=== PATIENT | male | born 1980 | race Caucasian/White ===

== ENCOUNTER → 2016-10-05 | Outpatient (CLI) | payer OTHER ==
[~2016-10-05] MED LIST: /AUGM875TA OR; /ESOM40CA OR; /OXAZ10CA OR; /PANT40TA OR; /THIA10TA OR; ACET65TA OR; AMOX500C PO; AUGM875T27 PO; CIPR500T89 PO; CLIN150C OR; FLOVENT INH INH; FOLI1TAB OR; FOLI1TAB2 PO; KEPP1000 PO; KEPP500T4 PO; KEPP500T6 PO; KEPPRA PO; LISI20TA PO; MAGN500T2 OR; MULTCAP PO; MULTIVIT PO; NICO21DI4 TD; NYSTATIN ORAL SSP; No Historical Meds; OXAZ10CA PO; OXAZ15CA PO; OXAZ15CA2 OR; OXAZ30CA OR; THIA100T OR; TYLE325T5 PO; UNABLE TO VERIFY; VENTAER IN; VENTOLIN ROTAHALER INH; VIBR100C PO; VITA10002 PO; VITA100T OR; VITA100T2 PO; VITA100T60 PO; VITMTA PO; Vit B12 PO; XANA0.5T OR; [UNRECOGNIZED DRUG - CODE] PO; [UNRECOGNIZED DRUG - CODE] PO
== END ==
LOC: M LAB 09:49
PROVIDERS: ATTEND Nurse Practitioner Family
DX: E53.8 Deficiency of other specified B group vitamins (principal)

== ENCOUNTER 2016-10-08 17:31 | Emergency (ER) | payer OTHER ==
[2016-10-08] MEDS ORDERED: levETIRAcetam 500 MG/5 ML VIAL (KEPPRA IV)(J1953) As Ordered ONE (18:35)
--- NOTE | 2016-10-08 18:56 | REP ---
AP PORTABLE CHEST: 10/08/2016. Clinical history: Altered level of consciousness. Comparison: 05/14/2016, 12/06/2014. Findings: Two views to encompass the entirety of the chest and AP portable technique show the lung robles well inflated. The CP angles are sharply defined without pleural effusions. There is no lateral pleural thickening, apical pneumothorax or dense consolidation. No gross cardiomegaly or cindi edema. I see no venous hypertension. Some minor basilar subsegmental atelectatic change suggested on the right. No air bronchograms. The aorta is normal for age. Airway intact. Bony thorax unremarkable. Impression: 1. Minor right base subsegmental atelectatic change without dense consolidation, pleural effusion, cardiomegaly, edema, or other acute finding. Signed by Jacky Balderas MD 10/08/2016 07:42 P
[2016-10-08 18:57] LABS: BASO # 0.1 K/mm3 (0.0-0.2); BASO % 0.9 % (0.0-1.0); EOS # 0.2 K/mm3 (0.0-0.50); EOS % 2.2 % (0.0-3.0); LARGE UNSTAINED CELL # 0.2 K/mm3 (0.0-0.4); LARGE UNSTAINED CELL % 2.5 % (0.0-4.0); LYMPH # 0.5 K/mm3 (1.5-4.5); LYMPH % 6.7 % (24.0-44.0); MEAN CORPUSCULAR HEMOGLOBIN 32.8 pg (27.0-33.0); MEAN CORPUSCULAR HGB CONC 32.9 g/dl (32.0-36.5); MEAN CORPUSCULAR VOLUME 99.5 fl (80.0-96.0); MONO # 0.5 K/mm3 (0.0-0.8); MONO % 6.8 % (0.0-5.0); NEUTROPHILS # 5.7 K/mm3 (1.8-7.7); NEUTROPHILS % 80.9 % (36.0-66.0); PLATELET COUNT, AUTOMATED 280 k/mm3 (150-450); WHITE BLOOD COUNT 7.1 K/mm3 (4.0-10.0)
[2016-10-08 19:15] LABS: ALBUMIN 4.1 GM/DL (3.2-5.2); ALBUMIN/GLOBULIN RATIO 1.32 (1.00-1.93); ALKALINE PHOSPHATASE 74 U/L (45-117); ALT/SGPT 30 U/L (12-78); ANION GAP 10 MEQ/L (8-16); AST/SGOT 25 U/L (15-37); BILIRUBIN,DIRECT 0.2 MG/DL (0.0-0.2); BILIRUBIN,TOTAL 0.7 MG/DL (0.2-1.0); BLOOD UREA NITROGEN 12 MG/DL (7-18); CALCIUM LEVEL 8.8 MG/DL (8.5-10.1); CARBON DIOXIDE LEVEL 25 MEQ/L (21-32); CHLORIDE LEVEL 103 MEQ/L (98-107); CREATININE FOR GFR 0.96 MG/DL (0.70-1.30); GLOMERULAR FILTRATION RATE > 60.0 (>60); GLUCOSE, FASTING 124 MG/DL (70-105); SODIUM LEVEL 138 MEQ/L (136-145); TOTAL PROTEIN 7.2 GM/DL (6.4-8.2)
--- NOTE | 2016-10-08 20:25 | EDDOCDS ---
Physician Documentation [facility] Name: Robinson Bhatti Age: 36 yrs Sex: Male : 1980 Arrival Date: 10/08/2016 Time: 17:31 Bed 11 Private MD: Disposition: 10/08/16 20:10 Discharged to Home/Self Care. Impression: Epilepsy and recurrent seizures. - Condition is Stable. - Discharge Instructions: Seizure, Adult. - Prescriptions for Keppra 500 mg Oral Tablet - take 2 tablet by ORAL route every 12 hours; 40 tablet. - Medication Reconciliation, Local Pharmacy Hours form. - Follow up: Mague Villalobos MD; When: Call to arrange an appointment; Reason: Recheck today's complaints, Continuance of care. - Problem is an acute exacerbation. - Symptoms have improved. Historical: - Allergies: no known allergies; - Home Meds: 1. levetiracetam 1,000 mg oral tab 1 tab every 12 hours (Last dose: 10/08/2016 08:00) 2. Vitamin B-12 Oral daily 3. lisinopril-hydrochlorothiazide 20-12.5 mg oral tab 2 tab once daily 4. folic acid 1 mg Oral tab 1 tab once daily - PMHx: ETOH abuse; Seizure Disorder; - PSHx: none; - Social history: Smoking status: Patient uses tobacco products, current every day smoker. No barriers to communication noted, The patient speaks fluent Montenegrin. - Family history: Not pertinent. - : The pt / caregiver states he / she is not on anticoagulants. Home medication list is obtained from the patient. - Exposure Risk Screening:: None identified. Vital Signs: 10/08 17:40 BP 130 / 85; Pulse 104; Resp 18; Temp 99.7(TE); Pulse Ox 97% on R/A; mdr 17:45 BP 119 / 80 (auto/); js13 17:45 Pulse 96 MON; js13 18:00 BP 120 / 81 (auto/); js13 18:00 Pulse 96 MON; Pulse Ox 89% ; js13 18:30 BP 120 / 80 (auto/); js13 18:30 Pulse 102 MON; Pulse Ox 94% ; js13 18:45 BP 120 / 81 (auto/); js13 18:45 Pulse 90 MON; Pulse Ox 96% ; js13 19:00 BP 116 / 78 (auto/); js13 19:00 Pulse 94 MON; Pulse Ox 96% ; js13 19:05 Pulse 90 MON; Pulse Ox 98% ; mlc 19:11 Pulse 78 MON; mlc 20:13 BP 122 / 80; Pulse 88; Resp 18; Temp 98.4(O); Pulse Ox 97% on R/A; Pain 0/10; hiram MDM: 18:09 Surveyor Helper/Pulse Ox/q 15 min VS ordered. ke 18:09 IV Saline Lock ordered. ke 18:09 Oxygen at 4L/Min NC or Home dosage ordered. ke 18:09 Rhythm Strip to chart ordered. ke 18:09 NS 0.9% 1000 ml IV at 250 mL/hr continuous ordered. ke 18:10 Acetaminophen Level Ordered. EDMS 18:10 CBC with Diff Ordered. EDMS 18:10 Cardiac Injury Profile Ordered. EDMS 18:10 Drug Eval Toxicology ED Only Ordered. EDMS 18:10 Liver Profile Ordered. EDMS 18:10 MED Profile Ordered. EDMS 18:10 Salicylate Level Ordered. EDMS 18:10 Thyroid Stimulating Hormone Ordered. EDMS 18:10 Troponin Ordered. EDMS 18:10 Keppra (short red top tube) Ordered. EDMS 18:10 ETOH Ordered. EDMS 18:11 ECG WITH READING ER PHYS+CARDIAG ordered. EDMS 18:12 Chest, 1 View Ordered. EDMS 18:20 levETIRAcetam (20mg/kg) 1000 mg IVPB at 400 mL/hr once over 15 mins; dilute in 100mL NS ke or D5W ordered. 18:28 Financial registration complete. page hospital 18:50 [facility] Payment Agreement was scanned into [employer] and attached to record. gjb 19:31 Acetaminophen Level Reviewed. ke 19:31 CBC with Diff Reviewed. ke 19:31 MED Profile Reviewed. ke 19:31 Cardiac Injury Profile Reviewed. ke 19:31 Liver Profile Reviewed. ke 19:31 Salicylate Level Reviewed. ke 19:31 Thyroid Stimulating Hormone Reviewed. ke 19:31 Troponin Reviewed. ke 19:31 ETOH Reviewed. ke 19:31 Chest, 1 View Reviewed. ke Administered Medications: 18:20 CANCELLED (Other Intervention Used): levETIRAcetam (20mg/kg) 500 mg IVPB at 400 mL/hr ke once over 15 mins; dilute in 100mL NS or D5W 18:32 Drug: levETIRAcetam (20mg/kg) 1000 mg [levetiracetam 500 mg/5 mL intravenous solution] js13 Route: IVPB; Rate: 400 mL/hr; Infused Over: 15 mins; Site: left forearm; 18:59 Follow up: IV Status: Completed infusion; IV Intake: 100ml js13 18:45 Drug: NS 0.9% 1000 ml [sodium chloride 0.9 % intravenous solution] Route: IV; Rate: 250 js13 mL/hr; Site: left forearm; Signatures: Dispatcher [employer] EDMS Ty Brandt, HUMAN RESOURCES OFFICER HUMAN RESOURCES OFFICER Sayda Fontana RN RN js13 Caron Lemus RN RN mlc Beck, Gabriela gjb The chart was reviewed and I authenticate all verbal orders and agree with the evaluation and treatment provided.Corrections: (The following items were deleted from the chart) 18:20 18:18 levETIRAcetam (20mg/kg) 500 mg IVPB at 400 mL/hr once over 15 mins; dilute in ke 100mL NS or D5W ordered. saumya 18:21 18:09 Accucheck ordered. ke js13 Attachments: 18:50 [facility] Payment Agreement meet MTDD
--- NOTE | 2016-10-08 20:25 | EDDOCDS ---
Nurse's Notes [facility] Name: Robinson Bhatti Age: 36 yrs Sex: Male : 1980 Arrival Date: 10/08/2016 Time: 17:31 Bed 11 Private MD: Diagnosis: Epilepsy and recurrent seizures Presentation: 10/08 17:34 Presenting complaint: EMS states: Patient has had 5 seizures today last one lasting 3.5 js13 minutes. EMS witnessed seizure. Suicide/Homicide risk assessment- the patient denies having any suicidal and/or homicidal ideations and does not present with any other emotional, behavioral or mental health complaints. 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 Transition of care: patient was not received from another setting of care. Care prior to arrival: See EMS report. Medications administered prior to arrival: VERSED 5 MG Saline lock initiated. Glucose check. 156. 17:34 Method Of Arrival: Ambulance js13 17:34 Acuity: JACK Level 3 js13 17:39 Adult Sepsis Screening: Patient has new or worsening altered mentation (1 point). js13 Patient's respiratory rate is less than 22. Systolic blood pressure is greater than 100. Patient has a qSOFA score of 1- Negative Sepsis Screen. Triage Assessment: 17:37 General: Appears in no apparent distress, Behavior is drowsy. Pain: Denies pain. Pt js13 Declines HIV testing. Neurological: Level of Consciousness is post ictal. Respiratory: Airway is patent Respiratory effort is even, unlabored, Respiratory pattern is regular, symmetrical, Breath sounds are clear. Derm: Skin is pink, warm & dry. Historical: - Allergies: no known allergies; - Home Meds: 1. levetiracetam 1,000 mg oral tab 1 tab every 12 hours (Last dose: 10/08/2016 08:00) 2. Vitamin B-12 Oral daily 3. lisinopril-hydrochlorothiazide 20-12.5 mg oral tab 2 tab once daily 4. folic acid 1 mg Oral tab 1 tab once daily - PMHx: ETOH abuse; Seizure Disorder; - PSHx: none; - Social history: Smoking status: Patient uses tobacco products, current every day smoker. No barriers to communication noted, The patient speaks fluent Sami. - Family history: Not pertinent. - : The pt / caregiver states he / she is not on anticoagulants. Home medication list is obtained from the patient. - Exposure Risk Screening:: None identified. Screenin:39 Screening information is obtained from the patient. Fall risk: At risk due to seizures. js13 Assistance ADL's: requires no assistance with activities of daily living. Abuse/DV Screen: The patient / caregiver reports he/she is: not in a situation that causes fear, pain or injury. Nutritional screening: No deficits noted. Advance Directives: There is no active DNR order. home support is adequate. Assessment: 17:40 General: Appears in no apparent distress, Behavior is drowsy. Pain: Denies pain. js13 Neurological: Level of Consciousness is post ictal. Cardiovascular: Rhythm is sinus tachycardia Chest pain is denied. Respiratory: Airway is patent Respiratory effort is even, unlabored, Respiratory pattern is regular, symmetrical, Breath sounds are clear. Derm: Skin is pink, warm & dry. 18:40 General: Appears in no apparent distress, Behavior is uncooperative. Pain: Denies pain. js13 Neurological: Level of Consciousness is awake, alert. Cardiovascular: Rhythm is sinus tachycardia Chest pain is denied. Respiratory: Airway is patent Respiratory effort is even, unlabored, Respiratory pattern is regular, symmetrical. Derm: Skin is pink, warm & dry. 19:11 General: Appears in no apparent distress, comfortable, Behavior is cooperative. mlc General: IV fluids infusing per order. Pain: Denies pain. Neurological: Level of Consciousness is awake, alert, obeys commands, Oriented to person, place, time. Cardiovascular: Rhythm is sinus rhythm. Respiratory: Airway is patent Respiratory effort is even, unlabored, Respiratory pattern is regular. Derm: Skin is pink, warm & dry. 20:18 Reassessment: Patient appears in no apparent distress at this time. General: Appears in mlc no apparent distress, Behavior is cooperative. Pain: Denies pain. Neurological: Level of Consciousness is awake, alert, Oriented to person, place, time. Respiratory: Airway is patent Respiratory effort is even, unlabored, Respiratory pattern is regular. Derm: Skin is pink, warm & dry. Vital Signs: 17:40 BP 130 / 85; Pulse 104; Resp 18; Temp 99.7(TE); Pulse Ox 97% on R/A; mdr 17:45 BP 119 / 80 (auto/); js13 17:45 Pulse 96 MON; js13 18:00 BP 120 / 81 (auto/); js13 18:00 Pulse 96 MON; Pulse Ox 89% ; js13 18:30 BP 120 / 80 (auto/); js13 18:30 Pulse 102 MON; Pulse Ox 94% ; js13 18:45 BP 120 / 81 (auto/); js13 18:45 Pulse 90 MON; Pulse Ox 96% ; js13 19:00 BP 116 / 78 (auto/); js13 19:00 Pulse 94 MON; Pulse Ox 96% ; js13 19:05 Pulse 90 MON; Pulse Ox 98% ; mlc 19:11 Pulse 78 MON; mlc 20:13 BP 122 / 80; Pulse 88; Resp 18; Temp 98.4(O); Pulse Ox 97% on R/A; Pain 0/10; hiram Vitals: 17:37 Log In Time N/A - ambulance arrival. 13 ED Course: 17:32 Patient visited by Justyn Birmingham PCA. [facility] 17:[address] [facility] 17:32 Patient moved to [facility] 17:36 Triage Initiated [facility] 17:39 The patient / caregiver is instructed regarding the plan of care and ED course. Side js13 rails up X2. Seizure precautions initiated. quality assurance monitor on. Pulse ox on. NIBP on. 17:39 Maintain field IV. Dressing intact. Good blood return noted. Site clean & dry. Gauge & 13 site: 18 gauge left forearm. No procedures done that require assistance. 17:40 Patient visited by Martin Rosario PCA. mdr 17:41 Patient visited by Sayda Gomez,DOROTHY. [facility] 17:43 Patient visited by Sayda Gomez,DOROTHY. 13 17:49 O2 via nasal cannula \T\ 2L/min. js13 18:03 Ty Brandt FNP is PHCP. ke 18:03 Patient visited by Ty Brandt FNP. ke 18:03 Patient visited by Ty Brandt FNP. ke 18:21 Patient visited by Yanelis Tellez. lr2 18:21 EKG done. (by ED staff). lr2 18:22 Pt greeted and oriented to ED. Patient advised of names of staff involved in care, lr2 location of call johnson, wait times and NPO status. Patient has correct armband on for positive identification. Placed in gown. Bed in low position. Side rails up X2. 18:23 Patient visited by Yanelis Tellez. lr2 18:50 [facility] Payment Agreement was scanned into [employer] and attached to record. gjb 18:54 Patient visited by Ty Brandt FNP. ke 19:02 Patient visited by Sayda Gomez,DOROTHY. js13 19:11 Caron Lemus,RN is Primary Nurse. mlc 19:13 Patient visited by Caron Lemus,DOROTHY. mlc 19:17 Chest, 1 View Returned. EDMS 19:52 Patient visited by Ty Brandt FNP. ke 20:04 Chest, 1 View Returned. EDMS 20:10 Mague Villalobos MD is Referral Physician. ke 20:14 Patient visited by Jeanne Armstrong PCA. hiram 20:18 Discontinued IV lock intact, bleeding controlled, pressure dressing applied, No mlc redness/swelling at site. Administered Medications: 18:20 CANCELLED (Other Intervention Used): levETIRAcetam (20mg/kg) 500 mg IVPB at 400 mL/hr ke once over 15 mins; dilute in 100mL NS or D5W 18:32 Drug: levETIRAcetam (20mg/kg) 1000 mg [levetiracetam 500 mg/5 mL intravenous solution] js13 Route: IVPB; Rate: 400 mL/hr; Infused Over: 15 mins; Site: left forearm; 18:59 Follow up: IV Status: Completed infusion; IV Intake: 100ml js13 18:45 Drug: NS 0.9% 1000 ml [sodium chloride 0.9 % intravenous solution] Route: IV; Rate: 250 js13 mL/hr; Site: left forearm; Intake: 18:59 IV: 100.00ml; Total: 100.00ml. js13 Order Results: Lab Order: Acetaminophen Level; SPEC'M 10/08/16 18:39 Test: ACETAMINOPHEN LEVEL; Value: < 2.0; Range: 10.0-30.0; Abnormal: Below low normal; Units: UG/ML; Status: F Lab Order: CBC with Diff; SPEC'M 10/08/16 18:39 Test: WHITE BLOOD COUNT; Value: 7.1; Range: 4.0-10.0; Units: K/mm3; Status: F Test: RED BLOOD COUNT; Value: 4.53; Range: 4.30-6.10; Units: M/mm3; Status: F Test: HEMOGLOBIN; Value: 14.8; Range: 14.0-18.0; Units: g/dl; Status: F Test: HEMATOCRIT; Value: 45.1; Range: 42.0-52.0; Units: %; Status: F Test: MEAN CORPUSCULAR VOLUME; Value: 99.5; Range: 80.0-96.0; Abnormal: Above high normal; Units: fl; Status: F Test: MEAN CORPUSCULAR HEMOGLOBIN; Value: 32.8; Range: 27.0-33.0; Units: pg; Status: F Test: MEAN CORPUSCULAR HGB CONC; Value: 32.9; Range: 32.0-36.5; Units: g/dl; Status: F Test: RED CELL DISTRIBUTION WIDTH; Value: 13.0; Range: 11.5-14.5; Units: %; Status: F Test: PLATELET COUNT, AUTOMATED; Value: 280; Range: 150-450; Units: k/mm3; Status: F Test: NEUTROPHILS %; Value: 80.9; Range: 36.0-66.0; Abnormal: Above high normal; Units: %; Status: F Test: LYMPH %; Value: 6.7; Range: 24.0-44.0; Abnormal: Below low normal; Units: %; Status: F Test: MONO %; Value: 6.8; Range: 0.0-5.0; Abnormal: Above high normal; Units: %; Status: F Test: EOS %; Value: 2.2; Range: 0.0-3.0; Units: %; Status: F Test: BASO %; Value: 0.9; Range: 0.0-1.0; Units: %; Status: F Test: LARGE UNSTAINED CELL %; Value: 2.5; Range: 0.0-4.0; Units: %; Status: F Test: NEUTROPHILS #; Value: 5.7; Range: 1.8-7.7; Units: K/mm3; Status: F Test: LYMPH #; Value: 0.5; Range: 1.5-4.5; Abnormal: Below low normal; Units: K/mm3; Status: F Test: MONO #; Value: 0.5; Range: 0.0-0.8; Units: K/mm3; Status: F Test: EOS #; Value: 0.2; Range: 0.0-0.50; Units: K/mm3; Status: F Test: BASO #; Value: 0.1; Range: 0.0-0.2; Units: K/mm3; Status: F Test: LARGE UNSTAINED CELL #; Value: 0.2; Range: 0.0-0.4; Units: K/mm3; Status: F Lab Order: Cardiac Injury Profile; SPEC'M 10/08/16 18:39 Test: CPK CREATINE PHOSPHOKINASE; Value: 106; Range: 39-308; Units: U/L; Status: F Test: CK-MB VALUE MASS; Value: 1.0; Range: 0.0-3.6; Units: NG/ML; Status: F Test: MB/CK RELATIVE INDEX; Value: 0.94; Range: < OR =4; Status: F Test Note: ; DIAGNOSIS CRITERIA MMB ng/ml Relative Index (RI) NON-AMI < or = 5 N/A MURRY ZONE > 5 < or = 4 AMI > 5 > 4 Lab Order: Liver Profile; SPEC'M 10/08/16 18:39 Test: AST/SGOT; Value: 25; Range: 15-37; Units: U/L; Status: F Test: ALT/SGPT; Value: 30; Range: 12-78; Units: U/L; Status: F Test: ALKALINE PHOSPHATASE; Value: 74; Range: 45-117; Units: U/L; Status: F Test: BILIRUBIN,TOTAL; Value: 0.7; Range: 0.2-1.0; Units: MG/DL; Status: F Test: BILIRUBIN,DIRECT; Value: 0.2; Range: 0.0-0.2; Units: MG/DL; Status: F Test: TOTAL PROTEIN; Value: 7.2; Range: 6.4-8.2; Units: GM/DL; Status: F Test: ALBUMIN; Value: 4.1; Range: 3.2-5.2; Units: GM/DL; Status: F Test: ALBUMIN/GLOBULIN RATIO; Value: 1.32; Range: 1.00-1.93; Status: F Lab Order: MED Profile; SPEC'10/08/16 18:39 Test: GLUCOSE, FASTING; Value: 124; Range: 70-105; Abnormal: Above high normal; Units: MG/DL; Status: F Test: BLOOD UREA NITROGEN; Value: 12; Range: 7-18; Units: MG/DL; Status: F Test: CREATININE FOR GFR; Value: 0.96; Range: 0.70-1.30; Units: MG/DL; Status: F Test: GLOMERULAR FILTRATION RATE; Value: > 60.0; Range: >60; Status: F Test: SODIUM LEVEL; Value: 138; Range: 136-145; Units: MEQ/L; Status: F Test: POTASSIUM SERUM; Value: 4.0; Range: 3.5-5.1; Units: MEQ/L; Status: F Test: CHLORIDE LEVEL; Value: 103; Range: 98-107; Units: MEQ/L; Status: F Test: CARBON DIOXIDE LEVEL; Value: 25; Range: 21-32; Units: MEQ/L; Status: F Test: ANION GAP; Value: 10; Range: 8-16; Units: MEQ/L; Status: F Test: CALCIUM LEVEL; Value: 8.8; Range: 8.5-10.1; Units: MG/DL; Status: F Test Note: ; Units are mL/min/1.73 m2 Chronic Kidney Disease Staging per NKF: Stage I & II GFR >=60 Normal to Mildly Decreased Stage III GFR 30-59 Moderately Decreased Stage IV GFR 15-29 Severely Decreased Stage V GFR <15 Very Little GFR Left ESRD GFR <15 on TRANSFORMATION CONSULTANT Lab Order: Salicylate Level; SPEC'10/08/16 18:39 Test: SALICYLATE LEVEL; Value: 5.0; Range: 5.0-30.0; Units: MG/DL; Status: F Lab Order: Thyroid Stimulating Hormone; SPEC'10/08/16 18:39 Test: THYROID STIMULATING HORMONE; Value: 0.787; Range: 0.358-3.740; Units: uIU/ML; Status: F Lab Order: Troponin; SPEC'10/08/16 18:39 Test: TROPONIN I; Value: < 0.02; Range: < 0.10; Units: NG/ML; Status: F Test Note: ; Troponin I Reference Interval for Siemens [place] LOCI: 99th Percentile= 0.00-0.045 ng/ml Risk Stratification: <= 0.10 ng/ml Decreased Risk for Adverse Clinical Events. 0.10-1.50 ng/ml Increased Risk for Adverse Clinical Events. Evaluation of additional criterion and/or repeat testing in 2-6 hours is suggested to rule out myocardial damage. >= 1.50 ng/ml Indicative of Myocardial Injury. Lab Order: ETOH; SPEC'M 10/08/16 18:39 Test: ETHYL ALCOHOL (ETHANOL); Value: < 0.003; Range: 0.000-0.010; Units: %; Status: F Radiology Order: Chest, 1 View Test: Chest, 1 View REASON FOR EXAMINATION: altered loc; AP PORTABLE CHEST: 10/08/2016.; ; Clinical history: Altered level of consciousness.; ; Comparison: 05/14/2016, 12/06/2014.; ; Findings: Two views to encompass the entirety of the chest and AP portable; technique show the lung robles well inflated. The CP angles are sharply defined; without pleural effusions. There is no lateral pleural thickening, apical; pneumothorax or dense consolidation. No gross cardiomegaly or cindi edema. I; see no venous hypertension. Some minor basilar subsegmental atelectatic change; suggested on the right. No air bronchograms. The aorta is normal for age.; Airway intact. Bony thorax unremarkable.; ; Impression:; ; 1. Minor right base subsegmental atelectatic change without dense consolidation,; pleural effusion, cardiomegaly, edema, or other acute finding.; ; ; Signed by; Jacky Balderas MD 10/08/2016 07:42 P; Outcome: 20:10 Discharge ordered by Provider. ke 20:18 Discharge Assessment: Patient awake, alert and oriented x 3. No cognitive and/or mlc functional deficits noted. Patient verbalized understanding of disposition instructions. patient administered narcotics - no. The following High Risk Discharge criteria are identified: None. Discharged to home ambulatory. Condition: good Condition: stable. Discharge instructions given to patient, Instructed on discharge instructions, follow up and referral plans. medication usage, Demonstrated understanding of instructions, medications, Pt was receptive of discharge instructions/ teaching. Prescriptions given X 1. No special radiology studies were completed. Property sent home with patient. 20:23 Patient left the ED. [facility] [place] Signatures: Dispatcher [employer] EDMS Ty Brandt, CONCRETE PLANT LABORER CONCRETE PLANT LABORER Jeanne Lyles, CAT DRIVER CAT DRIVER Sayda Nicholas,RN RN js13 Justyn Birmingham, CAT DRIVER CAT DRIVER Caron Reveles RN RN [place], CAT DRIVER CAT DRIVER Fatimah Wisdom Laura lr2 MTDD
--- NOTE | 2016-10-09 20:44 | ECGEPIP ---
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
--- NOTE | 2016-10-10 21:24 | EDDOCDS ---
Nurse's Notes [facility] Name: Robinson Carter Age: 36 yrs Sex: Male : 1980 Arrival Date: 10/08/2016 Time: 17:31 Bed 11 Private MD: Diagnosis: Epilepsy and recurrent seizures Presentation: 10/08 17:34 Presenting complaint: EMS states: Patient has had 5 seizures today last one lasting 3.5 js13 minutes. EMS witnessed seizure. Suicide/Homicide risk assessment- the patient denies having any suicidal and/or homicidal ideations and does not present with any other emotional, behavioral or mental health complaints. Status: Patient is not a sales service executive or dependent. Transition of care: patient was not received from another setting of care. Care prior to arrival: See EMS report. Medications administered prior to arrival: VERSED 5 MG Saline lock initiated. Glucose check. 156. 17:34 Method Of Arrival: Ambulance js13 17:34 Acuity: JACK Level 3 js13 17:39 Adult Sepsis Screening: Patient has new or worsening altered mentation (1 point). js13 Patient's respiratory rate is less than 22. Systolic blood pressure is greater than 100. Patient has a qSOFA score of 1- Negative Sepsis Screen. Triage Assessment: 17:37 General: Appears in no apparent distress, Behavior is drowsy. Pain: Denies pain. Pt js13 Declines HIV testing. Neurological: Level of Consciousness is post ictal. Respiratory: Airway is patent Respiratory effort is even, unlabored, Respiratory pattern is regular, symmetrical, Breath sounds are clear. Derm: Skin is pink, warm & dry. Historical: - Allergies: no known allergies; - Home Meds: 1. levetiracetam 1,000 mg oral tab 1 tab every 12 hours (Last dose: 10/08/2016 08:00) 2. Vitamin B-12 Oral daily 3. lisinopril-hydrochlorothiazide 20-12.5 mg oral tab 2 tab once daily 4. folic acid 1 mg Oral tab 1 tab once daily - PMHx: ETOH abuse; Seizure Disorder; - PSHx: none; - Social history: Smoking status: Patient uses tobacco products, current every day smoker. No barriers to communication noted, The patient speaks fluent Croatian. - Family history: Not pertinent. - : The pt / caregiver states he / she is not on anticoagulants. Home medication list is obtained from the patient. - Exposure Risk Screening:: None identified. Screenin:39 Screening information is obtained from the patient. Fall risk: At risk due to seizures. js13 Assistance ADL's: requires no assistance with activities of daily living. Abuse/DV Screen: The patient / caregiver reports he/she is: not in a situation that causes fear, pain or injury. Nutritional screening: No deficits noted. Advance Directives: There is no active DNR order. home support is adequate. Assessment: 17:40 General: Appears in no apparent distress, Behavior is drowsy. Pain: Denies pain. js13 Neurological: Level of Consciousness is post ictal. Cardiovascular: Rhythm is sinus tachycardia Chest pain is denied. Respiratory: Airway is patent Respiratory effort is even, unlabored, Respiratory pattern is regular, symmetrical, Breath sounds are clear. Derm: Skin is pink, warm & dry. 18:40 General: Appears in no apparent distress, Behavior is uncooperative. Pain: Denies pain. js13 Neurological: Level of Consciousness is awake, alert. Cardiovascular: Rhythm is sinus tachycardia Chest pain is denied. Respiratory: Airway is patent Respiratory effort is even, unlabored, Respiratory pattern is regular, symmetrical. Derm: Skin is pink, warm & dry. 19:11 General: Appears in no apparent distress, comfortable, Behavior is cooperative. mlc General: IV fluids infusing per order. Pain: Denies pain. Neurological: Level of Consciousness is awake, alert, obeys commands, Oriented to person, place, time. Cardiovascular: Rhythm is sinus rhythm. Respiratory: Airway is patent Respiratory effort is even, unlabored, Respiratory pattern is regular. Derm: Skin is pink, warm & dry. 20:18 Reassessment: Patient appears in no apparent distress at this time. General: Appears in mlc no apparent distress, Behavior is cooperative. Pain: Denies pain. Neurological: Level of Consciousness is awake, alert, Oriented to person, place, time. Respiratory: Airway is patent Respiratory effort is even, unlabored, Respiratory pattern is regular. Derm: Skin is pink, warm & dry. Vital Signs: 17:40 BP 130 / 85; Pulse 104; Resp 18; Temp 99.7(TE); Pulse Ox 97% on R/A; mdr 17:45 BP 119 / 80 (auto/); js13 17:45 Pulse 96 MON; js13 18:00 BP 120 / 81 (auto/); js13 18:00 Pulse 96 MON; Pulse Ox 89% ; js13 18:30 BP 120 / 80 (auto/); js13 18:30 Pulse 102 MON; Pulse Ox 94% ; js13 18:45 BP 120 / 81 (auto/); js13 18:45 Pulse 90 MON; Pulse Ox 96% ; js13 19:00 BP 116 / 78 (auto/); js13 19:00 Pulse 94 MON; Pulse Ox 96% ; js13 19:05 Pulse 90 MON; Pulse Ox 98% ; mlc 19:11 Pulse 78 MON; mlc 20:13 BP 122 / 80; Pulse 88; Resp 18; Temp 98.4(O); Pulse Ox 97% on R/A; Pain 0/10; hiram Vitals: 17:37 Log In Time N/A - ambulance arrival. 13 ED Course: 17:32 Patient visited by Justyn Birmingham PCA. [facility] 17:32 Patient moved to [facility] 17:32 Patient moved to [facility] 17:36 Triage Initiated [facility] 17:39 The patient / caregiver is instructed regarding the plan of care and ED course. Side js13 rails up X2. Seizure precautions initiated. secured entrance monitor on. Pulse ox on. NIBP on. 17:39 Maintain field IV. Dressing intact. Good blood return noted. Site clean & dry. Gauge & 13 site: 18 gauge left forearm. No procedures done that require assistance. 17:40 Patient visited by Martin Rosario PCA. mdr 17:41 Patient visited by Sayda Gomez,DOROTHY. [facility] 17:43 Patient visited by Sayda Gomez,DOROTHY. 13 17:49 O2 via nasal cannula \T\ 2L/min. js13 18:03 Ty Brandt FNP is PHCP. ke 18:03 Patient visited by Ty Brandt FNP. ke 18:03 Patient visited by Ty Brandt FNP. ke 18:21 Patient visited by Yanelis Tellez. lr2 18:21 EKG done. (by ED staff). lr2 18:22 Pt greeted and oriented to ED. Patient advised of names of staff involved in care, lr2 location of call johnson, wait times and NPO status. Patient has correct armband on for positive identification. Placed in gown. Bed in low position. Side rails up X2. 18:23 Patient visited by Yanelis Tellez. lr2 18:50 [facility] Payment Agreement was scanned into [email or web address] and attached to record. gjb 18:54 Patient visited by Ty Brandt FNP. ke 19:02 Patient visited by Sayda Gomez,DOROTHY. js13 19:11 Caron Lemus,RN is Primary Nurse. mlc 19:13 Patient visited by Caron Lemus,DOROTHY. mlc 19:17 Chest, 1 View Returned. EDMS 19:52 Patient visited by Ty Brandt FNP. ke 20:04 Chest, 1 View Returned. EDMS 20:10 Mague Villalobos MD is Referral Physician. ke 20:14 Patient visited by Jeanne Armstrong PCA. hiram 20:18 Discontinued IV lock intact, bleeding controlled, pressure dressing applied, No mlc redness/swelling at site. 10/09 10:45 T-Sheet-- Draft Copy was scanned into [email or web address] and attached to record. gb 10:45 ECG/EKG was scanned into [email or web address] and attached to record. gb 21:23 EKG-ADULT Returned. EDMS Administered Medications: 10/08 18:20 CANCELLED (Other Intervention Used): levETIRAcetam (20mg/kg) 500 mg IVPB at 400 mL/hr ke once over 15 mins; dilute in 100mL NS or D5W 18:32 Drug: levETIRAcetam (20mg/kg) 1000 mg [levetiracetam 500 mg/5 mL intravenous solution] js13 Route: IVPB; Rate: 400 mL/hr; Infused Over: 15 mins; Site: left forearm; 18:59 Follow up: IV Status: Completed infusion; IV Intake: 100ml js13 18:45 Drug: NS 0.9% 1000 ml [sodium chloride 0.9 % intravenous solution] Route: IV; Rate: 250 js13 mL/hr; Site: left forearm; Intake: 18:59 IV: 100.00ml; Total: 100.00ml. js13 Order Results: Lab Order: Acetaminophen Level; SPEC'M 10/08/16 18:39 Test: ACETAMINOPHEN LEVEL; Value: < 2.0; Range: 10.0-30.0; Abnormal: Below low normal; Units: UG/ML; Status: F Lab Order: CBC with Diff; SPEC'M 10/08/16 18:39 Test: WHITE BLOOD COUNT; Value: 7.1; Range: 4.0-10.0; Units: K/mm3; Status: F Test: RED BLOOD COUNT; Value: 4.53; Range: 4.30-6.10; Units: M/mm3; Status: F Test: HEMOGLOBIN; Value: 14.8; Range: 14.0-18.0; Units: g/dl; Status: F Test: HEMATOCRIT; Value: 45.1; Range: 42.0-52.0; Units: %; Status: F Test: MEAN CORPUSCULAR VOLUME; Value: 99.5; Range: 80.0-96.0; Abnormal: Above high normal; Units: fl; Status: F Test: MEAN CORPUSCULAR HEMOGLOBIN; Value: 32.8; Range: 27.0-33.0; Units: pg; Status: F Test: MEAN CORPUSCULAR HGB CONC; Value: 32.9; Range: 32.0-36.5; Units: g/dl; Status: F Test: RED CELL DISTRIBUTION WIDTH; Value: 13.0; Range: 11.5-14.5; Units: %; Status: F Test: PLATELET COUNT, AUTOMATED; Value: 280; Range: 150-450; Units: k/mm3; Status: F Test: NEUTROPHILS %; Value: 80.9; Range: 36.0-66.0; Abnormal: Above high normal; Units: %; Status: F Test: LYMPH %; Value: 6.7; Range: 24.0-44.0; Abnormal: Below low normal; Units: %; Status: F Test: MONO %; Value: 6.8; Range: 0.0-5.0; Abnormal: Above high normal; Units: %; Status: F Test: EOS %; Value: 2.2; Range: 0.0-3.0; Units: %; Status: F Test: BASO %; Value: 0.9; Range: 0.0-1.0; Units: %; Status: F Test: LARGE UNSTAINED CELL %; Value: 2.5; Range: 0.0-4.0; Units: %; Status: F Test: NEUTROPHILS #; Value: 5.7; Range: 1.8-7.7; Units: K/mm3; Status: F Test: LYMPH #; Value: 0.5; Range: 1.5-4.5; Abnormal: Below low normal; Units: K/mm3; Status: F Test: MONO #; Value: 0.5; Range: 0.0-0.8; Units: K/mm3; Status: F Test: EOS #; Value: 0.2; Range: 0.0-0.50; Units: K/mm3; Status: F Test: BASO #; Value: 0.1; Range: 0.0-0.2; Units: K/mm3; Status: F Test: LARGE UNSTAINED CELL #; Value: 0.2; Range: 0.0-0.4; Units: K/mm3; Status: F Lab Order: Cardiac Injury Profile; SPEC'M 10/08/16 18:39 Test: CPK CREATINE PHOSPHOKINASE; Value: 106; Range: 39-308; Units: U/L; Status: F Test: CK-MB VALUE MASS; Value: 1.0; Range: 0.0-3.6; Units: NG/ML; Status: F Test: MB/CK RELATIVE INDEX; Value: 0.94; Range: < OR =4; Status: F Test Note: ; DIAGNOSIS CRITERIA MMB ng/ml Relative Index (RI) NON-AMI < or = 5 N/A MURRY ZONE > 5 < or = 4 AMI > 5 > 4 Lab Order: Liver Profile; SPEC'M 10/08/16 18:39 Test: AST/SGOT; Value: 25; Range: 15-37; Units: U/L; Status: F Test: ALT/SGPT; Value: 30; Range: 12-78; Units: U/L; Status: F Test: ALKALINE PHOSPHATASE; Value: 74; Range: 45-117; Units: U/L; Status: F Test: BILIRUBIN,TOTAL; Value: 0.7; Range: 0.2-1.0; Units: MG/DL; Status: F Test: BILIRUBIN,DIRECT; Value: 0.2; Range: 0.0-0.2; Units: MG/DL; Status: F Test: TOTAL PROTEIN; Value: 7.2; Range: 6.4-8.2; Units: GM/DL; Status: F Test: ALBUMIN; Value: 4.1; Range: 3.2-5.2; Units: GM/DL; Status: F Test: ALBUMIN/GLOBULIN RATIO; Value: 1.32; Range: 1.00-1.93; Status: F Lab Order: MED Profile; SPEC'M 10/08/16 18:39 Test: GLUCOSE, FASTING; Value: 124; Range: 70-105; Abnormal: Above high normal; Units: MG/DL; Status: F Test: BLOOD UREA NITROGEN; Value: 12; Range: 7-18; Units: MG/DL; Status: F Test: CREATININE FOR GFR; Value: 0.96; Range: 0.70-1.30; Units: MG/DL; Status: F Test: GLOMERULAR FILTRATION RATE; Value: > 60.0; Range: >60; Status: F Test: SODIUM LEVEL; Value: 138; Range: 136-145; Units: MEQ/L; Status: F Test: POTASSIUM SERUM; Value: 4.0; Range: 3.5-5.1; Units: MEQ/L; Status: F Test: CHLORIDE LEVEL; Value: 103; Range: 98-107; Units: MEQ/L; Status: F Test: CARBON DIOXIDE LEVEL; Value: 25; Range: 21-32; Units: MEQ/L; Status: F Test: ANION GAP; Value: 10; Range: 8-16; Units: MEQ/L; Status: F Test: CALCIUM LEVEL; Value: 8.8; Range: 8.5-10.1; Units: MG/DL; Status: F Test Note: ; Units are mL/min/1.73 m2 Chronic Kidney Disease Staging per NKF: Stage I & II GFR >=60 Normal to Mildly Decreased Stage III GFR 30-59 Moderately Decreased Stage IV GFR 15-29 Severely Decreased Stage V GFR <15 Very Little GFR Left ESRD GFR <15 on PANEL ASSEMBLER Lab Order: Salicylate Level; SPEC'10/08/16 18:39 Test: SALICYLATE LEVEL; Value: 5.0; Range: 5.0-30.0; Units: MG/DL; Status: F Lab Order: Thyroid Stimulating Hormone; SPEC'10/08/16 18:39 Test: THYROID STIMULATING HORMONE; Value: 0.787; Range: 0.358-3.740; Units: uIU/ML; Status: F Lab Order: Troponin; SPEC'M 10/08/16 18:39 Test: TROPONIN I; Value: < 0.02; Range: < 0.10; Units: NG/ML; Status: F Test Note: ; Troponin I Reference Interval for Siemens [place] LOCI: 99th Percentile= 0.00-0.045 ng/ml Risk Stratification: <= 0.10 ng/ml Decreased Risk for Adverse Clinical Events. 0.10-1.50 ng/ml Increased Risk for Adverse Clinical Events. Evaluation of additional criterion and/or repeat testing in 2-6 hours is suggested to rule out myocardial damage. >= 1.50 ng/ml Indicative of Myocardial Injury. Lab Order: ETOH; SPEC'M 10/08/16 18:39 Test: ETHYL ALCOHOL (ETHANOL); Value: < 0.003; Range: 0.000-0.010; Units: %; Status: F Radiology Order: Chest, 1 View Test: Chest, 1 View REASON FOR EXAMINATION: altered loc; AP PORTABLE CHEST: 10/08/2016.; ; Clinical history: Altered level of consciousness.; ; Comparison: 05/14/2016, 12/06/2014.; ; Findings: Two views to encompass the entirety of the chest and AP portable; technique show the lung robles well inflated. The CP angles are sharply defined; without pleural effusions. There is no lateral pleural thickening, apical; pneumothorax or dense consolidation. No gross cardiomegaly or cindi edema. I; see no venous hypertension. Some minor basilar subsegmental atelectatic change; suggested on the right. No air bronchograms. The aorta is normal for age.; Airway intact. Bony thorax unremarkable.; ; Impression:; ; 1. Minor right base subsegmental atelectatic change without dense consolidation,; pleural effusion, cardiomegaly, edema, or other acute finding.; ; ; Signed by; Jacky Balderas MD 10/08/2016 07:42 P; Radiology Order: EKG-ADULT Test: EKG-ADULT REASON FOR EXAMINATION: sz; Stationary ECG Study; [facility] - ED; ; Test Date: 2016-10-08; Pat Name: ROBINSON CARTER Department:; Room: -; Gender: M Faculty Support Coordinator: elaine; : 1980 Requested By: TY FERRARI; Order Number: [id number] Reading MD: Lynne Patten; Measurements; Intervals [place]; Rate: 91 P: 58; OH: 151 QRS: 38; QRSD: 85 T: 64; QT: 340; QTc: 419; Interpretive Statements; SINUS RHYTHM; POSSIBLE LEFT ATRIAL ENLARGEMENT; LOW VOLTAGE LIMB; DECREASED RATE 01/03/15; Electronically Signed On 10-09-2016 20:43:50 EST by Lynne Patten; Outcome: 20:10 Discharge ordered by Provider. ke 20:18 Discharge Assessment: Patient awake, alert and oriented x 3. No cognitive and/or mlc functional deficits noted. Patient verbalized understanding of disposition instructions. patient administered narcotics - no. The following High Risk Discharge criteria are identified: None. Discharged to home ambulatory. Condition: good Condition: stable. Discharge instructions given to patient, Instructed on discharge instructions, follow up and referral plans. medication usage, Demonstrated understanding of instructions, medications, Pt was receptive of discharge instructions/ teaching. Prescriptions given X 1. No special radiology studies were completed. Property sent home with patient. 20:23 Patient left the ED. mlc Signatures: Dispatcher [employer] EDMS Daxa Nava, Ty Upton FNP FNP ke Ewald, Destiny, MEDICAL IMAGING TECHNOLOGIST MEDICAL IMAGING TECHNOLOGIST Sayda Nicholas,DOROTHY RN js13 Justyn Birmingham, MEDICAL IMAGING TECHNOLOGIST MEDICAL IMAGING TECHNOLOGIST Caron Reveles RN RN mlc Rick, Mitchell, MEDICAL IMAGING TECHNOLOGIST MEDICAL IMAGING TECHNOLOGIST Fatimah Wisdom Laura lr2 Chart Complete MTDD
--- NOTE | 2016-10-10 21:24 | EDDOCDS ---
Physician Documentation [facility] Name: Robinson Bhatti Age: 36 yrs Sex: Male : 1980 Arrival Date: 10/08/2016 Time: 17:31 Bed 11 Private MD: Disposition: 10/08/16 20:10 Discharged to Home/Self Care. Impression: Epilepsy and recurrent seizures. - Condition is Stable. - Discharge Instructions: Seizure, Adult. - Prescriptions for Keppra 500 mg Oral Tablet - take 2 tablet by ORAL route every 12 hours; 40 tablet. - Medication Reconciliation, Local Pharmacy Hours form. - Follow up: Mague Villalobos MD; When: Call to arrange an appointment; Reason: Recheck today's complaints, Continuance of care. - Problem is an acute exacerbation. - Symptoms have improved. Historical: - Allergies: no known allergies; - Home Meds: 1. levetiracetam 1,000 mg oral tab 1 tab every 12 hours (Last dose: 10/08/2016 08:00) 2. Vitamin B-12 Oral daily 3. lisinopril-hydrochlorothiazide 20-12.5 mg oral tab 2 tab once daily 4. folic acid 1 mg Oral tab 1 tab once daily - PMHx: ETOH abuse; Seizure Disorder; - PSHx: none; - Social history: Smoking status: Patient uses tobacco products, current every day smoker. No barriers to communication noted, The patient speaks fluent Bulgarian. - Family history: Not pertinent. - : The pt / caregiver states he / she is not on anticoagulants. Home medication list is obtained from the patient. - Exposure Risk Screening:: None identified. Vital Signs: 10/08 17:40 BP 130 / 85; Pulse 104; Resp 18; Temp 99.7(TE); Pulse Ox 97% on R/A; mdr 17:45 BP 119 / 80 (auto/); js13 17:45 Pulse 96 MON; js13 18:00 BP 120 / 81 (auto/); js13 18:00 Pulse 96 MON; Pulse Ox 89% ; js13 18:30 BP 120 / 80 (auto/); js13 18:30 Pulse 102 MON; Pulse Ox 94% ; js13 18:45 BP 120 / 81 (auto/); js13 18:45 Pulse 90 MON; Pulse Ox 96% ; js13 19:00 BP 116 / 78 (auto/); js13 19:00 Pulse 94 MON; Pulse Ox 96% ; js13 19:05 Pulse 90 MON; Pulse Ox 98% ; mlc 19:11 Pulse 78 MON; mlc 20:13 BP 122 / 80; Pulse 88; Resp 18; Temp 98.4(O); Pulse Ox 97% on R/A; Pain 0/10; hiram MDM: 18:09 Tour Operator/Pulse Ox/q 15 min VS ordered. ke 18:09 IV Saline Lock ordered. ke 18:09 Oxygen at 4L/Min NC or Home dosage ordered. ke 18:09 Rhythm Strip to chart ordered. ke 18:09 NS 0.9% 1000 ml IV at 250 mL/hr continuous ordered. ke 18:10 Acetaminophen Level Ordered. EDMS 18:10 CBC with Diff Ordered. EDMS 18:10 Cardiac Injury Profile Ordered. EDMS 18:10 Drug Eval Toxicology ED Only Ordered. EDMS 18:10 Liver Profile Ordered. EDMS 18:10 MED Profile Ordered. EDMS 18:10 Salicylate Level Ordered. EDMS 18:10 Thyroid Stimulating Hormone Ordered. EDMS 18:10 Troponin Ordered. EDMS 18:10 Keppra (short red top tube) Ordered. EDMS 18:10 ETOH Ordered. EDMS 18:11 ECG WITH READING ER PHYS+CARDIAG ordered. EDMS 18:12 Chest, 1 View Ordered. EDMS 18:20 levETIRAcetam (20mg/kg) 1000 mg IVPB at 400 mL/hr once over 15 mins; dilute in 100mL NS ke or D5W ordered. 18:28 Financial registration complete. gjb 18:50 [facility] Payment Agreement was scanned into [employer] and attached to record. gjb 19:31 Acetaminophen Level Reviewed. ke 19:31 CBC with Diff Reviewed. ke 19:31 MED Profile Reviewed. ke 19:31 Cardiac Injury Profile Reviewed. ke 19:31 Liver Profile Reviewed. ke 19:31 Salicylate Level Reviewed. ke 19:31 Thyroid Stimulating Hormone Reviewed. ke 19:31 Troponin Reviewed. ke 19:31 ETOH Reviewed. ke 19:31 Chest, 1 View Reviewed. ke 10/09 10:45 T-Sheet-- Draft Copy was scanned into [employer] and attached to record. gb 10:45 ECG/EKG was scanned into [employer] and attached to record. gb Administered Medications: 10/08 18:20 CANCELLED (Other Intervention Used): levETIRAcetam (20mg/kg) 500 mg IVPB at 400 mL/hr ke once over 15 mins; dilute in 100mL NS or D5W 18:32 Drug: levETIRAcetam (20mg/kg) 1000 mg [levetiracetam 500 mg/5 mL intravenous solution] js13 Route: IVPB; Rate: 400 mL/hr; Infused Over: 15 mins; Site: left forearm; 18:59 Follow up: IV Status: Completed infusion; IV Intake: 100ml js13 18:45 Drug: NS 0.9% 1000 ml [sodium chloride 0.9 % intravenous solution] Route: IV; Rate: 250 js13 mL/hr; Site: left forearm; Signatures: Dispatcher [employer] EDMS Daxa Nava, Reg Reg gb Ty Brandt, SEED POTATO ARRANGER Sayda Villatoro RN RN js13 Caron Lemus RN RN mlc Beck, Gabriela gjb The chart was reviewed and I authenticate all verbal orders and agree with the evaluation and treatment provided.Corrections: (The following items were deleted from the chart) 18:20 18:18 levETIRAcetam (20mg/kg) 500 mg IVPB at 400 mL/hr once over 15 mins; dilute in ke 100mL NS or D5W ordered. ke 18:21 18:09 Accucheck ordered. saumya js13 Attachments: 18:50 [facility] Payment Agreement [facility] 10/09 10:45 T-Sheet-- Draft Copy gb 10:45 ECG/EKG Chart Complete MTDD
--- NOTE | 2016-10-10 21:24 | EDDOCDS ---
Physician Documentation [facility] Name: Robinson Bhatti Age: 36 yrs Sex: Male : 1980 Arrival Date: 10/08/2016 Time: 17:31 Bed 11 Private MD: Disposition: 10/08/16 20:10 Discharged to Home/Self Care. Impression: Epilepsy and recurrent seizures. - Condition is Stable. - Discharge Instructions: Seizure, Adult. - Prescriptions for Keppra 500 mg Oral Tablet - take 2 tablet by ORAL route every 12 hours; 40 tablet. - Medication Reconciliation, Local Pharmacy Hours form. - Follow up: Mague Villalobos MD; When: Call to arrange an appointment; Reason: Recheck today's complaints, Continuance of care. - Problem is an acute exacerbation. - Symptoms have improved. Historical: - Allergies: no known allergies; - Home Meds: 1. levetiracetam 1,000 mg oral tab 1 tab every 12 hours (Last dose: 10/08/2016 08:00) 2. Vitamin B-12 Oral daily 3. lisinopril-hydrochlorothiazide 20-12.5 mg oral tab 2 tab once daily 4. folic acid 1 mg Oral tab 1 tab once daily - PMHx: ETOH abuse; Seizure Disorder; - PSHx: none; - Social history: Smoking status: Patient uses tobacco products, current every day smoker. No barriers to communication noted, The patient speaks fluent [place]agu[place]. - Family history: Not pertinent. - : The pt / caregiver states he / she is not on anticoagulants. Home medication list is obtained from the patient. - Exposure Risk Screening:: None identified. Vital Signs: 10/08 17:40 BP 130 / 85; Pulse 104; Resp 18; Temp 99.7(TE); Pulse Ox 97% on R/A; mdr 17:45 BP 119 / 80 (auto/); js13 17:45 Pulse 96 MON; js13 18:00 BP 120 / 81 (auto/); js13 18:00 Pulse 96 MON; Pulse Ox 89% ; js13 18:30 BP 120 / 80 (auto/); js13 18:30 Pulse 102 MON; Pulse Ox 94% ; js13 18:45 BP 120 / 81 (auto/); js13 18:45 Pulse 90 MON; Pulse Ox 96% ; js13 19:00 BP 116 / 78 (auto/); js13 19:00 Pulse 94 MON; Pulse Ox 96% ; js13 19:05 Pulse 90 MON; Pulse Ox 98% ; mlc 19:11 Pulse 78 MON; mlc 20:13 BP 122 / 80; Pulse 88; Resp 18; Temp 98.4(O); Pulse Ox 97% on R/A; Pain 0/10; hiram MDM: 18:09 Partnership Development Manager/Pulse Ox/q 15 min VS ordered. ke 18:09 IV Saline Lock ordered. ke 18:09 Oxygen at 4L/Min NC or Home dosage ordered. ke 18:09 Rhythm Strip to chart ordered. ke 18:09 NS 0.9% 1000 ml IV at 250 mL/hr continuous ordered. ke 18:10 Acetaminophen Level Ordered. EDMS 18:10 CBC with Diff Ordered. EDMS 18:10 Cardiac Injury Profile Ordered. EDMS 18:10 Drug Eval Toxicology ED Only Ordered. EDMS 18:10 Liver Profile Ordered. EDMS 18:10 MED Profile Ordered. EDMS 18:10 Salicylate Level Ordered. EDMS 18:10 Thyroid Stimulating Hormone Ordered. EDMS 18:10 Troponin Ordered. EDMS 18:10 Keppra (short red top tube) Ordered. EDMS 18:10 ETOH Ordered. EDMS 18:11 ECG WITH READING ER PHYS+CARDIAG ordered. EDMS 18:12 Chest, 1 View Ordered. EDMS 18:20 levETIRAcetam (20mg/kg) 1000 mg IVPB at 400 mL/hr once over 15 mins; dilute in 100mL NS ke or D5W ordered. 18:28 Financial registration complete. gjb 18:50 [facility] [place] Agreement was scanned into [employer] and attached to record. gjb 19:31 Acetaminophen Level Reviewed. ke 19:31 CBC with Diff Reviewed. ke 19:31 MED Profile Reviewed. ke 19:31 Cardiac Injury Profile Reviewed. ke 19:31 Liver Profile Reviewed. ke 19:31 Salicylate Level Reviewed. ke 19:31 Thyroid Stimulating Hormone Reviewed. ke 19:31 Troponin Reviewed. ke 19:31 ETOH Reviewed. ke 19:31 Chest, 1 View Reviewed. ke 10/09 10:45 T-Sheet-- Draft Copy was scanned into [employer] and attached to record. gb 10:45 ECG/EKG was scanned into [employer] and attached to record. gb Administered Medications: 10/08 18:20 CANCELLED (Other Intervention Used): levETIRAcetam (20mg/kg) 500 mg IVPB at 400 mL/hr ke once over 15 mins; dilute in 100mL NS or D5W 18:32 Drug: levETIRAcetam (20mg/kg) 1000 mg [levetiracetam 500 mg/5 mL intravenous solution] js13 Route: IVPB; Rate: 400 mL/hr; Infused Over: 15 mins; Site: left forearm; 18:59 Follow up: IV Status: Completed infusion; IV Intake: 100ml js13 18:45 Drug: NS 0.9% 1000 ml [sodium chloride 0.9 % intravenous solution] Route: IV; Rate: 250 js13 mL/hr; Site: left forearm; Signatures: Dispatcher [employer] EDMS Daxa Nava, Reg Reg gb Ty Brandt, MONITORING TECH Sayda Villatoro RN RN js13 Caron Lemus RN RN mlc Beck, Gabriela gjb The chart was reviewed and I authenticate all verbal orders and agree with the evaluation and treatment provided.Corrections: (The following items were deleted from the chart) 18:20 18:18 levETIRAcetam (20mg/kg) 500 mg IVPB at 400 mL/hr once over 15 mins; dilute in ke 100mL NS or D5W ordered. ke 18:21 18:09 Accucheck ordered. saumya js13 Attachments: 18:50 [facility] Payment Agreement [facility] 10/09 10:45 T-Sheet-- Draft Copy gb 10:45 ECG/EKG Chart Complete MTDD
== END 2016-10-08 20:23 | disposition home or self-care (01) ==
LOC: M ED 17:31
DX: G40.909 Epilepsy, unspecified, not intractable, without status epilepticus (principal); F10.10 Alcohol abuse, uncomplicated; F17.200 Nicotine dependence, unspecified, uncomplicated; Z79.899 Other long term (current) drug therapy
CPT/HCPCS: 71010; 80048; 80076; 80180; 82550; 82553; 84443; 85025; 93005; 93041; 96365; 99285; G0480; J1953

== ENCOUNTER 2016-11-04 05:40 | Emergency (ER) | payer OTHER ==
[~2016-11-04] VITALS: Ht 182.9 cm; Wt 75.5 kg
[2016-11-04] MEDS ORDERED: FOLIC ACID 1MG/0.2ML VIAL As Ordered ONE (06:11)
[2016-11-04] MEDS ORDERED: MVI -ADULT INJECTION 10 ML VIAL As Ordered ONE (06:11)
[2016-11-04] MEDS ORDERED: THIAMINE HCL 200 MG/2 ML VIAL (J3411) As Ordered ONE (06:11)
[2016-11-04 06:27] LABS: ANION GAP 12 MEQ/L (8-16); BLOOD UREA NITROGEN 6 MG/DL (7-18); CALCIUM LEVEL 8.1 MG/DL (8.5-10.1); CARBON DIOXIDE LEVEL 23 MEQ/L (21-32); CHLORIDE LEVEL 105 MEQ/L (98-107); CREATININE FOR GFR 1.09 MG/DL (0.70-1.30); GLOMERULAR FILTRATION RATE > 60.0 (>60); GLUCOSE, FASTING 127 MG/DL (70-105); POTASSIUM SERUM 4.2 MEQ/L (3.5-5.1); SODIUM LEVEL 140 MEQ/L (136-145)
[2016-11-04] MEDS ORDERED: MULTIVITAMIN -ADULT INJECTION 10 ML, FOLIC ACID 1 MG, THIAMINE INJection 100 MG in NS 1... IV SCH (06:30)
[2016-11-04] MEDS ORDERED: levETIRAcetam 500 MG/5 ML VIAL (KEPPRA IV)(J1953) As Ordered ONE (06:35)
--- NOTE | 2016-11-04 07:30 | REPUSA ---
CLINICAL HISTORY: Syncope. TECHNIQUE: Multiple axial brain CT scan sections were obtained from base to vertex without contrast a dministration. COMMENTS: The study shows normal configuration of sella turcica. There are no intra or extra-axial collections. There is no mass effect or midline shift. There is no evidence of hematoma formation. No hydrocephal us is present. No abnormal calcifications are noted. No significant abnormalities are seen either in the posterior fossa or supratentorial compartment. The sinuses and mastoid air cells are patent. IMPRESSION: No evidence of acute intracranial pathology. Thank you for your kind referral of this patient.
[2016-11-04 08:37] LABS: BASO # 0.1 K/mm3 (0.0-0.2); BASO % 0.8 % (0.0-1.0); EOS # 0.2 K/mm3 (0.0-0.50); LARGE UNSTAINED CELL # 0.1 K/mm3 (0.0-0.4); LARGE UNSTAINED CELL % 1.6 % (0.0-4.0); LYMPH # 0.9 K/mm3 (1.5-4.5); LYMPH % 8.4 % (24.0-44.0); MEAN CORPUSCULAR HEMOGLOBIN 33.7 pg (27.0-33.0); MEAN CORPUSCULAR HGB CONC 33.6 g/dl (32.0-36.5); MEAN CORPUSCULAR VOLUME 100.2 fl (80.0-96.0); MONO # 0.5 K/mm3 (0.0-0.8); MONO % 5.5 % (0.0-5.0); NEUTROPHILS # 7.2 K/mm3 (1.8-7.7); NEUTROPHILS % 81.8 % (36.0-66.0); PLATELET COUNT, AUTOMATED 292 k/mm3 (150-450); WHITE BLOOD COUNT 8.8 K/mm3 (4.0-10.0)
[2016-11-04 09:09] LABS: ANION GAP 9 MEQ/L (8-16); BLOOD UREA NITROGEN 6 MG/DL (7-18); CALCIUM LEVEL 7.8 MG/DL (8.5-10.1); CARBON DIOXIDE LEVEL 25 MEQ/L (21-32); CHLORIDE LEVEL 107 MEQ/L (98-107); CREATININE FOR GFR 0.75 MG/DL (0.70-1.30); GLOMERULAR FILTRATION RATE > 60.0 (>60); GLUCOSE, FASTING 91 MG/DL (70-105); POTASSIUM SERUM 4.1 MEQ/L (3.5-5.1); SODIUM LEVEL 141 MEQ/L (136-145)
--- NOTE | 2016-11-04 09:58 | EDDOCDS ---
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 af2 received 5 mg of versed. Suicide/Homicide risk assessment- Unable to assess, the patient has an altered level of consciousness. Status: Patient is not a answering service agent or dependent. Transition of care: patient was not received from another setting of care. 05:41 Acuity: JACK Level 3 af2 05:41 Method Of Arrival: Ambulance af2 Triage Assessment: 05:45 General: Appears in no apparent distress, Behavior is quiet. Pain: Denies pain. HIV af2 screening NA for this visit HIV (+). The patient is triaged at the bedside. See Assessment in Nurses Notes section of ED record. Neurological: Level of Consciousness is post ictal. Respiratory: Airway is patent Respiratory effort is unlabored. Derm: Skin is normal. Historical: - Allergies: No known drug Allergies; - Home Meds: 1. folic acid 1 mg oral tab 1 tab once daily 2. levetiracetam 1,000 mg oral tab 1 tab every 12 hours 3. lisinopril-hydrochlorothiazide 20-12.5 mg oral tab 2 tab once daily 4. Vitamin B-12 Oral daily - PMHx: ETOH abuse; Seizure Disorder; - PSHx: none; - Social history: Smoking status: unknown if patient ever smoked tobacco. No barriers to communication noted, Speaks appropriately for age. - Family history: Not pertinent. - : Unable to assess if pt is on anticoagulants. Unable to Verify Home Med List with the patient / caregiver. - Exposure Risk Screening:: Unable to Assess. Screenin:21 Screening information is obtained from the patient. Fall risk: No risks identified. af2 Assistance ADL's: requires no assistance with activities of daily living. Abuse/DV Screen: The patient / caregiver reports he/she is: not in a situation that causes fear, pain or injury. Nutritional screening: No deficits noted. Advance Directives: Currently, there is no health care proxy. home support is adequate. Assessment: 06:20 General: Appears in no apparent distress, comfortable, Behavior is appropriate for age, af2 cooperative. Neurological: Level of Consciousness is awake, alert, Oriented to person, place. Respiratory: Airway is patent Respiratory effort is even, unlabored. Derm: Skin is normal. 07:04 General: Appears in no apparent distress, comfortable, Behavior is appropriate for age, pml cooperative. Neurological: Level of Consciousness is awake, alert, Oriented to person, place, time. Cardiovascular: Capillary refill < 3 seconds Rhythm is sinus rhythm No ectopy. Respiratory: Airway is patent Respiratory effort is even, unlabored. GI: Abdomen is non- distended. Derm: Skin is normal. 07:55 General: resting on stretcher, voices no complaints. IVF infusing as ordered. sinus pml rhythm on monitor. skin p/w/d. 08:31 General: awake, alert, follows commands. requesting PO fluids, provided. resps pml unlabored, harsh intermittent cough - unchanged from arrival. sinus rhythm on monitor, skin p/w/d . 09:39 General: resting on stretcher, no apparent distress. sinus rhythm on monitor. skin pml p/w/d. 09:56 General: Appears in no apparent distress, comfortable, Behavior is appropriate for age, pml cooperative. Neurological: Level of Consciousness is awake, alert, Oriented to person, place, time. Cardiovascular: Capillary refill < 3 seconds Rhythm is sinus rhythm No ectopy. Respiratory: Airway is patent Respiratory effort is even, unlabored. Derm: Skin is pink, warm & dry. Vital Signs: 05:37 BP 112 / 80 (auto/); pml 05:40 Pulse Ox 91% ; pml 05:44 BP 122 / 80; Pulse 109; Resp 18 S; Temp 99.1; Pulse Ox 93% on R/A; Pain 0/10; af2 05:52 Pulse Ox 97% ; pml 06:31 Pulse 63 MON; Pulse Ox 97% ; pml 07:01 BP 113 / 87 (auto/); pml 07:15 BP 116 / 77 (auto/); pml 07:16 Pulse 84 MON; Pulse Ox 95% ; pml 07:30 BP 119 / 69 (auto/); pml 07:31 Pulse 90 MON; Pulse Ox 94% ; pml 07:45 BP 111 / 68 (auto/); pml 07:46 Pulse 93 MON; Pulse Ox 94% ; pml 08:00 BP 122 / 73 (auto/); pml 08:01 Pulse 99 MON; Pulse Ox 96% ; pml 08:15 BP 104 / 58 (auto/); pml 08:16 Pulse 91 MON; Pulse Ox 79% ; pml 08:30 BP 114 / 62 (auto/); pml 08:31 Pulse 92 MON; Pulse Ox 97% ; pml 08:45 BP 121 / 71 (auto/); pml 08:45 Pulse 80 MON; pml 09:00 BP 133 / 78 (auto/); pml 09:01 Pulse 82 MON; Pulse Ox 98% ; pml 09:15 BP 128 / 78 (auto/); pml 09:16 Pulse 90 MON; Pulse Ox 94% ; pml 09:30 BP 130 / 79 (auto/); pml 09:31 Pulse 93 MON; Pulse Ox 94% ; pml 09:51 BP 130 / 82; Pulse 95; Resp 16; Temp 99.7(O); Pulse Ox 96% on R/A; aa3 Vitals: 05:44 Log In Time N/A - ambulance arrival. af2 ED Course: 05:41 Patient visited by Emma Salazar, Legal Paraprofessional. [facility] 05:41 Patient moved to [facility] 05:43 Jeff Colin DO is Attending Physician. cs11 05:43 Patient visited by Jeff Colin DO. cs11 05:43 Triage Initiated af2 05:46 Patient visited by Priscilla Schuler RN. af2 05:55 Lactic Acid (Bates tube on ice) Sent. af2 05:55 MED Profile Sent. af2 05:55 Alcohol Sent. af2 06:18 Patient visited by Priscilla Schuler RN. af2 06:19 The patient / caregiver is instructed regarding the plan of care and ED course. Cardiac af2 monitor on. Pulse ox on. NIBP on. 06:19 Maintain field IV. Dressing intact. Good blood return noted. Site clean & dry. Gauge & af2 site: #18G to left forearm. No procedures done that require assistance. 06:21 Patient visited by Priscilla Schuler RN. af2 06:22 Patient visited by Priscilla Schuler RN. af2 06:26 Fingerstick Blood Sugar Sent. af2 06:34 Notified attending ED physician of Critical lab value. sls1 06:54 Patient visited by Priscilla Schuler RN. af2 06:58 Zahida Cordova,DOROTHY is Primary Nurse. pml 06:59 Attending Physician role handed off by Jeff Colin, br1 06:59 Julián Limon MD is Attending Physician. br1 07:05 Patient visited by Zahida Cordova RN. pml 07:30 CT Head Without Contrast Returned. EDMS 07:56 Patient visited by Zahida Cordova RN. pml 08:25 Patient visited by Julián Limon MD. br1 09:41 Patient visited by Zahida Cordova RN. pml 09:44 Solo Waldron MD is Referral Physician. br1 09:56 Discontinued lock intact, bleeding controlled, pressure dressing applied, No pml redness/swelling at site. Administered Medications: 06:19 Drug: Banana Bag - (NS 0.9% 1000 ml, folic acid 1 mg, Thiamine 100 mg, Infuvite Adult 1 af2 amp) Route: IV; Rate: 1000 mL/hr; Site: left forearm; 09:40 Follow up: IV Status: Completed infusion; IV Intake: 1000ml pml 06:49 Drug: levETIRAcetam (20mg/kg) 500 mg [levetiracetam 500 mg/5 mL intravenous solution] af2 Route: IVPB; Rate: 400 per protocol; Infused Over: 15 mins; Site: left forearm; 07:04 Follow up: IV Status: Completed infusion; IV Intake: 100ml pml 07:15 Follow up: IV Status: Completed infusion pml 07:04 Drug: NS 0.9% 1000 ml [sodium chloride 0.9 % injection solution] Route: IV; Rate: pml bolus; Site: left forearm; 09:40 Follow up: IV Status: Completed infusion; IV Intake: 1000ml pml 09:40 Drug: NS 0.9% 1000 ml [sodium chloride 0.9 % injection solution] Route: IV; Rate: 150 pml mL/hr; Site: right antecubital; Point of Care Testing: Blood Glucose: 06:21 Blood Glucose: 100 mg/dL; af2 Ranges: Intake: 07:04 IV: 100.00ml; Total: 100.00ml. pml 09:40 IV: 1000.00ml; Total: 1100.00ml. pml 09:40 IV: 1000.00ml; Total: 2100.00ml. pml Order Results: Lab Order: Alcohol; SPEC'M 11/04/16 05:51 Test: ETHYL ALCOHOL (ETHANOL); Value: < 0.003; Range: 0.000-0.010; Units: %; Status: F Lab Order: MED Profile; 11/04/16 05:51 Test: GLUCOSE, FASTING; Value: 127; Range: 70-105; Abnormal: Above high normal; Units: MG/DL; Status: F Test: BLOOD UREA NITROGEN; Value: 6; Range: 7-18; Abnormal: Below low normal; Units: MG/DL; Status: F Test: CREATININE FOR GFR; Value: 1.09; Range: 0.70-1.30; Units: MG/DL; Status: F Test: GLOMERULAR FILTRATION RATE; Value: > 60.0; Range: >60; Status: F Test: SODIUM LEVEL; Value: 140; Range: 136-145; Units: MEQ/L; Status: F Test: POTASSIUM SERUM; Value: 4.2; Range: 3.5-5.1; Units: MEQ/L; Status: F Test: CHLORIDE LEVEL; Value: 105; Range: 98-107; Units: MEQ/L; Status: F Test: CARBON DIOXIDE LEVEL; Value: 23; Range: 21-32; Units: MEQ/L; Status: F Test: ANION GAP; Value: 12; Range: 8-16; Units: MEQ/L; Status: F Test: CALCIUM LEVEL; Value: 8.1; Range: 8.5-10.1; Abnormal: Below low normal; Units: MG/DL; Status: F Test Note: ; Units are mL/min/1.73 m2 Chronic Kidney Disease Staging per NKF: Stage I & II GFR >=60 Normal to Mildly Decreased Stage III GFR 30-59 Moderately Decreased Stage IV GFR 15-29 Severely Decreased Stage V GFR <15 Very Little GFR Left ESRD GFR <15 on COOKING SHOW HOST Lab Order: Lactic Acid (Bates tube on ice); SPEC11/04/16 05:54 Test: LACTIC ACID SEPSIS PROTOCOL; Value: 3.8; Range: 0.4-2.0; Abnormal: Above upper panic limits; Units: MMOL/L; Status: F Lab Order: Fingerstick Blood Sugar; 11/04/16 06:17 Test: BEDSIDE GLUCOSE; Value: 100; Range: 70-105; Units: MG/DL; Status: F Lab Order: CBC with Diff; SPEC'M 11/04/16 08:29 Test: WHITE BLOOD COUNT; Value: 8.8; Range: 4.0-10.0; Units: K/mm3; Status: F Test: RED BLOOD COUNT; Value: 3.96; Range: 4.30-6.10; Abnormal: Below low normal; Units: M/mm3; Status: F Test: HEMOGLOBIN; Value: 13.3; Range: 14.0-18.0; Abnormal: Below low normal; Units: g/dl; Status: F Test: HEMATOCRIT; Value: 39.6; Range: 42.0-52.0; Abnormal: Below low normal; Units: %; Status: F Test: MEAN CORPUSCULAR VOLUME; Value: 100.2; Range: 80.0-96.0; Abnormal: Above high normal; Units: fl; Status: F Test: MEAN CORPUSCULAR HEMOGLOBIN; Value: 33.7; Range: 27.0-33.0; Abnormal: Above high normal; Units: pg; Status: F Test: MEAN CORPUSCULAR HGB CONC; Value: 33.6; Range: 32.0-36.5; Units: g/dl; Status: F Test: RED CELL DISTRIBUTION WIDTH; Value: 13.0; Range: 11.5-14.5; Units: %; Status: F Test: PLATELET COUNT, AUTOMATED; Value: 292; Range: 150-450; Units: k/mm3; Status: F Test: NEUTROPHILS %; Value: 81.8; Range: 36.0-66.0; Abnormal: Above high normal; Units: %; Status: F Test: LYMPH %; Value: 8.4; Range: 24.0-44.0; Abnormal: Below low normal; Units: %; Status: F Test: MONO %; Value: 5.5; Range: 0.0-5.0; Abnormal: Above high normal; Units: %; Status: F Test: EOS %; Value: 2.0; Range: 0.0-3.0; Units: %; Status: F Test: BASO %; Value: 0.8; Range: 0.0-1.0; Units: %; Status: F Test: LARGE UNSTAINED CELL %; Value: 1.6; Range: 0.0-4.0; Units: %; Status: F Test: NEUTROPHILS #; Value: 7.2; Range: 1.8-7.7; Units: K/mm3; Status: F Test: LYMPH #; Value: 0.9; Range: 1.5-4.5; Abnormal: Below low normal; Units: K/mm3; Status: F Test: MONO #; Value: 0.5; Range: 0.0-0.8; Units: K/mm3; Status: F Test: EOS #; Value: 0.2; Range: 0.0-0.50; Units: K/mm3; Status: F Test: BASO #; Value: 0.1; Range: 0.0-0.2; Units: K/mm3; Status: F Test: LARGE UNSTAINED CELL #; Value: 0.1; Range: 0.0-0.4; Units: K/mm3; Status: F Lab Order: [facility]; SPEC'M 11/04/16 08:29 Test: GLUCOSE, FASTING; Value: 91; Range: 70-105; Units: MG/DL; Status: F Test: BLOOD UREA NITROGEN; Value: 6; Range: 7-18; Abnormal: Below low normal; Units: MG/DL; Status: F Test: CREATININE FOR GFR; Value: 0.75; Range: 0.70-1.30; Units: MG/DL; Status: F Test: GLOMERULAR FILTRATION RATE; Value: > 60.0; Range: >60; Status: F Test: SODIUM LEVEL; Value: 141; Range: 136-145; Units: MEQ/L; Status: F Test: POTASSIUM SERUM; Value: 4.1; Range: 3.5-5.1; Units: MEQ/L; Status: F Test: CHLORIDE LEVEL; Value: 107; Range: 98-107; Units: MEQ/L; Status: F Test: CARBON DIOXIDE LEVEL; Value: 25; Range: 21-32; Units: MEQ/L; Status: F Test: ANION GAP; Value: 9; Range: 8-16; Units: MEQ/L; Status: F Test: CALCIUM LEVEL; Value: 7.8; Range: 8.5-10.1; Abnormal: Below low normal; Units: MG/DL; Status: F Test Note: ; Units are mL/min/1.73 m2 Chronic Kidney Disease Staging per NKF: Stage I & II GFR >=60 Normal to Mildly Decreased Stage III GFR 30-59 Moderately Decreased Stage IV GFR 15-29 Severely Decreased Stage V GFR <15 Very Little GFR Left ESRD GFR <15 on COOKING SHOW HOST Lab Order: Lactic Acid (Bates tube on ice); SPEC'M 11/04/16 08:29 Test: LACTIC ACID SEPSIS PROTOCOL; Value: 1.0; Range: 0.4-2.0; Units: MMOL/L; Status: F Radiology Order: CT Head Without Contrast Test: CT Head Without Contrast REASON FOR EXAMINATION: Syncope; ; CLINICAL HISTORY: Syncope.; TECHNIQUE: Multiple axial brain CT scan sections were obtained from base to vertex without contrast a; dministration.; COMMENTS:; The study shows normal configuration of sella turcica. There are no intra or extra-axial collections.; There is no mass effect or midline shift. There is no evidence of hematoma formation. No hydrocephal; us is present. No abnormal calcifications are noted.; No significant abnormalities are seen either in the posterior fossa or supratentorial compartment.; The sinuses and mastoid air cells are patent.; IMPRESSION:; No evidence of acute intracranial pathology.; Thank you for your kind referral of this patient.; ; Outcome: 09:44 Discharge ordered by Provider. br1 09:56 Discharge Assessment: Patient awake, alert and oriented x 3. No cognitive and/or pml functional deficits noted. Patient verbalized understanding of disposition instructions. patient administered narcotics - no. The following High Risk Discharge criteria are identified: None. Discharged to home ambulatory. Condition: good Condition: stable. 09:57 CT Study completed. Property sent home with patient. pml 09:58 Patient left the ED. pml Signatures: Dispatcher [employer] EDMS Julián Limon MD MD br1 Camila Springer, RN RN sls1 Zahida CordovaRN RN pml Jeff Colin DO DO cs11 Wendy McnultyRN RN aa3 Emma Salazar, Legal Paraprofessional Unit jlm Priscilla SchulerRN RN af2 Corrections: (The following items were deleted from the chart) 07:56 07:00 Pulse 167bpm; Monitor; Pulse Ox 95%; pml pml MTDD
--- NOTE | 2016-11-04 09:58 | EDDOCDS ---
Physician Documentation [facility] Name: Robinson Bhatti Age: 36 yrs Sex: Male : 1980 Arrival Date: 11/04/2016 Time: 05:40 Bed 3 Private MD: Disposition: 11/04/16 09:44 Discharged to Home/Self Care. Impression: Epilepsy and recurrent seizures. - Condition is Stable. - Discharge Instructions: Seizure, Adult. - Medication Reconciliation, Local Pharmacy Hours form. - Follow up: Solo Waldron MD; When: 2 - 3 days; Reason: Recheck today's complaints. - Problem is an acute exacerbation. - Symptoms are resolved. - Notes: You were seen in the ED for seizure. Bloodwork along with CT scan of the head showed no other acute findings. You were treated and improved with medications in the ED. Neurology was consulted as well, who recommended you may return home to continue your Keppra, and will need to be seen in their office for follow-up. Please call the number listed below to arrange to be seen this week for recheck. No driving or operating machinery until cleared to do so by Neurology. Return to the ED for any return of seizure, loss of consciousness, pain, fever, or any other concerns. Historical: - Allergies: No known drug Allergies; - Home Meds: 1. folic acid 1 mg oral tab 1 tab once daily 2. levetiracetam 1,000 mg oral tab 1 tab every 12 hours 3. lisinopril-hydrochlorothiazide 20-12.5 mg oral tab 2 tab once daily 4. Vitamin B-12 Oral daily - PMHx: ETOH abuse; Seizure Disorder; - PSHx: none; - Social history: Smoking status: unknown if patient ever smoked tobacco. No barriers to communication noted, Speaks appropriately for age. - Family history: Not pertinent. - : Unable to assess if pt is on anticoagulants. Unable to Verify Home Med List with the patient / caregiver. - Exposure Risk Screening:: Unable to Assess. Vital Signs: 11/04 05:37 BP 112 / 80 (auto/); pml 05:40 Pulse Ox 91% ; pml 05:44 BP 122 / 80; Pulse 109; Resp 18 S; Temp 99.1; Pulse Ox 93% on R/A; Pain 0/10; af2 05:52 Pulse Ox 97% ; pml 06:31 Pulse 63 MON; Pulse Ox 97% ; pml 07:01 BP 113 / 87 (auto/); pml 07:15 BP 116 / 77 (auto/); pml 07:16 Pulse 84 MON; Pulse Ox 95% ; pml 07:30 BP 119 / 69 (auto/); pml 07:31 Pulse 90 MON; Pulse Ox 94% ; pml 07:45 BP 111 / 68 (auto/); pml 07:46 Pulse 93 MON; Pulse Ox 94% ; pml 08:00 BP 122 / 73 (auto/); pml 08:01 Pulse 99 MON; Pulse Ox 96% ; pml 08:15 BP 104 / 58 (auto/); pml 08:16 Pulse 91 MON; Pulse Ox 79% ; pml 08:30 BP 114 / 62 (auto/); pml 08:31 Pulse 92 MON; Pulse Ox 97% ; pml 08:45 BP 121 / 71 (auto/); pml 08:45 Pulse 80 MON; pml 09:00 BP 133 / 78 (auto/); pml 09:01 Pulse 82 MON; Pulse Ox 98% ; pml 09:15 BP 128 / 78 (auto/); pml 09:16 Pulse 90 MON; Pulse Ox 94% ; pml 09:30 BP 130 / 79 (auto/); pml 09:31 Pulse 93 MON; Pulse Ox 94% ; pml 09:51 BP 130 / 82; Pulse 95; Resp 16; Temp 99.7(O); Pulse Ox 96% on R/A; aa3 MDM: 05:44 Banana Bag - (NS 0.9% 1000 ml, folic acid 1 mg, Thiamine 100 mg, Infuvite Adult 1 amp) cs11 IV at 1000 mL/hr bolus; *use both vials for Infuvite* ordered. 05:45 Alcohol Ordered. EDMS 05:45 MED Profile Ordered. EDMS 05:45 Lactic Acid (Bates tube on ice) Ordered. EDMS 06:15 Accucheck ordered. cs11 06:25 Fingerstick Blood Sugar Ordered. EDMS 06:30 MED Profile Reviewed. cs11 06:30 Alcohol Reviewed. cs11 06:30 Fingerstick Blood Sugar Reviewed. cs11 06:32 levETIRAcetam (20mg/kg) 500 mg IVPB at 400 per protocol once over 15 mins; dilute in cs11 100mL NS or D5W ordered. 06:33 CT Head Without Contrast Ordered. EDMS 06:34 NS 0.9% 1000 ml IV at bolus once ordered. cs11 06:54 Lactic Acid (Bates tube on ice) Reviewed. cs11 08:12 Financial registration complete. mm15 08:18 NS 0.9% 1000 ml IV at 150 mL/hr continuous ordered. br1 08:26 CBC with Diff Ordered. EDMS 08:26 BMP Ordered. EDMS 08:26 Lactic Acid (Bates tube on ice) Ordered. EDMS 08:43 CBC with Diff Reviewed. br1 08:43 CT Head Without Contrast Reviewed. br1 09:04 Lactic Acid (Bates tube on ice) Reviewed. br1 09:23 BMP Reviewed. br1 09:40 Keppra (short red top tube) Ordered. EDMS Point of Care Testing: Blood Glucose: 06:21 Blood Glucose: 100 mg/dL; af2 Ranges: Administered Medications: 06:19 Drug: Banana Bag - (NS 0.9% 1000 ml, folic acid 1 mg, Thiamine 100 mg, Infuvite Adult 1 af2 amp) Route: IV; Rate: 1000 mL/hr; Site: left forearm; 09:40 Follow up: IV Status: Completed infusion; IV Intake: 1000ml pml 06:49 Drug: levETIRAcetam (20mg/kg) 500 mg [levetiracetam 500 mg/5 mL intravenous solution] af2 Route: IVPB; Rate: 400 per protocol; Infused Over: 15 mins; Site: left forearm; 07:04 Follow up: IV Status: Completed infusion; IV Intake: 100ml pml 07:15 Follow up: IV Status: Completed infusion pml 07:04 Drug: NS 0.9% 1000 ml [sodium chloride 0.9 % injection solution] Route: IV; Rate: pml bolus; Site: left forearm; 09:40 Follow up: IV Status: Completed infusion; IV Intake: 1000ml pml 09:40 Drug: NS 0.9% 1000 ml [sodium chloride 0.9 % injection solution] Route: IV; Rate: 150 pml mL/hr; Site: right antecubital; Signatures: Dispatcher [employer] EDJulián Clark MD MD br1 Zahida Cordova RN RN pml Jeff Colin DO DO cs11 Keith Baxter mm15 Schuler,Priscilla,RN RN af2 MTDD
--- NOTE | 2016-11-06 10:59 | EDDOCDS ---
Physician Documentation [facility] Name: Robinson Bhatti Age: 36 yrs Sex: Male : 1980 Arrival Date: 11/04/2016 Time: 05:40 Bed 3 Private MD: Disposition: 11/04/16 09:44 Discharged to Home/Self Care. Impression: Epilepsy and recurrent seizures. - Condition is Stable. - Discharge Instructions: Seizure, Adult. - Medication Reconciliation, Local Pharmacy Hours form. - Follow up: Solo Waldron MD; When: 2 - 3 days; Reason: Recheck today's complaints. - Problem is an acute exacerbation. - Symptoms are resolved. - Notes: You were seen in the ED for seizure. Bloodwork along with CT scan of the head showed no other acute findings. You were treated and improved with medications in the ED. Neurology was consulted as well, who recommended you may return home to continue your Keppra, and will need to be seen in their office for follow-up. Please call the number listed below to arrange to be seen this week for recheck. No driving or operating machinery until cleared to do so by Neurology. Return to the ED for any return of seizure, loss of consciousness, pain, fever, or any other concerns. Historical: - Allergies: No known drug Allergies; - Home Meds: 1. folic acid 1 mg oral tab 1 tab once daily 2. levetiracetam 1,000 mg oral tab 1 tab every 12 hours 3. lisinopril-hydrochlorothiazide 20-12.5 mg oral tab 2 tab once daily 4. Vitamin B-12 Oral daily - PMHx: ETOH abuse; Seizure Disorder; - PSHx: none; - Social history: Smoking status: unknown if patient ever smoked tobacco. No barriers to communication noted, Speaks appropriately for age. - Family history: Not pertinent. - : Unable to assess if pt is on anticoagulants. Unable to Verify Home Med List with the patient / caregiver. - Exposure Risk Screening:: Unable to Assess. Vital Signs: 11/04 05:37 BP 112 / 80 (auto/); pml 05:40 Pulse Ox 91% ; pml 05:44 BP 122 / 80; Pulse 109; Resp 18 S; Temp 99.1; Pulse Ox 93% on R/A; Pain 0/10; af2 05:52 Pulse Ox 97% ; pml 06:31 Pulse 63 MON; Pulse Ox 97% ; pml 07:01 BP 113 / 87 (auto/); pml 07:15 BP 116 / 77 (auto/); pml 07:16 Pulse 84 MON; Pulse Ox 95% ; pml 07:30 BP 119 / 69 (auto/); pml 07:31 Pulse 90 MON; Pulse Ox 94% ; pml 07:45 BP 111 / 68 (auto/); pml 07:46 Pulse 93 MON; Pulse Ox 94% ; pml 08:00 BP 122 / 73 (auto/); pml 08:01 Pulse 99 MON; Pulse Ox 96% ; pml 08:15 BP 104 / 58 (auto/); pml 08:16 Pulse 91 MON; Pulse Ox 79% ; pml 08:30 BP 114 / 62 (auto/); pml 08:31 Pulse 92 MON; Pulse Ox 97% ; pml 08:45 BP 121 / 71 (auto/); pml 08:45 Pulse 80 MON; pml 09:00 BP 133 / 78 (auto/); pml 09:01 Pulse 82 MON; Pulse Ox 98% ; pml 09:15 BP 128 / 78 (auto/); pml 09:16 Pulse 90 MON; Pulse Ox 94% ; pml 09:30 BP 130 / 79 (auto/); pml 09:31 Pulse 93 MON; Pulse Ox 94% ; pml 09:51 BP 130 / 82; Pulse 95; Resp 16; Temp 99.7(O); Pulse Ox 96% on R/A; aa3 MDM: 05:44 Banana Bag - (NS 0.9% 1000 ml, folic acid 1 mg, Thiamine 100 mg, Infuvite Adult 1 amp) cs11 IV at 1000 mL/hr bolus; *use both vials for Infuvite* ordered. 05:45 Alcohol Ordered. EDMS 05:45 MED Profile Ordered. EDMS 05:45 Lactic Acid (Bates tube on ice) Ordered. EDMS 06:15 Accucheck ordered. cs11 06:25 Fingerstick Blood Sugar Ordered. EDMS 06:30 MED Profile Reviewed. cs11 06:30 Alcohol Reviewed. cs11 06:30 Fingerstick Blood Sugar Reviewed. cs11 06:32 levETIRAcetam (20mg/kg) 500 mg IVPB at 400 per protocol once over 15 mins; dilute in cs11 100mL NS or D5W ordered. 06:33 CT Head Without Contrast Ordered. EDMS 06:34 NS 0.9% 1000 ml IV at bolus once ordered. cs11 06:54 Lactic Acid (Bates tube on ice) Reviewed. cs11 08:12 Financial registration complete. mm15 08:18 NS 0.9% 1000 ml IV at 150 mL/hr continuous ordered. br1 08:26 CBC with Diff Ordered. EDMS 08:26 BMP Ordered. EDMS 08:26 Lactic Acid (Bates tube on ice) Ordered. EDMS 08:43 CBC with Diff Reviewed. br1 08:43 CT Head Without Contrast Reviewed. br1 09:04 Lactic Acid (Bates tube on ice) Reviewed. br1 09:23 BMP Reviewed. br1 09:40 Keppra (short red top tube) Ordered. EDMS 10:00 [facility] Payment Agreement was scanned into [employer] and attached to record. mm15 13:39 T-Sheet-- Draft Copy was scanned into [employer] and attached to record. [facility] 11/05 15:09 Radiology Report was scanned into [employer] and attached to record. Point of Care Testing: Blood Glucose: 11/04 06:21 Blood Glucose: 100 mg/dL; af2 Ranges: Administered Medications: 06:19 Drug: Banana Bag - (NS 0.9% 1000 ml, folic acid 1 mg, Thiamine 100 mg, Infuvite Adult 1 af2 amp) Route: IV; Rate: 1000 mL/hr; Site: left forearm; 09:40 Follow up: IV Status: Completed infusion; IV Intake: 1000ml pml 06:49 Drug: levETIRAcetam (20mg/kg) 500 mg [levetiracetam 500 mg/5 mL intravenous solution] af2 Route: IVPB; Rate: 400 per protocol; Infused Over: 15 mins; Site: left forearm; 07:04 Follow up: IV Status: Completed infusion; IV Intake: 100ml pml 07:15 Follow up: IV Status: Completed infusion pml 07:04 Drug: NS 0.9% 1000 ml [sodium chloride 0.9 % injection solution] Route: IV; Rate: pml bolus; Site: left forearm; 09:40 Follow up: IV Status: Completed infusion; IV Intake: 1000ml pml 09:40 Drug: NS 0.9% 1000 ml [sodium chloride 0.9 % injection solution] Route: IV; Rate: 150 pml mL/hr; Site: right antecubital; Signatures: Dispatcher [employer] EDDaxa Youngblood, Reg Reg gb Julián Limon MD MD br1 Zahida Cordova RN RN Jeff Donahue DO DO cs11 Keith Baxter mm15 Priscilla Schuler RN RN 2 [facility] The chart was reviewed and I authenticate all verbal orders and agree with the evaluation and treatment provided.Attachments: 10:00 [facility] Payment Agreement mm15 13:39 T-Sheet-- Draft Copy [facility] Chart Complete MTDD
--- NOTE | 2016-11-06 10:59 | EDDOCDS ---
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 af2 received 5 mg of versed. Suicide/Homicide risk assessment- Unable to assess, the patient has an altered level of consciousness. Status: Patient is not a computer service technician or dependent. Transition of care: patient was not received from another setting of care. 05:41 Acuity: JACK Level 3 af2 05:41 Method Of Arrival: Ambulance af2 Triage Assessment: 05:45 General: Appears in no apparent distress, Behavior is quiet. Pain: Denies pain. HIV af2 screening NA for this visit HIV (+). The patient is triaged at the bedside. See Assessment in Nurses Notes section of ED record. Neurological: Level of Consciousness is post ictal. Respiratory: Airway is patent Respiratory effort is unlabored. Derm: Skin is normal. Historical: - Allergies: No known drug Allergies; - Home Meds: 1. folic acid 1 mg oral tab 1 tab once daily 2. levetiracetam 1,000 mg oral tab 1 tab every 12 hours 3. lisinopril-hydrochlorothiazide 20-12.5 mg oral tab 2 tab once daily 4. Vitamin B-12 Oral daily - PMHx: ETOH abuse; Seizure Disorder; - PSHx: none; - Social history: Smoking status: unknown if patient ever smoked tobacco. No barriers to communication noted, Speaks appropriately for age. - Family history: Not pertinent. - : Unable to assess if pt is on anticoagulants. Unable to Verify Home Med List with the patient / caregiver. - Exposure Risk Screening:: Unable to Assess. Screenin:21 Screening information is obtained from the patient. Fall risk: No risks identified. af2 Assistance ADL's: requires no assistance with activities of daily living. Abuse/DV Screen: The patient / caregiver reports he/she is: not in a situation that causes fear, pain or injury. Nutritional screening: No deficits noted. Advance Directives: Currently, there is no health care proxy. home support is adequate. Assessment: 06:20 General: Appears in no apparent distress, comfortable, Behavior is appropriate for age, af2 cooperative. Neurological: Level of Consciousness is awake, alert, Oriented to person, place. Respiratory: Airway is patent Respiratory effort is even, unlabored. Derm: Skin is normal. 07:04 General: Appears in no apparent distress, comfortable, Behavior is appropriate for age, pml cooperative. Neurological: Level of Consciousness is awake, alert, Oriented to person, place, time. Cardiovascular: Capillary refill < 3 seconds Rhythm is sinus rhythm No ectopy. Respiratory: Airway is patent Respiratory effort is even, unlabored. GI: Abdomen is non- distended. Derm: Skin is normal. 07:55 General: resting on stretcher, voices no complaints. IVF infusing as ordered. sinus pml rhythm on monitor. skin p/w/d. 08:31 General: awake, alert, follows commands. requesting PO fluids, provided. resps pml unlabored, harsh intermittent cough - unchanged from arrival. sinus rhythm on monitor, skin p/w/d . 09:39 General: resting on stretcher, no apparent distress. sinus rhythm on monitor. skin pml p/w/d. 09:56 General: Appears in no apparent distress, comfortable, Behavior is appropriate for age, pml cooperative. Neurological: Level of Consciousness is awake, alert, Oriented to person, place, time. Cardiovascular: Capillary refill < 3 seconds Rhythm is sinus rhythm No ectopy. Respiratory: Airway is patent Respiratory effort is even, unlabored. Derm: Skin is pink, warm & dry. Vital Signs: 05:37 BP 112 / 80 (auto/); pml 05:40 Pulse Ox 91% ; pml 05:44 BP 122 / 80; Pulse 109; Resp 18 S; Temp 99.1; Pulse Ox 93% on R/A; Pain 0/10; af2 05:52 Pulse Ox 97% ; pml 06:31 Pulse 63 MON; Pulse Ox 97% ; pml 07:01 BP 113 / 87 (auto/); pml 07:15 BP 116 / 77 (auto/); pml 07:16 Pulse 84 MON; Pulse Ox 95% ; pml 07:30 BP 119 / 69 (auto/); pml 07:31 Pulse 90 MON; Pulse Ox 94% ; pml 07:45 BP 111 / 68 (auto/); pml 07:46 Pulse 93 MON; Pulse Ox 94% ; pml 08:00 BP 122 / 73 (auto/); pml 08:01 Pulse 99 MON; Pulse Ox 96% ; pml 08:15 BP 104 / 58 (auto/); pml 08:16 Pulse 91 MON; Pulse Ox 79% ; pml 08:30 BP 114 / 62 (auto/); pml 08:31 Pulse 92 MON; Pulse Ox 97% ; pml 08:45 BP 121 / 71 (auto/); pml 08:45 Pulse 80 MON; pml 09:00 BP 133 / 78 (auto/); pml 09:01 Pulse 82 MON; Pulse Ox 98% ; pml 09:15 BP 128 / 78 (auto/); pml 09:16 Pulse 90 MON; Pulse Ox 94% ; pml 09:30 BP 130 / 79 (auto/); pml 09:31 Pulse 93 MON; Pulse Ox 94% ; pml 09:51 BP 130 / 82; Pulse 95; Resp 16; Temp 99.7(O); Pulse Ox 96% on R/A; aa3 Vitals: 05:44 Log In Time N/A - ambulance arrival. af2 ED Course: 05:41 Patient visited by Emma Salazar, Passenger Car Upholsterer Apprentice. [facility] 05:41 Patient moved to [facility] 05:43 Jeff Colin DO is Attending Physician. cs11 05:43 Patient visited by Jeff Colin DO. cs11 05:43 Triage Initiated af2 05:46 Patient visited by Priscilla Schuler RN. af2 05:55 Lactic Acid (Bates tube on ice) Sent. af2 05:55 MED Profile Sent. af2 05:55 Alcohol Sent. af2 06:18 Patient visited by Priscilla Schuler RN. af2 06:19 The patient / caregiver is instructed regarding the plan of care and ED course. Cardiac af2 monitor on. Pulse ox on. NIBP on. 06:19 Maintain field IV. Dressing intact. Good blood return noted. Site clean & dry. Gauge & af2 site: #18G to left forearm. No procedures done that require assistance. 06:21 Patient visited by Priscilla Schuler RN. af2 06:22 Patient visited by Priscilla Schuler RN. af2 06:26 Fingerstick Blood Sugar Sent. af2 06:34 Notified attending ED physician of Critical lab value. sls1 06:54 Patient visited by Priscilla Schuler RN. af2 06:58 Zahida Cordova,DOROTHY is Primary Nurse. pml 06:59 Attending Physician role handed off by Jeff Colin, br1 06:59 Julián Limon MD is Attending Physician. br1 07:05 Patient visited by Zahida Cordova RN. pml 07:30 CT Head Without Contrast Returned. EDMS 07:56 Patient visited by Zahida Cordova RN. pml 08:25 Patient visited by Julián Limon MD. br1 09:41 Patient visited by Zahida Cordova RN. pml 09:44 Solo Waldron MD is Referral Physician. br1 09:56 Discontinued lock intact, bleeding controlled, pressure dressing applied, No pml redness/swelling at site. 10:00 [facility] Payment Agreement was scanned into [employer] and attached to record. mm15 13:39 T-Sheet-- Draft Copy was scanned into [employer] and attached to record. [facility] 11/05 15:09 Radiology Report was scanned into [employer] and attached to record. gb Administered Medications: 11/04 06:19 Drug: Banana Bag - (NS 0.9% 1000 ml, folic acid 1 mg, Thiamine 100 mg, Infuvite Adult 1 af2 amp) Route: IV; Rate: 1000 mL/hr; Site: left forearm; 09:40 Follow up: IV Status: Completed infusion; IV Intake: 1000ml pml 06:49 Drug: levETIRAcetam (20mg/kg) 500 mg [levetiracetam 500 mg/5 mL intravenous solution] af2 Route: IVPB; Rate: 400 per protocol; Infused Over: 15 mins; Site: left forearm; 07:04 Follow up: IV Status: Completed infusion; IV Intake: 100ml pml 07:15 Follow up: IV Status: Completed infusion pml 07:04 Drug: NS 0.9% 1000 ml [sodium chloride 0.9 % injection solution] Route: IV; Rate: pml bolus; Site: left forearm; 09:40 Follow up: IV Status: Completed infusion; IV Intake: 1000ml pml 09:40 Drug: NS 0.9% 1000 ml [sodium chloride 0.9 % injection solution] Route: IV; Rate: 150 pml mL/hr; Site: right antecubital; Point of Care Testing: Blood Glucose: 06:21 Blood Glucose: 100 mg/dL; af2 Ranges: Intake: 07:04 IV: 100.00ml; Total: 100.00ml. pml 09:40 IV: 1000.00ml; Total: 1100.00ml. pml 09:40 IV: 1000.00ml; Total: 2100.00ml. pml Order Results: Lab Order: Alcohol; [facility] 11/04/16 05:51 Test: ETHYL ALCOHOL (ETHANOL); Value: < 0.003; Range: 0.000-0.010; Units: %; Status: F Lab Order: MED Profile; [facility] 11/04/16 05:51 Test: GLUCOSE, FASTING; Value: 127; Range: 70-105; Abnormal: Above high normal; Units: MG/DL; Status: F Test: BLOOD UREA NITROGEN; Value: 6; Range: 7-18; Abnormal: Below low normal; Units: MG/DL; Status: F Test: CREATININE FOR GFR; Value: 1.09; Range: 0.70-1.30; Units: MG/DL; Status: F Test: GLOMERULAR FILTRATION RATE; Value: > 60.0; Range: >60; Status: F Test: SODIUM LEVEL; Value: 140; Range: 136-145; Units: MEQ/L; Status: F Test: POTASSIUM SERUM; Value: 4.2; Range: 3.5-5.1; Units: MEQ/L; Status: F Test: CHLORIDE LEVEL; Value: 105; Range: 98-107; Units: MEQ/L; Status: F Test: CARBON DIOXIDE LEVEL; Value: 23; Range: 21-32; Units: MEQ/L; Status: F Test: ANION GAP; Value: 12; Range: 8-16; Units: MEQ/L; Status: F Test: CALCIUM LEVEL; Value: 8.1; Range: 8.5-10.1; Abnormal: Below low normal; Units: MG/DL; Status: F Test Note: ; Units are mL/min/1.73 m2 Chronic Kidney Disease Staging per NKF: Stage I & II GFR >=60 Normal to Mildly Decreased Stage III GFR 30-59 Moderately Decreased Stage IV GFR 15-29 Severely Decreased Stage V GFR <15 Very Little GFR Left ESRD GFR <15 on INVENTORY SPECIALIST Lab Order: Lactic Acid (Bates tube on ice); SPEC'11/04/16 05:54 Test: LACTIC ACID SEPSIS PROTOCOL; Value: 3.8; Range: 0.4-2.0; Abnormal: Above upper panic limits; Units: MMOL/L; Status: F Lab Order: Fingerstick Blood Sugar; SPEC11/04/16 06:17 Test: BEDSIDE GLUCOSE; Value: 100; Range: 70-105; Units: MG/DL; Status: F Lab Order: CBC with Diff; SPEC'11/04/16 08:29 Test: WHITE BLOOD COUNT; Value: 8.8; Range: 4.0-10.0; Units: K/mm3; Status: F Test: RED BLOOD COUNT; Value: 3.96; Range: 4.30-6.10; Abnormal: Below low normal; Units: M/mm3; Status: F Test: HEMOGLOBIN; Value: 13.3; Range: 14.0-18.0; Abnormal: Below low normal; Units: g/dl; Status: F Test: HEMATOCRIT; Value: 39.6; Range: 42.0-52.0; Abnormal: Below low normal; Units: %; Status: F Test: MEAN CORPUSCULAR VOLUME; Value: 100.2; Range: 80.0-96.0; Abnormal: Above high normal; Units: fl; Status: F Test: MEAN CORPUSCULAR HEMOGLOBIN; Value: 33.7; Range: 27.0-33.0; Abnormal: Above high normal; Units: pg; Status: F Test: MEAN CORPUSCULAR HGB CONC; Value: 33.6; Range: 32.0-36.5; Units: g/dl; Status: F Test: RED CELL DISTRIBUTION WIDTH; Value: 13.0; Range: 11.5-14.5; Units: %; Status: F Test: PLATELET COUNT, AUTOMATED; Value: 292; Range: 150-450; Units: k/mm3; Status: F Test: NEUTROPHILS %; Value: 81.8; Range: 36.0-66.0; Abnormal: Above high normal; Units: %; Status: F Test: LYMPH %; Value: 8.4; Range: 24.0-44.0; Abnormal: Below low normal; Units: %; Status: F Test: MONO %; Value: 5.5; Range: 0.0-5.0; Abnormal: Above high normal; Units: %; Status: F Test: EOS %; Value: 2.0; Range: 0.0-3.0; Units: %; Status: F Test: BASO %; Value: 0.8; Range: 0.0-1.0; Units: %; Status: F Test: LARGE UNSTAINED CELL %; Value: 1.6; Range: 0.0-4.0; Units: %; Status: F Test: NEUTROPHILS #; Value: 7.2; Range: 1.8-7.7; Units: K/mm3; Status: F Test: LYMPH #; Value: 0.9; Range: 1.5-4.5; Abnormal: Below low normal; Units: K/mm3; Status: F Test: MONO #; Value: 0.5; Range: 0.0-0.8; Units: K/mm3; Status: F Test: EOS #; Value: 0.2; Range: 0.0-0.50; Units: K/mm3; Status: F Test: BASO #; Value: 0.1; Range: 0.0-0.2; Units: K/mm3; Status: F Test: LARGE UNSTAINED CELL #; Value: 0.1; Range: 0.0-0.4; Units: K/mm3; Status: F Lab Order: [facility]; SPEC'M 11/04/16 08:29 Test: GLUCOSE, FASTING; Value: 91; Range: 70-105; Units: MG/DL; Status: F Test: BLOOD UREA NITROGEN; Value: 6; Range: 7-18; Abnormal: Below low normal; Units: MG/DL; Status: F Test: CREATININE FOR GFR; Value: 0.75; Range: 0.70-1.30; Units: MG/DL; Status: F Test: GLOMERULAR FILTRATION RATE; Value: > 60.0; Range: >60; Status: F Test: SODIUM LEVEL; Value: 141; Range: 136-145; Units: MEQ/L; Status: F Test: POTASSIUM SERUM; Value: 4.1; Range: 3.5-5.1; Units: MEQ/L; Status: F Test: CHLORIDE LEVEL; Value: 107; Range: 98-107; Units: MEQ/L; Status: F Test: CARBON DIOXIDE LEVEL; Value: 25; Range: 21-32; Units: MEQ/L; Status: F Test: ANION GAP; Value: 9; Range: 8-16; Units: MEQ/L; Status: F Test: CALCIUM LEVEL; Value: 7.8; Range: 8.5-10.1; Abnormal: Below low normal; Units: MG/DL; Status: F Test Note: ; Units are mL/min/1.73 m2 Chronic Kidney Disease Staging per NKF: Stage I & II GFR >=60 Normal to Mildly Decreased Stage III GFR 30-59 Moderately Decreased Stage IV GFR 15-29 Severely Decreased Stage V GFR <15 Very Little GFR Left ESRD GFR <15 on INVENTORY SPECIALIST Lab Order: Lactic Acid (Bates tube on ice); SPEC'M 11/04/16 08:29 Test: LACTIC ACID SEPSIS PROTOCOL; Value: 1.0; Range: 0.4-2.0; Units: MMOL/L; Status: F Radiology Order: CT Head Without Contrast Test: CT Head Without Contrast REASON FOR EXAMINATION: Syncope; ; CLINICAL HISTORY: Syncope.; TECHNIQUE: Multiple axial brain CT scan sections were obtained from base to vertex without contrast a; dministration.; COMMENTS:; The study shows normal configuration of sella turcica. There are no intra or extra-axial collections.; There is no mass effect or midline shift. There is no evidence of hematoma formation. No hydrocephal; us is present. No abnormal calcifications are noted.; No significant abnormalities are seen either in the posterior fossa or supratentorial compartment.; The sinuses and mastoid air cells are patent.; IMPRESSION:; No evidence of acute intracranial pathology.; Thank you for your kind referral of this patient.; ; Outcome: 09:44 Discharge ordered by Provider. br1 09:56 Discharge Assessment: Patient awake, alert and oriented x 3. No cognitive and/or pml functional deficits noted. Patient verbalized understanding of disposition instructions. patient administered narcotics - no. The following High Risk Discharge criteria are identified: None. Discharged to home ambulatory. Condition: good Condition: stable. 09:57 CT Study completed. Property sent home with patient. pml 09:58 Patient left the ED. pml Signatures: Dispatcher [employer] EDDaxa Youngblood, Reg Reg gb Julián Limon MD MD br1 Camila Springer RN RN sls1 Zahida Cordova RN RN pml Jeff Colin, DO STARKS cs11 Keith Baxter mm15 Wendy Mcnulty RN RN aa3 Emma Salazar, Passenger Car Upholsterer Apprentice Unit [facility] Priscilla Schuler RN RN af2 Sophie, Lynne medina Corrections: (The following items were deleted from the chart) 07:56 07:00 Pulse 167bpm; Monitor; Pulse Ox 95%; pml pml Chart Complete MTDD
--- NOTE | 2016-11-06 10:59 | EDDOCDS ---
Physician Documentation [facility] Name: Robinson Bhatti Age: 36 yrs Sex: Male : 1980 Arrival Date: 11/04/2016 Time: 05:40 Bed 3 Private MD: Disposition: 11/04/16 09:44 Discharged to Home/Self Care. Impression: Epilepsy and recurrent seizures. - Condition is Stable. - Discharge Instructions: Seizure, Adult. - Medication Reconciliation, Local Pharmacy Hours form. - Follow up: Solo Waldron MD; When: 2 - 3 days; Reason: Recheck today's complaints. - Problem is an acute exacerbation. - Symptoms are resolved. - Notes: You were seen in the ED for seizure. Bloodwork along with CT scan of the head showed no other acute findings. You were treated and improved with medications in the ED. Neurology was consulted as well, who recommended you may return home to continue your Keppra, and will need to be seen in their office for follow-up. Please call the number listed below to arrange to be seen this week for recheck. No driving or operating machinery until cleared to do so by Neurology. Return to the ED for any return of seizure, loss of consciousness, pain, fever, or any other concerns. Historical: - Allergies: No known drug Allergies; - Home Meds: 1. folic acid 1 mg oral tab 1 tab once daily 2. levetiracetam 1,000 mg oral tab 1 tab every 12 hours 3. lisinopril-hydrochlorothiazide 20-12.5 mg oral tab 2 tab once daily 4. Vitamin B-12 Oral daily - PMHx: ETOH abuse; Seizure Disorder; - PSHx: none; - Social history: Smoking status: unknown if patient ever smoked tobacco. No barriers to communication noted, Speaks appropriately for age. - Family history: Not pertinent. - : Unable to assess if pt is on anticoagulants. Unable to Verify Home Med List with the patient / caregiver. - Exposure Risk Screening:: Unable to Assess. Vital Signs: 11/04 05:37 BP 112 / 80 (auto/); pml 05:40 Pulse Ox 91% ; pml 05:44 BP 122 / 80; Pulse 109; Resp 18 S; Temp 99.1; Pulse Ox 93% on R/A; Pain 0/10; af2 05:52 Pulse Ox 97% ; pml 06:31 Pulse 63 MON; Pulse Ox 97% ; pml 07:01 BP 113 / 87 (auto/); pml 07:15 BP 116 / 77 (auto/); pml 07:16 Pulse 84 MON; Pulse Ox 95% ; pml 07:30 BP 119 / 69 (auto/); pml 07:31 Pulse 90 MON; Pulse Ox 94% ; pml 07:45 BP 111 / 68 (auto/); pml 07:46 Pulse 93 MON; Pulse Ox 94% ; pml 08:00 BP 122 / 73 (auto/); pml 08:01 Pulse 99 MON; Pulse Ox 96% ; pml 08:15 BP 104 / 58 (auto/); pml 08:16 Pulse 91 MON; Pulse Ox 79% ; pml 08:30 BP 114 / 62 (auto/); pml 08:31 Pulse 92 MON; Pulse Ox 97% ; pml 08:45 BP 121 / 71 (auto/); pml 08:45 Pulse 80 MON; pml 09:00 BP 133 / 78 (auto/); pml 09:01 Pulse 82 MON; Pulse Ox 98% ; pml 09:15 BP 128 / 78 (auto/); pml 09:16 Pulse 90 MON; Pulse Ox 94% ; pml 09:30 BP 130 / 79 (auto/); pml 09:31 Pulse 93 MON; Pulse Ox 94% ; pml 09:51 BP 130 / 82; Pulse 95; Resp 16; Temp 99.7(O); Pulse Ox 96% on R/A; aa3 MDM: 05:44 Banana Bag - (NS 0.9% 1000 ml, folic acid 1 mg, Thiamine 100 mg, Infuvite Adult 1 amp) cs11 IV at 1000 mL/hr bolus; *use both vials for Infuvite* ordered. 05:45 Alcohol Ordered. EDMS 05:45 MED Profile Ordered. EDMS 05:45 Lactic Acid (Bates tube on ice) Ordered. EDMS 06:15 Accucheck ordered. cs11 06:25 Fingerstick Blood Sugar Ordered. EDMS 06:30 MED Profile Reviewed. cs11 06:30 Alcohol Reviewed. cs11 06:30 Fingerstick Blood Sugar Reviewed. cs11 06:32 levETIRAcetam (20mg/kg) 500 mg IVPB at 400 per protocol once over 15 mins; dilute in cs11 100mL NS or D5W ordered. 06:33 CT Head Without Contrast Ordered. EDMS 06:34 NS 0.9% 1000 ml IV at bolus once ordered. cs11 06:54 Lactic Acid (Bates tube on ice) Reviewed. cs11 08:12 Financial registration complete. mm15 08:18 NS 0.9% 1000 ml IV at 150 mL/hr continuous ordered. br1 08:26 CBC with Diff Ordered. EDMS 08:26 BMP Ordered. EDMS 08:26 Lactic Acid (Bates tube on ice) Ordered. EDMS 08:43 CBC with Diff Reviewed. br1 08:43 CT Head Without Contrast Reviewed. br1 09:04 Lactic Acid (Bates tube on ice) Reviewed. br1 09:23 BMP Reviewed. br1 09:40 Keppra (short red top tube) Ordered. EDMS 10:00 [facility] Payment Agreement was scanned into [employer] and attached to record. mm15 13:39 T-Sheet-- Draft Copy was scanned into [employer] and attached to record. [facility] 11/05 15:09 Radiology Report was scanned into [employer] and attached to record. Point of Care Testing: Blood Glucose: 11/04 06:21 Blood Glucose: 100 mg/dL; af2 Ranges: Administered Medications: 06:19 Drug: Banana Bag - (NS 0.9% 1000 ml, folic acid 1 mg, Thiamine 100 mg, Infuvite Adult 1 af2 amp) Route: IV; Rate: 1000 mL/hr; Site: left forearm; 09:40 Follow up: IV Status: Completed infusion; IV Intake: 1000ml pml 06:49 Drug: levETIRAcetam (20mg/kg) 500 mg [levetiracetam 500 mg/5 mL intravenous solution] af2 Route: IVPB; Rate: 400 per protocol; Infused Over: 15 mins; Site: left forearm; 07:04 Follow up: IV Status: Completed infusion; IV Intake: 100ml pml 07:15 Follow up: IV Status: Completed infusion pml 07:04 Drug: NS 0.9% 1000 ml [sodium chloride 0.9 % injection solution] Route: IV; Rate: pml bolus; Site: left forearm; 09:40 Follow up: IV Status: Completed infusion; IV Intake: 1000ml pml 09:40 Drug: NS 0.9% 1000 ml [sodium chloride 0.9 % injection solution] Route: IV; Rate: 150 pml mL/hr; Site: right antecubital; Signatures: Dispatcher [employer] EDDaxa Youngblood, Reg Reg gb Julián Limon MD MD br1 Zahida Cordova RN RN Jeff Donahue DO DO cs11 Keith Baxter mm15 Priscilla Schuler RN RN 2 [facility] The chart was reviewed and I authenticate all verbal orders and agree with the evaluation and treatment provided.Attachments: 10:00 [facility] Payment Agreement mm15 13:39 T-Sheet-- Draft Copy [facility] Chart Complete MTDD
== END 2016-11-04 09:58 | disposition home or self-care (01) ==
LOC: M ED 05:40
DX: G40.909 Epilepsy, unspecified, not intractable, without status epilepticus (principal); F10.10 Alcohol abuse, uncomplicated; Z79.899 Other long term (current) drug therapy
CPT/HCPCS: 70450; 80048; 80180; 83605; 85025; 96361; 96374; 99285; G0480; J1953; J3411

== ENCOUNTER 2016-12-15 08:57 | Emergency (ER) | payer OTHER ==
[~2016-12-15] VITALS: Ht 188 cm; Wt 77.6 kg
[2016-12-15] MEDS ORDERED: KEPP1000 (09:09)
[2016-12-15] MEDS ORDERED: levETIRAcetam INJection 1,000 MG in D5W 100 ML IV ONE (09:15)
[2016-12-15 09:58] LABS: ANION GAP 9 MEQ/L (8-16); BLOOD UREA NITROGEN 6 MG/DL (7-18); CALCIUM LEVEL 8.4 MG/DL (8.5-10.1); CARBON DIOXIDE LEVEL 27 MEQ/L (21-32); CHLORIDE LEVEL 100 MEQ/L (98-107); CREATININE FOR GFR 0.96 MG/DL (0.70-1.30); GLOMERULAR FILTRATION RATE > 60.0 (>60); GLUCOSE, FASTING 174 MG/DL (70-105); POTASSIUM SERUM 4.2 MEQ/L (3.5-5.1); SODIUM LEVEL 136 MEQ/L (136-145)
[2016-12-15 10:00] VITALS: BP 124/97
== END 2016-12-15 10:45 | disposition home or self-care (01) ==
LOC: M ED 10:09
DX: G40.909 Epilepsy, unspecified, not intractable, without status epilepticus (principal); F10.20 Alcohol dependence, uncomplicated; Z79.899 Other long term (current) drug therapy; Z88.8 Allergy status to other drugs, medicaments and biological substances; F17.210 Nicotine dependence, cigarettes, uncomplicated
CPT/HCPCS: 80048; 80180; 96365; 99283; G0480; J1953

== ENCOUNTER → 2017-01-03 | Outpatient (CLI) | payer OTHER ==
[~2017-01-03] MED LIST changes: +KEPP1000
== END ==
LOC: M OUTALCOH 07:39
PROVIDERS: ATTEND Psychiatry & Neurology Psychiatry
DX: Z13.9 Encounter for screening, unspecified (principal)

== ENCOUNTER 2017-01-24 02:26 | Emergency (ER) | payer OTHER ==
[2017-01-24] MEDS ORDERED: levETIRAcetam INJection 1,000 MG in D5W 100 ML IV ONE (02:45)
[2017-01-24 05:47] VITALS: BP 139/82
[2017-01-24] MEDS ORDERED: KEPP1000 PO (05:57)
== END 2017-01-24 06:47 | disposition home or self-care (01) ==
LOC: EDBD 02:26 → M ED 06:13
DX: G40.909 Epilepsy, unspecified, not intractable, without status epilepticus (principal); F10.20 Alcohol dependence, uncomplicated; Z88.1 Allergy status to other antibiotic agents; Z88.8 Allergy status to other drugs, medicaments and biological substances; F17.210 Nicotine dependence, cigarettes, uncomplicated

== ENCOUNTER 2017-03-01 21:01 | Emergency (ER) | payer OTHER, SELFPAY ==
[~2017-03-01] VITALS: Ht 185.4 cm; Wt 74.4 kg
[~2017-03-01 21:01] MED LIST changes: -AUGM875T27 PO; +AUGM875T28 PO; -FOLI1TAB2 PO; +FOLI1TAB4 PO; -KEPP1000; -KEPP1000 PO; +KEPP10002; +KEPP10002 PO; +KEPP1TAB PO; -KEPP500T6 PO; -OXAZ15CA PO; +OXAZ15CA4 PO
[2017-03-01 22:23] LABS: BASO # 0.1 K/mm3 (0.0-0.2); BASO % 1.4 % (0.0-1.0); EOS # 0.4 K/mm3 (0.0-0.50); EOS % 7.8 % (0.0-3.0); LARGE UNSTAINED CELL # 0.2 K/mm3 (0.0-0.4); LARGE UNSTAINED CELL % 3.4 % (0.0-4.0); LYMPH # 2.1 K/mm3 (1.5-4.5); LYMPH % 33.3 % (24.0-44.0); MEAN CORPUSCULAR HEMOGLOBIN 33.7 pg (27.0-33.0); MEAN CORPUSCULAR HGB CONC 34.4 g/dl (32.0-36.5); MEAN CORPUSCULAR VOLUME 98.2 fl (80.0-96.0); MONO # 0.3 K/mm3 (0.0-0.8); MONO % 5.1 % (0.0-5.0); NEUTROPHILS # 2.8 K/mm3 (1.8-7.7); PLATELET COUNT, AUTOMATED 196 k/mm3 (150-450); RED CELL DISTRIBUTION WIDTH 12.9 % (11.5-14.5); WHITE BLOOD COUNT 5.7 K/mm3 (4.0-10.0)
[2017-03-01 22:51] LABS: ANION GAP 11 MEQ/L (8-16); BLOOD UREA NITROGEN 3 MG/DL (7-18); CALCIUM LEVEL 8.1 MG/DL (8.5-10.1); CARBON DIOXIDE LEVEL 23 MEQ/L (21-32); CHLORIDE LEVEL 107 MEQ/L (98-107); CREATININE FOR GFR 0.69 MG/DL (0.70-1.30); GLOMERULAR FILTRATION RATE > 60.0 (>60); GLUCOSE, FASTING 98 MG/DL (70-105); POTASSIUM SERUM 3.5 MEQ/L (3.5-5.1); SODIUM LEVEL 141 MEQ/L (136-145)
[2017-03-02 02:54] VITALS: BP 128/75
[2017-03-04] MEDS ORDERED: KEPP10002 PO (12:50)
[2017-03-04] MEDS ORDERED: FOLI1TAB4 PO (12:50)
== END 2017-03-02 03:01 | disposition home or self-care (01) ==
LOC: EDBD 21:01 → M ED 22:19
DX: F10.129 Alcohol abuse with intoxication, unspecified (principal); F70 Mild intellectual disabilities; J45.909 Unspecified asthma, uncomplicated; Z88.1 Allergy status to other antibiotic agents; Z88.0 Allergy status to penicillin; Z79.899 Other long term (current) drug therapy
CPT/HCPCS: 36415; 80048; 85025; 99283; G0480

== ENCOUNTER 2017-03-04 08:29 | Inpatient (IN) | payer SELFPAY ==
[~2017-03-04 08:29] MED LIST changes: +AUGM875T27 PO; -AUGM875T28 PO; +FOLI1TAB2 PO; -FOLI1TAB4 PO; +KEPP1000; +KEPP1000 PO; -KEPP10002; -KEPP10002 PO; -KEPP1TAB PO; +KEPP500T6 PO; +OXAZ15CA PO; -OXAZ15CA4 PO
[2017-03-04] MEDS ORDERED: SODIUM CHLORIDE 0.9% 1000 ML IV ONE (09:00)
[2017-03-04 09:06] LABS: VENOUS BASE EXCESS -1.5 (-2.0-2.0); VENOUS O2 SATURATION 59.2 % (60.0-80.0); VENOUS PARTIAL PRESSURE CO2 43.6 mmHg (38.0-50.0); VENOUS PARTIAL PRESSURE O2 32.6 mmHg (30.0-50.0); VENOUS STANDARD HCO3 22.3 MEQ/L; VENOUS TOTAL CO2 25.4 MEQ/L (24.0-28.0)
[2017-03-04 09:29] LABS: BASO % 0.8 % (0.0-1.0); EOS # 0.1 K/mm3 (0.0-0.50); LARGE UNSTAINED CELL # 0.1 K/mm3 (0.0-0.4); LARGE UNSTAINED CELL % 0.9 % (0.0-4.0); LYMPH # 0.3 K/mm3 (1.5-4.5); LYMPH % 3.9 % (24.0-44.0); MEAN CORPUSCULAR HEMOGLOBIN 34.2 pg (27.0-33.0); MEAN CORPUSCULAR HGB CONC 33.5 g/dl (32.0-36.5); MEAN CORPUSCULAR VOLUME 101.9 fl (80.0-96.0); MONO # 0.3 K/mm3 (0.0-0.8); NEUTROPHILS % 88.4 % (36.0-66.0); RED CELL DISTRIBUTION WIDTH 12.6 % (11.5-14.5); WHITE BLOOD COUNT 6.8 K/mm3 (4.0-10.0)
[2017-03-04 09:42] LABS: ALBUMIN/GLOBULIN RATIO 1.25 (1.00-1.93); ALKALINE PHOSPHATASE 77 U/L (45-117); ALT/SGPT 18 U/L (12-78); ANION GAP 8 MEQ/L (8-16); AST/SGOT 27 U/L (15-37); BILIRUBIN,DIRECT 0.1 MG/DL (0.0-0.2); BILIRUBIN,TOTAL 0.5 MG/DL (0.2-1.0); BLOOD UREA NITROGEN 6 MG/DL (7-18); CALCIUM LEVEL 8.8 MG/DL (8.5-10.1); CARBON DIOXIDE LEVEL 26 MEQ/L (21-32); CHLORIDE LEVEL 104 MEQ/L (98-107); CREATININE FOR GFR 0.99 MG/DL (0.70-1.30); GLOMERULAR FILTRATION RATE > 60.0 (>60); GLUCOSE, FASTING 92 MG/DL (70-105); SODIUM LEVEL 138 MEQ/L (136-145); TOTAL PROTEIN 7.2 GM/DL (6.4-8.2)
[2017-03-04 10:01] LABS: PLATELET COUNT, AUTOMATED 88 k/mm3 (150-450)
[2017-03-04] MEDS ORDERED: ONDANSETRON 4MG/2ML VIAL (J2405) As Ordered ONE (10:07)
[2017-03-04 10:29] LABS: OSMOLALITY SERUM 291 MOSM/KG (275-295)
[2017-03-04] MEDS ORDERED: ONDANSETRON 4MG/2ML VIAL (J2405) IV ONE (10:30)
[2017-03-04] MEDS ORDERED: LIDOCAINE 2% MDV 20 ML VIAL As Ordered ONE (11:59)
[2017-03-04] MEDS ORDERED: ISOVUE-300 61% 50ML VIAL (Q9967) As Ordered ONE (11:59)
--- NOTE | 2017-03-04 12:16 | REP ---
CT of the brain without IV contrast: Comparison is 11/04/2016. There is no hemorrhage. There is no edema, mass effect or midline shift. Cortical stripe is unremarkable. There is no subdural or epidural hematoma. The ventricles and sulci are moderately enlarged compatible with diffuse volume loss, somewhat unusual for patient age. This is unchanged. The visualized paranasal sinuses and mastoid air cells are clear except for opacification of the right sphenoid sinus compatible with sinusitis. This is an interval change. Impression: There is no hemorrhage, acute infarct or mass. Mild to moderate diffuse volume loss, somewhat unusual for patient age. Left sphenoid sinusitis. Signed by Deepak Alfaro MD 03/04/2017 11:27 A
[2017-03-04] MEDS ORDERED: levETIRAcetam INJection 1,000 MG in D5W 100 ML IV ONE (12:45)
[2017-03-04] MEDS ORDERED: FOLI1TAB2 PO (12:50)
[2017-03-04] MEDS ORDERED: B-12100010 PO (12:50)
[2017-03-04] MEDS ORDERED: ARNU1INH INH (12:50)
[2017-03-04] MEDS ORDERED: KEPP1000 PO (12:50)
[2017-03-04] MEDS ORDERED: MULT1TAB10 PO (12:50)
[2017-03-04 13:34] LABS: METHADONE URINE NEGATIVE (NEGATIVE)
[2017-03-04] MEDS: NS 1,000 ML IV SCH (14:38)
[2017-03-04] MEDS ORDERED: ACETAMINOPHEN 650 MG SUPP PR PRN (14:45)
--- NOTE | 2017-03-04 16:07 | HPE ---
DATE OF ADMISSION: 03/04/2017 36-year-old white male with history of seizure disorder and substance abuse. He was admitted following a seizure. Also apparently there is a history of noncompliance. The patient apparently was having several seizures this morning. His friends called emergency medical services (EMS). His friends gave the location of the patient and then went out to smoke. He has been in the emergency room several times. He usually comes in with a temperature. His temperature was initially 101 and currently 103. He has had multiple lumbar punctures. Prior lumbar punctures have been unremarkable except for the presence of what appears to be a traumatic tap. He does have elevated protein in his spinal fluid, which might be in part secondary to the for traumatic taps although elevated protein that has been seen on non traumatic taps as well. He does have a history of noncompliance with his Keppra. He has had prior EEGs, which showed a right temporal focus. He did have a drug screen on admission, which is positive for benzodiazepines. It is negligible for alcohol. In the past, he has had elevated EtOH level. The patient basically denies everything now. He wants to be left alone to sleep. He was drowsy on admission but seems to be improving with increasing alertness. His electrolytes were reviewed. His sodium and calcium are normal. He does have an elevated CK, probably secondary to recent seizures, as well as an elevated lactic acid at 2.9, I suspect probably secondary to seizure. Again, he usually comes in with fever. Blood cultures have been drawn. Lumbar puncture was not done at this time. He denies any headache, but again he denies everything. He does not appear to have any nuchal rigidity. MEDICATIONS: Keppra 1000 mg twice a day, Keppra level was pending. He received 1000 mg of Keppra IV in the emergency room. He takes multivitamins, vitamin B12 and Arnuity one puff daily. SOCIAL HISTORY: He is a smoker. Does abuse alcohol. He has benzodiazepines on his toxicology. His outpatient medications do not include any benzodiazepine. Previous urines have been also positive for cannabinoids. ALLERGIES: CEFTRIAXONE - anaphylaxis HALDOL LORAZEPAM PAST MEDICAL HISTORY: 1. Seizure disorder. 2. Substance abuse. 3. Presumed vitamin B12 deficiency. 4. Noncompliance. FAMILY HISTORY: Cannot be obtained. Previous records note that his mother of lung cancer. REVIEW OF SYSTEMS: Cannot be obtained. The patient currently is postictal. PHYSICAL EXAMINATION: Blood pressure is 113/76, pulse is 100 and regular sinus. EKG is unremarkable. Pulse oximetry is 95%. Temperature is 103. Incidentally, the patient's white blood cell count is not elevated. HEENT: He has a soft tissue mass at the left angle of his jaw. Pupils are equal. Sclerae anicteric. Oropharynx: Dentition is poor. He has a few superficial abrasions noted on his face. Neck is supple without rigidity. HEART: Was regular. No murmur. LUNGS: Chest is clear. ABDOMEN: Soft, nontender. EXTREMITIES: No clubbing, cyanosis or edema. NEUROLOGIC: Intact. He moves all four extremities. There is decreased alertness secondary to postictal state. IMPRESSION AND PLAN: 1. Seizure disorder. Suspect noncompliance with Keppra. Keppra level pending. Keppra was given in the emergency room, 1 gram. We will hold further Keppra until the morning. 2. History of substance abuse. 3. Alcoholism. 4. History of non adherence. 5. Fever without elevated white count. White count t is 6.8. Again, he has been febrile on several prior presentations with seizure. Prior lumbar punctures as discussed above. The patient will be admitted to progressive care unit (PCU) with neuro checks. We will recheck blood work, including CBC and BMP in the morning. Blood cultures are pending. ADDENDUM: Radha Glass MD, 03/04/2017 1639/ndp I noted in his drug screen that he was positive for benzodiazepines. I see that he did receive a dose of Valium in the emergency room and this might account for the positive urine screen in that regard.
[2017-03-04 18:05] VITALS: BP 126/73
[2017-03-04] MEDS: CYANOCOBALAMIN 500 MCG TAB PO SCH (18:28)
[2017-03-04] MEDS: ENOXAPARIN 40 MG/0.4 ML SYRINGE (J1650) SC SCH (18:28)
[2017-03-04 20:00] VITALS: BP 119/58
--- NOTE | 2017-03-04 20:01 | ECGEPIP ---
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
[2017-03-04] MEDS: ACETAMINOPHEN TAB 650MG DOSE (2X325MG) PO PRN (21:12)
[2017-03-05] VITALS: BP 128/69
[2017-03-05] MEDS: ACETAMINOPHEN TAB 650MG DOSE (2X325MG) PO PRN ×2 (01:02→05:20)
[2017-03-05] MEDS: NS 1,000 ML IV SCH (01:02)
[2017-03-05 04:00] VITALS: BP 106/58
[2017-03-05 05:24] LABS: BASO % 0.4 % (0.0-1.0); EOS % 0.4 % (0.0-3.0); LARGE UNSTAINED CELL # 0.2 K/mm3 (0.0-0.4); LARGE UNSTAINED CELL % 2.6 % (0.0-4.0); LYMPH # 1.4 K/mm3 (1.5-4.5); LYMPH % 15.1 % (24.0-44.0); MEAN CORPUSCULAR HEMOGLOBIN 33.6 pg (27.0-33.0); MEAN CORPUSCULAR HGB CONC 33.9 g/dl (32.0-36.5); MEAN CORPUSCULAR VOLUME 99.1 fl (80.0-96.0); MONO # 0.5 K/mm3 (0.0-0.8); MONO % 6.5 % (0.0-5.0); NEUTROPHILS % 75.1 % (36.0-66.0); RED CELL DISTRIBUTION WIDTH 12.8 % (11.5-14.5)
[2017-03-05 05:28] LABS: PLATELET COUNT, AUTOMATED 193 k/mm3 (150-450)
[2017-03-05 05:54] LABS: ANION GAP 8 MEQ/L (8-16); BLOOD UREA NITROGEN 5 MG/DL (7-18); CALCIUM LEVEL 7.9 MG/DL (8.5-10.1); CARBON DIOXIDE LEVEL 24 MEQ/L (21-32); CHLORIDE LEVEL 104 MEQ/L (98-107); GLOMERULAR FILTRATION RATE > 60.0 (>60); GLUCOSE, FASTING 92 MG/DL (70-105); POTASSIUM SERUM 3.5 MEQ/L (3.5-5.1); SODIUM LEVEL 136 MEQ/L (136-145)
[2017-03-05] MEDS ORDERED: levETIRAcetam INJection 500 MG in D5W MINI-BAG PLUS 100 ML IV ONE (06:00)
[2017-03-05 08:00] VITALS: BP 136/76
[2017-03-05] MEDS: CYANOCOBALAMIN 500 MCG TAB PO SCH (08:50)
[2017-03-05] MEDS: ENOXAPARIN 40 MG/0.4 ML SYRINGE (J1650) SC SCH (08:50)
[2017-03-05] MEDS ORDERED: THIAMINE 100 MG TAB PO SCH (09:00)
--- NOTE | 2017-03-05 15:05 | DS.PDOC ---
Discharge Summary General Date of Admission Mar 04, 2017 at 14:38 Date of Discharge 03/05/17 Discharge Summary PROCEDURES PERFORMED DURING STAY: None. ADMITTING DIAGNOSES: 1. . Recurrent seizures secondary to nonadherence to medication DISCHARGE DIAGNOSES: 1. . Recurrent seizures secondary to nonadherence to medication COMPLICATIONS/CHIEF COMPLAINT: Recurrent Seizures. HISTORY OF PRESENT ILLNESS: . 36-year-old male with a past medical history of polysubstance abuse and seizure disorders with a history of noncompliance was admitted on 03/04 after he was found by his friends to have several seizures at home. Of note, the patient has had several similar occurrences in the past and was noted to have subtherapeutic Keppra levels. On this admission, the patient's history was limited given his presentation. However, the patient's alcohol level was noted to be within normal limits, and he was noted to be positive for benzodiazepines however he did receive a dose of Valium in the ER. A CT scan of the head revealed no acute findings. During hospitalization, the patient's mentation significantly improved overnight and was back to his baseline in the morning. Upon my evaluation of the patient this morning, the patient states that he is ready to go home. He reports that he did not take his Keppra medications for a few days because he doesn't like the way it makes him feel. I advised the patient that we would need to conduct further workup and monitor his neurological status here in the hospital. However, the patient states that he would like to sign out AGAINST MEDICAL ADVICE. The patient is awake, alert, oriented 4. He verbalized understanding the consequences of signing out AGAINST MEDICAL ADVICE especially in view of his presentation of seizures due to nonadherence to his medical therapy. Noncompliance with medical therapy and continued seizures can result in severe disability, and/or . The patient verbalized understanding of this and decided to leave AMA anyway. I have advised the patient to follow-up with his primary care physician within 24 hours and to follow-up with neurology within 1 week. The patient states that he we'll do this and will start to take his Keppra medication, which he states that he has enough of at home. In addition, I have advised the patient against driving, operating any heavy machinery, swimming, or climbing any heights/ladders given his episodes of seizures. In addition, if his seizures were to return he has been advised to return to the ER. DISCHARGE MEDICATIONS: Please see below. ALLERGIES: Please see below. PHYSICAL EXAMINATION ON DISCHARGE: VITAL SIGNS: Please see below. GENERAL: Awake, alert, oriented 4 HEENT: Normocephalic, atraumatic NECK: No JVD CARDIOVASCULAR EXAMINATION: Rate, normal rhythm RESPIRATORY EXAMINATION: Clear to auscultation bilaterally ABDOMINAL EXAMINATION: Soft, nontender, nondistended EXTREMITIES: No erythema, or tenderness LABORATORY DATA: Please see below. IMAGING: CT of the brain without IV contrast: Comparison is 11/04/2016. There is no hemorrhage. There is no edema, mass effect or midline shift. Cortical stripe is unremarkable. There is no subdural or epidural hematoma. The ventricles and sulci are moderately enlarged compatible with diffuse volume loss, somewhat unusual for patient age. This is unchanged. The visualized paranasal sinuses and mastoid air cells are clear except for opacification of the right sphenoid sinus compatible with sinusitis. This is an interval change. Impression: There is no hemorrhage, acute infarct or mass. Mild to moderate diffuse volume loss, somewhat unusual for patient age. Left sphenoid sinusitis. PROGNOSIS: Not medically stable given his nonadherence to medications ACTIVITY: As tolerated. DIET: . Regular diet DISCHARGE PLAN: Home AGAINST MEDICAL ADVICE DISPOSITION: Against Medical Advice. DISCHARGE INSTRUCTIONS: 1. . Follow-up with primary care physician within one day 2. . Follow-up with neurology within 1 week 3. . Return to the ER if symptoms of seizures return or persist ITEMS TO FOLLOWUP ON ON OUTPATIENT: 1. . Remain adherent to antiepileptic drug therapy DISCHARGE CONDITION: Not medically stable as the patient is not adherent to his medications TIME SPENT ON DISCHARGE: Greater than 30 minutes. Vital Signs/I&Os Vital Signs Date Time Temp Pulse Resp B/P (MAP) Pulse Ox O2 Delivery O2 Flow Rate FiO2 03/05/17 08:00 98.6 81 18 136/76 (96) 96 Room Air I&O- Last 24 Hours up to 6 AM 03/05/17 05:59 Intake Total 3225 ml Output Total 1375 ml Balance 1850 ml Laboratory Data Labs 24H Laboratory Tests 2 03/05/17 05:04: White Blood Count 8.0, Red Blood Count 4.03L, Hemoglobin 13.5L, Hematocrit 39.9L , Mean Corpuscular Volume 99.1H, Mean Corpuscular Hemoglobin 33.6H, Mean Corpuscular Hemoglobin Concent 33.9, Red Cell Distribution Width 12.8, Platelet Count 193#, Neutrophils (%) (Auto) 75.1H, Lymphocytes (%) (Auto) 15.1L, Monocytes (%) (Auto) 6.5H, Eosinophils (%) (Auto) 0.4, Basophils (%) (Auto) 0.4 , Neutrophils # (Auto) 6.0, Lymphocytes # (Auto) 1.4L, Monocytes # (Auto) 0.5, Eosinophils # (Auto) 0.0, Basophils # (Auto) 0.0, Large Unclassified Cells % 2.6 , Large Unclassified Cells # 0.2, Anion Gap 8, Glomerular Filtration Rate > 60.0 , Blood Urea Nitrogen 5L, Creatinine 0.60L, Sodium Level 136, Potassium Level 3.5, Chloride Level 104, Carbon Dioxide Level 24, Calcium Level 7.9L CBC/BMP Laboratory Tests 03/05/17 05:04 Red Blood Count 4.03 L, Mean Corpuscular Volume 99.1 H, Mean Corpuscular Hemoglobin 33.6 H, Mean Corpuscular Hemoglobin Concent 33.9, Red Cell Distribution Width 12.8, Neutrophils (%) (Auto) 75.1 H, Lymphocytes (%) (Auto) 15.1 L, Monocytes (%) (Auto) 6.5 H, Eosinophils (%) (Auto) 0.4, Basophils (%) ( Auto) 0.4, Neutrophils # (Auto) 6.0, Lymphocytes # (Auto) 1.4 L, Monocytes # ( Auto) 0.5, Eosinophils # (Auto) 0.0, Basophils # (Auto) 0.0, Calcium Level 7.9 L Microbiology Microbiology 03/04/17 Blood Culture - Preliminary, Resulted No growth after 24 hours . All specim... 03/04/17 Blood Culture - Preliminary, Resulted No growth after 24 hours . All specim... Discharge Medications Scheduled (Arnuity Ellipta) 100 Mcg/Act Inh, 1 PUFF INH DAILY, (Reported) Cyanocobalamin (B-12) 1,000 Mcg Cap, 1 MG PO DAILY, (Reported) Folic Acid (Folic Acid) 1 Mg Tab, 1 MG PO DAILY, (Reported) Levetiracetam (Keppra) 1,000 Mg Tab, 1,000 MG PO BID, (Reported) PT NOT A GOOD HISTORIAN. OBTAINED MED LIST FROM HIS PHARMACY Multivitamins (Multivitamin Adults) 1 Tab Tab, 1 TAB PO DAILY, (Reported) Allergies Coded Allergies: Ceftriaxone (Verified Allergy, Severe, anaphylaxis, 03/01/17) HAS RECEIVED PIPERACILLIN w/o PROBLEM Haloperidol (Unverified Adverse Reaction, Intermediate, confusion, mental status change, 03/01/17) Lorazepam (Unverified Adverse Reaction, Intermediate, confusion, mental staus change, 03/01/17) JUANITO BARRON MD Mar 05, 2017 15:05
== END 2017-03-05 08:58 | disposition left against medical advice (07) | DRG 53 ==
LOC: M ED 11:16 → M ED INP 14:38 → M PCU 18:09
DX: G40.909 Epilepsy, unspecified, not intractable, without status epilepticus (principal); F10.20 Alcohol dependence, uncomplicated; F19.21 Other psychoactive substance dependence, in remission; F17.200 Nicotine dependence, unspecified, uncomplicated; R50.9 Fever, unspecified; Z79.899 Other long term (current) drug therapy; Z91.14 Patient's other noncompliance with medication regimen; Z88.8 Allergy status to other drugs, medicaments and biological substances

== ENCOUNTER 2017-04-04 15:24 | Emergency (ER) | payer SELFPAY ==
[~2017-04-04] VITALS: Ht 193 cm; Wt 75.4 kg
[~2017-04-04 15:24] MED LIST changes: +ARNU1INH INH; -AUGM875T27 PO; +AUGM875T28 PO; +B-12100010 PO; -FOLI1TAB2 PO; +FOLI1TAB4 PO; -KEPP1000; -KEPP1000 PO; +KEPP10002; +KEPP10002 PO; +KEPP1TAB PO; -KEPP500T6 PO; +MULT1TAB10 PO; -OXAZ15CA PO; +OXAZ15CA4 PO
[2017-04-04 15:25] VITALS: BP 111/68
[2017-04-04] MEDS ORDERED: NS 1,000 ML IV ONE ×3 (15:45→17:00)
[2017-04-04 15:46] LABS: BASO # 0.1 K/mm3 (0.0-0.2); BASO % 1.9 % (0.0-1.0); EOS # 0.3 K/mm3 (0.0-0.50); EOS % 6.9 % (0.0-3.0); LARGE UNSTAINED CELL # 0.2 K/mm3 (0.0-0.4); LARGE UNSTAINED CELL % 3.7 % (0.0-4.0); LYMPH # 1.6 K/mm3 (1.5-4.5); LYMPH % 30.2 % (24.0-44.0); MEAN CORPUSCULAR HEMOGLOBIN 33.1 pg (27.0-33.0); MEAN CORPUSCULAR HGB CONC 33.1 g/dl (32.0-36.5); MEAN CORPUSCULAR VOLUME 99.8 fl (80.0-96.0); MONO # 0.3 K/mm3 (0.0-0.8); MONO % 6.6 % (0.0-5.0); NEUTROPHILS # 2.5 K/mm3 (1.8-7.7); NEUTROPHILS % 50.8 % (36.0-66.0); PLATELET COUNT, AUTOMATED 238 k/mm3 (150-450); RED CELL DISTRIBUTION WIDTH 12.6 % (11.5-14.5); WHITE BLOOD COUNT 4.8 K/mm3 (4.0-10.0)
[2017-04-04 16:09] LABS: ABG HCO3 21.9 MEQ/L (22.0-26.0); ABG PARTIAL PRESSURE CO2 38.8 mmHg (35.0-45.0); ABG PARTIAL PRESSURE O2 64.1 mmHg (75.0-100.0); ABG STANDARD HCO3 21.8 MEQ/L (22.0-26.0); ABG TOTAL CO2 23.1 MEQ/L (22.0-29.0); ABG pH (ARTERIAL) 7.369 UNITS (7.350-7.450)
--- NOTE | 2017-04-04 16:27 | REP ---
Chest AP and lateral views: Comparison is 10/08/2016. The lung robles are clear. Cardiac size is normal. The regan, mediastinum, and bony thorax are unremarkable. Impression: Negative AP and lateral chest. Sign taking Signed by Deepak Alfaro MD 04/04/2017 04:19 P
[2017-04-04 16:30] LABS: ALBUMIN 3.9 GM/DL (3.2-5.2); ALBUMIN/GLOBULIN RATIO 1.26 (1.00-1.93); ALKALINE PHOSPHATASE 69 U/L (45-117); ALT/SGPT 15 U/L (12-78); ANION GAP 15 MEQ/L (8-16); AST/SGOT 8 U/L (15-37); BILIRUBIN,DIRECT 0.1 MG/DL (0.0-0.2); BILIRUBIN,TOTAL 0.4 MG/DL (0.2-1.0); BLOOD UREA NITROGEN 6 MG/DL (7-18); CALCIUM LEVEL 8.8 MG/DL (8.5-10.1); CARBON DIOXIDE LEVEL 19 MEQ/L (21-32); CHLORIDE LEVEL 106 MEQ/L (98-107); CREATININE FOR GFR 1.16 MG/DL (0.70-1.30); GLOMERULAR FILTRATION RATE > 60.0 (>60); GLUCOSE, FASTING 125 MG/DL (70-105); SODIUM LEVEL 140 MEQ/L (136-145)
--- NOTE | 2017-04-04 16:43 | REP ---
There is no change not only from this exam but from the prior 25 brain [address]s. This noncontrast enhanced CT scan of the brain shows no evidence of an acute intracranial hemorrhagic or nonhemorrhagic event. There is no shift of the midline structures. There are no extra-axial fluid collections. There is no change in the appearance of the ventricles or sulci. The visualized paranasal sinuses and mastoid air cells are unchanged. IMPRESSION: No acute intracranial pathology and no significant change. Signed by Alejandro Ruiz DO 04/04/2017 04:47 P
[2017-04-04 18:43] LABS: OSMOLALITY SERUM 291 MOSM/KG (275-295)
--- NOTE | 2017-04-04 19:13 | ECGEPIP ---
Stationary ECG Study [facility] - ED Test Date: 2017-04-04 Pat Name: GIORGIO CARTER Department: Room: - Gender: M Molder Hand: yessenia : 1980 Requested By: Lynne Patten Order Number: [id number] Reading MD: Nino Haines Measurements Intervals [place] Rate: 98 P: 72 [place]: 158 QRS: 63 QRSD: 97 T: 67 QT: 350 QTc: 448 Interpretive Statements SINUS RHYTHM Electronically Signed On 04-04-2017 19:13:25 EDT by Nino Haines
== END 2017-04-04 21:47 | disposition home or self-care (01) ==
LOC: EDBD 15:24 → M ED 15:24
DX: G40.909 Epilepsy, unspecified, not intractable, without status epilepticus (principal); Z72.0 Tobacco use; Z91.14 Patient's other noncompliance with medication regimen
CPT/HCPCS: 70450; 71020; 80048; 80076; 80180; 82140; 82550; 82553; 82803; 83605; 83930; 84443; 85025; 93005; 93041; 96360; 96361; 99284; G0480

== ENCOUNTER 2017-04-17 11:51 | Emergency (ER) | payer MEDICAID, SELFPAY ==
[2017-04-17] MEDS ORDERED: NS 1,000 ML IV ONE (12:00)
[2017-04-17 12:25] LABS: MEAN CORPUSCULAR HEMOGLOBIN 33.8 pg (27.0-33.0); MEAN CORPUSCULAR HGB CONC 34.7 g/dl (32.0-36.5); MEAN CORPUSCULAR VOLUME 97.5 fl (80.0-96.0); RED CELL DISTRIBUTION WIDTH 12.7 % (11.5-14.5); WHITE BLOOD COUNT 8.2 K/mm3 (4.0-10.0)
--- NOTE | 2017-04-17 12:59 | REP ---
CT Head without contrast HISTORY: Altered mental status COMPARISON: 04/04/1970 There is no intraparenchymal hemorrhage, acute infarct, mass or midline shift. The ventricular system and cortical sulci as well as subarachnoid space in the posterior fossa are dilated consistent with mild volume loss. There is no extra cerebral collection. There is no fracture. The visualized sinuses are clear. IMPRESSION: Mild volume loss. Signed by Elroy Lugo MD 04/17/2017 12:50 P
[2017-04-17 13:13] LABS: METHADONE URINE NEGATIVE (NEGATIVE)
[2017-04-17 13:53] LABS: ALBUMIN 3.3 GM/DL (3.2-5.2); ALBUMIN/GLOBULIN RATIO 1.14 (1.00-1.93); ALKALINE PHOSPHATASE 64 U/L (45-117); ALT/SGPT 16 U/L (12-78); ANION GAP 7 MEQ/L (8-16); AST/SGOT 14 U/L (15-37); BILIRUBIN,DIRECT 0.2 MG/DL (0.0-0.2); BILIRUBIN,TOTAL 0.6 MG/DL (0.2-1.0); BLOOD UREA NITROGEN 4 MG/DL (7-18); CALCIUM LEVEL 8.4 MG/DL (8.5-10.1); CARBON DIOXIDE LEVEL 25 MEQ/L (21-32); CHLORIDE LEVEL 101 MEQ/L (98-107); CREATININE FOR GFR 0.71 MG/DL (0.70-1.30); GLOMERULAR FILTRATION RATE > 60.0 (>60); GLUCOSE, FASTING 103 MG/DL (70-105); POTASSIUM SERUM 3.7 MEQ/L (3.5-5.1); SODIUM LEVEL 133 MEQ/L (136-145); TOTAL PROTEIN 6.2 GM/DL (6.4-8.2)
[2017-04-17 15:29] VITALS: BP 106/64
--- NOTE | 2017-04-17 20:31 | ECGEPIP ---
Stationary ECG Study 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
== END 2017-04-17 15:32 | disposition home or self-care (01) ==
LOC: M ED 11:51
DX: F12.10 Cannabis abuse, uncomplicated (principal)
CPT/HCPCS: 36415; 70450; 80048; 80076; 80307; 84443; 85027; 93005; 99284; G0480

== ENCOUNTER → 2017-04-22 | Outpatient (REF) | payer MEDICAID ==
[~2017-04-22] MED LIST changes: +OFLO1DRO3 AD; +ZITHTAB PO
== END ==
LOC: M LAB REF 17:57
PROVIDERS: ATTEND Nurse Practitioner Family
DX: R56.9 Unspecified convulsions (principal)

== ENCOUNTER 2017-04-25 12:08 | Emergency (ER) | payer MEDICAID ==
[~2017-04-25] VITALS: Ht 188 cm; Wt 74.6 kg
[2017-04-25 12:08] VITALS: BP 136/76
[~2017-04-25 12:08] MED LIST changes: -OFLO1DRO3 AD; -ZITHTAB PO
[2017-04-25] MEDS ORDERED: ZITHTAB PO (14:29)
[2017-04-25] MEDS ORDERED: OFLO1DRO3 AD (14:29)
== END 2017-04-25 14:58 | disposition home or self-care (01) ==
LOC: M ED 12:08
DX: H60.91 Unspecified otitis externa, right ear (principal); H66.91 Otitis media, unspecified, right ear; J45.909 Unspecified asthma, uncomplicated; R56.9 Unspecified convulsions; F81.9 Developmental disorder of scholastic skills, unspecified; D69.6 Thrombocytopenia, unspecified; F33.9 Major depressive disorder, recurrent, unspecified; Z79.899 Other long term (current) drug therapy; Z79.51 Long term (current) use of inhaled steroids; Z88.8 Allergy status to other drugs, medicaments and biological substances; F17.210 Nicotine dependence, cigarettes, uncomplicated

== ENCOUNTER 2017-09-07 18:10 | Inpatient (IN) | payer OTHER, MEDICAID ==
[2017-09-07] MEDS ORDERED: LORazepam 2 MG/ML VIAL (J2060) As Ordered (18:12)
[2017-09-07] MEDS: LORazepam 2 MG/ML VIAL (J2060) IV (18:22)
[2017-09-07 18:29] LABS: HEMATOCRIT 42.4 % (42.0-52.0); HEMOGLOBIN 14.2 g/dl (14.0-18.0); MEAN CORPUSCULAR HEMOGLOBIN 32.9 pg (27.0-33.0); MEAN CORPUSCULAR HGB CONC 33.5 g/dl (32.0-36.5); MEAN CORPUSCULAR VOLUME 98.1 fl (80.0-96.0); PLATELET COUNT, AUTOMATED 270 10^3/uL (150-450); RED BLOOD COUNT 4.32 10^6/uL (4.30-6.10); RED CELL DISTRIBUTION WIDTH 12.5 % (11.5-14.5); WHITE BLOOD COUNT 10.5 10^3/uL (4.0-10.0)
[2017-09-07 18:36] LABS: BEDSIDE GLUCOSE 110 MG/DL (70-105)
[2017-09-07 18:59] LABS: ALBUMIN/GLOBULIN RATIO 1.14 (1.00-1.93); ALKALINE PHOSPHATASE 97 U/L (45-117); ALT/SGPT 15 U/L (12-78); ANION GAP 15 MEQ/L (8-16); AST/SGOT 14 U/L (7-37); BILIRUBIN,DIRECT < 0.1 MG/DL (0.0-0.2); BILIRUBIN,TOTAL 0.1 MG/DL (0.2-1.0); BLOOD UREA NITROGEN 12 MG/DL (7-18); CARBON DIOXIDE LEVEL 20 MEQ/L (21-32); CHLORIDE LEVEL 105 MEQ/L (98-107); CPK CREATINE PHOSPHOKINASE 102 U/L (39-308); ETHYL ALCOHOL (ETHANOL) < 0.003 % (0.000-0.010); GLOMERULAR FILTRATION RATE > 60.0 (>60); GLUCOSE, FASTING 111 MG/DL (70-105); MAGNESIUM LEVEL 2.3 MG/DL (1.8-2.4); POTASSIUM SERUM 3.7 MEQ/L (3.5-5.1); SALICYLATE LEVEL 3.5 MG/DL (5.0-30.0); SODIUM LEVEL 140 MEQ/L (136-145); THYROID STIMULATING HORMONE 0.748 uIU/ML (0.358-3.740); TOTAL PROTEIN 7.5 GM/DL (6.4-8.2)
[2017-09-07] MEDS: THIAMINE HCL 200 MG/2 ML VIAL (J3411) IM (19:09)
[2017-09-07] MEDS: levETIRAcetam INJection 1,000 MG in D5W 100 ML IV (19:09)
[2017-09-07 19:12] LABS: VENOUS PH 7.332 UNITS (7.330-7.430)
[2017-09-07 19:13] LABS: VENOUS BASE EXCESS -3.5 (-2.0-2.0); VENOUS HCO3 22.4 MEQ/L (23.0-27.0); VENOUS O2 SATURATION 97.4 % (60.0-80.0); VENOUS PARTIAL PRESSURE CO2 43.2 mmHg (38.0-50.0); VENOUS PARTIAL PRESSURE O2 97.6 mmHg (30.0-50.0); VENOUS STANDARD HCO3 21.6 MEQ/L; VENOUS TOTAL CO2 23.7 MEQ/L (24.0-28.0)
[2017-09-07 19:30] LABS: ACETAMINOPHEN LEVEL < 2.0 UG/ML (10.0-30.0)
[2017-09-07] MEDS: DOCUSATE SODIUM 100 MG CAP PO (21:00)
[2017-09-07] MEDS ORDERED: IPRATROPIUM 0.5MG/ALBUTEROL 2.5MG INH SOL UD 3ML (DUONEB)(J7620) NEB (21:00)
[2017-09-07] MEDS ORDERED: OXAZEPAM 10 MG CAP PO (21:00)
[2017-09-07] MEDS ORDERED: levETIRAcetam 250MG TABLET (KEPPRA) PO (21:00)
[2017-09-07] MEDS ORDERED: ONDANSETRON 4MG/2ML VIAL (J2405) IV (21:00)
[2017-09-07] MEDS: CIPRODEX OTIC SUSP 7.5ML AD (21:00)
[2017-09-07] MEDS ORDERED: ACETAMINOPHEN TAB 650MG DOSE (2X325MG) PO (21:00)
[2017-09-08] MEDS: HEPARIN SOD (PORCINE) 5000 UNITS/ML VIAL SC (06:00)
[2017-09-08] MEDS: OXAZEPAM 15 MG CAP PO ×2 (06:58)
[2017-09-08] MEDS: IPRATROPIUM 0.5MG/ALBUTEROL 2.5MG INH SOL UD 3ML (DUONEB)(J7620) NEB ×2 (08:00)
[2017-09-08] MEDS: DOCUSATE SODIUM 100 MG CAP PO (08:56)
[2017-09-08] MEDS: levETIRAcetam 250MG TABLET (KEPPRA) PO (08:56)
[2017-09-08] MEDS: MULTIVITAMINS/MINERALS THERAP 1 TAB PO (08:56)
[2017-09-08] MEDS: FOLIC ACID 1 MG TAB PO (08:56)
[2017-09-08] MEDS: AMOXICILLIN 875 MG TAB PO (08:56)
[2017-09-08] MEDS: THIAMINE 100 MG TAB PO (08:56)
[2017-09-12 14:13] LABS: LEVETIRACETAM (KEPPRA) 6.5 ug/mL (10.0-40.0)
== END 2017-09-08 12:05 | disposition left against medical advice (07) | DRG 53 ==
LOC: M ED 18:10 → M ED INP 20:46 → M PCU 22:25
DX: G40.909 Epilepsy, unspecified, not intractable, without status epilepticus (principal); F10.10 Alcohol abuse, uncomplicated; H60.91 Unspecified otitis externa, right ear; J32.9 Chronic sinusitis, unspecified; J06.9 Acute upper respiratory infection, unspecified; Z79.899 Other long term (current) drug therapy; Z88.1 Allergy status to other antibiotic agents; Z88.8 Allergy status to other drugs, medicaments and biological substances; Z91.19 Patient's noncompliance with other medical treatment and regimen

== ENCOUNTER → 2017-09-26 | Outpatient (REF) | payer OTHER ==
[2017-09-26 18:26] LABS: ALBUMIN 4.1 GM/DL (3.2-5.2); ALBUMIN/GLOBULIN RATIO 1.32 (1.00-1.93); ALKALINE PHOSPHATASE 74 U/L (45-117); ALT/SGPT 14 U/L (12-78); ANION GAP 8 MEQ/L (8-16); AST/SGOT 11 U/L (7-37); BILIRUBIN,TOTAL 0.5 MG/DL (0.2-1.0); BLOOD UREA NITROGEN 7 MG/DL (7-18); CALCIUM LEVEL 9.1 MG/DL (8.5-10.1); CARBON DIOXIDE LEVEL 27 MEQ/L (21-32); CHLORIDE LEVEL 104 MEQ/L (98-107); CREATININE FOR GFR 0.79 MG/DL (0.70-1.30); GLOMERULAR FILTRATION RATE > 60.0 (>60); GLUCOSE, FASTING 77 MG/DL (70-105); MAGNESIUM LEVEL 2.3 MG/DL (1.8-2.4); POTASSIUM SERUM 4.6 MEQ/L (3.5-5.1); SODIUM LEVEL 139 MEQ/L (136-145); TOTAL PROTEIN 7.2 GM/DL (6.4-8.2)
[2017-09-30 14:11] LABS: LEVETIRACETAM (KEPPRA) 32.1 ug/mL (10.0-40.0)
== END ==
LOC: M LAB REF 16:39
DX: R56.9 Unspecified convulsions (principal)

== ENCOUNTER → 2017-10-31 | Outpatient (CLI) | payer OTHER ==
[2017-10-31 13:09] LABS: BASO # 0.1 10^3/uL (0.0-0.2); BASO % 1.6 % (0.0-1.0); EOS # 0.5 10^3/uL (0.0-0.50); EOS % 7.3 % (0.0-3.0); HEMATOCRIT 42.3 % (42.0-52.0); HEMOGLOBIN 14.4 g/dl (14.0-18.0); IMMATURE GRANULOCYTE % 0.2 % (0-3.0); LYMPH # 1.8 10^3/uL (1.5-4.5); MEAN CORPUSCULAR HEMOGLOBIN 32.7 pg (27.0-33.0); MEAN CORPUSCULAR VOLUME 96.1 fl (80.0-96.0); MONO # 0.7 10^3/uL (0.0-0.8); MONO % 10.8 % (0.0-5.0); NEUTROPHILS # 3.2 10^3/uL (1.8-7.7); NEUTROPHILS % 51.1 % (36.0-66.0); PLATELET COUNT, AUTOMATED 261 10^3/uL (150-450); RED CELL DISTRIBUTION WIDTH 12.2 % (11.5-14.5); WHITE BLOOD COUNT 6.3 10^3/uL (4.0-10.0)
[2017-10-31 13:43] LABS: TOTAL 25(OH) VITAMIN D 13.1 NG/ML (30.0-100.0); VITAMIN B12 LEVEL 652 PG/ML (247-911)
[2017-10-31 13:46] LABS: ALBUMIN 4.1 GM/DL (3.2-5.2); ALBUMIN/GLOBULIN RATIO 1.37 (1.00-1.93); ALKALINE PHOSPHATASE 78 U/L (45-117); ALT/SGPT 12 U/L (12-78); ANION GAP 4 MEQ/L (8-16); AST/SGOT 12 U/L (7-37); BILIRUBIN,TOTAL 0.5 MG/DL (0.2-1.0); BLOOD UREA NITROGEN 6 MG/DL (7-18); CALCIUM LEVEL 8.5 MG/DL (8.5-10.1); CARBON DIOXIDE LEVEL 30 MEQ/L (21-32); CHLORIDE LEVEL 105 MEQ/L (98-107); CHOLESTEROL LEVEL 178 MG/DL (<200); CHOLESTEROL RISK RATIO 3.869 (<5); CREATININE FOR GFR 0.79 MG/DL (0.70-1.30); GLOMERULAR FILTRATION RATE > 60.0 (>60); GLUCOSE, FASTING 78 MG/DL (70-100); HDL CHOLESTEROL 46 MG/DL (>40); LDL CHOLESTEROL 109.6 MG/DL (<100); NON-HDL-C 132 MG/DL; POTASSIUM SERUM 4.3 MEQ/L (3.5-5.1); SODIUM LEVEL 139 MEQ/L (136-145); THYROID STIMULATING HORMONE 0.806 uIU/ML (0.358-3.740); TOTAL PROTEIN 7.1 GM/DL (6.4-8.2); TRIGLYCERIDES LEVEL 112 MG/DL (<150)
[2017-10-31 14:40] LABS: CHLAMYDIA DNA AMPLIFICATION NEGATIVE (NEGATIVE); GC DNA AMPLIFICATION NEGATIVE (NEGATIVE)
[2017-11-01 10:27] LABS: HIV 1&2 SCREEN CENTAUR NEGATIVE (NEGATIVE)
== END ==
LOC: M LAB 12:08
DX: R41.3 Other amnesia (principal); Z13.9 Encounter for screening, unspecified; Z65.8 Other specified problems related to psychosocial circumstances
CPT/HCPCS: 84443

== ENCOUNTER 2017-11-23 16:16 | Emergency (ER) | payer OTHER ==
[2017-11-23 16:54] LABS: BASO # 0.1 10^3/uL (0.0-0.2); BASO % 1.3 % (0.0-1.0); EOS # 0.4 10^3/uL (0.0-0.50); EOS % 4.7 % (0.0-3.0); HEMATOCRIT 39.4 % (42.0-52.0); IMMATURE GRANULOCYTE % 0.3 % (0-3.0); LYMPH % 27.4 % (24.0-44.0); MEAN CORPUSCULAR HEMOGLOBIN 32.4 pg (27.0-33.0); MEAN CORPUSCULAR VOLUME 98.3 fl (80.0-96.0); MONO # 0.7 10^3/uL (0.0-0.8); MONO % 9.4 % (0.0-5.0); NEUTROPHILS # 4.2 10^3/uL (1.8-7.7); NEUTROPHILS % 56.9 % (36.0-66.0); PLATELET COUNT, AUTOMATED 255 10^3/uL (150-450); RED BLOOD COUNT 4.01 10^6/uL (4.30-6.10); RED CELL DISTRIBUTION WIDTH 12.4 % (11.5-14.5); WHITE BLOOD COUNT 7.5 10^3/uL (4.0-10.0)
[2017-11-23 17:05] LABS: ALBUMIN 3.7 GM/DL (3.2-5.2); ALBUMIN/GLOBULIN RATIO 1.32 (1.00-1.93); ALKALINE PHOSPHATASE 82 U/L (45-117); ALT/SGPT 13 U/L (12-78); ANION GAP 10 MEQ/L (8-16); AST/SGOT 10 U/L (7-37); BILIRUBIN,DIRECT < 0.1 MG/DL (0.0-0.2); BILIRUBIN,TOTAL 0.2 MG/DL (0.2-1.0); BLOOD UREA NITROGEN 9 MG/DL (7-18); CALCIUM LEVEL 8.1 MG/DL (8.5-10.1); CARBON DIOXIDE LEVEL 25 MEQ/L (21-32); CHLORIDE LEVEL 110 MEQ/L (98-107); CREATININE FOR GFR 1.06 MG/DL (0.70-1.30); GLOMERULAR FILTRATION RATE > 60.0 (>60); GLUCOSE, FASTING 72 MG/DL (70-100); MAGNESIUM LEVEL 2.3 MG/DL (1.8-2.4); PHOSPHORUS LEVEL 2.5 MG/DL (2.5-4.9); POTASSIUM SERUM 4.1 MEQ/L (3.5-5.1); SODIUM LEVEL 145 MEQ/L (136-145); TOTAL PROTEIN 6.5 GM/DL (6.4-8.2)
[2017-11-23 17:07] LABS: ETHYL ALCOHOL (ETHANOL) < 0.003 % (0.000-0.010)
[2017-11-23 17:12] LABS: AMPHETAMINES LEVEL URINE NEGATIVE (NEGATIVE); BARBITURATES URINE NEGATIVE (NEGATIVE); BENZODIAZEPINES URINE POSITIVE (NEGATIVE); CANNABINOIDS URINE POSITIVE (NEGATIVE); COCAINE METABOLITE URINE NEGATIVE (NEGATIVE); METHADONE URINE NEGATIVE (NEGATIVE); OPIATES URINE NEGATIVE (NEGATIVE); PHENCYCLIDINE URINE NEGATIVE (NEGATIVE)
[2017-11-23 17:15] LABS: AMORPHOUS SEDIMENT RFX SMALL (NEGATIVE); KETONE, URINE AUTO RFX TRACE mg/dL (NEGATIVE); LEUKOCYTE ESTERASE UR AUTO RFX NEGATIVE (NEGATIVE); NITRITE, URINE AUTO RFX NEGATIVE (NEGATIVE); RBC, URINE AUTO RFX 58 /HPF (0-3); SPECIFIC GRAVITY UR AUTO RFX 1.024 (1.002-1.035); SQUAM EPITHELIAL CELL UR AURFX 0 /HPF (0-6); WBC, URINE AUTO RFX 2 /HPF (0-3)
[2017-11-23] MEDS: OXAZEPAM 15 MG CAP PO (17:35)
[2017-11-23] MEDS ORDERED: levETIRAcetam 250MG TABLET (KEPPRA) PO (18:15)
[2017-11-23] MEDS: levETIRAcetam INJection 1,000 MG in D5W 100 ML IV (18:27)
[2017-11-27 10:13] LABS: LEVETIRACETAM (KEPPRA) 19.6 ug/mL (10.0-40.0)
== END 2017-11-23 21:16 | disposition home or self-care (01) ==
LOC: M ED 16:16
DX: G40.909 Epilepsy, unspecified, not intractable, without status epilepticus (principal); F10.10 Alcohol abuse, uncomplicated; F19.10 Other psychoactive substance abuse, uncomplicated; Z88.8 Allergy status to other drugs, medicaments and biological substances; Z88.1 Allergy status to other antibiotic agents; Z79.899 Other long term (current) drug therapy
CPT/HCPCS: J1953

== ENCOUNTER 2018-01-19 12:19 | Emergency (ER) | payer OTHER ==
[2018-01-19 12:39] LABS: BASO # 0.1 10^3/uL (0.0-0.2); BASO % 1.7 % (0.0-1.0); EOS # 0.1 10^3/uL (0.0-0.50); HEMOGLOBIN 13.6 g/dl (13.5-17.5); IMMATURE GRANULOCYTE % 0.9 % (0-3.0); LYMPH # 0.9 10^3/uL (1.5-4.5); LYMPH % 14.6 % (24.0-44.0); MEAN CORPUSCULAR VOLUME 97.1 fl (80.0-96.0); MONO # 0.3 10^3/uL (0.0-0.8); MONO % 4.5 % (0.0-5.0); NEUTROPHILS # 4.5 10^3/uL (1.8-7.7); NEUTROPHILS % 77.3 % (36.0-66.0); PLATELET COUNT, AUTOMATED 194 10^3/uL (150-450); RED BLOOD COUNT 4.12 10^6/uL (4.30-6.10); RED CELL DISTRIBUTION WIDTH 13.2 % (11.5-14.5); WHITE BLOOD COUNT 5.8 10^3/uL (4.0-10.0)
[2018-01-19] MEDS: levETIRAcetam INJection 1,000 MG in D5W 100 ML IV (12:51)
[2018-01-19] MEDS: NS 1,000 ML IV (12:51)
[2018-01-19 13:01] LABS: AMMONIA 49 uMOL/L (<32)
[2018-01-19 13:06] LABS: LACTIC ACID SEPSIS PROTOCOL 9.5 MMOL/L (0.4-2.0)
[2018-01-19 13:15] LABS: ACETAMINOPHEN LEVEL < 2.0 UG/ML (10.0-30.0); ALBUMIN 3.6 GM/DL (3.2-5.2); ALBUMIN/GLOBULIN RATIO 1.13 (1.00-1.93); ALKALINE PHOSPHATASE 73 U/L (45-117); ALT/SGPT 13 U/L (12-78); ANION GAP 16 MEQ/L (8-16); AST/SGOT 14 U/L (7-37); BILIRUBIN,DIRECT 0.2 MG/DL (0.0-0.2); BILIRUBIN,TOTAL 0.5 MG/DL (0.2-1.0); BLOOD UREA NITROGEN 9 MG/DL (7-18); CARBON DIOXIDE LEVEL 18 MEQ/L (21-32); CHLORIDE LEVEL 105 MEQ/L (98-107); CK-MB VALUE MASS < 1.0 NG/ML (<3.6); CPK CREATINE PHOSPHOKINASE 88 U/L (39-308); CREATININE FOR GFR 1.14 MG/DL (0.70-1.30); ETHYL ALCOHOL (ETHANOL) < 0.003 % (0.000-0.010); GLOMERULAR FILTRATION RATE > 60.0 (>60); GLUCOSE, FASTING 146 MG/DL (70-100); MB/CK RELATIVE INDEX 1.13 (< OR =4); POTASSIUM SERUM 4.3 MEQ/L (3.5-5.1); SALICYLATE LEVEL 3.6 MG/DL (5.0-30.0); SODIUM LEVEL 139 MEQ/L (136-145); TOTAL PROTEIN 6.8 GM/DL (6.4-8.2); TROPONIN I < 0.02 NG/ML (< 0.10)
[2018-01-19 13:22] LABS: THYROID STIMULATING HORMONE 0.896 uIU/ML (0.358-3.740)
[2018-01-23 00:08] LABS: LEVETIRACETAM (KEPPRA) None Detected ug/mL (10.0-40.0)
== END 2018-01-19 15:45 | disposition home or self-care (01) ==
LOC: M ED 12:19
DX: G40.909 Epilepsy, unspecified, not intractable, without status epilepticus (principal); F10.10 Alcohol abuse, uncomplicated; F17.200 Nicotine dependence, unspecified, uncomplicated; Z88.8 Allergy status to other drugs, medicaments and biological substances; Z88.1 Allergy status to other antibiotic agents; Z79.899 Other long term (current) drug therapy
CPT/HCPCS: J1953

== ENCOUNTER 2018-03-15 09:31 | Emergency (ER) | payer OTHER | END 2018-03-15 10:59 | disposition home or self-care (01) | LOC: M ED 09:31 | DX: K04.7 Periapical abscess without sinus (principal); R68.84 Jaw pain; R56.9 Unspecified convulsions; F17.200 Nicotine dependence, unspecified, uncomplicated; Z88.8 Allergy status to other drugs, medicaments and biological substances; Z88.1 Allergy status to other antibiotic agents; Z79.899 Other long term (current) drug therapy | CPT/HCPCS: 99282 ==

== ENCOUNTER 2018-06-18 03:26 | Emergency (ER) | payer MEDICAID, SELFPAY, OTHER ==
[2018-06-18] MEDS: levETIRAcetam INJection 1,000 MG in D5W 100 ML IV (04:17)
== END 2018-06-18 05:17 | disposition home or self-care (01) ==
LOC: M ED 03:26
DX: G40.909 Epilepsy, unspecified, not intractable, without status epilepticus (principal); Z91.19 Patient's noncompliance with other medical treatment and regimen; F10.10 Alcohol abuse, uncomplicated; Z88.8 Allergy status to other drugs, medicaments and biological substances; F17.210 Nicotine dependence, cigarettes, uncomplicated
CPT/HCPCS: J1953

== ENCOUNTER 2018-11-12 13:55 | Inpatient (IN) | payer MEDICAID, OTHER ==
[~2018-11-12] VITALS: Ht 185.4 cm; Wt 75.0 kg
[~2018-11-12 13:55] MED LIST changes: +CLIN150C14 PO; +FOLI1TAB11 PO; -FOLI1TAB4 PO; +IBUP1TAB7 PO; +OFLO1DRO3 AD; +OXAZ30CA2 PO; +PATIENT COMMENTS; +ZITHTAB PO
[2018-11-12] MEDS ORDERED: LORazepam 2 MG/ML VIAL (J2060) IV STA ×3 (14:11→14:38)
[2018-11-12] MEDS ORDERED: LORazepam 2 MG/ML VIAL (J2060) As Ordered ONE (14:11)
[2018-11-12] MEDS ORDERED: NS 1,000 ML IV ONE ×2 (14:30→16:30)
[2018-11-12] MEDS ORDERED: levETIRAcetam INJection 500 MG in D5W MINI-BAG PLUS 100 ML IV ONE ×2 (14:30→18:45)
[2018-11-12] MEDS ORDERED: THIAMINE HCL 200 MG/2 ML VIAL (J3411) IM ONE (14:45)
[2018-11-12 14:54] LABS: BASO # 0.3 10^3/uL (0.0-0.2); BASO % 2.1 % (0.0-1.0); EOS # 0.6 10^3/uL (0.0-0.50); EOS % 5.4 % (0.0-3.0); HEMATOCRIT 44.4 % (42.0-52.0); HEMOGLOBIN 14.6 g/dl (13.5-17.5); LYMPH # 3.3 10^3/uL (1.5-4.5); LYMPH % 27.7 % (24.0-44.0); MEAN CORPUSCULAR HEMOGLOBIN 33.3 pg (27.0-33.0); MEAN CORPUSCULAR HGB CONC 32.9 g/dl (32.0-36.5); MEAN CORPUSCULAR VOLUME 101.1 fl (80.0-96.0); MONO # 1.2 10^3/uL (0.0-0.8); NEUTROPHILS # 6.4 10^3/uL (1.8-7.7); NEUTROPHILS % 54.5 % (36.0-66.0); PLATELET COUNT, AUTOMATED 339 10^3/uL (150-450); RED BLOOD COUNT 4.39 10^6/uL (4.30-6.10); WHITE BLOOD COUNT 11.8 10^3/uL (4.0-10.0)
--- NOTE | 2018-11-12 14:55 | REP ---
Portable chest x-ray: Single view. History: Drug overdose. Comparison chest x-ray: January 19, 2018. Findings: An S-shaped thoracic curvature is noted. The lungs are symmetrically aerated and free of infiltrate. Cardiomediastinal silhouette is unremarkable. Pulmonary vasculature is not increased. EKG electrodes are seen. No acute bony abnormality is observed. Impression: No acute disease. Electronically Signed by Akash Pineda MD 11/12/2018 02:47 P
[2018-11-12 15:00] LABS: OSMOLALITY SERUM 318 MOSM/KG (275-295)
[2018-11-12 15:19] LABS: BLOOD UREA NITROGEN 8 MG/DL (7-18); CREATININE FOR GFR 1.13 MG/DL (0.70-1.30); GLOMERULAR FILTRATION RATE > 60.0 (>60); GLUCOSE, FASTING 115 MG/DL (70-100)
[2018-11-12 15:20] LABS: ACETAMINOPHEN LEVEL < 2.0 UG/ML (10.0-30.0); ALBUMIN 4.9 GM/DL (3.2-5.2); ALT/SGPT 21 U/L (12-78); BILIRUBIN,DIRECT 0.2 MG/DL (0.0-0.2); BILIRUBIN,TOTAL 0.5 MG/DL (0.2-1.0); CALCIUM LEVEL 9.9 MG/DL (8.5-10.1); CARBON DIOXIDE LEVEL 19 MEQ/L (21-32); CHLORIDE LEVEL 101 MEQ/L (98-107); CPK CREATINE PHOSPHOKINASE 179 U/L (39-308); ETHYL ALCOHOL (ETHANOL) < 0.003 % (0.000-0.010); POTASSIUM SERUM 4.9 MEQ/L (3.5-5.1); SALICYLATE LEVEL 5.3 MG/DL (5.0-30.0); SODIUM LEVEL 141 MEQ/L (136-145); TOTAL PROTEIN 8.8 GM/DL (6.4-8.2)
--- NOTE | 2018-11-12 15:49 | REP ---
CT brain without contrast: History: Seizure. Comparison head CT study January 19, 2018. Findings: Preliminary digital helmet hat sweatband puncher radiograph is unremarkable. Bone window settings show no evidence of skull fracture or bony destructive lesion. Visualized paranasal sinuses are clear. No intraorbital abnormality is seen. There is mild diffuse cerebral atrophy in this young patient, unchanged from comparison study. There is no evidence of intracranial hemorrhage. No infarct, mass, extra-axial fluid collection or midline shift is seen. Impression: Mild diffuse atrophy. No acute intracranial abnormality. No change from January 19, 2018. Electronically Signed by Akash Pineda MD 11/12/2018 05:09 P
[2018-11-12 17:27] LABS: AMPHETAMINES LEVEL URINE NEGATIVE (NEGATIVE); BARBITURATES URINE NEGATIVE (NEGATIVE); BENZODIAZEPINES URINE NEGATIVE (NEGATIVE); CANNABINOIDS URINE NEGATIVE (NEGATIVE); COCAINE METABOLITE URINE NEGATIVE (NEGATIVE); METHADONE URINE NEGATIVE (NEGATIVE); OPIATES URINE NEGATIVE (NEGATIVE); PHENCYCLIDINE URINE NEGATIVE (NEGATIVE)
[2018-11-12 17:43] LABS: MAGNESIUM LEVEL 2.6 MG/DL (1.8-2.4); PHOSPHORUS LEVEL 3.8 MG/DL (2.5-4.9)
[2018-11-12] MEDS ORDERED: ACETAMINOPHEN TAB 650MG DOSE (2X325MG) PO PRN (19:45)
[2018-11-12] MEDS ORDERED: LORazepam 2 MG/ML VIAL (J2060) IV PRN (19:45)
--- NOTE | 2018-11-12 20:43 | ECGEPIP ---
Stationary ECG Study [facility] - ED Test Date: 2018-11-12 Pat Name: GIORGIO CATRER Department: Room: - Gender: M Certified Nurses Aide: TC : 1980 Requested By: Lynne Patten Order Number: [id number] Reading MD: Marquis Lala Measurements Intervals [place] Rate: 130 P: 68 [place]: 149 QRS: 65 QRSD: 92 T: 66 QT: 299 QTc: 441 Interpretive Statements SINUS TACHYCARDIA SEPTAL MYOCARDIAL INFARCTION, OF INDETERMINATE AGE Rate increased from tracing done 01-19-18 Electronically Signed On 11-12-2018 20:43:02 EST by Marquis Lala
[2018-11-12] MEDS: NS 1,000 ML IV SCH (20:58)
--- NOTE | 2018-11-12 22:09 | HPE ---
DATE OF ADMISSION: 11/12/2018 ATTENDING PHYSICIAN: Kwaku Chopra MD CONSULTANTS: Dr. Waldron, neurologist. CHIEF COMPLAINT: Seizure activity. HISTORY OF PRESENT ILLNESS: The patient is 38-year-old white male with history of seizure as well as polysubstance abuse presented to the hospital for evaluation of seizure. Since patient is very confused he could not provide any useful information. So the information was provided by ER staff as well as by review of the chart. Per medical record patient has been here many times for the same issues. He continued to drink and he is supposed to take Keppra but it seems that he did not take it so he was brought to the ER by ambulance. In the ER, he had witnessed three episodes of seizures. He was given [address] Waldron and also he was given several doses of Ativan. After that his seizures resolved. Medicine service called for admission. REVIEW OF SYSTEMS: Not available due to confusion. PAST MEDICAL HISTORY: 1. Seizure disorder. 2. Alcohol abuse. 3. Polysubstance abuse. PAST SURGICAL HISTORY: None. SOCIAL HISTORY: No tobacco use. He does have polysubstance abuse as well as alcohol abuse, but no details available and he is FULL CODE. FAMILY HISTORY: Noncontributory. ALLERGIES: He is allergic to CEFTRIAXONE, LORAZEPAM and HALOPERIDOL. MEDICATIONS: - Keppra 1000 mg oral twice a day PHYSICAL EXAMINATION: VITAL SIGNS: Temperature is 98.9, heart rate is 73, respirations 17, blood pressure 124/73, oxygen saturation 98% on room air. GENERAL: He is awake, but he is very lethargic. He only answers simple questions and follows simple commands. HEENT: Atraumatic. Pupils equal, round and reactive to light. No jaundice. Extraocular muscles intact. Ears, nose, throat: Normal. Mouth: Mucous dry. Neck: No JVD. No bruits. LUNGS: Clear. No wheezing, no crackles. HEART: S1, S2, regular. No murmur. ABDOMEN: Show bowel sounds positive. Nontender. LOWER EXTREMITIES: No edema in bilateral lower extremities. SKIN: No rash. PSYCHOLOGICAL: Confused, but no acute psychosis. NEUROLOGICAL: Nonfocal. DIAGNOSTICS AND LAB STUDIES: Include the following: CBC and differential: WBC 9.8, hemoglobin and hematocrit 15/44, platelets 339. Sodium 141, potassium 4.9, chloride 101, bicarbonate 19. BUN 8, creatinine 1.1. Glucose 115. Head CT as well as chest x-ray within normal limits. IMPRESSION AND PLAN: This is a 38-year-old white male with history of polysubstance abuse, alcohol drinking and seizure disorder, noncompliance with his medication presented to the ER for seizure activity. He will be admitted to the PCU. Will start him on Keppra, IV hydration as well as thiamine. Ativan will be given as needed for possible alcohol withdrawal. Dr. Waldron from neurological service will consult tomorrow. JOURDAN
[2018-11-12 22:15] VITALS: BP 126/83
[2018-11-13] VITALS: BP 101/64
[2018-11-13 04:00] VITALS: BP 118/72
[2018-11-13 05:43] LABS: HEMATOCRIT 35.6 % (42.0-52.0); MEAN CORPUSCULAR HEMOGLOBIN 32.9 pg (27.0-33.0); MEAN CORPUSCULAR HGB CONC 33.7 g/dl (32.0-36.5); MEAN CORPUSCULAR VOLUME 97.5 fl (80.0-96.0); RED BLOOD COUNT 3.65 10^6/uL (4.30-6.10); WHITE BLOOD COUNT 5.6 10^3/uL (4.0-10.0)
[2018-11-13] MEDS: NS 1,000 ML IV SCH (05:43)
[2018-11-13 05:49] LABS: PLATELET COUNT, AUTOMATED 220 10^3/uL (150-450)
[2018-11-13 06:02] LABS: BLOOD UREA NITROGEN 4 MG/DL (7-18); CALCIUM LEVEL 7.3 MG/DL (8.5-10.1); CARBON DIOXIDE LEVEL 23 MEQ/L (21-32); CHLORIDE LEVEL 109 MEQ/L (98-107); CREATININE FOR GFR 0.89 MG/DL (0.70-1.30); GLOMERULAR FILTRATION RATE > 60.0 (>60); GLUCOSE, FASTING 94 MG/DL (70-100); POTASSIUM SERUM 3.6 MEQ/L (3.5-5.1); SODIUM LEVEL 139 MEQ/L (136-145)
[2018-11-13 08:00] VITALS: BP 117/75
[2018-11-13] MEDS ORDERED: levETIRAcetam INJection 500 MG in D5W 100 ML IV SCH ×2 (09:00→09:15)
[2018-11-13] MEDS ORDERED: ENOXAPARIN 40 MG/0.4 ML SYRINGE (J1650) SC SCH (09:00)
[2018-11-13] MEDS ORDERED: THIAMINE HCL 200 MG/2 ML VIAL (J3411) IV SCH (09:00)
[2018-11-13 12:00] VITALS: BP 123/80
--- NOTE | 2018-11-17 18:29 | DS.PDOC ---
Discharge Summary General Date of Admission Nov 12, 2018 at 19:43 Date of Discharge 11/13/18 Discharge Summary PROCEDURES PERFORMED DURING STAY: None. ADMITTING/DISCHARGE DIAGNOSES: Alcohol Withdrawal Seizure Hx of Non-Adherence COMPLICATIONS/CHIEF COMPLAINT: Recurrent Seizures. HISTORY OF PRESENT ILLNESS: . 36-year-old male with a past medical history of seizure disorder with a history of noncompliance and alcohol abuse was admitted after he was found to have an alteration of mental status and possible seizure. History was limited given the patient's clinical condition on presentation. Of note, the patient has had several similar occurrences in the past and was previously noted to have subtherapeutic Keppra levels. During hospitalization, the patient's mentation significantly improved overnight and was back to his baseline in the morning. His Keppra level was noted to be on the low end of therapeutic. Upon my evaluation of the patient this morning, the patient states that he is ready to go home. He reports that he has been taking his Keppra medication. He reports that he has not had an alcoholic beverage in over 24 hrs and usually has "a couple six packs of beer a day." He thinks that he may have had a withdrawal seizure. He notes that he is feeling better now and would like to go home. I advised the patient that we would need to conduct further workup and monitor his neurological status here in the hospital. Also, we counseled him on the need to be monitored so he can be safely transitioned out of his withdrawal phase of alcohol. However, the patient states that he would like to sign out AGAINST MEDICAL ADVICE and does not care to stay in the hospital. The patient is awake, alert, oriented 4, and did not appear to be in active withdrawal. He verbalized understanding of the consequences of signing out AGAINST MEDICAL ADVICE especially in view of his presentation of withdrawal seizures due to excessive alcohol intake. Noncompliance with medical therapy, continued alcohol abuse/withdrawal, and continued seizures can result in severe disability, and/or . The patient verbalized understanding of this and decided to leave AMA anyway. I have advised the patient to follow-up with his primary care physician as soon as possible and to follow-up with neurology within 1 week. The patient states that he will do this and will continue to take his Keppra medication, and abstain from further alcohol use. In addition, I have advised the patient against driving, operating any heavy machinery, swimming, or climbing any heights/ladders given his episodes of seizures. In addition, if his seizures were to return he has been advised to return to the ER. DISCHARGE MEDICATIONS: Please see below. ALLERGIES: Please see below. PHYSICAL EXAMINATION ON DISCHARGE: VITAL SIGNS: Please see below. GENERAL: Awake, alert, oriented 4 HEENT: Normocephalic, atraumatic NECK: No JVD CARDIOVASCULAR EXAMINATION: Rate, normal rhythm RESPIRATORY EXAMINATION: Clear to auscultation bilaterally ABDOMINAL EXAMINATION: Soft, nontender, nondistended EXTREMITIES: No erythema, or tenderness LABORATORY DATA: Please see below. IMAGING: Portable chest x-ray: Single view. History: Drug overdose. Comparison chest x-ray: January 19, 2018. Findings: An S-shaped thoracic curvature is noted. The lungs are symmetrically aerated and free of infiltrate. Cardiomediastinal silhouette is unremarkable. Pulmonary vasculature is not increased. EKG electrodes are seen. No acute bony abnormality is observed. Impression: No acute disease. CT brain without contrast: History: Seizure. Comparison head CT study January 19, 2018. Findings: Preliminary digital enterer radiograph is unremarkable. Bone window settings show no evidence of skull fracture or bony destructive lesion. Visualized paranasal sinuses are clear. No intraorbital abnormality is seen. There is mild diffuse cerebral atrophy in this young patient, unchanged from comparison study. There is no evidence of intracranial hemorrhage. No infarct, mass, extra-axial fluid collection or midline shift is seen. Impression: Mild diffuse atrophy. No acute intracranial abnormality. No change from January 19, 2018. PROGNOSIS: Poor long-term prognosis given history of nonadherence to medications, and alcohol abuse ACTIVITY: As tolerated. DIET: Regular diet DISCHARGE PLAN: DISPOSITION: 07 Against Medical Advice. DISCHARGE INSTRUCTIONS: Follow-up with primary care physician as soon as possible, follow-up with neurology as an outpatient I have advised the patient against driving, operating any heavy machinery, swimming, or climbing any heights/ladders given his episodes of seizures. Abstain from further alcohol use. In addition, if his seizures were to return he has been advised to return to the ER. DISCHARGE CONDITION: Stable. TIME SPENT ON DISCHARGE: Greater than 30 minutes. Vital Signs/I&Os Vital Signs Date Time Temp Pulse Resp B/P (MAP) Pulse Ox O2 Delivery O2 Flow Rate FiO2 11/13/18 12:00 98.6 78 18 123/80 (94) 99 11/12/18 16:55 Room Air 11/12/18 15:40 2.0 Discharge Medications Scheduled Levetiracetam (Keppra) 1,000 Mg Tab, 1,000 MG PO BID, (Reported) Allergies Coded Allergies: Ceftriaxone (Verified Allergy, Severe, anaphylaxis, 03/01/17) HAS RECEIVED PIPERACILLIN w/o PROBLEM Haloperidol (Unverified Adverse Reaction, Intermediate, confusion, mental status change, 03/01/17) Lorazepam (Unverified Adverse Reaction, Intermediate, confusion, mental staus change, 03/01/17) JUANITO BARRON MD Nov 17, 2018 18:29
== END 2018-11-13 12:41 | disposition left against medical advice (07) | DRG 53 ==
LOC: M ED 13:55 → EDBD 13:55 → M ED INP 19:43 → M PCU 22:15
PROVIDERS: ADMIT Hospitalist; ATTEND Internal Medicine
DX: G40.909 Epilepsy, unspecified, not intractable, without status epilepticus (principal); F10.10 Alcohol abuse, uncomplicated; F19.10 Other psychoactive substance abuse, uncomplicated; Z88.1 Allergy status to other antibiotic agents; Z88.8 Allergy status to other drugs, medicaments and biological substances; Z79.899 Other long term (current) drug therapy; Z91.14 Patient's other noncompliance with medication regimen

== ENCOUNTER 2018-12-07 12:18 | Observation (INO) | payer OTHER ==
[~2018-12-07] VITALS: Ht 182.9 cm; Wt 77.0 kg
[2018-12-07] MEDS ORDERED: NS 1,000 ML IV ONE ×2 (12:30→14:00)
[2018-12-07 12:47] LABS: VENOUS BASE EXCESS -14.4 (-2.0-2.0); VENOUS HCO3 12.6 MEQ/L (23.0-27.0); VENOUS O2 SATURATION 98.4 % (60.0-80.0); VENOUS PARTIAL PRESSURE O2 152.3 mmHg (30.0-50.0); VENOUS PH 7.198 UNITS (7.330-7.430); VENOUS STANDARD HCO3 13.5 MEQ/L; VENOUS TOTAL CO2 13.6 MEQ/L (24.0-28.0)
--- NOTE | 2018-12-07 12:49 | REP ---
Clinical: Altered mental status . Comparison: 11/12/2018 . Findings: The mediastinum and cardiac silhouette are stable and within normal limits for portable technique. The lung robles are clear without acute consolidation, effusion, or pneumothorax. Skeletal structures are intact. Impression: No acute cardiopulmonary process appreciated. Electronically Signed by Roger Weber MD 12/07/2018 12:41 P
[2018-12-07 12:51] LABS: BASO # 0.1 10^3/uL (0.0-0.2); BASO % 1.6 % (0.0-1.0); EOS # 0.5 10^3/uL (0.0-0.50); EOS % 5.6 % (0.0-3.0); HEMATOCRIT 39.2 % (42.0-52.0); HEMOGLOBIN 13.1 g/dl (13.5-17.5); LYMPH # 2.5 10^3/uL (1.5-4.5); LYMPH % 29.3 % (24.0-44.0); MEAN CORPUSCULAR HEMOGLOBIN 33.3 pg (27.0-33.0); MEAN CORPUSCULAR HGB CONC 33.4 g/dl (32.0-36.5); MEAN CORPUSCULAR VOLUME 99.7 fl (80.0-96.0); MONO # 0.6 10^3/uL (0.0-0.8); MONO % 6.5 % (0.0-5.0); NEUTROPHILS # 4.9 10^3/uL (1.8-7.7); NEUTROPHILS % 56.8 % (36.0-66.0); PLATELET COUNT, AUTOMATED 270 10^3/uL (150-450); RED BLOOD COUNT 3.93 10^6/uL (4.30-6.10); WHITE BLOOD COUNT 8.6 10^3/uL (4.0-10.0)
[2018-12-07] MEDS ORDERED: levETIRAcetam INJection 1,000 MG in D5W 100 ML IV ONE (13:00)
[2018-12-07 13:14] LABS: OSMOLALITY SERUM 290 MOSM/KG (275-295)
[2018-12-07 13:21] LABS: ACETAMINOPHEN LEVEL < 2.0 UG/ML (10.0-30.0); ALBUMIN 3.8 GM/DL (3.2-5.2); ALT/SGPT 14 U/L (12-78); BILIRUBIN,DIRECT < 0.1 MG/DL (0.0-0.2); BILIRUBIN,TOTAL 0.3 MG/DL (0.2-1.0); BLOOD UREA NITROGEN 7 MG/DL (7-18); CALCIUM LEVEL 8.1 MG/DL (8.5-10.1); CARBON DIOXIDE LEVEL 16 MEQ/L (21-32); CHLORIDE LEVEL 106 MEQ/L (98-107); CK-MB VALUE MASS < 1.0 NG/ML (<3.6); CPK CREATINE PHOSPHOKINASE 88 U/L (39-308); CREATININE FOR GFR 1.11 MG/DL (0.70-1.30); ETHYL ALCOHOL (ETHANOL) < 0.003 % (0.000-0.010); GLOMERULAR FILTRATION RATE > 60.0 (>60); GLUCOSE, FASTING 100 MG/DL (70-100); MB/CK RELATIVE INDEX 1.14 (< OR =4); POTASSIUM SERUM 4.1 MEQ/L (3.5-5.1); SALICYLATE LEVEL 4.6 MG/DL (5.0-30.0); SODIUM LEVEL 141 MEQ/L (136-145); THYROID STIMULATING HORMONE 0.451 uIU/ML (0.358-3.740); TOTAL PROTEIN 6.5 GM/DL (6.4-8.2); TROPONIN I < 0.02 NG/ML (< 0.10)
--- NOTE | 2018-12-07 14:13 | REP ---
Clinical: Headache and seizures . Comparison: 11/12/2018 . Findings: The ventricles, sulci, and cisterns are normal in position and appearance. Bates-white differentiation is maintained. No acute intracranial hemorrhage, mass/mass effect, pathology or trauma/injury. No evidence for acute infarction. No extra-axial fluid collection. Calvarium is intact. Paranasal sinuses and mastoid air cells are clear. Impression: Normal noncontrast head CT. No evidence for acute intracranial pathology or trauma/injury. Electronically Signed by Roger Weber MD 12/07/2018 02:04 P
[2018-12-07] MEDS ORDERED: KETOROLAC 30 MG/ML VIAL (J1885) IV ONE (14:30)
[2018-12-07] MEDS ORDERED: ACET-683 PO (14:40)
[2018-12-07 14:43] LABS: AMPHETAMINES LEVEL URINE NEGATIVE (NEGATIVE); BARBITURATES URINE NEGATIVE (NEGATIVE); BENZODIAZEPINES URINE POSITIVE (NEGATIVE); CANNABINOIDS URINE POSITIVE (NEGATIVE); COCAINE METABOLITE URINE NEGATIVE (NEGATIVE); METHADONE URINE NEGATIVE (NEGATIVE); OPIATES URINE NEGATIVE (NEGATIVE); PHENCYCLIDINE URINE NEGATIVE (NEGATIVE)
[2018-12-07] MEDS ORDERED: LORazepam 2 MG TAB PO PRN (16:30)
[2018-12-07 17:45] VITALS: BP 133/79
[2018-12-07 18:05] VITALS: BP 133/79
[2018-12-07] MEDS: NS 1,000 ML IV SCH (18:16)
--- NOTE | 2018-12-07 19:11 | ECGEPIP ---
Stationary ECG Study [facility] - ED Test Date: 2018-12-07 Pat Name: GIORGIO CARTER Department: Room: - Gender: M Cpas: CARLOS : 1980 Requested By: PARAM Maurer Order Number: [id number] Reading MD: Yudith Hayden Measurements Intervals [place] Rate: 95 P: 73 W[place]: 143 QRS: 80 QRSD: 90 T: 73 QT: 346 QTc: 435 Interpretive Statements SINUS RHYTHM NONSPECIFIC ST T WAVE CHANGES DELAYED R WAVE PROGRESSION CW 11/12/18 RATE DECREASED Electronically Signed On 12-07-2018 19:11:03 EDT by Yudith Hayden
[2018-12-07] MEDS: levETIRAcetam 250MG TABLET (KEPPRA) PO SCH (20:15)
[2018-12-07] MEDS: THIAMINE 100 MG TAB PO SCH (20:15)
[2018-12-07 22:00] VITALS: BP 138/80
--- NOTE | 2018-12-07 23:23 | HPE ---
DATE OF ADMISSION: 12/07/2018 38-year-old male with past medical history of chronic alcoholism, history of seizure disorder presents to the emergency room after having a seizure episode at home. When Emergency Medical Service (EMS) came in the patient was postictal. When the put him on the gurney, he had another seizure episode. They gave him of 5 Versed and brought him to the emergency room (ER). In the emergency room (ER), he was given a 1000 mg of IV Keppra; and at this time, he has been seizure free. He is still lethargic, but is awake, alert and oriented times 3. He does not remember anything up til last night. He said his last drink was last night. He drinks approximately 6 cans of beer a day and he says he took his last Keppra yesterday even though the documentation reports that his last prescription for Keppra was early October and was marked for only 30 days. The patient will be admitted for further management. PAST MEDICAL HISTORY: 1. Seizure disorder. 2. Alcohol abuse. 3. Polysubstance abuse. ALLERGIES: He has drug allergies to CEFTRIAXONE, LORAZEPAM and HALDOL or adverse drug reactions. FAMILY HISTORY: Noncontributory. SOCIAL HISTORY: The patient smokes approximately a pack a day for many years and drinks approximately 6 cans of beer daily and apparently denies any illicit drug use. Medications she takes her home are as follows: Keppra 1000 mg orally twice daily, acetaminophen 500 mg orally every 6 hours as needed. REVIEW OF SYSTEMS: Negative for all 10 major systems except what is mentioned in the history of present illness. Vitals: Blood pressure 149/91, heart rate is 90 and regular, respiratory rate is 18, temperature is 99.6, oxygen saturation is 100% on room air. Head is atraumatic, normocephalic. Neck: Supple, no jugular venous distension (JVD). Oral exam: There are no bite olivarez in the mouth or any lacerations in the oral mucosa. Lungs: Clear to auscultation. S1, S2 audible. No murmurs appreciated. Abdomen: Soft. Positive bowel sounds. No pedal edema. Skin intact. Neurological examination: The patient awake, alert and oriented times 2. LABORATORY: White blood count (WBC) 8.6, hemoglobin 13.1, hematocrit 29.2, platelets are 278,000. Sodium 141, potassium 4.1, chloride 106, CO2 16, BUN is 7, creatinine 1.11, lactic acid 12.4, glucose is 100, AST 15, ALT 14, ammonia level is 57, thyroid simulating hormone (TSH) is 0.451. CK is 88. IMPRESSION: 1. Seizures. PLAN: The patient is to be admitted to the med-surg floor. This patient is clearly noncompliant with his Keppra, so I am not quite sure if this is alcohol withdrawal seizures versus active seizures from his primary seizure disorder. In any case, the patient will be restarted on his Keppra that he should be on and also I will put on a Clinical [place] Withdrawal Assessment (CIWA) protocol. Will continue IV fluids at 150 mL an hour until his lactic acid comes down. I believe this is likely secondary to dehydration. Will follow serial lactic acid levels and will continue his care in the med-surg floor.
[2018-12-08] MEDS: NS 1,000 ML IV SCH ×3 (00:30→11:11)
[2018-12-08 06:00] VITALS: BP 117/75
[2018-12-08 07:44] LABS: ALBUMIN 3.1 GM/DL (3.2-5.2); ALT/SGPT 13 U/L (12-78); BILIRUBIN,TOTAL 0.6 MG/DL (0.2-1.0); BLOOD UREA NITROGEN 6 MG/DL (7-18); CARBON DIOXIDE LEVEL 25 MEQ/L (21-32); CHLORIDE LEVEL 110 MEQ/L (98-107); CREATININE FOR GFR 0.73 MG/DL (0.70-1.30); GLOMERULAR FILTRATION RATE > 60.0 (>60); GLUCOSE, FASTING 87 MG/DL (70-100); POTASSIUM SERUM 3.9 MEQ/L (3.5-5.1); SODIUM LEVEL 140 MEQ/L (136-145); TOTAL PROTEIN 5.9 GM/DL (6.4-8.2)
[2018-12-08 08:00] VITALS: BP 117/75
[2018-12-08] MEDS: levETIRAcetam 250MG TABLET (KEPPRA) PO SCH (08:04)
[2018-12-08] MEDS: THIAMINE 100 MG TAB PO SCH (08:04)
[2018-12-08] MEDS ORDERED: FOLIC ACID 1 MG TAB PO SCH (09:00)
[2018-12-08] MEDS ORDERED: MULTIVITAMINS/MINERALS THERAP 1 TAB PO SCH (09:00)
[2018-12-08] MEDS ORDERED: FOLI1TAB11 PO (11:34)
[2018-12-08] MEDS ORDERED: THIA100TA PO (11:34)
--- NOTE | 2018-12-08 13:48 | IPNPDOC ---
Text Note Date of Service The patient was seen on 12/08/18. NOTE Subjective: No complaints this morning. no signs of alcohol withdrawal. wants to go home. Physical Exam: Vitals: As below. Head is atraumatic, normocephalic. Neck: Supple, no jugular venous distension(JVD). Oral exam: There are no bite olivarez in the mouth or any lacerations in the oral mucosa. Lungs: Clear to auscultation. S1, S2 audible. No murmurs appreciated. Abdomen: Soft. Positive bowel sounds. No pedal edema. Skin intact. Neurological examination: The patient awake, alert and oriented times 2. Labs and Radiology: reviewed. Assessment and plan: 38-year-old male with past medical history of chronic alcoholism, history of seizure disorder presents to the emergency room after having a seizure episode at home. When Emergency Medical Service (EMS) came in the patient was postictal. When the put him on the gurney, he had another seizure episode. They gave him of 5 Versed and brought him to the emergency room (ER). In the emergency room (ER) , he was given a 1000 mg of IV Keppra; He drinks approximately 6 cans of beer a day and he says he took his last Keppra yesterday even though the documentation reports that his last prescription for Keppra was early October and was marked for only 30 days. So clearly he has been missing doses. The pateint was admitted for reccurent seizures. Seizure could be either alcohol withdrawal seizure or from his primary seizure disorder restarted back on his keppra His last Keppra level on 11/25/18 was OK New levels have been sent. Alcohol abuse no signs of alcohol withdrawal continue thiamine and folate. Lactic acidosis due to seizure and dehydration resolved Disposition: patient discharged home . VS,Fishbone, I+O VS, Fishbone, I+O Laboratory Tests 12/08/18 06:42 Calcium Level 8.0 L, Aspartate Amino Transf (AST/SGOT) 15, Alanine Goldsmith otransferase (ALT/SGPT) 13, Alkaline Phosphatase 55, Total Bilirubin 0.6 #, Total Protein 5.9 L, Albumin 3.1 L Vital Signs Date Time Temp Pulse Resp B/P (MAP) Pulse Ox O2 Delivery O2 Flow Rate FiO2 12/08/18 08:00 82 117/75 12/08/18 06:00 96.5 20 96 12/07/18 12:30 Room Air I&O- Last 24 Hours up to 6 AM 12/08/18 05:59 Intake Total 2900 ml Output Total 950 ml Balance 1950 ml CUCO CLEMENT MD Dec 08, 2018 13:48
== END 2018-12-08 13:00 | disposition home or self-care (01) ==
LOC: EDSEX 12:18 → EDBD 12:18 → M ED 12:18 → M ED INP 16:23 → M MS5PR 17:35
PROVIDERS: ADMIT Internal Medicine; ATTEND Internal Medicine Nephrology
DX: G40.909 Epilepsy, unspecified, not intractable, without status epilepticus (principal); F10.120 Alcohol abuse with intoxication, uncomplicated; E87.2 Acidosis; F19.10 Other psychoactive substance abuse, uncomplicated; F17.210 Nicotine dependence, cigarettes, uncomplicated; Z91.14 Patient's other noncompliance with medication regimen; Z88.8 Allergy status to other drugs, medicaments and biological substances; Z88.1 Allergy status to other antibiotic agents
CPT/HCPCS: 36415; 70450; 71045; 80048; 80053; 80076; 80180; 80307; 82140; 82550; 82553; 82803; 83605; 83930; 84443; 85025; 87040; 93005; 93041; 99285; G0480; J1953

== ENCOUNTER 2019-01-18 10:47 | Emergency (ER) | payer OTHER ==
[~2019-01-18] VITALS: Ht 190.5 cm; Wt 71.4 kg
[~2019-01-18 10:47] MED LIST changes: -/ESOM40CA OR; -/OXAZ10CA OR; -/PANT40TA OR; +ACET-683 PO; +NEXI1CAP3 OR; +OXAZ10CA25 OR; +PROT1TAB2 OR; +THIA100TA PO
[2019-01-18 10:48] VITALS: BP 123/68
[2019-01-18] MEDS ORDERED: VENTAER INH (10:51)
[2019-01-18] MEDS ORDERED: KEPP10002 PO (11:12)
[2019-01-18] MEDS ORDERED: levETIRAcetam 250MG TABLET (KEPPRA) PO ONE (11:15)
== END 2019-01-18 11:26 | disposition home or self-care (01) ==
LOC: M ED 10:47
DX: Z76.0 Encounter for issue of repeat prescription (principal); J45.909 Unspecified asthma, uncomplicated; G40.909 Epilepsy, unspecified, not intractable, without status epilepticus; F19.10 Other psychoactive substance abuse, uncomplicated; G93.40 Encephalopathy, unspecified; D69.6 Thrombocytopenia, unspecified; Z72.0 Tobacco use; F12.10 Cannabis abuse, uncomplicated; Z88.1 Allergy status to other antibiotic agents; Z88.8 Allergy status to other drugs, medicaments and biological substances

== ENCOUNTER 2019-01-18 23:24 | Emergency (ER) | payer OTHER ==
[~2019-01-18] VITALS: Ht 188 cm; Wt 77.3 kg
[~2019-01-18 23:24] MED LIST changes: +VENTAER INH
[2019-01-19] MEDS ORDERED: levETIRAcetam 250MG TABLET (KEPPRA) PO ONE (00:30)
[2019-01-19 00:51] VITALS: BP 132/72
== END 2019-01-19 00:52 | disposition home or self-care (01) ==
LOC: M ED 23:24
DX: G40.909 Epilepsy, unspecified, not intractable, without status epilepticus (principal); Z91.14 Patient's other noncompliance with medication regimen; F10.10 Alcohol abuse, uncomplicated; Z72.0 Tobacco use; Z88.1 Allergy status to other antibiotic agents; Z88.8 Allergy status to other drugs, medicaments and biological substances

== ENCOUNTER → 2019-08-25 | Outpatient (REF) | payer OTHER, MEDICAID ==
[~2019-08-25] MED LIST changes: +CYAN100049 PO; -LISI20TA PO; +LISI20TA19 PO; -VITA10002 PO
[2019-08-25 14:19] LABS: BASO # 0.1 10^3/uL (0.0-0.2); BASO % 2.3 % (0.0-1.0); EOS # 0.5 10^3/uL (0.0-0.5); EOS % 7.9 % (0.0-3.0); HEMATOCRIT 44.6 % (42.0-52.0); HEMOGLOBIN 14.4 g/dl (13.5-17.5); LYMPH # 1.7 10^3/uL (1.5-5.0); LYMPH % 28.5 % (24.0-44.0); MEAN CORPUSCULAR HEMOGLOBIN 32.8 pg (27.0-33.0); MEAN CORPUSCULAR HGB CONC 32.3 g/dl (32.0-36.5); MEAN CORPUSCULAR VOLUME 101.6 fl (80.0-96.0); MONO # 0.5 10^3/uL (0.0-0.8); MONO % 8.3 % (0.0-5.0); NEUTROPHILS # 3.2 10^3/uL (1.5-8.5); NEUTROPHILS % 52.7 % (36.0-66.0); PLATELET COUNT, AUTOMATED 332 10^3/uL (150-450); RED BLOOD COUNT 4.39 10^6/uL (4.30-6.10)
[2019-08-25 14:36] LABS: HEMOGLOBIN A1c 5.6 %
[2019-08-25 14:37] LABS: ALBUMIN 3.6 GM/DL (3.2-5.2); ALT/SGPT 12 U/L (12-78); BILIRUBIN,TOTAL 0.6 MG/DL (0.2-1.0); BLOOD UREA NITROGEN 8 MG/DL (7-18); CALCIUM LEVEL 8.9 MG/DL (8.5-10.1); CARBON DIOXIDE LEVEL 32 MEQ/L (21-32); CHLORIDE LEVEL 107 MEQ/L (98-107); CHOLESTEROL LEVEL 184 MG/DL (<200); CHOLESTEROL RISK RATIO 3.066 (<5); CREATININE FOR GFR 0.94 MG/DL (0.70-1.30); GLOMERULAR FILTRATION RATE > 60.0 (>60); GLUCOSE, FASTING 89 MG/DL (70-100); HDL CHOLESTEROL 60 MG/DL (>40); LDL CHOLESTEROL 111 MG/DL (<100); NON-HDL-C 124 MG/DL; POTASSIUM SERUM 4.9 MEQ/L (3.5-5.1); SODIUM LEVEL 142 MEQ/L (136-145); THYROID STIMULATING HORMONE 0.721 uIU/ML (0.358-3.740); TOTAL 25(OH) VITAMIN D 13.4 NG/ML (30.0-100.0); TOTAL PROTEIN 6.8 GM/DL (6.4-8.2); TRIGLYCERIDES LEVEL 67 MG/DL (<150)
== END ==
LOC: M LAB REF 13:33
PROVIDERS: ATTEND Nurse Practitioner Family
DX: Z00.01 Encounter for general adult medical examination with abnormal findings (principal)

== ENCOUNTER 2019-10-03 17:29 | Inpatient (IN) | payer MEDICAID, OTHER ==
[~2019-10-03] VITALS: Ht 182.9 cm; Wt 72.7 kg
[2019-10-03] MEDS ORDERED: ACETAMINOPHEN 650 MG SUPP PR ONE (17:45)
[2019-10-03 18:00] LABS: BASO % 0.3 % (0.0-1.0); HEMATOCRIT 43.5 % (42.0-52.0); HEMOGLOBIN 14.2 g/dl (13.5-17.5); LYMPH # 0.5 10^3/uL (1.5-5.0); MEAN CORPUSCULAR HEMOGLOBIN 32.4 pg (27.0-33.0); MEAN CORPUSCULAR HGB CONC 32.6 g/dl (32.0-36.5); MEAN CORPUSCULAR VOLUME 99.3 fl (80.0-96.0); MONO # 0.4 10^3/uL (0.0-0.8); MONO % 4.2 % (0.0-5.0); NEUTROPHILS # 9.3 10^3/uL (1.5-8.5); NEUTROPHILS % 89.5 % (36.0-66.0); PLATELET COUNT, AUTOMATED 209 10^3/uL (150-450); RED BLOOD COUNT 4.38 10^6/uL (4.30-6.10); WHITE BLOOD COUNT 10.4 10^3/uL (4.0-10.0)
[2019-10-03] MEDS ORDERED: NS 2,090 ML in IV 1 EA IV ONE (18:00)
[2019-10-03] MEDS ORDERED: cefTRIAXone SOD 2 GM in D5W MINI-BAG PLUS 50 ML IV ONE (18:00)
[2019-10-03 18:10] LABS: INR 1.05; PROTHROMBIN TIME 13.4 SECONDS (11.8-14.0)
[2019-10-03 18:24] LABS: INFLUENZA A AMPLIFICATION NEGATIVE (NEGATIVE); INFLUENZA B AMPLIFICATION NEGATIVE (NEGATIVE)
--- NOTE | 2019-10-03 18:50 | REPVR ---
PROCEDURE INFORMATION: Exam: CT Head Without Contrast Exam date and time: 10/03/2019 6:19 PM Age: 39 years old Clinical indication: Altered mental status/memory loss TECHNIQUE: Imaging protocol: Computed tomography of the head without contrast. Radiation optimization: All CT scans at this facility use at least one of these dose optimization techniques: automated exposure control; mA and/or kV adjustment per patient size (includes targeted exams where dose is matched to clinical indication); or iterative reconstruction. COMPARISON: CT Head without contrast 12/07/2018 1:49 PM FINDINGS: Brain: Normal. No hemorrhage. Unremarkable white matter. No mass effect. Ventricles: Normal. No ventriculomegaly. Bones/joints: Unremarkable. No acute fracture. Sinuses: Visualized sinuses are unremarkable. No fluid levels. Mastoid air cells: Visualized mastoid air cells are well aerated. Soft tissues: Unremarkable. IMPRESSION: No acute intracranial abnormality. Electronically signed by: Dru Farnsworth On 10/03/2019 18:50:01 PM
[2019-10-03] MEDS ORDERED: VANCOMYCIN HCL 1,000 MG in D5W 250 ML IV ONE (19:00)
[2019-10-03 19:11] LABS: ALBUMIN 4.2 GM/DL (3.2-5.2); ALT/SGPT 31 U/L (12-78); AMYLASE 103 U/L (25-115); BILIRUBIN,DIRECT 0.2 MG/DL (0.0-0.2); BILIRUBIN,TOTAL 0.8 MG/DL (0.2-1.0); BLOOD UREA NITROGEN 12 MG/DL (7-18); C REACTIVE PROTEIN QUANTITATIV 1.38 MG/DL (0.00-0.30); CALCIUM LEVEL 8.6 MG/DL (8.5-10.1); CARBON DIOXIDE LEVEL 24 MEQ/L (21-32); CHLORIDE LEVEL 103 MEQ/L (98-107); CK-MB VALUE MASS 8.9 NG/ML (<3.6); CPK CREATINE PHOSPHOKINASE 1314 U/L (39-308); CREATININE FOR GFR 1.11 MG/DL (0.70-1.30); GLOMERULAR FILTRATION RATE > 60.0 (>60); GLUCOSE, FASTING 103 MG/DL (70-100); MB/CK RELATIVE INDEX 0.68 (< OR =4); POTASSIUM SERUM 4.1 MEQ/L (3.5-5.1); SODIUM LEVEL 137 MEQ/L (136-145); TOTAL PROTEIN 7.5 GM/DL (6.4-8.2); TROPONIN I < 0.02 NG/ML (< 0.10)
[2019-10-03] MEDS ORDERED: diphenhydrAMINE INJ 50MG/ML VIAL (J1200) IV STA (19:12)
[2019-10-03] MEDS ORDERED: FAMOTIDINE/NS 20 MG/50 ML BAG (S0028) As Ordered ONE (19:13)
[2019-10-03] MEDS ORDERED: methylPREDNISolone INJ 125 MG/2 ML VIAL (J2930) As Ordered ONE (19:13)
[2019-10-03] MEDS ORDERED: diphenhydrAMINE INJ 50MG/ML VIAL (J1200) As Ordered ONE (19:13)
[2019-10-03] MEDS ORDERED: methylPREDNISolone INJ 125 MG/2 ML VIAL (J2930) IV ONE (19:15)
[2019-10-03] MEDS ORDERED: FAMOTIDINE IV BAG 20 MG in IV 1 EA IV ONE (19:15)
[2019-10-03] MEDS ORDERED: VANCOMYCIN HCL 750 MG, VIAL MATE ADAPTER 1 EACH in D5W 250 ML IV ONE (20:00)
[2019-10-03] MEDS ORDERED: KEPP10002 PO (20:02)
[2019-10-03] MEDS ORDERED: PATIENT COMMENTS (20:07)
[2019-10-03 20:14] LABS: ACETAMINOPHEN LEVEL < 2.0 UG/ML (10.0-30.0); ETHYL ALCOHOL (ETHANOL) < 0.003 % (0.000-0.010); SALICYLATE LEVEL 2.8 MG/DL (5.0-30.0)
[2019-10-03 20:33] LABS: AMPHETAMINES LEVEL URINE NEGATIVE (NEGATIVE); BARBITURATES URINE NEGATIVE (NEGATIVE); BENZODIAZEPINES URINE NEGATIVE (NEGATIVE); CANNABINOIDS URINE POSITIVE (NEGATIVE); COCAINE METABOLITE URINE NEGATIVE (NEGATIVE); METHADONE URINE NEGATIVE (NEGATIVE); OPIATES URINE NEGATIVE (NEGATIVE); PHENCYCLIDINE URINE NEGATIVE (NEGATIVE)
[2019-10-03] MEDS ORDERED: AMPICILLIN SOD 2 GM in D5W MINI-BAG PLUS 100 ML IV ONE (21:00)
--- NOTE | 2019-10-03 21:14 | HPEPDOC ---
General Date of Admission 10/03/2019 Date of Service: Oct 03, 2019 Attending Physician: DANAE ESCOBEDO MD Chief Complaint The patient is a 39-year-old male admitted with a reason for visit of Matt. Source: RN/ Exam Limitations: Clinical conditions Timing/Duration: Unsure Severity: Severe Associated Symptoms: Fever, Chills, Increased agitation, Other (possible seizure and fall from bruising, with AMS) History of Present Illness 39 yo man with alcohol use disorder and seizure disorder who was found confused with bruising on forehead and left back with concern that he may have fallen 2/2 an unwitnessed seizure by his partner who triggered EMS and he was BIBEMS and police while agitated. Unfortunately his partner/roommate? did not come in with him so the actual presenting history is unclear. In the ED initial vitals were BP 123/82, HR 78, 98% on room air, RR 18 with a fever to 103.4. He was agitated and wanted to be left alone during initial examination without an overt meningisms on exam though confused, speaking without slurred speech but unable to corroborate any history. He was given rectal tylenol for the fever, 2L NS per sepsis protocol and was initially ordered for empiric ceftriaxone and benadryl but received the ceftriaxone before benadryl and developed sudden diffuse erythema and sinus tachycardia to 160s. Of note, has a chart history of ceftriaxone allergy though he has received prior per EMR. He was given solumedrol 125 and pepcid with resolution of the redness and improvement in tachycardia. He was then ordered for empiric ampicillin and vancomycin after UA, and blood cultures were drawn. Initial workup was notable for CT head without acute intracranial pathology, CXR with hyperinflation but no opacities or congestion, WBC 10.4, Hgb 14.2, Hct 43.5, platelets 209, na 137, K 4.1, Cr 1.11, glucose 103, normal LFTs, flu negative, with pending UA, toxx screen, keppra levels, blood cultures. He is now being admitted to medicine. Home Medications Scheduled Levetiracetam (Keppra) 1,000 Mg Tablet, 1,000 MG PO BID, (Reported) Scheduled PRN Acetaminophen (Acetaminophen) 500 Mg Tab, 500 MG PO Q6H PRN for HEADACHE, (Reported) Albuterol Sulfate (Ventolin Hfa) 18 Gm Hfa.aer.ad, 2 PUFF INH q4-6h PRN for wheezing, (Reported) Miscellaneous Medications [Patient Comments] , (Reported) UNABLE TO TALK WITH PATIENT AT THIS TIME. UNABLE TO DETERMINE WHEN LAST MEDICATIONS WERE TAKEN. MEDICATINS LISTED ARE CURRENT AND ACTIVE AT PHARMACY LISTED. WILL VERIFY WHEN PHARMACY OPENS. Allergies Coded Allergies: ceftriaxone (Verified Allergy, Severe, ANAPHYLAXIS, 10/03/19) ED dose of Ceftriaxone on 10/03/19 documented as anaphylaxis. per note from 12/06/[address] Mims, pt had a rash from Rocephin that resolved with solumedrol. Allergy entered into [employer] by Dr. Almanza on the same day stated anaphylaxis but there is no supporting documentation for that reaction. Pt has received Rocephin on multiple occasions at [facility] prior to that date. He has also tolerated PCNs without issue. haloperidol (Verified Adverse Reaction, Unknown, confusion, 12/07/18) lorazepam (Verified Adverse Reaction, Unknown, confusion, 12/07/18) Past Medical History Medical History Alcohol use disorder Seizure disorder Medical non compliance [employer] Smoker Surgical History None noted in EMR Family History Significant Family History: No pertinent family hx Social History * Smoker: current smoker Alcohol: heavy Drugs: other (not able to corroborate history at this time) Psychosocial History: Other (not able to corroborate history at this time) Currently unable to corroborate a recent social history. A-FIB/CHADSVASC A-FIB History Current/History of A-Fib/PAF?: No Age/Risk Factor Scoring CHADSVASC: CHADSVASC Response (Comments) Value Age Risk Factor Age < 65 years old 0 Gender Risk Factor Male 0 Hx of CHF No 0 Hx of HTN No 0 Hx of Stroke/TIA/or VTE No 0 Hx of Diabetes No 0 Hx of Vascular Disease No 0 Total 0 Treatment Treatment ordered: NONE Reason Anticoagulant not given: Not indicated/[id number] Review of Systems Constitutional: Reports: Chills, Fever Eyes: Reports: Pain; Denies: Vision change Skin: Reports: Other (flushed) Other systems I do not feel good is all the patient is able to report and does not respond to focused questions. Physical Examination General Exam: Positive: No Acute Distress, Other (sonmolent, "wants to sleep" responsible to voice. Thin, ill appearing, flushed) Eye Exam: Positive: PERRLA, Conjunctiva & lids normal, EOMI; Negative: Sclera icteric ENT Exam: Positive: Atraumatic, Mucous membr. moist/pink, Pharynx Normal Neck Exam: Positive: Supple; Negative: JVD, thyromegaly Chest Exam: Positive: Clear to auscultation, Normal air movement; Negative: Rales, Rhonchi, Wheezing Heart Exam: Positive: Tachycardic, Normal S1, Normal S2; Negative: Gallops, Murmurs, Rubs Telemetry: Positive: Sinus, Tachycardia Abdomen Exam: Positive: Normal bowel sounds, Soft; Negative: Tenderness, Hepatospenomegaly Extremity Exam: Positive: Normal pulses; Negative: Clubbing, Cyanosis, Edema Skin Exam: Positive: Nl turgor and temperature, Other skin issue (flushed, but without diffuse erythema or rash at this time); Negative: Breakdown, Lesion, Pruritus Neuro Exam: Positive: Normal Speech (short sentences, no slurring), Strength at 5/5 X4 ext, Normal Tone, Sensation Intact, Other (unable to complete cranial nerve exam because he is not cooperating, but from interaction, no droops) Psych Exam: Negative: Mental status NL, Oriented x 3 (Oriented to self. Not answering much else) Vital Signs Vital Signs Date Time Temp Pulse Resp B/P (MAP) Pulse Ox O2 Delivery O2 Flow Rate FiO2 10/03/19 17:34 103.4 78 18 123/82 98 Room Air Laboratory Data Labs 24H Laboratory Tests 2 10/03/19 17:47: Immature Granulocyte % (Auto) 1.0, Neutrophils (%) (Auto) 89.5H, Lymphocytes (%) (Auto) 5.0L, Monocytes (%) (Auto) 4.2, Eosinophils (%) (Auto) 0.0, Basophils (%) (Auto) 0.3, Neutrophils # (Auto) 9.3H, Lymphocytes # (Auto) 0.5L, Monocytes # (Auto) 0.4, Eosinophils # (Auto) 0.0, Basophils # (Auto) 0.0, Nucleated Red Blood Cells % (auto) 0.0, Prothrombin Time 13.4, Prothromb Time International Ratio 1.05, Activated Partial Thromboplast Time 26.0, POC Glucose (Misc Panel) 113H, POC Sodium (Misc Panel) 136, POC Potassium (Misc Panel) 4.0, POC Chloride (Misc Panel) 100, POC Total CO2 (Misc Panel) 23.0, POC Blood Urea Nitrogen (Misc Panel 12, POC Ionized Calcium (Misc Panel) 4.5, POC Creatinine (Misc Panel) 0.9, POC Hematocrit (Misc Panel) 46.0, Anion Gap 10, Glomerular Filtration Rate > 60.0, Lactic Acid Level 1.8, Calcium Level 8.6, Total Bilirubin 0.8, Direct Bilirubin 0.2, Aspartate Amino Transf (AST/SGOT) 36, Alanine Aminotransferase (ALT/SGPT) 31, Alkaline Phosphatase 71, Total Creatine Kinase 1314H, Creatine Kinase MB 8.9H, Creatine Kinase MB Relative Index 0.68, Troponin I < 0.02, C- Reactive Protein, Quantitative 1.38H, Total Protein 7.5, Albumin 4.2, Albumin/Globulin Ratio 1.27, Amylase Level 103, Salicylates Level 2.8L, Acetaminophen Level < 2.0L, Ethyl Alcohol Level < 0.003, Influenza Type A (RT- PCR) NEGATIVE, Influenza Type B (RT-PCR) NEGATIVE 10/03/19 18:16: CBC/BMP Laboratory Tests 10/03/19 17:47 Microbiology Microbiology 10/03/19 Blood Culture, Received Pending Assessment/Plan 39 yo man with alcohol use disorder and seizure disorder who was found confused with bruising on forehead and left back with concern that he may have fallen 2/2 an unwitnessed seizure by his partner who triggered EMS and he was BIBEMS and police while agitated. Unfortunately his partner/roommate? did not come in with him so the actual presenting history is unclear, however found to have a fever, persistent AMS without meningisms and so being admitted for +SIRS with presumed sepsis and will be placed on CIWA for possible impending alcohol withdrawal and restarted on home antiepileptic. AMS: possible 2/2 metabolic encephalopathy 2/2 infection though source unclear at this time given fever and tachycardia, vs. possible postictal state given history of seizure disorder with history of med noncompliance vs. possible alcohol withdrawal given history of alcohol use disorder vs. possible toxin in gestion. -follow up blood cultures and UA w/ reflex to culture. CXR was without pathology -CT head was without acute pathology and exam non consistent with meningisms. Will dc the pending ampicillin given the beta lactam allergy and use bactrim for listeria coverage, continue vanc and add acyclovir for possible infectious encephalitis. -Will defer LP tonight given agitated state and empirically cover -restart home Keppra 1g IV BID, while NPO for AMS -follow up tox screens -CIWA -D5NS @ 100cc/hr while NPO Sudden diffuse erythema and tachycardia in the ED: shortly -s/p solumedrol and pepcid with resolution of erythema and improvement of tachycardia -No cephalosporins, switching ampicillin to bactrim for empiric listeria coverage -will monitor for now Alcohol use disorder -follow up EtOH levels -empiric CIWA with thiamine, folate DVT ppx: heparin Diet: NPO while altered Plan / VTE VTE Prophylaxis Ordered?: Yes DANAE ESCOBEDO MD Oct 03, 2019 21:14
[2019-10-03] MEDS: levETIRAcetam INJection 1,000 MG in D5W 100 ML IV SCH (21:22)
[2019-10-03 22:22] VITALS: BP 118/63
[2019-10-03 22:57] VITALS: BP 118/63
[2019-10-03] MEDS: LORazepam 2 MG TAB PO PRN (23:56)
[2019-10-03] MEDS: D5W/0.9% SODIUM CHLORIDE 1,000 ML IV SCH (23:57)
[2019-10-03] MEDS: ACYCLOVIR IV SCH (23:57)
[2019-10-03] MEDS: NS IV SCH (23:57)
[2019-10-04] VITALS: BP 110/62
[2019-10-04] MEDS: SULFAMETHOXAZOLE IV SCH ×3 (01:24→16:03)
[2019-10-04] MEDS: D5W IV SCH ×3 (01:24→16:03)
[2019-10-04] MEDS: TRIMETHOPRIM IV SCH ×3 (01:24→16:03)
[2019-10-04] MEDS: VANCOMYCIN HCL 1,000 MG, VIAL MATE ADAPTER 1 EACH in D5W 250 ML IV SCH ×3 (02:55→18:33)
[2019-10-04 04:00] VITALS: BP 105/68
--- NOTE | 2019-10-04 05:23 | PHACANCOPD ---
PHARMACY VANCOMYCIN DOSING Pt Demographics Demographics Patient Age:39 , Weight:69.700 , Gender: male Adjusted Body Weight Date: 10/04/19, Adjusted Body Weight: Kg Vancomycin Vancomycin indication: AMS/EMPIRIC FOR COMMODITIES TRADER INFECTION Vancomycin Target Ranges: 15-20 mcg/ml Vancomycin Load Y/N: Yes Load Dose Date Time Vancomycin Load Dose: 1.75GM Date: 10/03 Time: 2000 Vancomycin Dose Date: 10/04/19. Current Vancomycin Dose: [1 GM Q8H] Intermittent Dosing?: No Labs Micro Microbiology 10/03/19 Blood Culture, Received Pending 10/03/19 Blood Culture, Received Pending Creatinine Clearance Creatinine Clearance: [84.9 CALCULATED]. Assessment and Plan Maintaining Current Dose?: Yes Reason for dose change: No Dose Change Pharmacist Note Pharmacist Note Date: 10/04/19. Pharmacist note:39YOM,72",68.5KG,SCR=1.11,CrCl=84.9,ALLERGY:CEFTRIAXONE(severe).Admitted w/AMS.poor/unreliable HX-to receive empiricTX for possible COMMODITIES TRADER infection.has orders for SMX/TMP 5mg/kg q8h,ACYCLOVIR 10mg/kg Q8H, and pharmacy dosed VANCOMYCIN>. Vancomycin load ordered in ED(1.75gm)then regimen of 1 gram IV q8h to begin@0200. First trough is scheduled for 10/04@1700-will continue to follow and make changes as needed MARIELENA [facility] Oct 04, 2019 05:23
[2019-10-04 05:24] LABS: HEMATOCRIT 36.2 % (42.0-52.0); HEMOGLOBIN 12.6 g/dl (13.5-17.5); MEAN CORPUSCULAR HEMOGLOBIN 33.5 pg (27.0-33.0); MEAN CORPUSCULAR HGB CONC 34.8 g/dl (32.0-36.5); MEAN CORPUSCULAR VOLUME 96.3 fl (80.0-96.0); PLATELET COUNT, AUTOMATED 179 10^3/uL (150-450); RED BLOOD COUNT 3.76 10^6/uL (4.30-6.10); WHITE BLOOD COUNT 7.6 10^3/uL (4.0-10.0)
[2019-10-04 05:55] LABS: ALBUMIN 3.3 GM/DL (3.2-5.2); ALT/SGPT 25 U/L (12-78); BILIRUBIN,TOTAL 0.7 MG/DL (0.2-1.0); BLOOD UREA NITROGEN 11 MG/DL (7-18); CALCIUM LEVEL 7.6 MG/DL (8.5-10.1); CARBON DIOXIDE LEVEL 23 MEQ/L (21-32); CHLORIDE LEVEL 105 MEQ/L (98-107); CREATININE FOR GFR 0.78 MG/DL (0.70-1.30); GLOMERULAR FILTRATION RATE > 60.0 (>60); GLUCOSE, FASTING 158 MG/DL (70-100); MAGNESIUM LEVEL 2.2 MG/DL (1.8-2.4); POTASSIUM SERUM 3.6 MEQ/L (3.5-5.1); SODIUM LEVEL 134 MEQ/L (136-145)
[2019-10-04] MEDS: HEPARIN SOD (PORCINE) 5000 UNITS/ML VIAL SC SCH ×3 (06:00→21:42)
[2019-10-04] MEDS: NS IV SCH ×3 (06:10→21:42)
[2019-10-04] MEDS: ACYCLOVIR IV SCH ×3 (06:10→21:42)
--- NOTE | 2019-10-04 06:27 | ECGEPIP ---
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
--- NOTE | 2019-10-04 06:31 | ECGEPIP ---
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
[2019-10-04 07:28] VITALS: BP 100/57
[2019-10-04] MEDS: THIAMINE 100 MG TAB PO SCH ×2 (08:09→20:44)
[2019-10-04] MEDS: FOLIC ACID 1 MG TAB PO SCH (08:09)
[2019-10-04] MEDS: MULTIVITAMINS/MINERALS THERAP 1 TAB PO SCH (08:09)
[2019-10-04] MEDS ORDERED: POTASSIUM CHLORIDE 10 MEQ SR TABLET PO ONE (08:15)
--- NOTE | 2019-10-04 08:54 | REP ---
AP PORTABLE CHEST: 10/03/2019. Comparison: 12/07/2018. Clinical history: SIRS. Findings: Multiple views are required to encompass the entirety of the chest by portable technique. Heart is not enlarged. The aorta is normal for age. Airway intact. There are a few cuffed bronchi in the perihilar regions that may reflect some reactive airway disease or bronchitis. I do not see dense consolidation or gross evidence for effusion. Dextroconvex curvature of the mid and lower thoracic spine again seen. Impression: 1. Some minor perihilar changes of bronchitis or reactive airway disease without dense consolidation, gross effusion, cardiomegaly or edema. Electronically Signed by Jacky Balderas MD 10/04/2019 08:14 P
[2019-10-04] MEDS: LORazepam 2 MG TAB PO PRN (09:55)
[2019-10-04] MEDS: levETIRAcetam INJection 1,000 MG in D5W 100 ML IV SCH ×2 (09:55→20:44)
[2019-10-04 12:00] VITALS: BP 106/57
[2019-10-04 16:00] VITALS: BP 104/64
[2019-10-04] MEDS: D5W/0.9% SODIUM CHLORIDE 1,000 ML IV SCH ×2 (16:07→20:44)
[2019-10-04 20:00] VITALS: BP_SYST 97; BP_SYST 98; BP_DIAS 56; BP_DIAS 60
--- NOTE | 2019-10-04 21:47 | IPNPDOC ---
Text Note Date of Service The patient was seen on 10/04/19. NOTE Subjective: Patient awake, oriented in place, he remember his birthday, but r eluctant to participate in discussion Objective: General: NAD HEENT: No JVD, PERRLA, EOMI CV: S1-S2 Lungs: CTA Abdomen: Nontender nondistended Extremities: No cyanosis, no swelling Neuro: Nonfocal, cranial nerves from 2-12 intact, no meningeal signs Follows commands Assessment and plan: Patient is 39 years old male with past history of alcohol abuse, seizure disorders presented hospital after she was found in this state of confusion. Altered mental status Resolved in the morning Patient has mild forgetfulness Neurological exam benign No any meningeal signs Most likely could be attributed to seizure, polypharmacy, intoxication with alcohol and cannabis Continue [facility] protocol Fever resolved, no leukocytosis, blood culture was negative I will discontinue antibiotics, unlikely patient has meningitis/encephalitis given absence of neurological deficit, no leukocytosis, no fever, no headache, no nausea, no vomiting One episode of fever on the admission could be attributed to previous seizure, agitation U tox came back positive for marijuana and alcohol Alcohol abuse Continue [facility] Seizure disorder Continue home Keppra VS,Fishbone, I+O VS, Fishbone, I+O Laboratory Tests 10/04/19 04:56 Vital Signs Date Time Temp Pulse Resp B/P (MAP) Pulse Ox O2 Delivery O2 Flow Rate FiO2 10/04/19 20:00 98.5 80 18 97/56 (70) 98 Room Air I&O- Last 24 Hours up to 6 AM 10/04/19 06:00 Intake Total 5883.4375 ml Balance 5883.4375 ml DONG SPAIN DO Oct 04, 2019 21:47
[2019-10-05] VITALS: BP 100/70
[2019-10-05 04:00] VITALS: BP 100/60
[2019-10-05] MEDS: HEPARIN SOD (PORCINE) 5000 UNITS/ML VIAL SC SCH (05:49)
[2019-10-05] MEDS: D5W/0.9% SODIUM CHLORIDE 1,000 ML IV SCH (05:49)
[2019-10-05 05:55] LABS: HEMATOCRIT 32.8 % (42.0-52.0); HEMOGLOBIN 11.2 g/dl (13.5-17.5); MEAN CORPUSCULAR HEMOGLOBIN 33.3 pg (27.0-33.0); MEAN CORPUSCULAR HGB CONC 34.1 g/dl (32.0-36.5); MEAN CORPUSCULAR VOLUME 97.6 fl (80.0-96.0); PLATELET COUNT, AUTOMATED 164 10^3/uL (150-450); RED BLOOD COUNT 3.36 10^6/uL (4.30-6.10); WHITE BLOOD COUNT 6.1 10^3/uL (4.0-10.0)
[2019-10-05 06:08] LABS: BLOOD UREA NITROGEN 8 MG/DL (7-18); CALCIUM LEVEL 7.5 MG/DL (8.5-10.1); CARBON DIOXIDE LEVEL 22 MEQ/L (21-32); CHLORIDE LEVEL 108 MEQ/L (98-107); CREATININE FOR GFR 0.76 MG/DL (0.70-1.30); GLOMERULAR FILTRATION RATE > 60.0 (>60); GLUCOSE, FASTING 80 MG/DL (70-100); POTASSIUM SERUM 3.7 MEQ/L (3.5-5.1); SODIUM LEVEL 137 MEQ/L (136-145)
[2019-10-05 07:56] VITALS: BP 108/71
[2019-10-05 08:00] VITALS: BP 108/71
[2019-10-05] MEDS: THIAMINE 100 MG TAB PO SCH (08:07)
[2019-10-05] MEDS: MULTIVITAMINS/MINERALS THERAP 1 TAB PO SCH (08:07)
[2019-10-05] MEDS: FOLIC ACID 1 MG TAB PO SCH (08:07)
[2019-10-05] MEDS: levETIRAcetam INJection 1,000 MG in D5W 100 ML IV SCH (09:53)
[2019-10-05 12:00] VITALS: BP 99/58
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
== END 2019-10-05 16:30 | disposition home or self-care (01) | DRG 53 ==
LOC: M ED 17:29 → EDBD 17:29 → M ED INP 20:08 → ENRESERV 20:46 → M PCU 22:22
PROVIDERS: ADMIT Internal Medicine; ATTEND Internal Medicine
DX: R56.9 Unspecified convulsions (principal); F10.20 Alcohol dependence, uncomplicated; Z79.899 Other long term (current) drug therapy; Z88.1 Allergy status to other antibiotic agents; Z88.8 Allergy status to other drugs, medicaments and biological substances; Z91.19 Patient's noncompliance with other medical treatment and regimen; F17.210 Nicotine dependence, cigarettes, uncomplicated; F19.20 Other psychoactive substance dependence, uncomplicated; L53.9 Erythematous condition, unspecified; R00.0 Tachycardia, unspecified; R41.82 Altered mental status, unspecified; R50.9 Fever, unspecified; F12.20 Cannabis dependence, uncomplicated

== ENCOUNTER → 2020-01-20 | Outpatient (REF) | payer OTHER ==
[2020-01-20 18:13] LABS: BASO # 0.1 10^3/uL (0.0-0.2); BASO % 1.6 % (0.0-1.0); EOS # 0.9 10^3/uL (0.0-0.5); EOS % 14.9 % (0.0-3.0); HEMATOCRIT 42.9 % (42.0-52.0); HEMOGLOBIN 14.3 g/dl (13.5-17.5); LYMPH # 1.7 10^3/uL (1.5-5.0); LYMPH % 27.7 % (24.0-44.0); MEAN CORPUSCULAR HEMOGLOBIN 33.2 pg (27.0-33.0); MEAN CORPUSCULAR HGB CONC 33.3 g/dl (32.0-36.5); MEAN CORPUSCULAR VOLUME 99.5 fl (80.0-96.0); MONO # 0.5 10^3/uL (0.0-0.8); MONO % 7.6 % (0.0-5.0); PLATELET COUNT, AUTOMATED 238 10^3/uL (150-450); RED BLOOD COUNT 4.31 10^6/uL (4.30-6.10); WHITE BLOOD COUNT 6.2 10^3/uL (4.0-10.0)
[2020-01-20 18:30] LABS: HEMOGLOBIN A1c 5.7 %
[2020-01-20 18:38] LABS: ALBUMIN 3.5 GM/DL (3.2-5.2); ALT/SGPT 17 U/L (12-78); BILIRUBIN,TOTAL 0.4 MG/DL (0.2-1.0); BLOOD UREA NITROGEN 8 MG/DL (7-18); CALCIUM LEVEL 8.3 MG/DL (8.5-10.1); CARBON DIOXIDE LEVEL 30 MEQ/L (21-32); CHLORIDE LEVEL 109 MEQ/L (98-107); CHOLESTEROL LEVEL 171 MG/DL (<200); CHOLESTEROL RISK RATIO 3.717 (<5); FERRITIN 92 NG/ML (26-388); FOLATE 10.3 NG/ML; FREE T4 0.97 NG/DL (0.76-1.46); GLOMERULAR FILTRATION RATE > 60.0 (>60); GLUCOSE, FASTING 102 MG/DL (70-100); HDL CHOLESTEROL 46 MG/DL (>40); IRON (FE) 82 UG/DL (65-175); LDL CHOLESTEROL 110 MG/DL (<100); NON-HDL-C 125 MG/DL; POTASSIUM SERUM 4.4 MEQ/L (3.5-5.1); SODIUM LEVEL 142 MEQ/L (136-145); THYROID STIMULATING HORMONE 0.815 uIU/ML (0.358-3.740); TOTAL 25(OH) VITAMIN D 11.4 NG/ML (30.0-100.0); TOTAL PROTEIN 6.3 GM/DL (6.4-8.2); TRIGLYCERIDES LEVEL 73 MG/DL (<150); VITAMIN B12 LEVEL 442 PG/ML
== END ==
LOC: M LAB REF 16:24
PROVIDERS: ATTEND Nurse Practitioner Family
DX: G31.84 Mild cognitive impairment of uncertain or unknown etiology (principal); E55.9 Vitamin D deficiency, unspecified; E53.8 Deficiency of other specified B group vitamins; F41.9 Anxiety disorder, unspecified; Z72.0 Tobacco use; R56.9 Unspecified convulsions; Z13.9 Encounter for screening, unspecified

== ENCOUNTER → 2020-04-19 | Outpatient (REF) | payer OTHER, MEDICAID ==
[~2020-04-19] MED LIST changes: -LISI20TA19 PO; +LISI20TA35 PO
[2020-05-22 11:05] LABS: BASO # 0.1 10^3/uL (0.0-0.2); BASO % 1.8 % (0.0-1.0); EOS # 0.7 10^3/uL (0.0-0.5); EOS % 9.7 % (0.0-3.0); HEMATOCRIT 44.9 % (42.0-52.0); LYMPH % 28.5 % (24.0-44.0); MEAN CORPUSCULAR HEMOGLOBIN 33.5 pg (27.0-33.0); MEAN CORPUSCULAR HGB CONC 33.4 g/dl (32.0-36.5); MEAN CORPUSCULAR VOLUME 100.2 fl (80.0-96.0); MONO # 0.5 10^3/uL (0.0-0.8); NEUTROPHILS # 3.8 10^3/uL (1.5-8.5); NEUTROPHILS % 52.7 % (36.0-66.0); PLATELET COUNT, AUTOMATED 247 10^3/uL (150-450); RED BLOOD COUNT 4.48 10^6/uL (4.30-6.10); WHITE BLOOD COUNT 7.1 10^3/uL (4.0-10.0)
[2020-06-04 06:40] LABS: ALBUMIN 4.1 GM/DL (3.2-5.2); ALT/SGPT 18 U/L (12-78); BILIRUBIN,TOTAL 0.5 MG/DL (0.2-1.0); BLOOD UREA NITROGEN 12 MG/DL (7-18); CALCIUM LEVEL 8.8 MG/DL (8.5-10.1); CARBON DIOXIDE LEVEL 29 MEQ/L (21-32); CHLORIDE LEVEL 106 MEQ/L (98-107); CHOLESTEROL LEVEL 176 MG/DL (<200); CHOLESTEROL RISK RATIO 3.087 (<5); CREATININE FOR GFR 0.94 MG/DL (0.70-1.30); FREE T4 1.01 NG/DL (0.76-1.46); GLOMERULAR FILTRATION RATE > 60.0 (>60); GLUCOSE, FASTING 76 MG/DL (70-100); HDL CHOLESTEROL 57 MG/DL (>40); HEMOGLOBIN A1c 5.1 %; IRON (FE) 136 UG/DL (65-175); LDL CHOLESTEROL 106 MG/DL (<100); NON-HDL-C 119 MG/DL; POTASSIUM SERUM 4.9 MEQ/L (3.5-5.1); SODIUM LEVEL 140 MEQ/L (136-145); THYROID STIMULATING HORMONE 0.791 uIU/ML (0.358-3.740); TOTAL 25(OH) VITAMIN D 23.6 NG/ML (30.0-100.0); TRIGLYCERIDES LEVEL 65 MG/DL (<150)
== END ==
LOC: M LAB REF 07:43
PROVIDERS: ATTEND Nurse Practitioner Family
DX: E55.9 Vitamin D deficiency, unspecified (principal); G31.84 Mild cognitive impairment of uncertain or unknown etiology; E53.8 Deficiency of other specified B group vitamins; F17.200 Nicotine dependence, unspecified, uncomplicated; Z13.9 Encounter for screening, unspecified; Z71.2 Person consulting for explanation of examination or test findings

== ENCOUNTER 2020-05-02 23:02 | Emergency (ER) | payer OTHER ==
[2020-05-03 04:39] VITALS: BP 132/88
== END 2020-05-03 04:39 | disposition home or self-care (01) ==
LOC: M ED 23:02
DX: F10.129 Alcohol abuse with intoxication, unspecified (principal); G40.909 Epilepsy, unspecified, not intractable, without status epilepticus; F17.200 Nicotine dependence, unspecified, uncomplicated; Z79.899 Other long term (current) drug therapy

== ENCOUNTER 2020-05-28 18:24 | Emergency (ER) | payer OTHER ==
[2020-05-28 21:00] VITALS: BP 134/74
== END 2020-05-28 21:15 | disposition home or self-care (01) ==
LOC: EDBD 18:24 → M ED 18:24
DX: F10.129 Alcohol abuse with intoxication, unspecified (principal); Z79.899 Other long term (current) drug therapy; Z88.1 Allergy status to other antibiotic agents; Z88.8 Allergy status to other drugs, medicaments and biological substances

== ENCOUNTER 2020-07-05 19:18 | Emergency (ER) | payer OTHER ==
[2020-07-05] MEDS ORDERED: ACETAMINOPHEN TAB 650MG DOSE (2X325MG) PO ONE (19:45)
[2020-07-05] MEDS ORDERED: levETIRAcetam INJection 1,000 MG in D5W 100 ML IV ONE (19:45)
[2020-07-05 20:08] LABS: BASO # 0.1 10^3/uL (0.0-0.2); BASO % 1.6 % (0.0-1.0); EOS # 0.3 10^3/uL (0.0-0.5); EOS % 4.5 % (0.0-3.0); HEMOGLOBIN 13.8 g/dl (13.5-17.5); LYMPH # 0.7 10^3/uL (1.5-5.0); LYMPH % 10.5 % (24.0-44.0); MEAN CORPUSCULAR HEMOGLOBIN 33.7 pg (27.0-33.0); MEAN CORPUSCULAR HGB CONC 33.7 g/dl (32.0-36.5); MONO # 0.3 10^3/uL (0.0-0.8); MONO % 4.5 % (0.0-5.0); NEUTROPHILS # 4.9 10^3/uL (1.5-8.5); NEUTROPHILS % 78.6 % (36.0-66.0); PLATELET COUNT, AUTOMATED 217 10^3/uL (150-450); WHITE BLOOD COUNT 6.2 10^3/uL (4.0-10.0)
[2020-07-05 20:26] LABS: BLOOD UREA NITROGEN 11 MG/DL (7-18); CALCIUM LEVEL 8.4 MG/DL (8.5-10.1); CARBON DIOXIDE LEVEL 25 MEQ/L (21-32); CHLORIDE LEVEL 107 MEQ/L (98-107); GLOMERULAR FILTRATION RATE > 60.0 (>60); GLUCOSE, FASTING 153 MG/DL (70-100); POTASSIUM SERUM 4.4 MEQ/L (3.5-5.1); SODIUM LEVEL 139 MEQ/L (136-145)
[2020-07-05 23:15] VITALS: BP 113/70
== END 2020-07-06 00:28 | disposition home or self-care (01) ==
LOC: M ED 19:18
DX: G40.909 Epilepsy, unspecified, not intractable, without status epilepticus (principal); Z91.14 Patient's other noncompliance with medication regimen; F19.10 Other psychoactive substance abuse, uncomplicated; Z79.899 Other long term (current) drug therapy; Z88.1 Allergy status to other antibiotic agents; Z88.8 Allergy status to other drugs, medicaments and biological substances
CPT/HCPCS: 80048; 80180; 85025; 96365; 99284; J1953

== ENCOUNTER → 2020-07-21 | Outpatient (REF) | payer OTHER ==
[2020-07-21 16:53] LABS: BASO # 0.1 10^3/uL (0.0-0.2); BASO % 1.9 % (0.0-1.0); EOS # 0.5 10^3/uL (0.0-0.5); EOS % 7.5 % (0.0-3.0); HEMATOCRIT 44.5 % (42.0-52.0); LYMPH # 1.8 10^3/uL (1.5-5.0); LYMPH % 27.2 % (24.0-44.0); MEAN CORPUSCULAR HEMOGLOBIN 33.8 pg (27.0-33.0); MEAN CORPUSCULAR HGB CONC 33.7 g/dl (32.0-36.5); MEAN CORPUSCULAR VOLUME 100.2 fl (80.0-96.0); MONO # 0.7 10^3/uL (0.0-0.8); MONO % 9.6 % (0.0-5.0); NEUTROPHILS # 3.6 10^3/uL (1.5-8.5); NEUTROPHILS % 53.7 % (36.0-66.0); PLATELET COUNT, AUTOMATED 271 10^3/uL (150-450); RED BLOOD COUNT 4.44 10^6/uL (4.30-6.10); WHITE BLOOD COUNT 6.8 10^3/uL (4.0-10.0)
[2020-07-21 17:07] LABS: ALBUMIN 4.1 GM/DL (3.2-5.2); ALT/SGPT 18 U/L (12-78); BILIRUBIN,TOTAL 0.6 MG/DL (0.2-1.0); BLOOD UREA NITROGEN 11 MG/DL (7-18); CALCIUM LEVEL 9.3 MG/DL (8.5-10.1); CARBON DIOXIDE LEVEL 29 MEQ/L (21-32); CHLORIDE LEVEL 105 MEQ/L (98-107); CHOLESTEROL LEVEL 223 MG/DL (<200); CHOLESTEROL RISK RATIO 2.934 (<5); CREATININE FOR GFR 0.86 MG/DL (0.70-1.30); FREE T4 1.02 NG/DL (0.76-1.46); GLOMERULAR FILTRATION RATE > 60.0 (>60); GLUCOSE, FASTING 92 MG/DL (70-100); HDL CHOLESTEROL 76 MG/DL (>40); LDL CHOLESTEROL 134 MG/DL (<100); NON-HDL-C 147 MG/DL; POTASSIUM SERUM 4.9 MEQ/L (3.5-5.1); SODIUM LEVEL 139 MEQ/L (136-145); THYROID STIMULATING HORMONE 0.566 uIU/ML (0.358-3.740); TOTAL PROTEIN 7.1 GM/DL (6.4-8.2); TRIGLYCERIDES LEVEL 65 MG/DL (<150)
[2020-07-21 17:09] LABS: TOTAL 25(OH) VITAMIN D 17.8 NG/ML (30.0-100.0)
[2020-07-21 18:04] LABS: HEMOGLOBIN A1c 5.2 %
[2020-07-23 21:06] LABS: PSA TOTAL 1.8 ng/mL (0.0-4.0)
== END ==
LOC: M LAB REF 16:33
PROVIDERS: ATTEND Nurse Practitioner Family
DX: I10 Essential (primary) hypertension (principal); E78.5 Hyperlipidemia, unspecified; F10.20 Alcohol dependence, uncomplicated

== ENCOUNTER 2020-07-23 18:47 | Emergency (ER) | payer OTHER ==
[~2020-07-23] VITALS: Ht 188 cm; Wt 86.4 kg
[2020-07-23 19:55] LABS: HEMATOCRIT 42.9 % (42.0-52.0); HEMOGLOBIN 14.1 g/dl (13.5-17.5); MEAN CORPUSCULAR HEMOGLOBIN 32.7 pg (27.0-33.0); MEAN CORPUSCULAR HGB CONC 32.9 g/dl (32.0-36.5); MEAN CORPUSCULAR VOLUME 99.5 fl (80.0-96.0); PLATELET COUNT, AUTOMATED 252 10^3/uL (150-450); RED BLOOD COUNT 4.31 10^6/uL (4.30-6.10); WHITE BLOOD COUNT 7.4 10^3/uL (4.0-10.0)
--- NOTE | 2020-07-23 20:20 | REPVR ---
PROCEDURE INFORMATION: Exam: CT Head Without Contrast Exam date and time: 07/23/2020 8:08 PM Age: 40 years old Clinical indication: Injury or trauma; Fall; Blunt trauma (contusions or hematomas); Additional info: Head injury; +etoh TECHNIQUE: Imaging protocol: Computed tomography of the head without contrast. Radiation optimization: All CT scans at this facility use at least one of these dose optimization techniques: automated exposure control; mA and/or kV adjustment per patient size (includes targeted exams where dose is matched to clinical indication); or iterative reconstruction. COMPARISON: CT Head without contrast 10/03/2019 6:17 PM FINDINGS: Brain: Unremarkable. No hemorrhage. No significant white matter disease. No edema. Cerebral ventricles: No ventriculomegaly. Bones/joints: Unremarkable. No acute fracture. Paranasal sinuses: Visualized sinuses are unremarkable. No fluid levels. Mastoid air cells: Visualized mastoid air cells are well aerated. Soft tissues: Left forehead subcutaneous hematoma/soft tissue contusion. IMPRESSION: No acute intracranial abnormality. Electronically signed by: Robinson Beatty On 07/23/2020 20:19:59 PM
[2020-07-23 20:41] LABS: ACETAMINOPHEN LEVEL < 2.0 UG/ML (10.0-30.0); ALBUMIN 3.9 GM/DL (3.2-5.2); ALT/SGPT 18 U/L (12-78); BILIRUBIN,DIRECT 0.1 MG/DL (0.0-0.2); BILIRUBIN,TOTAL 0.2 MG/DL (0.2-1.0); BLOOD UREA NITROGEN 10 MG/DL (7-18); CALCIUM LEVEL 8.3 MG/DL (8.5-10.1); CARBON DIOXIDE LEVEL 27 MEQ/L (21-32); CHLORIDE LEVEL 109 MEQ/L (98-107); CPK CREATINE PHOSPHOKINASE 203 U/L (39-308); CREATININE FOR GFR 0.72 MG/DL (0.70-1.30); ETHYL ALCOHOL (ETHANOL) 0.338 % (0.000-0.010); GLOMERULAR FILTRATION RATE > 60.0 (>60); GLUCOSE, FASTING 77 MG/DL (70-100); SALICYLATE LEVEL 3.9 MG/DL (5.0-30.0); SODIUM LEVEL 142 MEQ/L (136-145); THYROID STIMULATING HORMONE 0.665 uIU/ML (0.358-3.740); TOTAL PROTEIN 7.1 GM/DL (6.4-8.2)
[2020-07-24 01:27] VITALS: BP 110/65
== END 2020-07-24 01:25 | disposition home or self-care (01) ==
LOC: M ED 18:47
DX: F10.129 Alcohol abuse with intoxication, unspecified (principal); J45.909 Unspecified asthma, uncomplicated; K21.9 Gastro-esophageal reflux disease without esophagitis; Z79.899 Other long term (current) drug therapy; Z88.1 Allergy status to other antibiotic agents; Z88.8 Allergy status to other drugs, medicaments and biological substances
CPT/HCPCS: 70450; 80048; 80076; 82550; 84443; 85027; 99284; G0480

== ENCOUNTER 2020-08-17 18:35 | Emergency (ER) | payer OTHER ==
[~2020-08-17] VITALS: Ht 193 cm; Wt 74.0 kg
[2020-08-17] MEDS ORDERED: NS 1,000 ML IV ONE (19:30)
[2020-08-17] MEDS ORDERED: MULTIVITAMINS/MINERALS THERAP 1 TAB PO ONE (19:45)
[2020-08-17] MEDS ORDERED: FOLIC ACID 1 MG TAB PO ONE (19:45)
[2020-08-17] MEDS ORDERED: THIAMINE 100 MG TAB PO ONE (19:45)
[2020-08-17 19:49] LABS: BASO # 0.1 10^3/uL (0.0-0.2); BASO % 1.3 % (0.0-1.0); EOS # 0.6 10^3/uL (0.0-0.5); EOS % 8.4 % (0.0-3.0); HEMATOCRIT 42.9 % (42.0-52.0); HEMOGLOBIN 14.3 g/dl (13.5-17.5); LYMPH # 2.1 10^3/uL (1.5-5.0); LYMPH % 30.3 % (24.0-44.0); MEAN CORPUSCULAR HEMOGLOBIN 33.1 pg (27.0-33.0); MEAN CORPUSCULAR HGB CONC 33.3 g/dl (32.0-36.5); MEAN CORPUSCULAR VOLUME 99.3 fl (80.0-96.0); MONO # 0.5 10^3/uL (0.0-0.8); MONO % 6.6 % (0.0-5.0); NEUTROPHILS # 3.7 10^3/uL (1.5-8.5); NEUTROPHILS % 53.1 % (36.0-66.0); PLATELET COUNT, AUTOMATED 231 10^3/uL (150-450); RED BLOOD COUNT 4.32 10^6/uL (4.30-6.10); WHITE BLOOD COUNT 6.9 10^3/uL (4.0-10.0)
[2020-08-17 20:32] LABS: ALBUMIN 3.8 GM/DL (3.2-5.2); ALT/SGPT 20 U/L (12-78); BILIRUBIN,DIRECT < 0.1 MG/DL (0.0-0.2); BILIRUBIN,TOTAL 0.4 MG/DL (0.2-1.0); BLOOD UREA NITROGEN 8 MG/DL (7-18); CALCIUM LEVEL 8.3 MG/DL (8.5-10.1); CARBON DIOXIDE LEVEL 23 MEQ/L (21-32); CHLORIDE LEVEL 108 MEQ/L (98-107); CREATININE FOR GFR 0.63 MG/DL (0.70-1.30); ETHYL ALCOHOL (ETHANOL) 0.306 % (0.000-0.010); GLOMERULAR FILTRATION RATE > 60.0 (>60); GLUCOSE, FASTING 86 MG/DL (70-100); MAGNESIUM LEVEL 2.5 MG/DL (1.8-2.4); POTASSIUM SERUM 4.2 MEQ/L (3.5-5.1); SODIUM LEVEL 139 MEQ/L (136-145); TOTAL PROTEIN 6.8 GM/DL (6.4-8.2)
[2020-08-17] MEDS ORDERED: MAGNESIUM OXIDE 400 MG TAB (MAG-OX) PO ONE (20:45)
[2020-08-17] MEDS ORDERED: CALCIUM CARBONATE 500 MG CHEW U/D PO ONE (20:45)
--- NOTE | 2020-08-17 21:03 | ECGEPIP ---
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
[2020-08-18 03:46] VITALS: BP 121/71
== END 2020-08-18 04:01 | disposition home or self-care (01) ==
LOC: M ED 18:35 → EDBD 18:35 → M ED 08-18 04:01
DX: F10.129 Alcohol abuse with intoxication, unspecified (principal); E83.51 Hypocalcemia; R56.9 Unspecified convulsions; Z79.899 Other long term (current) drug therapy; Z88.1 Allergy status to other antibiotic agents; Z88.8 Allergy status to other drugs, medicaments and biological substances
CPT/HCPCS: 80048; 80076; 82140; 83735; 85025; 93005; 93041; 99285; G0480

== ENCOUNTER 2020-09-22 18:13 | Inpatient (IN) | payer OTHER ==
[~2020-09-22] VITALS: Ht 190.5 cm; Wt 81.5 kg
[~2020-09-22 18:13] MED LIST changes: -CLIN150C14 PO; +CLIN150C15 PO
[2020-09-22] MEDS ORDERED: LORazepam 2 MG/ML VIAL As Ordered ONE (18:20)
--- OUTSIDE RECORDS SUMMARY | 2020-09-22 18:23 | CCD ---
Author Author [facility] Organization [facility] Address Unknown Phone Unavailable Support Name Relationship Address Phone Maximino ADAME, Nava Next Of Kin [address] [place] [address] [phone] Yunior FERRARI, Jessica Next Of Kin [address] [place] [phone] ANOOP WASHINGTON Next Of Kin Unknown Jazzy GUERRERO, Azalia Next Of Kin [address] [place] [address] [phone] Emmett FERRARI, Mary Beth Next Of Kin [address] [place] [phone] Joel Vaughn MD Next Of Kin [address] [place] [phone] NIKITA CARTER Next Of Kin [address] [place] [phone] Denia May Next Of Kin [address] [place] [phone] NIKITA CARTER Next Of Kin [address] [place] [address] [phone] GIORGIO RIBEIRO Next Of Kin [address] [place] [address] NONE Dyan RPA-C, Ramonita Next Of Kin [address] [place] [phone] Tricia FERRARI, Magdalena Next Of Kin [address] [place] [phone] Ting Rivero Next Of Kin [address] [place] [phone] Zeny ANP-BC, Nguyen Next Of Kin [address] [place] [phone] UE Next Of Kin Unknown Unavailable GIORGIO SHELTON Next Of Kin [address] [facility] [address] [place] [address] Care Team Providers Care Records Specialist Name Role Phone Jessica Mojica MA[employer]IST MASTER [employer] PARACHUTIST Unavailable Unavailable Mojica, F Jessica MASTER [employer] PARACHUTIST-BC Unavailable Unavailable Mojica, F Jessica MASTER [employer]AL PARACHUTIST-BC Unavailable Unavailable Mojica, F Jessica MASTER [employer]AL PARACHUTIST-BC Unavailable Unavailable Mojica, F Jessica MASTER [employer]AL PARACHUTIST-BC Unavailable Unavailable Mojica, F Jessica MASTER [employer]AL PARACHUTIST-BC Unavailable Unavailable Mojica, F Jessica [employer]STER [employer]AL PARACHUTIST-BC Unavailable Unavailable Mojica, F Jessica MASTER [employer]AL PARACHUTIST-BC Unavailable Unavailable Mojica, F Jessica MASTER [employer]AL PARACHUTIST-BC Unavailable Unavailable Mojica, F Jessica MASTER [employer]AL PARACHUTIST-BC Unavailable Unavailable Mojica, F Jessica MASTER [employer]AL PARACHUTIST-BC Unavailable Unavailable Mojica, F Jessica MASTER [employer]AL PARACHUTIST-BC Unavailable Unavailable Mojica, F Jessica MASTER [employer] PARACHUTIST-BC Unavailable Unavailable Mojica, F Jessica [employer]STER [employer] PARACHUTIST-BC Unavailable Unavailable Mojica, F Jessica MASTER [employer] PARACHUTIST-BC Unavailable Unavailable Mjoica, F Jessica MASTER [employer] PARACHUTIST-BC Unavailable Unavailable Mojica, F Jessica MASTER [employer]AL PARACHUTIST-BC Unavailable Unavailable Mojica, F Jessica MASTER [employer] PARACHUTIST-BC Unavailable Unavailable Mojica, F Jessica MASTER [employer]AL PARACHUTIST-BC Unavailable Unavailable Mojica, F Jessica MASTER [employer]AL PARACHUTIST-BC Unavailable Unavailable Mojica, F Jessica MASTER [employer] PARACHUTIST-BC Unavailable Unavailable Mojica, F Jessica [employer]STER [employer] PAR[employer]UTIST-BC Unavailable Unavailable [facility] Unavailable Unavailable Re-disclosure Warning The records that you are about to access may contain information from federally-assisted alcohol or drug abuse programs. If such information is present, then the following federally mandated warning applies: This information has been disclosed to you from records protected by federal confidentiality rules (42 CFR part 2). The federal rules prohibit you from making any further disclosure of this information unless further disclosure is expressly permitted by the written consent of the person to whom it pertains or as otherwise permitted by 42 CFR part 2. A general authorization for the release of medical or other information is NOT sufficient for this purpose. The Federal rules restrict any use of the information to criminally investigate or prosecute any alcohol or drug abuse patient.The records that you are about to access may contain highly sensitive health information, the redisclosure of which is protected by Article 27-F of the [place] State Public Health law. If you continue you may have access to information: Regarding HIV / AIDS; Provided by facilities licensed or operated by the [facility] Office of Mental Health; or Provided by the [facility] Office for People With Developmental Disabilities. If such information is present, then the following [facility] mandated warning applies: This information has been disclosed to you from confidential records which are protected by state law. State law prohibits you from making any further disclosure of this information without the specific written consent of the person to whom it pertains, or as otherwise permitted by law. Any unauthorized further disclosure in violation of state law may result in a fine or usp sentence or both. A general authorization for the release of medical or other information is NOT sufficient authorization for further disc losure. Allergies and Adverse Reactions Type Description Substance Reaction Status Data Source(s ) Drug Class NO KNOWN ALLERGIES NO KNOWN ALLERGIES [facility] Encounters Encounter Providers Location Date Indications Data Source(s ) [facility] 03:26:00 PM ES [facility] Outpatient Attender: SAL NOEL TO 06/11/2020 06:52:01 PM ED [facility] Outpatient Attender: SAL NOEL TO 06/11/2020 06:52:01 PM ED [facility] Outpatient Attender: SAL ARIZA 05/29/2020 02:22:02 PM ED [facility] Outpatient Attender: SAL NOEL TO 2020 10:22:01 AM ED [facility] Outpatient Attender: SAL ARIZA 05/24/2020 05:04:00 PM ED [facility] Outpatient Attender: SAL ARIZA 05/20/2020 05:28:01 PM ED [facility] Outpatient Attender: SAL ARIZA 05/03/2020 10:00:01 AM ED [facility] Outpatient Attender: SAL ARIZA 04/29/2020 11:37:01 AM ED [facility] Outpatient Attender: SAL ARIZA 04/26/2020 04:22:03 PM ED [facility] Outpatient Attender: SAL NOEL TO 04/26/2020 04:22:02 PM ED [facility] Outpatient Attender: SAL ARIZA 04/26/2020 04:22:00 PM ED [facility] Outpatient Attender: SAL ARIZA 04/26/2020 03:42:00 PM ED T [facility] Outpatient Attender: SAL ARIZA 04/20/2020 12:05:03 AM ED T [facility] Outpatient Attender: SAL HEALY FP 04/19/2020 10:15:01 AM ED T [facility] Outpatient Attender: SAL ARIZA 02/27/2020 01:23:02 PM ED T [facility] Outpatient Attender: SAL ARIZA 02/27/2020 01:23:01 PM ED T [facility] Outpatient Attender: SAL ARIZA 02/10/2020 02:25:00 PM ED T [facility] Outpatient Attender: SAL ARIZA 02/01/2020 08:53:01 PM ED T [facility] Outpatient Attender: SAL HEALY FP 01/31/2020 12:37:00 AM ED T [facility] Outpatient Attender: SAL ARIZA 01/26/2020 05:54:00 PM ED T [facility] Outpatient Attender: SAL HEALY FP 01/26/2020 05:18:00 PM ED T [facility] Outpatient Attender: SAL HEALY FP 01/26/2020 05:05:00 PM ED T [facility] Outpatient Attender: SAL HEALY FP 01/20/2020 03:31:01 PM ED T [facility] Outpatient Attender: SAL ARIZA 01/20/2020 09:57:01 AM ED T [facility] Outpatient Attender: SAL ARIZA 01/20/2020 09:56:00 AM ED T [facility] Outpatient Attender: SAL ARIZA 01/14/2020 08:32:00 AM ED T [facility] Outpatient Attender: SAL HEALY FP 01/03/2020 09:42:59 PM ED T [facility] Outpatient Attender: SAL HEALY FP 12/14/2019 12:04:00 PM ED T [facility] Outpatient Attender: SAL ARIZA 11/19/2019 04:19:00 PM ED T [facility] Outpatient Attender: SAL ARIZA 11/17/2019 07:23:02 PM ED T [facility] Outpatient Attender: SAL ARIZA 11/17/2019 04:11:00 PM ED [facility] Outpatient Attender: SAL [facility] FP 11/17/2019 03:18:01 PM ED [facility] Outpatient Attender: SAL [facility] FP 11/17/2019 12:31:00 PM ED [facility] Outpatient Attender: SAL [facility] FP 11/10/2019 11:32:02 AM [facility] Outpatient Attender: SAL SADIEFH FP 11/10/2019 11:31:03 AM ES [facility] Outpatient 10/21/2019 05:10:00 AM [facility] Outpatient Attender: SAL MONET FP 10/08/2019 11:20:02 AM [facility] Outpatient Attender: STEPHANIEGIUSEPPE NOELFH FP 10/05/2019 12:54:00 PM [facility] Outpatient Attender: SAL SADIEFH FP 09/28/2019 03:07:00 PM [facility] Outpatient Attender: SAL NOELFH FP 09/28/2019 02:44:01 PM [facility] Outpatient Attender: SAL SADIEFH FP 09/28/2019 02:33:01 PM [facility] Outpatient Attender: SAL [facility] FP 09/28/2019 12:52:02 PM [facility] Outpatient Attender: SAL [facility] FP 09/28/2019 12:52:01 PM [facility] Outpatient Attender: SAL [facility] FP 09/28/2019 12:37:00 PM [facility] Outpatient Attender: SAL SADIEFH FP 09/28/2019 12:32:00 PM [facility] Outpatient Attender: SAL [facility] FP 09/25/2019 02:19:00 PM [facility] Outpatient Attender: SAL SADIEFH FP 09/25/2019 02:18:01 PM [facility] Outpatient Attender: SAL NOELFH FP 09/25/2019 02:17:01 PM [facility] Outpatient Attender: VEGA FERRARI FP 09/10/2019 12:59:01 PM [facility] Outpatient Attender: VEGA ARIZA 09/07/2019 01:30:01 PM [facility] Outpatient Attender: Jessica FERRARI-BC 08/28/2019 12: 39:01 PM [facility] Outpatient Attender: VEGA Mojica [employer]IST 08/28/2019 12:39:01 PM [facility] Outpatient Attender: VEGA Mojica [employer] 08/28/2019 12:37:02 PM [facility] Outpatient Attender: Jessica Mojica [employer]IST-BC 08/28/2019 12: 37:01 PM [facility] Outpatient Attender: Jessica Mojica BERTINBC 08/26/2019 06: 52:00 PM [facility] Medications Medication Brand Name Start Date Product Form Dose Route Admi nistrative Instructions Pharmacy Instructions Status Indications Reaction Description Data Source(s) 1,000 mg 07/05/2020 12:00:00 AM EDT tablet 60 TAKE ONE TABLET BY MOUTH TWICE A DAY TAKE ONE TABLET BY MOUTH TWICE A DAY SOLD: 07/05/2020 [facility] 90 mcg/actuation 04/27/2020 12:00:00 AM EDT HFA aerosol inha ler 8 INHALE TWO PUFFS BY MOUTH EVERY 4 HOURS NEEDED INHALE TWO PUFFS BY MOUTH EVERY 4 HOURS NEEDED SOLD: 05/03/2020 [facility] 113-14 mcg/actuation 04/27/2020 12:00:00 AM EDT aerosol powdr breath activated 1 1 PUFF INHALED EVERY 12 HOURS 1 PUFF INHA LED EVERY 12 HOURS SOLD: 05/03/2020 [facility] 1,000 mg 01/26/2020 12:00:00 AM EDT tablet 60 TAKE ONE TABLET BY MOUTH TWICE A DAY TAKE ONE TABLET BY MOUTH TWICE A DAY SOLD: 01/29/2020 [facility] 1,000 mg 01/26/2020 12:00:00 AM EDT tablet 60 TAKE ONE TABLET BY MOUTH TWICE A DAY TAKE ONE TABLET BY MOUTH TWICE A DAY SOLD: 04/25/2020 [facility] 1,000 mg 01/26/2020 12:00:00 AM EDT tablet 60 TAKE ONE TABLET BY MOUTH TWICE A DAY TAKE ONE TABLET BY MOUTH TWICE A DAY SOLD: 03/14/2020 [facility] 1,000 mg 01/26/2020 12:00:00 AM EDT tablet 60 TAKE ONE TABLET BY MOUTH TWICE A DAY TAKE ONE TABLET BY MOUTH TWICE A DAY SOLD: 05/31/2020 [facility] Insurance Providers Payer name Policy type / Coverage type Policy ID Covered constitution party ID Covered constitution party's relationship to millan Policy Millan Plan Information UNHC COMMUNITY PLAN MCDHMO [id number] SP [id number] Managed Care - UHC Community Plan P [id number] S [id number] Medicaid S [id number] S [id number] UHC I [id number] Self [id number] EMEDNY [id number] SP [id number] UNITED HEALTHCARE(MCAID) O [id number] S [id number] MEDICAID [id number] SP [id number] UNHC COMMUNITY PLAN MCDHMO [id number] SP [id number] Managed Care - UHC Community Plan P [id number] S [id number] Managed Care - UHC Community Plan P [id number] S [id number] Managed Care - UHC Community Plan P [id number] S [id number] Managed Care - UHC Community Plan P [id number] S [id number] Medicaid S [id number] S [id number] Managed Care - Community Plan United Healthcare P [id number] S [id number] UNHC COMMUNITY PLAN MCDHMO [id number] SP [id number] Managed Care - Community Plan United Healthcare P [id number] S [id number] UNHC COMMUNITY PLAN MCDHMO [id number] SP [id number] SELF PAY ONLY [id number] SP [id number] UNHC COMMUNITY PLAN MCDHMO [id number] SP [id number] Medicaid S [id number] S [id number] Managed Care United [employer] O [id number] S [id number] Managed Care - Community Plan United [employer] P [id number] S [id number] UNITED HEALTHCARE(MCAID) O [id number] S [id number] Medicaid O [id number] S [id number] Medicaid P [id number] S [id number] UNHC COMMUNITY PLAN MCDHMO [id number] SP [id number] UNITED HEALTHCARE(MCAID) O [id number] S [id number] MEDICAID [id number] SP [id number] MEDICAID M [id number] S [id number] SELF PAY ONLY [id number] SP [id number] Managed Care - Community Plan United [employer] P [id number] S [id number] Medicaid S [id number] S [id number] MEDICAID [id number] SP [id number] Self Pay P UNAVAILABLE S UNAVAILA BLE Medicaid Dental S [id number] S [id number] [facility] COMMUNITY PLAN [facility] [id number] SP [id number] [facility] [id number] SP [id number] Managed Care - Community Plan [facility] P [id number] S [id number] Medicaid S [id number] S [id number] Managed Care - Community Plan [facility] P [id number] S [id number] MEDICAID [id number] SP [id number] Managed Care - Community Plan [facility] P [id number] S [id number] Medicaid S [id number] S [id number] Managed Care BCBS O [id number] S [id number] Medicaid S [id number] S [id number] [employer]UE [employer] PLAN [id number] SP [id number] BLUE CROSS TRAVIS PLAN [id number] SP [id number] Problems, Conditions, and Diagnoses Code Display Name Description Problem Type Effective Dates Data Source(s) 55154689 Unspecified hearing loss, bilateral Unsp ecified hearing loss, bilateral [id number], uncomplicated Alcohol dependence, uncomplicated [facility] V[facility].8 Person consulting for explanation of exa mination or test findings Person consulting for explanation of examination or test findings 01/26/2020 05:52:41 PM T [facility] F17.200 Nicotine dependence, unspecified, uncomp licated Nicotine dependence, unspecified, uncomplicated 01/26/2020 05:52:41 PM EDT [facility] G31.84 Mild cognitive impairment, so stated Mild cognitive di sorder 11/10/2019 11:30:48 AM [facility] D17.22 Benign lipomatous neoplasm of skin and s ubcutaneous tissue of left arm Benign lipomatous neoplasm of skin and subcutaneous tissue of left arm 09/28/2019 12:51:49 PM [facility] 268.9 vitamin D deficiency vitamin D deficiency 09/28 12:51:49 PM [facility] Results ID Date Data Source [id number] 04/26/2020 03:33:01 PM EDT [facility] Measurements & CalculationsHeight: 76 inches (6 ft. 4 in.) 193.04 cm Weight: 150 pounds 68.18 kg Body Mass Index (BMI): 18.32BMI Interpretation: UnderweightBody Surface Area (BSA): 1.96Weight Management Education Done (Nutrition/Physical Activity)Vital SignsTemperature: 98.4FPulse Rate: 79 beats/minuteRespiratory Rate: 13 respirations/minuteBlood Pressure: 101/70 O2 Saturation: 99% Vital Signs performed by: Jesica Dixon LPN, April 26, 2020 3:34 PMVital Signs performed by: Jesica Dixon LPN, April 26, 2020 3:34 PMInitial Intake Information From: patientRoom #: 11Infectious Disease / Travel ScreeningRecent travel for you or any close contacts? NoHave you had any close contact with anyone diagnosed with or under investigation for COVID-19 (coronavirus)? NoFever? NoRespiratory symptoms: cough, cold, congestion, shortness of breath, difficulty breathing? NoLoss of smell? NoLoss of taste? NoSmoking, Tobacco, Vap ing or Smoke Exposure StatusSmoke Status: current every day smokerTobacco Use: YesAdv to Quit: YesDo you vape? NoPassive Smoke Exposure: YesPassive Smoke Exposure comments: [facility] HistorySince your last office visit...Have you been admitted to the hospital? NoHave you been to an emergency room (ER) or urgent care clinic? NoHave you seen another healthcare provider? Yes - Has Care coodinator, Fred Benavides Have you seen a dentist? Yes - [facility]CFHIntake performed by: Jesica Dixon LPN, April 26, 2020 3:36 PMRate Your HealthIn general, would you say your health is? GoodPain AssessmentAre you currently having any pain which... You would like your provider to address? No Affects your activity level? NoDepression Screening - PHQ-2Over the last two weeks, have you... Had little interest or pleasure in doing things? Not at all Been feeling down, depressed, or hopeless? Not at all PHQ-2 Score: 0Anxiety Screening - MAX-2Over the last two weeks, have you been... Feeling nervous, anxious, or on edge? Not at all Unable to stop or control worrying? Not at all MAX-2 Score: 0Food InsecurityWithin the past year...Did you worry whether your food would run out before you got money to buy more? NoWas there a time when the food you bought didn't last and you didn't have money to get more? NoScreening, Brief Intervention, & Referral to Treatment (SBIRT)Pre-Screening Questions How many ti mes have you have 5 or more drinks in a day? 104How many times have you used an illegal drug or used a prescription medication for a non-medical reason? 156Performed by: Jesica Dixon LPN, April 26, 2020 3:40 PMPatient History Medical History:Anxiety DisorderSeizure Disordersubstance abuseSurgical History:noneFamily History:FH Breast CancerFamily History of AlcoholismSocial/Personal History:Smoking History:Patient currently smokes every day. Advised to Quit/Tobacco Education: YesChief Complaintfollow-up visit lab results room 11History of Present Illness (HPI)39 YO male here for follow up visit and review of lab results. Pt states healthy diet and physical activities. Pt requesting a refill of his inhalers. Pt denies other concerns at this this time.HPI performed by: Dayna Duff [employer]IST, April 26, 2020 4:08 PMTransitions of Care InboundProblem ReviewProblem List was reviewed and/or updated during this visit.Medication Reconciliation & ReviewMedication List was reviewed and/or updated during this visit, including review of any [id number] medications, herbal therapies, and/or supplements.Allergy ReviewAllergy List was reviewed and/or updated during this visit. Patient has no known allergies.Adult Preventive CareProvider Calculated and Reviewed all Clinical Protocols for patient today. Screening Tobacco Screening: Smoking Status: current every day smoker (04/26/2020) Tobacco Use: Currently (04/26/2020) Advised to Quit: Yes (04/26/2020)Labs/Meds/Other Counseling- Nutrition and Physical Activity:BMI Interpretation: Underweight (04/26/2020) Counseling: Done (04/26/2020) Physical Activity: Done (04/26/2020)Review of Systems General: Denies loss of appetite, chills, dizziness, fatigue, fever, continued fever, headache, feeling ill, sweats, night sweats, sleep disturbance s, weight loss. Eyes: Denies blurring of vision, double vision, irritation, discharge, vision loss, eye pain, eye swelling, droopy eyelid, sensitivity to light, redness, itching. Ears/Nose/Throat: Denies earache, ear discharge, ringing in ears, decreased hearing, nasal congestion, nosebleeds, runny nose, sore throat, hoarseness, difficulty swallowing, dry mouth, tooth pain, bleeding gums, swollen glands. Cardiovascular: Denies chest pain, palpitations, feeling faint, trouble breathing w/exertion, SOB upon lying down, SOB at night, peripheral edema, elevated blood pressure, decreased heart rate. Respiratory: Denies cough, difficulty breathing, shortness of breath, excessive sputum, coughing up blood, wheezing, chest pain. Gastrointestinal: Denies nausea, vomiting, bleeding, burning, itching, irritation, cramps, diarrhea, constipation. Genitourinary: Denies urinary incontinence, pain with urination, burning with urination, urinary frequency, urinary hesitancy, urinary urgency, urinary urgency at night, incomplete emptying, blood in urine. Musculoskeletal: Denies back pain, joint pain, leg pain, other pain-see comments, joint swelling, body aches, muscle aches, muscle cramps, muscle weakness, stiffness, recent injury. Skin: Denies rash, hives, redness, itching, dryness, nail changes, suspicious lesions, athlete's foot, rash on palms, rash on bottom of feet. Neurologic: Denies muscle impairment, weakness, numbness/tingling, seizures, slurred speech, feeling faint, tremors, vertigo, paralysis on one side, paralysis on both sides. Psychiatric: Denies depression, anxiety, memory loss, mental disturbance, suicidal ideation, homicidal ideation, hallucinations, paranoia, feeling stressed, hearing voices. Endocrine: Denies cold intolerance, heat intolerance, excessive thirst, excessive hunger, excessive urination, weight loss, weight gain. Physical ExamGeneral Appearance: well nourished, well hydrated, no acute distressEyes, External: conjunctivae and lids normal, EOMIRespiratory, Auscultation: clear to auscultation bilaterally; no rales, rhonchi, or wheezesRespiratory, Effort: no intercostal retractions or use of accessory musclesCardiovascular, Auscultation: S1, S2 audible; no murmur, rub, or gallop; RRRPeripheral Circulation: no clubbing, cyanosis, edema, or varicositiesAbdomen: soft, non-tender, no masses, bowel sounds normalGait & Station: normalSkin, Inspection: no rashes, lesions, or ulcerationsOrientation: oriented to time, place, and personMood & Affect: no depression, anxiety, or agitationJudgment & Insight: need further assessment. Care Management Plan Trans itions of CareInboundRate Your HealthIn general, would you say your health is? GoodAssessment & Plan Problems:Added: Alcohol dependence, uncomplicated (ICD10- F10.20) Assessment: Instructions: Please try to cut back on your alcohol intake with a goal to quit.Unspecified hearing loss, bilateral (EFG36-I61.93) Assessment: Instructions: Referral made to Mailing Clerk. We will contact you to set this up.Assessed:SEIZURE DISORDER (ICD-780.39) (JFX77-K72.9) Assessment: small animal caretaker telephone number Fred Benavides # [phone] Instructions: Please continue medications as prescribed. Please continue to cut back on alcohol intake with a goal to quit. We will make a referral to neurology for you today. We will contack you to set this upTobacco use (ICD-305.1) (ICD10- Z72.0) Assessment: Instructions: Please continue to cut back on your cigarette smoking with a goal to quit. Please let us know if you need assistance in doing so.Nicotine dependence, unspecified, uncomplicated (FEI81-S77.200) Assessment: Instructions: Please continue to try to cut back on your smoking with a goal to quit. Please let us know if you need assistance in doing so.Person consulting for explanation of examination or test findings (ICD-V65.8) (OEB81-Q92.2) Assessment: Instructions: We have reviewed your lab results with you today. your results are unremarlable except for slightly elevated cholesterolModerate persistent asthma, uncomplicated (TFJ64-L95.40) Assessment: Instructions: Refill of your inhalers sent to your pharmacy. Please use as prescribed.Patient Instructions/Care Plan: SEIZURE DISORDER: Please continue medications as prescribed. Please continue to cut back on alcohol intake with a goal to quit. We will make a referral to neurology for you today. We will contack you to set this upTobacco use: Please continue to cut back on your cigarette smoking with a goal to quit. Please let us know if you need assistance in doing so.Nicotine dependence- unspecified- uncomplicated: Please continue to try to cut back on your smoking with a goal to quit. Please let us know if you need assistance in doing so.Person consulting for explanation of examination or test findings: We have reviewed your lab results with you today. your results are unremarlable except for slightly elevated cholesterolModerate persistent asthma- uncomplicated: Refill of your inhalers sent to your pharmacy. Please use as prescribed.Alcohol dependence- uncomplicated: Please try to cut back on your alcohol intake with a goal to quit.Unspecified hearing loss- bilateral: Referral made to Mailing Clerk. We will contact you to set this up. Plan developed in collaboration with patient and/or familyMedications:DRISDOL 26852 UNIT ORAL CAPSULEAIRDUO RESPICLICK 113/14 113-14 MCG/ACT INH AEPBTYLENOL EXTRA STRENGTH 500 MG ORAL TABLETPROAIR HFA 108 (90 BASE) MCG/ACT INHALATION AEROSOL SOLUTIONBREO ELLIPTA 200-25 MCG/INH INHALATION AEROSOL POWDER BREATH ACTIVATEDB-12 1000 MCG ORAL CAPSULEMULTIVITAMIN ADULTS ORAL TABLETLEVETIRACETAM 1000 MG ORAL TABLETMedication Changes:Refilled:PROAIR HFA 108 (90 BASE) MCG/ACT INHALATION AEROSOL SOLUTION-2 puffs every 4 hours as needed. Qty: 1[Inhalation] Refills: 2 Method: ElectronicAIRDUO RESPICLICK 113/14 113-14 MCG/ACT INH AEPB-1 puff inhaled Q12H Qty: 1[Inhaler] Refills: 2 Method: ElectronicAllergies:No Known Allergies (updated 04/26/2020) Orders:Audiology Consult [CPT-11430] Adult - Ofc Vst, EST, Level IV [CPT-83101] Follow-Up Return to clinic: 3 months for follow up Clinical Visit Summary CompletedMedications:AIRDUO RESPICLICK 113/14 113-14 MCG/ACT INH AEPB (FLUTICASONE-SALMETEROL) 1 puff inhaled Q12H #1[Inhaler] x 2 Route:INHALATION Entered and Authorized by: Dayna FERRARI Method used: Electronically to [facility] ([place] (retail) [id number] [place] [address] Note to Pharmacy: Route: INH; RxID: [id number] HFA 108 (90 BASE) MCG/ACT INHALATION AEROSOL SOLUTION (ALBUTEROL SULFATE) 2 puffs every 4 hours as needed. #1[Inhalation] x 2 Route:INHALATION Entered and Authorized by: Dayna FERRARI Method used: Electronically to [facility] (retail) [id number] [place] [address] Note to Pharmacy: Route: INH; RxID: [id number] signed by Dayna FERRARI on 04/29/2020 at 11:36 AM Name Value Range Interpretation Code Description Data Melody rce(s) Supporting Document(s) ID Date Data Source [id number] 04/19/2020 10:48:57 AM EDT [facility] Labs In-House Blood TestsDate/Time Colle cted: April 19, 2020 10:30 AMTest Result Reference Range Normal ValueComments: taken from left ac, tolerated well.Assessment & Plan Orders:[id number] Vst-Est Level I [CPT- 74081] 68631 - Venipuncture [CPT-49033] Name Value Range Interpretation Code Description Data Melody rce(s) Supporting Document(s) ID Date Data Source [id number] 04/19/2020 10:30:00 AM EDT [facility] Name Value Range Interpretation Code Description Data Melody rce(s) Supporting Document(s) HGBA1C 5.1 % N [facility] ID Date Data Source [id number] 04/19/2020 10:30:00 AM EDT [facility] Name Value Range Interpretation Code Description Data Melody rce(s) Supporting Document(s) BG FASTING 76 mg/dL 70-100 N [facility] T4, FREE 1.01 ng/dL 0.76-1.46 N [facility] TSH 0.791 microintl units/mL 0.358-3.[address] [facility] VIT D25 TOT 23.6 ng/mL 30.0-100.0 L [facility] ID Date Data Source [id number] 04/19/2020 12:00:00 AM EDT [facility] Name Value Range Interpretation Code Description Data Melody rce(s) Supporting Document(s) HGBA1C 5.1 % [facility] ID Date Data Source [id number] 01/26/2020 05:05:58 PM EDT [facility] Measurements & CalculationsHeight: 76 inches (6 ft. 4 in.) 193.04 cm Weight: 158 pounds 2 oz. 71.88 kg Body Mass Index (BMI): 19.32BMI Interpretation: Healthy WeightBody Surface Area (BSA): 2.01Vital SignsTemperature: 97.3FPulse Rate: 71 beats/minuteRespiratory Rate: 15 respirations/minuteBlood Pressure: 115/83 O2 Saturation: 100% Vital Signs performed by: Jesica Dixon LPN, January 26, 2020 5:07 PMVital Signs performed by: Jesica Dixon LPN, January 26, 2020 5:07 PMInitial Intake Information From: patientRoom #: 11Infectious Disease / Travel ScreeningRecent travel for you or any close contacts? NoHave you had any close contact with anyone diagnosed with or under investigation for COVID-19 (coronavirus)? NoFever? NoRespiratory symptoms: cough, cold, congestion, shortness of breath, difficulty breathing? NoLoss of smell? NoLoss of taste? NoSmoking, Tobacco, Vaping or Smoke Exposure StatusSmoke Status: current every day smokerTobacco Use: YesAdv to Quit: YesDo you vape? NoPassive Smoke Exposure: YesPassive Smoke Exposure comments: [facility] HistorySince your last office visit...Have you been admitted to the hospital? NoHave you been to an emergency room (ER) or urgent care clinic? NoHave you seen another healthcare provider? Yes - Has placement coordinator Fredave you seen a dentist? Yes - [facility] Intake performed by: Jesica Dixon LPN, January 26, 2020 5:09 PMRate Your HealthIn general, would you say your health is? GoodPain AssessmentAre you currently having any pain which... You would like your provider to address? No Affects your activity level? NoDepression Screening - PHQ-2Over the last two weeks, have you... Had little interest or pleasure in doing things? Not at all Been feeling down, depressed, or hopeless? Not at all PHQ-2 Score: 0Anxiety Screening - MAX-2Over the last two weeks, have you been... Feeling nervous, anxious, or on edge? Not at all Unable to stop or control worrying? Not at all MAX-2 Score: 0Food InsecurityWithin the past year...Did you worry whether your food would run out before you got money to buy more? NoWas there a time when the food you bought didn't last and you didn't have money to get more? NoScreening, Brief Intervention, & Referral to Treatment (SBIRT)Pre-Screening Questions How many times have you have 5 or more drinks in a day? 365How many times have you used an illegal drug or used a prescription medication for a non- medical reason? 156Performed by: Jesica Dixon LPN, January 26, 2020 5:15 PMPatient History Medical History:Anxiety DisorderSeizure Disordersubstance abuseSurgical History:noneFamily History:FH Breast CancerFamily History of AlcoholismSocial/Personal History:Smoking History:Patient currently smokes every day. Advised to Quit/Tobacco Education: YesChief ComplaintLab results room 11History of Present Illness (HPI)39 YO male here for follow up labs , needs medication refills HPI performed by: Dayna FERRARI, January 26, 2020 6:47 PMTransitions of Care InboundProblem ReviewProblem List was reviewed and/or updated during this visit.Medication Reconciliation & ReviewMedication List was reviewed and/or updated during this visit, including review of any yque-tph-nwywfxh medications, herbal therapies, and/or supplements.Allergy ReviewAllergy List was reviewed and/or updated during this visit. Patient has no known allergies.Adult Preventive CareProvider Calculated and Reviewed all Clinical Protocols for patient today. Screening Tobacco Screening: Smoking Status: current every day smoker (01/26/2020) Tobacco Use: Currently (01/26/2020) Advised to Quit: Yes (01/26/2020)Review of Systems General: Denies loss of appetite, chills, dizziness, fatigue, fever, continued fever, headache, feeling ill, sweats, night sweats, sleep disturbances, weight loss. Eyes: Denies blurring of vision, double vision, irritation, discharge, vision loss, eye pain, eye swelling, droopy eyelid, sensitivity to light, redness, itching. Ears/Nose/Throat: Denies earache, ear discharge, ringing in ears, decreased hearing, nasal congestion, nosebleeds, runny nose, sore throat, hoarseness, difficulty swallowing, dry mouth, tooth pain, bleeding gums, swollen glands. Cardiovascular: Denies chest pain, palpitations, feeling faint, trouble breathing w/exertion, SOB upon lying down, SOB at night, peripheral edema, elevated blood pressure, decreased heart rate. Respiratory: Denies cough, difficulty breathing, shortness of breath, excessive sputum, coughing up blood, wheezing, chest pain. Breast: Denies discoloration, tenderness, breast changes, breast lump, nipple discharge. Gastrointestinal: Denies nausea, vomiting, bleeding, burning, itching, irritation, cramps, diarrhea, constipation. Genitourinary: Denies urinary incontinence, pain with urination, burning with urination, urinary frequency, urinary hesitancy, urinary urgency, urinary urgency at night, incomplete emptying, blood in urine. Musculoskeletal: Denies back pain, joint pain, leg pain, other pain-see comments, joint swelling, body aches, muscle aches, muscle cramps, muscle weakness, stiffness, recent injury. Skin: Denies rash, hives, redness, itching, dryness, nail changes, suspicious lesions, athlete's foot, rash on palms, rash on bottom of feet. Neurologic: Denies muscle impairment, weakness, numbness/tingling, seizures, slurred speech, feeling faint, tremors, vertigo, paralysis on one side, paralysis on both sides. Psychiatric: Denies depression, anxiety, memory loss, mental disturbance, suicidal ideation, homicidal ideation, hallucinations, paranoia, feeling stress ed, hearing voices. Endocrine: Denies cold intolerance, heat intolerance, excessive thirst, excessive hunger, excessive urination, weight loss, weight gain. Physical ExamGeneral Appearance: well nourished, well hydrated, no acute distressEyes, External: conjunctivae and lids normal, EOMIRespiratory, Auscultation: clear to auscultation bilaterally; no rales, rhonchi, or wheezesRespiratory, Effort: no intercostal retractions or use of accessory musclesCardiovascular, Auscultation: S1, S2 audible; no murmur, rub, or gallop; RRRPeripheral Circulation: no clubbing, cyanosis, edema, or varicositiesAbdomen: soft, non-tender, no masses, bowel sounds normalGait & Station: normalSkin, Inspection: no rashes, lesions, or ulcerationsOrientation: oriented to time, place, and personMood & Affect: no depression, anxiety, or agitationJudgment & Insight: intactCare Management Plan Transitions of CareInboundRate Your HealthIn general, would you say your health is? GoodAssessment & Plan Problems:Added: Nicotine dependence, unspecified, uncomplicated (OLN53-M29.200) Assessment: Instructions: Please continue to try to cut back on your smoking with a goal to quit. Please let us know if you need assistance in doing so.Person consulting for explanation of examination or test findings (ICD-V65.8) (TVV61-I93.2) Assessment: Instructions: We have reviewed your lab results with you today. your results are unremarlable except for slightly elevated cholesterol and elevated Blood sugar, indicatating prediabetes. Please try to cut back on sugars, sodium, fats and carbohydrates in your diet. Please try to avoid processed foodsAssessment not Saved Person consulting for explanation of examination or test findings (TFC46-N18.2): Patient Instructions/Care Plan: Nicotine dependence- unspecified- uncomplicated: Please continue to try to cut back on your smoking with a goal to quit. Please let us know if you need assistance in doing so.Person consulting for explanation of examination or test findings: We have reviewed your lab results with you today. your results are unremarlable except for slightly elevated cholesterol and elevated Blood sugar, indicatating prediabetes. Please try to cut back on sugars, sodium, fats and carbohydrates in your diet. Please try to avoid processed foods Plan developed in collaboration with patient and/or familyMedications:DRISDOL 81890 UNIT ORAL CAPSULEAIRDUO RESPICLICK 113/14 113-14 MCG/ACT INH AEPBTYLENOL EXTRA STRENGTH 500 MG ORAL TABLETPROAIR HFA 108 (90 BASE) MCG/ACT INHALATION AEROSOL SOLUTIONBREO ELLIPTA 200-25 MCG/INH INHALATION AEROSOL POWDER BREATH ACTIVATEDB- 12 1000 MCG ORAL CAPSULEMULTIVITAMIN ADULTS ORAL TABLETLEVETIRACETAM 1000 MG ORAL TABLETAllergies:No Known Allergies (updated 01/26/2020) Orders:COMP METABOLIC PANEL [CPT-84433] CBC W/DIFF [CPT-48286] HgBA1c [CPT-78114] LIPID PANEL [CPT-48955] TSH [CPT-17822] T-4 free [CPT-95850] Vitamin D 250H Unspecified [CPT-64672] URINALYSIS [CPT-26905] VITAMIN B-12 [CPT-20263] FERRITIN [CPT-23006] Folate (Folic Acid Serum) [CPT-00438] IRON [CPT-95289] Adult - Ofc Vst, EST, Level III [CPT-20969] Follow-Up Return to clinic: 3 months for follow up Clinical Visit Summary Completed Name Value Range Interpretation Code Description Data Melody rce(s) Supporting Document(s) ID Date Data Source [id number] 01/20/2020 10:20:24 AM EDT [facility] Labs In-House Blood TestsDate/Time Colle cted: January 20, 2020 10:21 AMTest Result Reference Range Normal ValueComments: blood draw done in offe done in the right ac tolerated well Redd Mcgowan MA, January 20, 2020 10:21 AMAssessment & Plan Orders:[id number] Vst-Est Level I [CPT-54502] 35196 - Venipuncture [CPT-57445] Name Value Range Interpretation Code Description Data Melody rce(s) Supporting Document(s) ID Date Data Source [id number] 01/20/2020 10:15:00 AM EDT [facility] Name Value Range Interpretation Code Description Data Melody rce(s) Supporting Document(s) HCT 42.9 % 42.0-52.0 N [facility] HGB 14.3 g/dL 13.5-17.5 N [facility] MCH 33.3 G/DL pg 32.0-36.5 N [facility] MCHC 33.2 PG % 27.0-33.0 H [facility] PLATELETS 238 10 10*3/mm3 150-450 N [facility] RBC 4.31 10 10*6/mm3 4.30-6.10 N [facility] RDW 11.9 % 11.5-14.5 N [facility] WBC TOTAL 6.2 4.0-10.0 N [facility] ID Date Data Source [id number] 01/20/2020 10:15:00 AM EDT [facility] Name Value Range Interpretation Code Description Data Melody rce(s) Supporting Document(s) HGBA1C 5.7 % N [facility] ID Date Data Source [id number] 01/20/2020 10:15:00 AM EDT [facility] Name Value Range Interpretation Code Description Data Melody rce(s) Supporting Document(s) BG FASTING 102 mg/dL 70-100 H [facility] T4, FREE 0.97 ng/dL 0.76-1.46 N [facility] TSH 0.815 microintl units/mL 0.358-3.[address] [facility] VIT D25 TOT 11.4 ng/mL 30.0-100.0 L [facility] ID Date Data Source [id number] 12/28/2019 11:09:56 AM EDT [facility] Measurements & CalculationsHeight: 76 inches (6 ft. 4 in.) 193.04 cm Weight: 159 pounds 4 oz. 72.39 kg Body Mass Index (BMI): 19.45BMI Interpretation: Healthy WeightBody Surface Area (BSA): 2.01Weight Management Education Done (Nutrition/Physical Activity)Vital SignsTemperature: 97.7FPulse Rate: 112 beats/minuteRespiratory Rate: 15 respirations/minuteBlood Pressure: 82/55 O2 Saturation: 95% Vital Signs performed by: Jesica Dixon LPN, December 28, 2019 11:11 AMVital Signs performed by: Jesica Dixon LPN, December 28, 2019 11:11 AMInitial Intake Information from: patientRoom #: 13Smoking, Tobacco, Vaping or Smoke Exposure StatusSmoke Status: current every day smokerTobacco Use: YesAdv to Quit: YesDo you vape? NoPassive Smoke Exposure: YesPassive Smoke Exposure comments: [facility] HistorySince your last office visit...Have you been admitted to the hospital? NoHave you been to an emergency room (ER) or urgent care clinic? NoHave you seen another healthcare provider? Yes - Has small animal caretaker Have you seen a dentist? Yes - NCFHRate Your HealthIn general, would you say your health is? FairPain AssessmentAre you currently having any pain which... You would like your provider to address? No Affects your activity level? NoDepression Screening - PHQ-2Over the last two weeks, have you... Had little interest or pleasure in doing things? Not at all Been feeling down, depressed, or hopeless? Not at all PHQ-2 Score: 0Anxiety Screening - MAX-2Over the last two weeks, have you been... Feeling nervous, anxious, or on edge? Not at all Unable to stop or control worrying? Not at all MAX-2 Score: 0Food InsecurityWithin the past year...Did you worry whether your food would run out before you got money to buy more? NoWas there a time when the food you bought didn't last and you didn't have money to get more? NoInfectious Disease / Travel ScreeningRecent travel for you or any close contacts? NoHave you had any close contact with anyone diagnosed with or under investigation for COVID-19 (coronavirus)? NoHave you had any of the following symptoms recently? Fever? NoRespiratory symptoms: cough, cold, congestion, shortness of breath, difficulty breathing? NoScreening, Brief Intervention, & Referral to Treatment (SBIRT)Pre- Screening Questions How many times have you have 5 or more drinks in a day? 365 How many times have you used an illegal drug or used a prescription medication for a non-medical reason? 52Performed by: Jesica Dixon LPN, December 28, 2019 11:16 AMPatient History Medical History:Anxiety DisorderSeizure Disordersubstance abuseSurgical History:noneFamily History:FH Breast CancerFamily History of AlcoholismSocial/Personal History:Smoking History:Patient currently smokes every day. Advised to Quit/Tobacco Education: YesChief ComplaintMed refill needed room 13History of Present Illness (HPI)39 YO here for follow up visit and refill on meds , Pt states no recent seizures or seizure like activities. Pt states stable on present dose of Keppra. Pt states presently only taking his seizure medications. Patient states small animal caretaker is Fred Benavides # [phone] performed by: Dayna FERRARI, December 28, 2019 12:17 PMTransitions of Care InboundAllergy ReviewAllergy List was reviewed and/or updated during this visit.Adult Preventive CareProvider Calculated and Reviewed all Clinical Protocols for patient today. Screening Tobacco Screening: Smoking Status: current every day smoker (12/28/2019) Tobacco Use: Currently (12/28/2019) Advised to Quit: Yes (12/28/2019)Labs/Meds/Other Counseling-Nutrition and Physical Activity:BMI Interpretation: Healthy Weight (12/28/2019) Counseling: Done (12/28/2019) Physical Activity: Done (12/28/2019)Review of Systems General: Denies loss of appetite, chills, dizziness, fatigue, fever, continued fever, headache, feeling ill, sweats, night sweats, sleep disturbances, weight loss. Eyes: Denies blurring of vision, double vision, irritation, discharge, vision loss, eye pain, eye swelling, droopy eyelid, sensitivity to light, redness, itching. Ears/Nose/Throat: Denies earache, ear discharge, ringing in ears, decreased hearing, nasal congestion, nosebleeds, runny nose, sore throat, hoarseness, difficulty swallowing, dry mouth, tooth pain, bleeding gums, swollen glands. Cardiovascular: Denies chest pain, palpitations, feeling faint, trouble breathing w/exertion, SOB upon lying down, SOB at night, peripheral edema, elevated blood pressure, decreased heart rate. Respiratory: Denies cough, difficulty breathing, shortness of breath, excessive sputum, coughing up blood, wheezing, chest pain. Gastrointestinal: Denies nausea, vomiting, bleeding, burning, itching, irritation, cramps, diarrhea, constipation. Genitourinary: Denies urinary incontinence, pain with urination, burning with urination, urinary frequency, urinary hesitancy, urinary urgency, urinary urgency at night, incomplete emptying, blood in urine. Musculoskeletal: Denies back pain, joint pain, leg pain, other pain-see comments, joint swelling, body aches, muscle aches, muscle cramps, muscle weakness, stiffness, recent injury. Neurologic: Denies muscle impairment, weakness, numbness/tingling, seizures, slurred speech, feeling faint, tremors, vertigo, paralysis on one side, paralysis on both sides. Psychiatric: Denies depression, anxiety, memory loss, mental disturbance, suicidal ideation, homicidal ideation, hallucinations, paranoia, feeling stressed, hearing voices. Endocrine: Denies cold intolerance, heat intolerance, excessive thirst, excessive hunger, excessive urination, weight loss, weight gain. Physical ExamGeneral Appearance: well nourished, well hydrated, no acute distressEyes, External: conjunctivae and lids normal, EOMIRespiratory, Auscultation: clear to auscultation bilaterally; no rales, rhonchi, or wheezesRespiratory, Effort: no intercostal retractions or use of accessory musclesCardiovascular, Auscultation: S1, S2 audible; no murmur, rub, or gallop; RRRPeripheral Circulation: no clubbing, cyanosis, edema, or varicositiesAbdomen: soft, non-tender, no masses, bowel sounds normalGait & Station: normalSkin, Inspection: no rashes, lesions, or ulcerationsOrientation: oriented to time, place, and personMood & Affect: no depression, anxiety, or agitationJudgment & Insight: seems intactCare Management Plan Transitions of CareInboundRate Your HealthIn general, would you say your health is? FairAssessment & Plan Problems:Assessed:SEIZURE DISORDER (ICD-780.39) (ZMG57-H99.9) Assessment: Instructions: We have sent a refill to your pharmacy today. Please continue medication as prescribed. Please continue to try to cut back on alcohol intake with a goal to quit. We have made a referral to Neurology for you today. We will contact you to set this up.Health Screening (ICD-V70.0) (UAN78-L93.9) Assessment: Instructions: Fasting labs ordered for you today.Tobacco use (ICD-305.1) (SYP03-Z41.0) Assessment: Instructions: Please continue to cut back on your cigarette smoking with a goal to quit. Please let us know if you need assistance in doing so.Assessment not Saved SEIZURE DISORDER (ICD10- R56.9): Patient Instructions/Care Plan: SEIZURE DISORDER: We have sent a refill to your pharmacy today. Please continue medication as prescribed. Please continue to try to cut back on alcohol intake with a goal to quit. We have made a referral to Neurology for you today. We will contact you to set this up.Health Screening: Fasting labs ordered for you today.Tobacco use: Please continue to cut back on your cigarette smoking with a goal to quit. Please let us know if you need assistance in doing so. Plan developed in collaboration with patient and/or familyMedication Changes:Refilled:LEVETIRACETAM 1000 MG ORAL TABLET-1 tab po bid Qty: 60[Tablet] Refills: 3 Method: ElectronicAllergies:No Known Allergies (updated 09/28/2019) Orders:COMP METABOLIC PANEL [CPT-77263] CBC W/DIFF [CPT-35560] HgBA1c [CPT-67604] LIPID PANEL [CPT-29533] TSH [CPT-64214] T-4 free [CPT-49459] Vitamin D 250H Unspecified [CPT-30388] URINALYSIS [CPT-74684] VITAMIN B-12 [CPT-16094] IRON [CPT-66065] FERRITIN [CPT-74170] Folate (Folic Acid Serum) [CPT-04568] Neurology Consult [CPT-02965] Adult - Ofc Vst, EST, Level III [CPT-69979] Follow-Up Return to clinic: 4-6 weeks for follow up. Clinical Visit Summary CompletedMedications:LEVETIRACETAM 1000 MG ORAL TABLET (LEVETIRACETAM) 1 tab po bid #60[Tablet] x 3 Entered and Authorized by: Dayna FERRARI Method used: Electronically to [facility] ([facility]wfr[facility]) [id number] [place] [address] RxID: [id number] signed by Dayna FERRARI on 01/03/2020 at 9:42 PM Name Value Range Interpretation Code Description Data Melody rce(s) Supporting Document(s) ID Date Data Source [id number] 09/28/2019 12:28:39 PM [facility] Measurements & CalculationsHeight: 76 inches (6 ft. 4 in.) 193.04 cm Weight: 163 pounds 74.09 kg Body Mass Index (BMI): 19.91BMI Interpretation: Healthy WeightBody Surface Area (BSA): 2.03Weight Management Education Done (Nutrition/Physical Activity)Vital SignsTemperature: 98.2FPulse Rate: 97 beats/minuteRespiratory Rate: 18 respirations/minuteBlood Pressure: 121/82 O2 Saturation: 100% Vital Signs performed by: Sayda Lala MA, September 28, 2019 12:34 PMInitial Intake Information from: patientInfectious Disease- Travel Have you or your sexual partner travelled outside of the country recently? NoSmoking, Tobacco or Smoke Exposure StatusSmoke Status: current every day smokerTobacco Use: YesAdv to Quit: YesPassive Smoke Exposure: YesHealthcare HistorySince your last office visit...Have you been admitted to the hospital? No - [facility] 09/11 seizuresHave you been to an emergency room (ER) or urgent care clinic? No - [facility]- Seizures Emergency room (ER) or urgent care date reported today: 01/18/2019Have you seen another healthcare provider? NoHave you seen a dentist? No - in house referral Intake performed by: Sayda Lala MA, September 28, 2019 12:36 PMRate Your HealthIn general, would you say your health is? GoodPain AssessmentAre you currently having any pain which... You would like your provider to address? No Affects your activity level? NoDepression Screening - PHQ-2Over the last two weeks, have you... Had little interest or pleasure in doing things? Not at all Been feeling down, depressed, or hopeless? Not at all PHQ-2 Score: 0Anxiety Screening - MAX-2Over the last two weeks, have you been... Feeling nervous, anxious, or on edge? Not at all Unable to stop or control worrying? Not at all MAX-2 Score: 0Screening, Brief Intervention, & Referral to Treatment (SBIRT)Pre-Screening Questions How many times have you have 5 or more drinks in a day? 365How many times have you used an illegal drug or used a prescription medication for a non-medical reason? 0Performed by: Sayda Lala MA, September 28, 2019 12:36 PMPatient History Medical History:Anxiety DisorderSeizure Disordersubstance abuseSurgical History:noneFamily History:FH Breast CancerFamily History of AlcoholismSocial/Personal History:Smoking History:Patient currently smokes every day. Smoking Status: current every day smokerAdvised to Quit/Tobacco Education: YesChief Complaintlab results History of Present Illness (HPI)Telemedicine visit with patient's location at [facility] and provider's location at offsite office. Additional person(s)participating in the visit: n/a. Pt here today for lab follow up. Labs reviewed with pt. Pt states that he is smoking less and drinking less as well. Has a bump on his left upper arm, soft, has been there quite awhile, no pain.HPI performed by: Nava ADAME, September 28, 2019 12:44 PMProblem ReviewProblem List was reviewed and/or updated during this visit.Medication Reconciliation & ReviewMedication List was reviewed and/or updated during this visit, including review of any [id number] medications, herbal therapies, and/or supplements.Allergy ReviewAllergy List was reviewed and/or updated during this visit. Patient has no known allergies.Adult Preventive CareScreening Tobacco Screening: Smoking Status: current every day smoker (09/28/2019) Advised to Quit: Yes (09/28/2019)Labs/Meds/Other Counseling-Nutrition and Physical Activity:BMI Interpretation: Healthy Weight (09/28/2019) Counseling: Done (09/28/2019) Physical Activity: Done (09/28/2019)Review of Systems General: Denies chills, fever, continued fever, feeling ill, sweats. Musculoskeletal: Complains of see HPI. bump on left armPsychiatric: Complains of memory loss. Physical ExamGeneral Appearance: well nourished, well hydrated, no acute distressEyes, External: conjunctivae and lids normal, EOMIRespiratory, Effort: no intercostal retractions or use of accessory musclesGait & Station: normalUpper Extremity, Left: golf ball sized mass noted to lateral upper arm, unable to fully examine due to telemed visit, MA states that mass is soft and mobile.Orientation: oriented to time, place, and personMood & Affect: no depression, anxiety, or agitationJudgment & Insight: seems intactCare Management Plan Medication Adherence & Education Information on new prescriptions provided to patient/family/caregiver.Rate Your HealthIn general, would you say your health is? GoodAssessment & Plan Problems:Added: vitamin D deficiency (ICD-268.9) ([id number]-C15.9) Assessment: Tanya. 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 Continue to monitor. Instructions: Continue to watch the size of the lump, call if if gets bigger or painful. These are benign.Patient Instructions/Care Plan: vitamin D deficiency: Your prescriptions have been sent to your preferred pharmacy electronically, please take them as prescribed and report any significant side effects.Benign lipomatous neoplasm of skin and subcutaneous tissue of left arm: Continue to watch the size of the lump, call if if gets bigger or painful. These are benign. Plan developed in collaboration with patient and/or familyMedications:DRISDOL 92080 UNIT ORAL CAPSULEAIRDUO RESPICLICK 113/14 113-14 MCG/ACT INH AEPBTYLENOL EXTRA STRENGTH 500 MG ORAL TABLETPROAIR HFA 108 (90 BASE) MCG/ACT INHALATION AEROSOL SOLUTIONBREO ELLIPTA 200-25 MCG/INH INHALATION AEROSOL POWDER BREATH ACTIVATEDB-12 1000 MCG ORAL CAPSULEMULTIVITAMIN ADULTS ORAL TABLETLEVETIRACETAM 1000 MG ORAL TABLETMedication Changes:New Prescription:DRISDOL 57058 UNIT ORAL CAPSULE-Take 1 capsule weekly Qty: 4[Capsule] Refills: 2 Method: ElectronicAllergies:No Known Allergies (update d 03/19/2018) Information on new prescriptions provided to patient.Orders:Office Visit - Established, Level 3 [CPT-50669MP] Follow-Up Return to clinic: 3 months with Dayna for follow up Clinical Visit Summary CompletedMedications:DRISDOL 95756 UNIT ORAL CAPSULE (ERGOCALCIFEROL) Take 1 capsule weekly #4[Capsule] x 2 Route:ORAL Entered and Authorized by: Nava ADAME Method used: Electronically to [facility]* (retail) [address] [place] [address] Fax: Note to Pharmacy: Route: ORAL; RxID: [id number] signed by Nava ADAME on 09/28/2019 at 12:51 PM Name Value Range Interpretation Code Description Data Melody rce(s) Supporting Document(s) ID Date Data Source [id number] 08/25/2019 10:18:06 AM [facility] Labs In-House Blood TestsDate/Time Colle cted: August 25, 2019 10:18 AMTest Result Reference Range Normal ValueComments: blood draw done in offcie done in the left ac tolerated well Redd Mcgowan PAM, August 25, 2019 10:18 AMAssessment & Plan Orders:[id number] Vst-Est Level I [CPT-98326] 42141 - Venipuncture [CPT-47237] Name Value Range Interpretation Code Description Data Melody rce(s) Supporting Document(s) ID Date Data Source [id number] 08/25/2019 09:50:00 AM EST [facility] Name Value Range Interpretation Code Description Data Melody rce(s) Supporting Document(s) HGBA1C 5.6 % N [facility] ID Date Data Source [id number] 08/25/2019 09:50:00 AM EST [facility] Name Value Range Interpretation Code Description Data Melody rce(s) Supporting Document(s) BG FASTING 89 mg/dL 70-100 N [facility] TSH 0.721 microintl units/mL 0.358-3.[address] [facility] VIT D25 TOT 13.4 ng/mL 30.0-100.0 L [facility] ID Date Data Source [id number] 08/25/2019 09:50:00 AM EST [facility] Name Value Range Interpretation Code Description Data Melody rce(s) Supporting Document(s) HCT 44.6 % 42.0-52.0 N [facility] HGB 14.4 g/dL 13.5-17.5 N [facility] MCH 32.3 G/DL pg 32.0-36.5 N [facility] MCHC 32.8 PG % 27.0-33.0 N [facility] PLATELETS 332 10 10*3/mm3 150-450 N [facility] RBC 4.39 10 10*6/mm3 4.30-6.10 N [facility] RDW 12.4 % 11.5-14.5 N [facility] WBC TOTAL 6.0 4.0-10.0 N [facility] Procedure
[2020-09-22] MEDS ORDERED: levETIRAcetam INJection 1,000 MG in D5W 100 ML IV ONE (18:30)
[2020-09-22 18:47] LABS: BASO # 0.2 10^3/uL (0.0-0.2); BASO % 1.4 % (0.0-1.0); EOS # 0.5 10^3/uL (0.0-0.5); EOS % 2.9 % (0.0-3.0); HEMOGLOBIN 15.4 g/dl (13.5-17.5); LYMPH # 4.1 10^3/uL (1.5-5.0); LYMPH % 26.4 % (24.0-44.0); MEAN CORPUSCULAR HEMOGLOBIN 33.9 pg (27.0-33.0); MEAN CORPUSCULAR HGB CONC 31.4 g/dl (32.0-36.5); MEAN CORPUSCULAR VOLUME 107.9 fl (80.0-96.0); MONO # 1.1 10^3/uL (0.0-0.8); MONO % 7.3 % (0.0-5.0); NEUTROPHILS # 9.1 10^3/uL (1.5-8.5); NEUTROPHILS % 59.2 % (36.0-66.0); PLATELET COUNT, AUTOMATED 317 10^3/uL (150-450); RED BLOOD COUNT 4.54 10^6/uL (4.30-6.10); WHITE BLOOD COUNT 15.4 10^3/uL (4.0-10.0)
--- NOTE | 2020-09-22 18:54 | REP ---
INDICATION: et tube. COMPARISON: 10/03/2019 TECHNIQUE: Portable chest FINDINGS: The technique utilized in obtaining the radiograph has magnified the cardiac silhouette and accentuated the interstitial markings. The superior mediastinal structures are midline. The cardiac silhouette is unremarkable in size, shape, and position. The diaphragmatic surfaces of the lungs are regular, and the costophrenic angles are clear. The pulmonary robles are clear. The imaged osseous structures are intact. Not all of the lower lung robles are included on the exam and right greater than left. An endotracheal tube is present the tip of which is in satisfactory position at the level of the aortic knob. IMPRESSION: Limited exam showing endotracheal tube as described above. The imaged lung robles are clear. <Electronically signed by Alejandro Ruiz > 09/22/20 [id number]
[2020-09-22] MEDS ORDERED: MIDAZOLAM INJ 2MG/2ML VIAL (J2250 PER 1MG) IV STA (19:14)
[2020-09-22] MEDS ORDERED: PANTOPRAZOLE 40MG VIAL (C9113 PER 1) IV ONE (19:15)
[2020-09-22] MEDS ORDERED: MIDAZOLAM 5MG/ML 1ML VIAL (J2250 PER 1MG) As Ordered ONE (19:16)
--- NOTE | 2020-09-22 19:23 | REPVR ---
PROCEDURE INFORMATION: Exam: CT Head Without Contrast Exam date and time: 09/22/2020 6:21 PM Age: 40 years old Clinical indication: Altered mental status/memory loss TECHNIQUE: Imaging protocol: Computed tomography of the head without contrast. Radiation optimization: All CT scans at this facility use at least one of these dose optimization techniques: automated exposure control; mA and/or kV adjustment per patient size (includes targeted exams where dose is matched to clinical indication); or iterative reconstruction. COMPARISON: CT Head without contrast 07/23/2020 8:18 PM FINDINGS: Brain: There is mild volume loss for age.There is no evidence of infarct, cleaning-white matter differentiation is preserved. There is no hemorrhage or extra-axial collection. There is no mass. Cerebral ventricles: There is no hydrocephalus. Bones/joints: Unremarkable. No acute fracture. Paranasal sinuses: Visualized sinuses are unremarkable. No fluid levels. Mastoid air cells: There is fluid noted in the right mastoids. No change from prior scan. Soft tissues: Unremarkable. IMPRESSION: No intracranial lesion or injury and no change from prior scan Electronically signed by: Eliel Reynoso On 09/22/2020 19:22:50 PM
--- NOTE | 2020-09-22 19:27 | REPVR ---
PROCEDURE INFORMATION: Exam: CT Cervical Spine Without Contrast Exam date and time: 09/22/2020 6:21 PM Age: 40 years old Clinical indication: Other: AMS; Additional info: Altered TECHNIQUE: Imaging protocol: Computed tomography images of the cervical spine without contrast. Radiation optimization: All CT scans at this facility use at least one of these dose optimization techniques: automated exposure control; mA and/or kV adjustment per patient size (includes targeted exams where dose is matched to clinical indication); or iterative reconstruction. COMPARISON: No relevant prior studies available. FINDINGS: Limitations: There is motion artifact, most extensive at C2-C3. Bones/joints: There is no fracture of the cervical spine. Vertebral alignment is normal. Discs/Spinal canal/Neural foramina: There is no central or foraminal stenosis. No significant disc disease. Lungs: Lung apices are normal. Soft tissues: Unremarkable. IMPRESSION: No fracture of the cervical spine. C2 and C3 are partly obscured by motion artifact . Electronically signed by: Eliel Reynoso On 09/22/2020 19:26:56 PM
[2020-09-22 19:34] LABS: ACETAMINOPHEN LEVEL < 2.0 UG/ML (10.0-30.0); ALBUMIN 4.3 GM/DL (3.2-5.2); ALT/SGPT 54 U/L (12-78); BILIRUBIN,DIRECT 0.2 MG/DL (0.0-0.2); BILIRUBIN,TOTAL 0.5 MG/DL (0.2-1.0); BLOOD UREA NITROGEN 17 MG/DL (7-18); CALCIUM LEVEL 8.9 MG/DL (8.5-10.1); CARBON DIOXIDE LEVEL 20 MEQ/L (21-32); CHLORIDE LEVEL 99 MEQ/L (98-107); CK-MB VALUE MASS 6.9 NG/ML (<3.6); CPK CREATINE PHOSPHOKINASE 489 U/L (39-308); ETHYL ALCOHOL (ETHANOL) < 0.003 % (0.000-0.010); GLOMERULAR FILTRATION RATE 37.1 (>60); GLUCOSE, FASTING 106 MG/DL (70-100); MB/CK RELATIVE INDEX 1.41 (< OR =4); POTASSIUM SERUM 6.5 MEQ/L (3.5-5.1); SALICYLATE LEVEL 3.9 MG/DL (5.0-30.0); SODIUM LEVEL 136 MEQ/L (136-145); TOTAL PROTEIN 7.6 GM/DL (6.4-8.2); TROPONIN I 0.05 NG/ML (< 0.10)
[2020-09-22 19:47] LABS: INR 1.08; PROTHROMBIN TIME 14.3 SECONDS (12.5-14.3)
[2020-09-22 19:48] LABS: PARTIAL THROMBOPLASTIN TIME 31.1 SECONDS (24.2-38.5)
[2020-09-22] MEDS ORDERED: PROPOFOL 1,000 MG/100 ML VIAL As Ordered ONE (19:48)
--- OUTSIDE RECORDS SUMMARY | 2020-09-22 19:55 | CCD ---
Author Author [facility] Organization [facility] Address Unknown Phone Unavailable Support Name Relationship Address Phone Maximino ADAME, Nava Next Of Kin [address] [place] [address] [phone] Yunior FERRARI, Jessica Next Of Kin [address] [place] [address] ANOOP W[place] Next Of Kin Unknown Jazzy GUERRERO, Azalia Next Of Kin [address] [place] [address] [phone] Emmett FERRARI, Mary Beth Next Of Kin [address] [place] [phone] Joel Vaughn MD Next Of Kin [address] [place] [phone] NIKITA CARTER Next Of Kin [address] [place] [address] Denia May Next Of Kin [address] [place] [address] [phone] NIKITA CARTER Next Of Kin [address] [place] [address] GIORGIO RIBEIRO Next Of Kin [address] [place] [address] NONE Dyan RPA-C, Ramonita Next Of Kin [address] [place] [address] Tricia FERRARI, Magdalena Next Of Kin [address] [place] [address] Ting Rivero Next Of Kin [address] [place] [phone] Zeny ANP-BC, Nguyen Next Of Kin [address] [place] [address] [phone] UE Next Of Kin Unknown Unavailable GIORGIO SHELTON Next Of Kin [address] [facility] [address] [place] [address] Care Team Providers Care Drawer Liner Name Role Phone Jessica Mojica APPLICATIONS DEVELOPMENT ANALYST APPLICATIONS DEVELOPMENT ANALYST Unavailable Unavailable Mojica, F Jessica APPLICATIONS DEVELOPMENT ANALYST-BC Unavailable Unavailable Mojica, F Jessica APPLICATIONS DEVELOPMENT ANALYST-BC Unavailable Unavailable Mojica, F Jessica APPLICATIONS DEVELOPMENT ANALYST-BC Unavailable Unavailable Mojica, F Jessica APPLICATIONS DEVELOPMENT ANALYST-BC Unavailable Unavailable Mojica, F Jessica APPLICATIONS DEVELOPMENT ANALYST-BC Unavailable Unavailable Mojica, F Jessica APPLICATIONS DEVELOPMENT ANALYST-BC Unavailable Unavailable Mojica, F Jessica APPLICATIONS DEVELOPMENT ANALYST-BC Unavailable Unavailable Mojica, F Jessica APPLICATIONS DEVELOPMENT ANALYST-BC Unavailable Unavailable Mojica, F Jessica APPLICATIONS DEVELOPMENT ANALYST-BC Unavailable Unavailable Mojica, F Jessica APPLICATIONS DEVELOPMENT ANALYST-BC Unavailable Unavailable Mojica, F Jessica APPLICATIONS DEVELOPMENT ANALYST-BC Unavailable Unavailable Mojica, F Jessica APPLICATIONS DEVELOPMENT ANALYST-BC Unavailable Unavailable Mojica, F Jessica APPLICATIONS DEVELOPMENT ANALYST-BC Unavailable Unavailable Mojica, F Jessica APPLICATIONS DEVELOPMENT ANALYST-BC Unavailable Unavailable Mojica, F Jessica APPLICATIONS DEVELOPMENT ANALYST-BC Unavailable Unavailable Mojica, F Jessica APPLICATIONS DEVELOPMENT ANALYST-BC Unavailable Unavailable Mojica, F Jessica APPLICATIONS DEVELOPMENT ANALYST-BC Unavailable Unavailable Mojica, F Jessica APPLICATIONS DEVELOPMENT ANALYST-BC Unavailable Unavailable Mojica, F Jessica APPLICATIONS DEVELOPMENT ANALYST-BC Unavailable Unavailable Mojica, F Jessica APPLICATIONS DEVELOPMENT ANALYST-BC Unavailable Unavailable Mojica, F Jessica APPLICATIONS DEVELOPMENT ANALYST-BC Unavailable Unavailable [facility], [facility] Unavailable Unavailable Re-disclosure [...] is protected by Article 27-F of the [place] State Public Health law. If you continue you may have access to information: Regarding HIV / AIDS; Provided by facilities licensed or operated by the [facility] Office of Mental Health; or Provided by the [facility] Office for People With Developmental Disabilities. If such information is present, then the following [facility] mandated warning applies: This information has been [...] law may result in a fine or assisted sentence or both. A general authorization for the release of medical or other information is NOT sufficient authorization for further disc losure. Allergies and Adverse Reactions Type Description Substance Reaction Status Data Source(s ) Drug Class NO KNOWN ALLERGIES NO KNOWN ALLERGIES [facility] Encounters Encounter Providers Location Date Indications Data Source(s ) [facility] 03:26:00 PM ES [facility] Outpatient Attender: SAL NOEL TO 06/11/2020 06:52:01 PM ED [facility] Outpatient Attender: SAL NOEL TO 06/11/2020 06:52:01 PM ED [facility] Outpatient Attender: SAL ARIZA 05/29/2020 02:22:02 PM ED [facility] Outpatient Attender: SAL NOEL TO 2020 10:22:01 AM ED [facility] Outpatient Attender: SAL ARIZA 05/24/2020 05:04:00 PM ED [facility] Outpatient Attender: SAL ARIZA 05/20/2020 05:28:01 PM ED [facility] Outpatient Attender: SAL ARIZA 05/03/2020 10:00:01 AM ED [facility] Outpatient Attender: SAL RAIZA 04/29/2020 11:37:01 AM ED [facility] Outpatient Attender: SAL ARIZA 04/26/2020 04:22:03 PM ED [facility] Outpatient Attender: SAL NOEL TO 04/26/2020 04:22:02 PM ED [facility] Outpatient Attender: SAL ARIZA 04/26/2020 04:22:00 PM ED [facility] Outpatient Attender: SAL ARIZA 04/26/2020 03:42:00 PM ED [facility] Outpatient Attender: SAL ARIZA 04/20/2020 12:05:03 AM ED T [facility] Outpatient Attender: SAL HEALY FP 04/19/2020 10:15:01 AM ED T [facility] Outpatient Attender: SAL ARIZA 02/27/2020 01:23:02 PM ED T [facility] Outpatient Attender: SAL ARIZA 02/27/2020 01:23:01 PM ED T [facility] Outpatient Attender: SAL ARIZA 02/10/2020 02:25:00 PM ED T [facility] Outpatient Attender: SAL ARIZA 02/01/2020 08:53:01 PM ED T [facility] Outpatient Attender: SAL HEALY FP 01/31/2020 12:37:00 AM ED T [facility] Outpatient Attender: SAL ARIZA 01/26/2020 05:54:00 PM ED T [facility] Outpatient Attender: SAL HEALY FP 01/26/2020 05:18:00 PM ED T [facility] Outpatient Attender: SAL HEALY FP 01/26/2020 05:05:00 PM ED T [facility] Outpatient Attender: SAL HEALY FP 01/20/2020 03:31:01 PM ED T [facility] Outpatient Attender: SAL ARIZA 01/20/2020 09:57:01 AM ED T [facility] Outpatient Attender: SAL ARIZA 01/20/2020 09:56:00 AM ED T [facility] Outpatient Attender: SAL ARIZA 01/14/2020 08:32:00 AM ED T [facility] Outpatient Attender: SAL HEALY FP 01/03/2020 09:42:59 PM ED T [facility] Outpatient Attender: SAL HEALY FP 12/14/2019 12:04:00 PM ED T [facility] Outpatient Attender: SAL ARIZA 11/19/2019 04:19:00 PM ED T [facility] Outpatient Attender: SAL ARIZA 11/17/2019 07:23:02 PM ED T [facility] Outpatient Attender: SAL ARIZA 11/17/2019 04:11:00 PM ED [facility] Outpatient Attender: SAL [facility] FP 11/17/2019 03:18:01 PM ED [facility] Outpatient Attender: SAL [facility] FP 11/17/2019 12:31:00 PM ED [facility] Outpatient Attender: SAL [facility] FP 11/10/2019 11:32:02 AM [facility] Outpatient Attender: SAL SADIEFH FP 11/10/2019 11:31:03 AM ES [facility] Outpatient 10/21/2019 05:10:00 AM [facility] Outpatient Attender: SAL MONET FP 10/08/2019 11:20:02 AM [facility] Outpatient Attender: STEPHANIEGIUSEPPE NOELFH FP 10/05/2019 12:54:00 PM [facility] Outpatient Attender: SAL SADIEFH FP 09/28/2019 03:07:00 PM [facility] Outpatient Attender: SAL NOELFH FP 09/28/2019 02:44:01 PM [facility] Outpatient Attender: SAL SADIEFH FP 09/28/2019 02:33:01 PM [facility] Outpatient Attender: SAL [facility] FP 09/28/2019 12:52:02 PM [facility] Outpatient Attender: SAL [facility] FP 09/28/2019 12:52:01 PM [facility] Outpatient Attender: SAL [facility] FP 09/28/2019 12:37:00 PM [facility] Outpatient Attender: SAL SADIEFH FP 09/28/2019 12:32:00 PM [facility] Outpatient Attender: SAL [facility] FP 09/25/2019 02:19:00 PM [facility] Outpatient Attender: SAL SADIEFH FP 09/25/2019 02:18:01 PM [facility] Outpatient Attender: SAL NOELFH FP 09/25/2019 02:17:01 PM [facility] Outpatient Attender: VEGA FERRARI FP 09/10/2019 12:59:01 PM [facility] Outpatient Attender: VEGA ARIZA 09/07/2019 01:30:01 PM [facility] Outpatient Attender: Jessica FERRARI-BC 08/28/2019 12: 39:01 PM [facility] Outpatient Attender: VEGA Mojica APPLICATIONS DEVELOPMENT ANALYST 08/28/2019 12:39:01 PM [facility] Outpatient Attender: VEGA Mojica APPLICATIONS DEVELOPMENT ANALYST 08/28/2019 12:37:02 PM [facility] Outpatient Attender: Jessica Mojica APPLICATIONS DEVELOPMENT ANALYST-BC 08/28/2019 12: 37:01 PM [facility] Outpatient Attender: Jessica Mojica BERTINBC 08/26/2019 06: 52:00 PM [facility] Medications Medication Brand Name Start Date Product [...] type / Coverage type Policy ID Covered democrat ID Covered democrat's relationship to millan Policy Millan Plan Information UNHC COMMUNITY PLAN MCDHMO [id number] SP [id number] Managed Care - UHC Community Plan P [id number] S [id number] Medicaid S [id number] S [id number] UHC I [id number] Self [id number] EMEDNY [id number] SP [id number] UNITED HEALTHCARE(MCAID) O [id number] S [id number] MEDICAID [id number] SP [id number] UNHC COMMUNITY PLAN MCDHMO [id number] SP [id number] Managed Care - UHC Community Plan P [id number] S [id number] Managed Care - UHC Community Plan P [id number] S [id number] Managed Care - UHC Community Plan P [id number] S [id number] Managed Care - UHC Community Plan P [id number] S [id number] Medicaid S [id number] S [id number] Managed Care - Community Plan United Healthcare P [id number] S [id number] UNHC COMMUNITY PLAN MCDHMO [id number] SP [id number] Managed Care - Community Plan United Healthcare P [id number] S [id number] UNHC COMMUNITY PLAN MCDHMO [id number] SP [id number] SELF PAY ONLY [id number] SP [id number] UNHC COMMUNITY PLAN MCDHMO [id number] SP [id number] Medicaid S [id number] S [id number] D Managed Care United Healthcare O [id number] S [id number] Managed Care - Community Plan United Healthcare P [id number] S [id number] UNITED HEALTHCARE(MCAID) O [id number] S [id number] Medicaid O [id number] S [id number] Medicaid P [id number] S [id number] UNHC COMMUNITY PLAN MCDHMO [id number] SP [id number] UNITED HEALTHCARE(MCAID) O [id number] S [id number] MEDICAID [id number] SP [id number] MEDICAID M [id number] S [id number] SELF PAY ONLY [id number] SP [id number] Managed Care - Community Plan United Healthcare P [id number] S [id number] Medicaid S [id number] S [id number] MEDICAID [id number] SP [id number] Self Pay P UNAVAILABLE S UNAVAILA BLE Medicaid Dental S [id number] S [id number] [facility] COMMUNITY PLAN [facility] [id number] SP [id number] [facility] [id number] SP [id number] Managed Care - Community Plan [facility] P [id number] S [id number] Medicaid S [id number] S [id number] Managed Care - Community Plan [facility] P [id number] S [id number] MEDICAID [id number] SP [id number] Managed Care - Community Plan [facility] P [id number] S [id number] Medicaid S [id number] S [id number] Managed Care BCBS O [id number] S [id number] Medicaid S [id number] S [id number] BLUE CROSS TRAVIS PLAN [id number] SP [id number] BLUE CROSS TRAVIS PLAN [id number] SP [id number] Problems, Conditions, and Diagnoses Code Display Name Description Problem Type Effective Dates Data Source(s) 46351341 Unspecified hearing loss, bilateral Unsp ecified hearing loss, bilateral [id number] Alcohol dependence, uncomplicated Alcohol dependence, uncomplicated 04/26/2020 04[facility]21:[facility] V65.8 Person consulting for explanation of exa mination or test findings Person consulting for explanation of examination or test findings 01/26/2020 05:52:41 PM T [facility] F17.200 Nicotine dependence, unspecified, uncomp licated Nicotine dependence, unspecified, uncomplicated 01/26/2020 05:52:41 PM EDT [facility] G31.84 Mild cognitive impairment, so stated Mild cognitive di sorder 11/10/2019 11:30:48 AM [facility] D17.22 Benign lipomatous neoplasm of skin and s ubcutaneous tissue of left arm Benign lipomatous neoplasm of skin and subcutaneous tissue of left arm 09/28/2019 12:51:49 PM [facility] 268.9 vitamin D deficiency vitamin D deficiency 09/28 12:51:49 PM [facility] Results ID Date Data Source [id number] 04/26/2020 03:33:01 PM EDT [facility] Measurements & CalculationsHeight: 76 inches (6 ft. [...] this this time.HPI performed by: Dayna Duff APPLICATIONS DEVELOPMENT ANALYST, April 26, 2020 4:08 PMTransitions of Care InboundProblem ReviewProblem List was reviewed and/or updated during this visit.Medication Reconciliation & ReviewMedication List was reviewed and/or updated during this visit, including review of any bsrf-upf-yqdcrpk medications, herbal therapies, and/or supplements.Allergy ReviewAllergy List [...] a goal to quit.Unspecified hearing loss, bilateral (ZIR83-A20.93) Assessment: Instructions: Referral made to [facility]. We will contact you to set this up.Assessed:SEIZURE DISORDER (ICD-780.39) (FDN60-S31.9) Assessment: managed care analyst telephone number Fred Benavides # [phone] Instructions: Please continue medications as prescribed. Please [...] assistance in doing so.Nicotine dependence, unspecified, uncomplicated (NMT72-P85.200) Assessment: Instructions: Please continue to try to cut back on your smoking with a goal to quit. Please let us know if you need assistance in doing so.Person consulting for explanation of examination or test findings (ICD-V65.8) (AIN04-T09.2) Assessment: Instructions: We have reviewed your lab results with you today. your results are unremarlable except for slightly elevated cholesterolModerate persistent asthma, uncomplicated (MQC58-U54.40) Assessment: Instructions: Refill of your inhalers sent [...] quit.Unspecified hearing loss- bilateral: Referral made to [facility]. We will contact you to set this up. Plan developed in collaboration with patient and/or familyMedications:DRISDOL 27678 UNIT ORAL CAPSULEAIRDUO RESPICLICK 113/14 113-14 MCG/ACT [...] ElectronicAllergies:No Known Allergies (updated 04/26/2020) Orders:Audiology Consult [CPT-08133] Adult - Ofc Vst, EST, Level IV [CPT-21447] Follow-Up Return to clinic: 3 months for follow up Clinical Visit Summary CompletedMedications:AIRDUO RESPICLICK 113/14 113-14 MCG/ACT INH AEPB (FLUTICASONE-SALMETEROL) 1 puff inhaled Q12H #1[Inhaler] x 2 Route:INHALATION Entered and Authorized by: Dayna FERRARI Method used: Electronically to [facility] (retail) [address] [place] [address] Note to Pharmacy: Route: INH; RxID: [id number] HFA 108 (90 BASE) MCG/ACT INHALATION AEROSOL SOLUTION (ALBUTEROL SULFATE) 2 puffs every 4 hours as needed. #1[Inhalation] x 2 Route:INHALATION Entered and Authorized by: Dayna FERRARI Method used: Electronically to [facility] (retail) [address] [place] [address] Note to Pharmacy: Route: INH; RxID: [id number] signed by Dayna FERRARI on 04/29/2020 at 11:36 AM Name Value Range Interpretation Code Description Data Melody rce(s) Supporting Document(s) ID Date Data Source [id number] 04/19/2020 10:48:57 AM EDT [facility] Labs In-House Blood TestsDate/Time Colle cted: April 19, 2020 10:30 AMTest Result Reference Range Normal ValueComments: taken from left ac, tolerated well.Assessment & Plan Orders:[id number] Vst-Est Level I [CPT- 00693] 04914 - Venipuncture [CPT-86646] Name Value Range Interpretation Code Description Data Melody rce(s) Supporting Document(s) ID Date Data Source [id number] 04/19/2020 10:30:00 AM EDT [facility] Name Value Range Interpretation Code Description Data Melody rce(s) Supporting Document(s) HGBA1C 5.1 % N [facility] ID Date Data Source [id number] 04/19/2020 10:30:00 AM EDT [facility] Name Value Range Interpretation Code Description Data Melody rce(s) Supporting Document(s) BG FASTING 76 mg/dL 70-100 N [facility] T4, FREE 1.01 ng/dL 0.76-1.46 N [facility] TSH 0.791 microintl units/mL 0.358-3.740 N [facility] VIT D25 TOT 23.6 ng/mL 30.0-100.0 L [facility] ID Date Data Source [id number] 04/19/2020 12:00:00 AM EDT [facility] Name Value Range Interpretation Code Description Data Melody rce(s) Supporting Document(s) HGBA1C 5.1 % [facility] ID Date Data Source [id number] 01/26/2020 05:05:58 PM EDT [facility] Measurements & CalculationsHeight: 76 inches (6 ft. [...] seen another healthcare provider? Yes - Has title coordinator Fredave you seen a dentist? Yes - [facility] Intake performed by: Jesica Dixon LPN, January [...] during this visit, including review of any pbdb-ceg-cqnvsmd medications, herbal therapies, and/or supplements.Allergy ReviewAllergy List [...] & Plan Problems:Added: Nicotine dependence, unspecified, uncomplicated (FAG05-G51.200) Assessment: Instructions: Please continue to try to cut back on your smoking with a goal to quit. Please let us know if you need assistance in doing so.Person consulting for explanation of examination or test findings (ICD-V65.8) (FNS34-U60.2) Assessment: Instructions: We have reviewed your lab results with you today. your results are unremarlable except for slightly elevated cholesterol and elevated Blood sugar, indicatating prediabetes. Please try to cut back on sugars, sodium, fats and carbohydrates in your diet. Please try to avoid processed foodsAssessment not Saved Person consulting for explanation of examination or test findings (DPK26-O21.2): Patient Instructions/Care Plan: Nicotine dependence- unspecified- uncomplicated: [...] developed in collaboration with patient and/or familyMedications:DRISDOL 78909 UNIT ORAL CAPSULEAIRDUO RESPICLICK 113/14 113-14 MCG/ACT INH AEPBTYLENOL EXTRA STRENGTH 500 MG ORAL TABLETPROAIR HFA 108 (90 BASE) MCG/ACT INHALATION AEROSOL SOLUTIONBREO ELLIPTA 200-25 MCG/INH INHALATION AEROSOL POWDER BREATH ACTIVATEDB- 12 1000 MCG ORAL CAPSULEMULTIVITAMIN ADULTS ORAL TABLETLEVETIRACETAM 1000 MG ORAL TABLETAllergies:No Known Allergies (updated 01/26/2020) Orders:COMP METABOLIC PANEL [CPT-56923] CBC W/DIFF [CPT-91022] HgBA1c [CPT-11251] LIPID PANEL [CPT-30615] TSH [CPT-10010] T-4 free [CPT-42548] Vitamin D 250H Unspecified [CPT-09832] URINALYSIS [CPT-96032] VITAMIN B-12 [CPT-93552] FERRITIN [CPT-94441] Folate (Folic Acid Serum) [CPT-27903] IRON [CPT-61686] Adult - Ofc Vst, EST, Level III [CPT-67019] Follow-Up Return to clinic: 3 months for follow up Clinical Visit Summary Completed Name Value Range Interpretation Code Description Data Melody rce(s) Supporting Document(s) ID Date Data Source [id number] 01/20/2020 10:20:24 AM EDT [facility] In-House Blood TestsDate/Time Colle cted: January 20, 2020 10:21 AMTest Result Reference Range Normal ValueComments: blood draw done in offe done in the right ac tolerated well Redd Mcgowan MA, January 20, 2020 10:21 AMAssessment & Plan Orders:[id number] Vst-Est Level I [CPT-20510] 11871 - Venipuncture [CPT-32175] Name Value Range Interpretation Code Description Data Melody rce(s) Supporting Document(s) ID Date Data Source [id number] 01/20/2020 10:15:00 AM EDT [facility] Name Value Range Interpretation Code Description Data Melody rce(s) Supporting Document(s) HCT 42.9 % 42.0-52.0 N [facility] HGB 14.3 g/dL 13.5-17.5 N [facility] MCH 33.3 G/DL pg 32.0-36.5 N [facility] MCHC 33.2 PG % 27.0-33.0 H [facility] PLATELETS 238 10 10*3/mm3 150-450 N [facility] RBC 4.31 10 10*6/mm3 4.30-6.10 N [facility] RDW 11.9 % 11.5-14.5 N [facility] WBC TOTAL 6.2 4.0-10.0 N [facility] ID Date Data Source [id number] 01/20/2020 10:15:00 AM EDT [facility] Name Value Range Interpretation Code Description Data Melody rce(s) Supporting Document(s) HGBA1C 5.7 % N [facility] ID Date Data Source [id number] 01/20/2020 10:15:00 AM EDT [facility] Name Value Range Interpretation Code Description Data Melody rce(s) Supporting Document(s) BG FASTING 102 mg/dL 70-100 H [facility] T4, FREE 0.97 ng/dL 0.76-1.46 N [facility] TSH 0.815 microintl units/mL 0.358-3.740 N [facility] VIT D25 TOT 11.4 ng/mL 30.0-100.0 L [facility] ID Date Data Source [id number] 12/28/2019 11:09:56 AM EDT [facility] Measurements & CalculationsHeight: 76 inches (6 ft. [...] seen another healthcare provider? Yes - Has managed care analyst Have you seen a dentist? Yes - [...] only taking his seizure medications. Patient states managed care analyst is Fred Benavides # [phone] performed by: Dayna FERRARI, December 28, 2019 [...] is? FairAssessment & Plan Problems:Assessed:SEIZURE DISORDER (ICD-780.39) (SDV64-H28.9) Assessment: Instructions: We have sent a refill to your pharmacy today. Please continue medication as prescribed. Please continue to try to cut back on alcohol intake with a goal to quit. We have made a referral to Neurology for you today. We will contact you to set this up.Health Screening (ICD-V70.0) (PXK89-E10.9) Assessment: Instructions: Fasting labs ordered for you today.Tobacco use (ICD-305.1) (XHT15-B97.0) Assessment: Instructions: Please continue to cut back [...] Known Allergies (updated 09/28/2019) Orders:COMP METABOLIC PANEL [CPT-39265] CBC W/DIFF [CPT-80453] HgBA1c [CPT-16507] LIPID PANEL [CPT-44920] TSH [CPT-43070] T-4 free [CPT-07518] Vitamin D 250H Unspecified [CPT-31137] URINALYSIS [CPT-43354] VITAMIN B-12 [CPT-31233] IRON [CPT-17954] FERRITIN [CPT-12926] Folate (Folic Acid Serum) [CPT-52307] Neurology Consult [CPT-57090] Adult - Ofc Vst, EST, Level III [CPT-05014] Follow-Up Return to clinic: 4-6 weeks for follow up. Clinical Visit Summary CompletedMedications:LEVETIRACETAM 1000 MG ORAL TABLET (LEVETIRACETAM) 1 tab po bid #60[Tablet] x 3 Entered and Authorized by: Dayna FERRARI Method used: Electronically to [facility] ([facility]) [address] [place] [address] RxID: [id number] signed by Dayna FERRARI on 01/03/2020 at 9:42 PM Name Value Range Interpretation Code Description Data Melody rce(s) Supporting Document(s) ID Date Data Source [id number] 09/28/2019 12:28:39 PM [facility] Measurements & CalculationsHeight: 76 inches (6 ft. [...] been admitted to the hospital? No - [facility] 09/11 seizuresHave you been to an emergency [...] Illness (HPI)Telemedicine visit with patient's location at [facility] and provider's location at offsite office. [...] during this visit, including review of any [id number] medications, herbal therapies, and/or supplements.Allergy ReviewAllergy List [...] & Plan Problems:Added: vitamin D deficiency (ICD-268.9) (CBW57-K15.9) Assessment: Tanya. 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 Continue [...] developed in collaboration with patient and/or familyMedications:DRISDOL 82872 UNIT ORAL CAPSULEAIRDUO RESPICLICK 113/14 113-14 MCG/ACT INH AEPBTYLENOL EXTRA STRENGTH 500 MG ORAL TABLETPROAIR HFA 108 (90 BASE) MCG/ACT INHALATION AEROSOL SOLUTIONBREO ELLIPTA 200-25 MCG/INH INHALATION AEROSOL POWDER BREATH ACTIVATEDB-12 1000 MCG ORAL CAPSULEMULTIVITAMIN ADULTS ORAL TABLETLEVETIRACETAM 1000 MG ORAL TABLETMedication Changes:New Prescription:DRISDOL 77089 UNIT ORAL CAPSULE-Take 1 capsule weekly Qty: 4[Capsule] Refills: 2 Method: ElectronicAllergies:No Known Allergies (update d 03/19/2018) Information on new prescriptions provided to patient.Orders:Office Visit - Established, Level 3 [CPT-33755FS] Follow-Up Return to clinic: 3 months with Dayna for follow up Clinical Visit Summary CompletedMedications:DRISDOL 44746 UNIT ORAL CAPSULE (ERGOCALCIFEROL) Take 1 capsule weekly #4[Capsule] x 2 Route:ORAL Entered and Authorized by: Nava ADAME Method used: Electronically to [facility]* (retail) [address] [place] [address] Fax: Note to Pharmacy: Route: ORAL; RxID: [id number] signed by Nava ADAME on 09/28/2019 at 12:51 PM Name Value Range Interpretation Code Description Data Melody rce(s) Supporting Document(s) ID Date Data Source [id number] 08/25/2019 10:18:06 AM [facility] In-House Blood TestsDate/Time Colle cted: August 25, 2019 10:18 AMTest Result Reference Range Normal ValueComments: blood draw done in offcie done in the left ac tolerated well Redd Mcgowan PAM, August 25, 2019 10:18 AMAssessment & Plan Orders:[id number] Vst-Est Level I [CPT-60761] 46583 - Venipuncture [CPT-44065] Name Value Range Interpretation Code Description Data Melody rce(s) Supporting Document(s) ID Date Data Source [id number] 08/25/2019 09:50:00 AM EST [facility] Name Value Range Interpretation Code Description Data Melody rce(s) Supporting Document(s) HGBA1C 5.6 % N [facility] ID Date Data Source [id number] 08/25/2019 09:50:00 AM EST [facility] Name Value Range Interpretation Code Description Data Melody rce(s) Supporting Document(s) BG FASTING 89 mg/dL 70-100 N [facility] TSH 0.721 microintl units/mL 0.358-3.740 N [facility] VIT D25 TOT 13.4 ng/mL 30.0-100.0 L [facility] ID Date Data Source [id number] 08/25/2019 09:50:00 AM EST [facility] Name Value Range Interpretation Code Description Data Melody rce(s) Supporting Document(s) HCT 44.6 % 42.0-52.0 N [facility] HGB 14.4 g/dL 13.5-17.5 N [facility] MCH 32.3 G/DL pg 32.0-36.5 [facility] MCHC 32.8 PG % 27.0-33.0 N [facility] PLATELETS 332 10 10*3/mm3 150-450 N [facility] RBC 4.39 10 10*6/mm3 4.30-6.10 N [facility] RDW 12.4 % 11.5-14.5 N [facility] WBC TOTAL 6.0 4.0-10.0 N [facility] Procedure
[2020-09-22] MEDS ORDERED: propofoL 1,000 MG in IV 1 EA IV SCH (20:00)
[2020-09-22] MEDS ORDERED: NS 2,100 ML in IV 1 EA IV ONE (20:00)
[2020-09-22 20:22] LABS: OSMOLALITY SERUM 306 MOSM/KG (275-295)
[2020-09-22] MEDS ORDERED: ALBU8.5H INH (21:13)
[2020-09-22] MEDS ORDERED: PHENYTOIN INJ 250 MG/5 ML VIAL (J1165) IV ONE (21:15)
[2020-09-22] MEDS ORDERED: PHENYTOIN 100 MG/2 ML VIAL (J1165) IV ONE (21:30)
[2020-09-22] MEDS ORDERED: NS 1,000 ML IV SCH (22:00)
[2020-09-22] MEDS: propofoL 1,000 MG in IV 1 EA IV SCH (22:00)
--- OUTSIDE RECORDS SUMMARY | 2020-09-22 22:18 | CCD ---
Author Author [facility] Organization [facility] Address Unknown Phone Unavailable Support Name Relationship Address Phone Maximino ADAME, Nava Next Of Kin [address] [place] [phone] Yunior FERRARI, Jessica Next Of Kin [address] [place] [address] ANOOP WASHINGTON Next Of Kin Unknown Jazzy GUERRERO, Azalia Next Of Kin [address] [place] [address] [phone] Emmett FERRARI, Mary Beth Next Of Kin [address] [place] [phone] Joel Vaughn MD Next Of Kin [address] [place] [phone] NIKITA CARTER Next Of Kin [address] [place] [address] Denia May Next Of Kin [address] [place] [address] [phone] NIKITA CARTER Next Of Kin [address] [place] [address] GIORGIO RIBEIRO Next Of Kin [address] [place] [address] NONE Dyan RPA-C, Ramonita Next Of Kin [address] [place] [address] Tricia FERRARI, Magdalena Next Of Kin [address] [place] [address] Ting Rivero Next Of Kin [address] [place] [phone] Zeny ANP-BC, Nguyen Next Of Kin [address] [place] [address] [phone] UE Next Of Kin Unknown Unavailable GIORGIO SHELTON Next Of Kin [address] [facility] [address] [place] [address] Care Team Providers Care Director Of Strategic Sales Name Role Phone Jessica Mojica SOLVENT PROCESS EXTRACTOR OPERATOR SOLVENT PROCESS EXTRACTOR OPERATOR Unavailable Unavailable Mojica, F Jessica SOLVENT PROCESS EXTRACTOR OPERATOR-BC Unavailable Unavailable Mojica, F Jessica SOLVENT PROCESS EXTRACTOR OPERATOR-BC Unavailable Unavailable Mojica, F Jessica SOLVENT PROCESS EXTRACTOR OPERATOR-BC Unavailable Unavailable Mojica, F Jessica SOLVENT PROCESS EXTRACTOR OPERATOR-BC Unavailable Unavailable Mojica, F Jessica SOLVENT PROCESS EXTRACTOR OPERATOR-BC Unavailable Unavailable Mojica, F Jessica SOLVENT PROCESS EXTRACTOR OPERATOR-BC Unavailable Unavailable Mojica, F Jessica SOLVENT PROCESS EXTRACTOR OPERATOR-BC Unavailable Unavailable Mojica, F Jessica SOLVENT PROCESS EXTRACTOR OPERATOR-BC Unavailable Unavailable Mojica, F Jessica SOLVENT PROCESS EXTRACTOR OPERATOR-BC Unavailable Unavailable Mojica, F Jessica SOLVENT PROCESS EXTRACTOR OPERATOR-BC Unavailable Unavailable Mojica, F Jessica SOLVENT PROCESS EXTRACTOR OPERATOR-BC Unavailable Unavailable Mojica, F Jessica SOLVENT PROCESS EXTRACTOR OPERATOR-BC Unavailable Unavailable Mojica, F Jessica SOLVENT PROCESS EXTRACTOR OPERATOR-BC Unavailable Unavailable Mojica, F Jessica SOLVENT PROCESS EXTRACTOR OPERATOR-BC Unavailable Unavailable Mojica, F Jessica SOLVENT PROCESS EXTRACTOR OPERATOR-BC Unavailable Unavailable Mojica, F Jessica SOLVENT PROCESS EXTRACTOR OPERATOR-BC Unavailable Unavailable Mojica, F Jessica SOLVENT PROCESS EXTRACTOR OPERATOR-BC Unavailable Unavailable Mojica, F Jessica SOLVENT PROCESS EXTRACTOR OPERATOR-BC Unavailable Unavailable Mojica, F Jessica SOLVENT PROCESS EXTRACTOR OPERATOR-BC Unavailable Unavailable Mojica, F Jessica SOLVENT PROCESS EXTRACTOR OPERATOR-BC Unavailable Unavailable Mojica, F Jessica SOLVENT PROCESS EXTRACTOR OPERATOR-BC Unavailable Unavailable [facility] Unavailable Unavailable Re-disclosure [...] is protected by Article 27-F of the [place] State Public Health law. If you continue you may have access to information: Regarding HIV / AIDS; Provided by facilities licensed or operated by the [facility] Office of Mental Health; or Provided by the [facility] Office for People With Developmental Disabilities. If such information is present, then the following [facility] mandated warning applies: This information has been [...] law may result in a fine or prison sentence or both. A general authorization for the release of medical or other information is NOT sufficient authorization for further disc losure. Allergies and Adverse Reactions Type Description Substance Reaction Status Data Source(s ) Drug Class NO KNOWN ALLERGIES NO KNOWN ALLERGIES [facility] Encounters Encounter Providers Location Date Indications Data Source(s ) [facility] 03:26:00 PM ES [facility] Outpatient Attender: SAL NOEL TO 06/11/2020 06:52:01 PM ED [facility] Outpatient Attender: SAL NOEL TO 06/11/2020 06:52:01 PM ED [facility] Outpatient Attender: SAL ARIZA 05/29/2020 02:22:02 PM ED [facility] Outpatient Attender: SAL NOEL TO 2020 10:22:01 AM ED [facility] Outpatient Attender: SAL ARIZA 05/24/2020 05:04:00 PM ED [facility] Outpatient Attender: SAL ARIZA 05/20/2020 05:28:01 PM ED [facility] Outpatient Attender: SAL ARIZA 05/03/2020 10:00:01 AM ED [facility] Outpatient Attender: SAL ARIZA 04/29/2020 11:37:01 AM ED [facility] Outpatient Attender: SAL ARIZA 04/26/2020 04:22:03 PM ED [facility] Outpatient Attender: SAL NOEL TO 04/26/2020 04:22:02 PM ED [facility] Outpatient Attender: SAL ARIZA 04/26/2020 04:22:00 PM ED [facility] Outpatient Attender: SAL ARIZA 04/26/2020 03:42:00 PM [...] Attender: SAL ARIZA 11/17/2019 04:11:00 PM ED [facility] Outpatient Attender: SAL [facility] FP 11/17/2019 03:18:01 PM ED [facility] Outpatient Attender: SAL [facility] FP 11/17/2019 12:31:00 PM ED [facility] Outpatient Attender: SAL [facility] FP 11/10/2019 11:32:02 AM [facility] Outpatient Attender: SAL SADIEFH FP 11/10/2019 11:31:03 AM ES [facility] Outpatient 10/21/2019 05:10:00 AM [facility] Outpatient Attender: SAL MONET FP [...] Attender: VEGA FERRARI FP 09/10/2019 12:59:01 PM [facility] Outpatient Attender: VEGA ARIZA 09/07/2019 01:30:01 PM [facility] Outpatient Attender: Jessica FERRARI-BC 08/28/2019 12: 39:01 PM [facility] Outpatient Attender: VEGA Mojica SOLVENT PROCESS EXTRACTOR OPERATOR 08/28/2019 12:39:01 PM [facility] Outpatient Attender: VEGA Mojica SOLVENT PROCESS EXTRACTOR OPERATOR 08/28/2019 12:37:02 PM [facility] Outpatient Attender: Jessica Mojica SOLVENT PROCESS EXTRACTOR OPERATOR-BC 08/28/2019 12: 37:01 PM [facility] Outpatient Attender: Jessica Mojica BERTINBC 08/26/2019 06: 52:00 PM [facility] Medications Medication Brand Name Start Date [...] type / Coverage type Policy ID Covered republican ID Covered republican's relationship to millan Policy Millan Plan Information UNHC COMMUNITY PLAN MCDHMO [id number] SP [id number] Managed Care - UHC Community Plan P [id number] S [id number] Medicaid S [id number] S [id number] UHC I [id number] Self [id number] EMEDNY [id number] SP [id number] UNITED HEALTHCARE(MCAID) O [id number] S [id number] MEDICAID [id number] SP [id number] UNHC COMMUNITY PLAN MCDHMO [id number] SP [id number] Managed Care - UHC Community Plan P [id number] S [id number] Managed Care - UHC Community Plan P [id number] S [id number] Managed Care - UHC Community Plan P [id number] S [id number] Managed Care - UHC Community Plan P [id number] S [id number] Medicaid S [id number] S [id number] Managed Care - Community Plan United [employer] P [id number] S [id number] UNHC COMMUNITY PLAN MCDHMO [id number] SP [id number] Managed Care - Community Plan United Healthcare P [id number] S [id number] UNHC COMMUNITY PLAN MCDHMO [id number] SP [id number] SELF PAY ONLY [id number] SP [id number] UNHC COMMUNITY PLAN MCDHMO [id number] SP [id number] Medicaid S [id number] S [id number] Managed Care United [employer] O [id number] S [id number] Managed Care - Community Plan United [employer] P [id number] S [id number] UNITED HEALTHCARE(MCAID) O [id number] S [id number] Medicaid O [id number] S [id number] Medicaid P [id number] S [id number] UNHC COMMUNITY PLAN MCDHMO [id number] SP [id number] UNITED HEALTHCARE(MCAID) O [id number] S [id number] MEDICAID [id number] SP [id number] MEDICAID M [id number] S [id number] SELF PAY ONLY [id number] SP [id number] Managed Care - Community Plan United [employer] P [id number] S [id number] Medicaid S [id number] S [id number] MEDICAID [id number] SP [id number] Self Pay P UNAVAILABLE S UNAVAILA BLE Medicaid Dental S [id number] S [id number] [facility] COMMUNITY PLAN [facility] [id number] SP [id number] [facility] [id number] SP [id number] Managed Care - Community Plan [facility] P [id number] S [id number] Medicaid S [id number] S [id number] Managed Care - Community Plan [facility] P [id number] S [id number] MEDICAID [id number] SP [id number] Managed Care - Community Plan [facility] P [id number] S [id number] Medicaid S [id number] S [id number] Managed Care BCBS O [id number] S [id number] Medicaid S [id number] S [id number] BLUE CROSS TRAVIS PLAN [id number] SP [id number] BLUE CROSS TRAVIS PLAN [id number] SP [id number] Problems, Conditions, and Diagnoses Code Display Name Description Problem Type Effective Dates Data Source(s) [id number] Unspecified hearing loss, bilateral Unsp ecified hearing loss, bilateral [id number] Alcohol dependence, uncomplicated Alcohol dependence, uncomplicated [facility] V65.8 Person consulting for explanation of exa mination or test findings Person consulting for explanation of examination or test findings 01/26/2020 05:52:41 PM T [facility] F17.200 Nicotine dependence, unspecified, uncomp licated Nicotine dependence, unspecified, uncomplicated 01/26/2020 05:52:41 PM EDT [facility] G31.84 Mild cognitive impairment, so stated Mild cognitive di sorder 11/10/2019 11:30:48 AM [facility] D17.22 Benign lipomatous neoplasm of skin and s ubcutaneous tissue of left arm Benign lipomatous neoplasm of skin and subcutaneous tissue of left arm 09/28/2019 12:51:49 PM [facility] 268.9 vitamin D deficiency vitamin D deficiency 09/28 12:51:49 PM [facility] Results ID Date Data Source [id number] 04/26/2020 03:33:01 PM EDT [facility] Measurements & CalculationsHeight: 76 inches [...] this this time.HPI performed by: Dayna Duff SOLVENT PROCESS EXTRACTOR OPERATOR, April 26, 2020 4:08 PMTransitions of Care InboundProblem ReviewProblem List was reviewed and/or updated during this visit.Medication Reconciliation & ReviewMedication List was reviewed and/or updated during this visit, including review of any rdut-czu-rdokoua medications, herbal therapies, and/or supplements.Allergy ReviewAllergy List [...] a goal to quit.Unspecified hearing loss, bilateral (EBE12-A09.93) Assessment: Instructions: Referral made to [facility]. We will contact you to set this up.Assessed:SEIZURE DISORDER (ICD-780.39) (WGB60-I36.9) Assessment: intensive care nurse telephone number Fred Benavides # [phone] Instructions: Please continue medications as prescribed. Please [...] assistance in doing so.Nicotine dependence, unspecified, uncomplicated (MKJ17-T16.200) Assessment: Instructions: Please continue to try to cut back on your smoking with a goal to quit. Please let us know if you need assistance in doing so.Person consulting for explanation of examination or test findings (ICD-V65.8) (ATG91-V58.2) Assessment: Instructions: We have reviewed your lab results with you today. your results are unremarlable except for slightly elevated cholesterolModerate persistent asthma, uncomplicated (QTI65-E19.40) Assessment: Instructions: Refill of your inhalers sent [...] quit.Unspecified hearing loss- bilateral: Referral made to [facility]. We will contact you to set this up. Plan developed in collaboration with patient and/or familyMedications:DRISDOL 48056 UNIT ORAL CAPSULEAIRDUO RESPICLICK 113/14 113-14 MCG/ACT [...] ElectronicAllergies:No Known Allergies (updated 04/26/2020) Orders:Audiology Consult [CPT-90078] Adult - Ofc Vst, EST, Level IV [CPT-65367] Follow-Up Return to clinic: 3 months for follow up Clinical Visit Summary CompletedMedications:AIRDUO RESPICLICK 113/14 113-14 MCG/ACT INH AEPB (FLUTICASONE-SALMETEROL) 1 puff inhaled Q12H #1[Inhaler] x 2 Route:INHALATION Entered and Authorized by: Dayna FERRARI Method used: Electronically to [facility] #08* (retail) [address] [place] [address] Note to Pharmacy: Route: INH; RxID: [id number] HFA 108 (90 BASE) MCG/ACT INHALATION AEROSOL SOLUTION (ALBUTEROL SULFATE) 2 puffs every 4 hours as needed. #1[Inhalation] x 2 Route:INHALATION Entered and Authorized by: Dayna FERRARI Method used: Electronically to [facility] #08* (retail) [address] [place] [address] Note to Pharmacy: Route: INH; RxID: [id number] signed by Dayna FERRARI on 04/29/2020 at 11:36 AM Name Value Range Interpretation Code Description Data Melody rce(s) Supporting Document(s) ID Date Data Source [id number] 04/19/2020 10:48:57 AM EDT [facility] Labs In-House Blood TestsDate/Time Colle cted: April 19, 2020 10:30 AMTest Result Reference Range Normal ValueComments: taken from left ac, tolerated well.Assessment & Plan Orders:[id number] Vst-Est Level I [CPT- 39803] 96350 - Venipuncture [CPT-57888] Name Value Range Interpretation Code Description Data Melody rce(s) Supporting Document(s) ID Date Data Source [id number] 04/19/2020 10:30:00 AM EDT [facility] Name Value Range Interpretation Code Description Data Melody rce(s) Supporting Document(s) HGBA1C 5.1 % N [facility] ID Date Data Source [id number] 04/19/2020 10:30:00 AM EDT [facility] Name Value Range Interpretation Code Description Data Melody rce(s) Supporting Document(s) BG FASTING 76 mg/dL 70-100 N [facility] T4, FREE 1.01 ng/dL 0.76-1.46 N [facility] TSH 0.791 microintl units/mL 0.358-3.[address] [facility] VIT D25 TOT 23.6 ng/mL 30.0-100.0 L [facility] ID Date Data Source [id number] 04/19/2020 12:00:00 AM EDT [facility] Name Value Range Interpretation Code Description Data Melody rce(s) Supporting Document(s) HGBA1C 5.1 % [facility] ID Date Data Source [id number] 01/26/2020 05:05:58 PM EDT [facility] Measurements & CalculationsHeight: 76 inches [...] seen another healthcare provider? Yes - Has disaster recovery coordinator Fredave you seen a dentist? Yes - [facility] Intake performed by: Jesica Dixon LPN, [...] during this visit, including review of any ttyf-doi-govmmaz medications, herbal therapies, and/or supplements.Allergy ReviewAllergy List [...] & Plan Problems:Added: Nicotine dependence, unspecified, uncomplicated (EJE52-A62.200) Assessment: Instructions: Please continue to try to cut back on your smoking with a goal to quit. Please let us know if you need assistance in doing so.Person consulting for explanation of examination or test findings (ICD-V65.8) (UMN35-F27.2) Assessment: Instructions: We have reviewed your lab results with you today. your results are unremarlable except for slightly elevated cholesterol and elevated Blood sugar, indicatating prediabetes. Please try to cut back on sugars, sodium, fats and carbohydrates in your diet. Please try to avoid processed foodsAssessment not Saved Person consulting for explanation of examination or test findings (AWL78-J94.2): Patient Instructions/Care Plan: Nicotine dependence- unspecified- uncomplicated: [...] developed in collaboration with patient and/or familyMedications:DRISDOL 73271 UNIT ORAL CAPSULEAIRDUO RESPICLICK 113/14 113-14 MCG/ACT INH AEPBTYLENOL EXTRA STRENGTH 500 MG ORAL TABLETPROAIR HFA 108 (90 BASE) MCG/ACT INHALATION AEROSOL SOLUTIONBREO ELLIPTA 200-25 MCG/INH INHALATION AEROSOL POWDER BREATH ACTIVATEDB- 12 1000 MCG ORAL CAPSULEMULTIVITAMIN ADULTS ORAL TABLETLEVETIRACETAM 1000 MG ORAL TABLETAllergies:No Known Allergies (updated 01/26/2020) Orders:COMP METABOLIC PANEL [CPT-14290] CBC W/DIFF [CPT-91145] HgBA1c [CPT-86007] LIPID PANEL [CPT-82084] TSH [CPT-92138] T-4 free [CPT-32215] Vitamin D 250H Unspecified [CPT-21764] URINALYSIS [CPT-06539] VITAMIN B-12 [CPT-79596] FERRITIN [CPT-31009] Folate (Folic Acid Serum) [CPT-69715] IRON [CPT-65848] Adult - Ofc Vst, EST, Level III [CPT-56958] Follow-Up Return to clinic: 3 months for follow up Clinical Visit Summary Completed Name Value Range Interpretation Code Description Data Melody rce(s) Supporting Document(s) ID Date Data Source [id number] 01/20/2020 10:20:24 AM EDT [facility] Labs In-House Blood TestsDate/Time Colle cted: January 20, 2020 10:21 AMTest Result Reference Range Normal ValueComments: blood draw done in offe done in the right ac tolerated well Redd Mcgowan MA, January 20, 2020 10:21 AMAssessment & Plan Orders:[id number] Vst-Est Level I [CPT-12522] 87164 - Venipuncture [CPT-99107] Name Value Range Interpretation Code Description Data Melody rce(s) Supporting Document(s) ID Date Data Source [id number] 01/20/2020 10:15:00 AM EDT [facility] Name Value Range Interpretation Code Description Data Melody rce(s) Supporting Document(s) HCT 42.9 % 42.0-52.0 N [facility] HGB 14.3 g/dL 13.5-17.5 N [facility] MCH 33.3 G/DL pg 32.0-36.5 N [facility] MCHC 33.2 PG % 27.0-33.0 H [facility] PLATELETS 238 10 10*3/mm3 150-450 N [facility] RBC 4.31 10 10*6/mm3 4.30-6.10 N [facility] RDW 11.9 % 11.5-14.5 N [facility] WBC TOTAL 6.2 4.0-10.0 N [facility] ID Date Data Source [id number] 01/20/2020 10:15:00 AM EDT [facility] Name Value Range Interpretation Code Description Data Melody rce(s) Supporting Document(s) HGBA1C 5.7 % N [facility] ID Date Data Source [id number] 01/20/2020 10:15:00 AM EDT [facility] Name Value Range Interpretation Code Description Data Melody rce(s) Supporting Document(s) BG FASTING 102 mg/dL 70-100 H [facility] T4, FREE 0.97 ng/dL 0.76-1.46 N [facility] TSH 0.815 microintl units/mL 0.358-3.740 N [facility] VIT D25 TOT 11.4 ng/mL 30.0-100.0 L [facility] ID Date Data Source [id number] 12/28/2019 11:09:56 AM EDT [facility] Measurements & CalculationsHeight: 76 inches [...] seen another healthcare provider? Yes - Has intensive care nurse Have you seen a dentist? Yes - [...] only taking his seizure medications. Patient states intensive care nurse is Fred Benavides # [phone] performed by: Dayna FERRARI, December 28, 2019 [...] is? FairAssessment & Plan Problems:Assessed:SEIZURE DISORDER (ICD-780.39) (YGS94-P15.9) Assessment: Instructions: We have sent a refill to your pharmacy today. Please continue medication as prescribed. Please continue to try to cut back on alcohol intake with a goal to quit. We have made a referral to Neurology for you today. We will contact you to set this up.Health Screening (ICD-V70.0) (MVF14-N00.9) Assessment: Instructions: Fasting labs ordered for you today.Tobacco use (ICD-305.1) (VFO24-H07.0) Assessment: Instructions: Please continue to cut back [...] Known Allergies (updated 09/28/2019) Orders:COMP METABOLIC PANEL [CPT-04275] CBC W/DIFF [CPT-79092] HgBA1c [CPT-14122] LIPID PANEL [CPT-81448] TSH [CPT-20285] T-4 free [CPT-01567] Vitamin D 250H Unspecified [CPT-23720] URINALYSIS [CPT-82094] VITAMIN B-12 [CPT-51906] IRON [CPT-26286] FERRITIN [CPT-44806] Folate (Folic Acid Serum) [CPT-11216] Neurology Consult [CPT-30814] Adult - Ofc Vst, EST, Level III [CPT-76268] Follow-Up Return to clinic: 4-6 weeks for follow up. Clinical Visit Summary CompletedMedications:LEVETIRACETAM 1000 MG ORAL TABLET (LEVETIRACETAM) 1 tab po bid #60[Tablet] x 3 Entered and Authorized by: Dayna FERRARI Method used: Electronically to [facility] #08* (dszgsj) [address] [place] [address] RxID: [id number] signed by Dayna FERRARI on 01/03/2020 at 9:42 PM Name Value Range Interpretation Code Description Data Melody rce(s) Supporting Document(s) ID Date Data Source [id number] 09/28/2019 12:28:39 PM [facility] Measurements & CalculationsHeight: 76 inches (6 [...] been admitted to the hospital? No - [facility] 09/11 seizuresHave you been to an emergency [...] Illness (HPI)Telemedicine visit with patient's location at [facility] and provider's location at offsite office. Additional [...] during this visit, including review of any hvdy-mkk-qfysnpy medications, herbal therapies, and/or supplements.Allergy ReviewAllergy List [...] & Plan Problems:Added: vitamin D deficiency (ICD-268.9) (VBC21-B73.9) Assessment: Tanya. Instructions: Your prescriptions have been sent to your preferred pharmacy electronically, please take them as prescribed and report any significant side effects.Benign lipomatous neoplasm of skin and subcutaneous tissue of left arm (ICD-214.1) (DBK77-G85.22) Assessment: Likely lipoma based on appearance. Continue [...] developed in collaboration with patient and/or familyMedications:DRISDOL 37688 UNIT ORAL CAPSULEAIRDUO RESPICLICK 113/14 113-14 MCG/ACT INH AEPBTYLENOL EXTRA STRENGTH 500 MG ORAL TABLETPROAIR HFA 108 (90 BASE) MCG/ACT INHALATION AEROSOL SOLUTIONBREO ELLIPTA 200-25 MCG/INH INHALATION AEROSOL POWDER BREATH ACTIVATEDB-12 1000 MCG ORAL CAPSULEMULTIVITAMIN ADULTS ORAL TABLETLEVETIRACETAM 1000 MG ORAL TABLETMedication Changes:New Prescription:DRISDOL 71302 UNIT ORAL CAPSULE-Take 1 capsule weekly Qty: 4[Capsule] Refills: 2 Method: ElectronicAllergies:No Known Allergies (update d 03/19/2018) Information on new prescriptions provided to patient.Orders:Office Visit - Established, Level 3 [CPT-40148BZ] Follow-Up Return to clinic: 3 months with Dayna for follow up Clinical Visit Summary CompletedMedications:DRISDOL 42049 UNIT ORAL CAPSULE (ERGOCALCIFEROL) Take 1 capsule weekly #4[Capsule] x 2 Route:ORAL Entered and Authorized by: Nava ADAME Method used: Electronically to [facility]* (retail) [address] [place] [address] Fax: Note to Pharmacy: Route: ORAL; RxID: [id number] signed by Nava ADAME on 09/28/2019 at 12:51 PM Name Value Range Interpretation Code Description Data Melody rce(s) Supporting Document(s) ID Date Data Source [id number] 08/25/2019 10:18:06 AM [facility] Labs In-House Blood TestsDate/Time Colle cted: August 25, 2019 10:18 AMTest Result Reference Range Normal ValueComments: blood draw done in offcie done in the left ac tolerated well Redd Mcgowan PAM, August 25, 2019 10:18 AMAssessment & Plan Orders:[id number] Vst-Est Level I [CPT-77283] 04762 - Venipuncture [CPT-64148] Name Value Range Interpretation Code Description Data Melody rce(s) Supporting Document(s) ID Date Data Source [id number] 08/25/2019 09:50:00 AM EST [facility] Name Value Range Interpretation Code Description Data Melody rce(s) Supporting Document(s) HGBA1C 5.6 % N [facility] ID Date Data Source [id number] 08/25/2019 09:50:00 AM EST [facility] Name Value Range Interpretation Code Description Data Melody rce(s) Supporting Document(s) BG FASTING 89 mg/dL 70-100 N [facility] TSH 0.721 microintl units/mL 0.358-3.740 N [facility] VIT D25 TOT 13.4 ng/mL 30.0-100.0 L [facility] ID Date Data Source [id number] 08/25/2019 09:50:00 AM EST [facility] Name Value Range Interpretation Code Description Data Melody rce(s) Supporting Document(s) HCT 44.6 % 42.0-52.0 N [facility] HGB 14.4 g/dL 13.5-17.5 N [facility] MCH 32.3 G/DL pg 32.0-36.5 [facility] MCHC 32.8 PG % 27.0-33.0 N [facility] PLATELETS 332 10 10*3/mm3 150-450 N [facility] RBC 4.39 10 10*6/mm3 4.30-6.10 N [facility] RDW 12.4 % 11.5-14.5 N [facility] WBC TOTAL 6.0 4.0-10.0 N [facility] Procedure
[2020-09-22] MEDS: LACTULOSE 20 GM/30 ML SYRUP UD PO SCH (23:06)
[2020-09-22 23:43] LABS: CALCIUM LEVEL 6.6 MG/DL (8.5-10.1); CREATININE FOR GFR 1.52 MG/DL (0.70-1.30); GLOMERULAR FILTRATION RATE 53.8 (>60); POTASSIUM SERUM 3.7 MEQ/L (3.5-5.1)
[2020-09-22 23:43] LABS: AMPHETAMINES LEVEL URINE NEGATIVE (NEGATIVE); BARBITURATES URINE NEGATIVE (NEGATIVE); BENZODIAZEPINES URINE POSITIVE (NEGATIVE); CANNABINOIDS URINE POSITIVE (NEGATIVE); COCAINE METABOLITE URINE NEGATIVE (NEGATIVE); METHADONE URINE NEGATIVE (NEGATIVE); OPIATES URINE NEGATIVE (NEGATIVE); PHENCYCLIDINE URINE NEGATIVE (NEGATIVE)
[2020-09-23] VITALS (36 sets, daily range): BP systolic 99–162; BP diastolic 64–98; O2SAT 100
--- NOTE | 2020-09-23 00:06 | HPE ---
HISTORY AND PHYSICAL/CRITICAL CARE ADMIT NOTE DATE OF VISIT: 09/22/2020 (start time 2129 and stop time 2215). HISTORY OF PRESENT ILLNESS: I was called to the Emergency Room to attend Robinson Bhatti. Patient is examined and the chart reviewed, and I spoke at lengthy with the ER Room staff. In essence, this is a 40-year-old gentleman with longstanding previous history of alcohol abuse. He was found down by friends. EMS was called and he was felt to be apneic and pulseless. CPR was started, one round of EPI with return of a sinus tachycardia. He was ventilated with a bag valve mask. Upon arrival to the ER, he was still essentially apneic and was intubated. He had what was felt to be some seizure activity. Narcan had been given in the field with no improvement. On arrival here, first blood gas showed him to be profoundly acidotic with a pH of 6.918, pCO2 of 92.0 and pO2 of 242. CT scan of the brain showed some chronic changes, what was felt to be maybe some subarachnoid blood is unchanged from a film from July. C-spine was cleared by Dr. Saba. Chest x-ray shows OG and endotracheal tube in good position with no infiltrates or pneumothorax. PHYSICAL EXAMINATION: On exam, initially he had very pinpoint pupils and what was felt to still be some seizure activity. He was loaded with Keppra, treated with Propofol and after a conversation with neurology from Dr. Saba to the neurologist, he was then loaded with Dilantin. Currently, blood pressure 119/74, heart rate 110 to 115 with a sinus mechanism. He does over breathe the ventilator. He is afebrile. HEENT shows the endotracheal and orogastric tube. He has a disconjugate gaze and pupils are pinpoint. No corneals at this point. He does not significantly respond to painful stimuli, but does over breathe the ventilator. Chest is clear to both auscultation and percussion, expansion is symmetric. Cardiac exam is mildly tachycardic, regular. Peripheral pulses palpable, no edema. Abdomen is soft, there are active bowel sounds. No obvious organomegaly or masses. Extremities without cyanosis or clubbing. Neurologically as outlined above. LABORATORY DATA: Other laboratories show a repeat blood gas done on assist control of 14, tidal volume 450, PEEP of 5, FIO2 60%, pO2 100%, pH 7.192, pCO2 60.5 and pO2 454. White blood cell count 15.4, hemoglobin 15.4, platelet count 317,000. Differential shows 59% segs, 26% lymphs and no bands. Sodium 136, potassium 6.5, chloride 99, CO2 20, BUN 17, creatinine 2.1, glucose 106. Osmolality increased to 306. First lactic acid 14.6, repeat is pending. Total bilirubin only 0.5. AST 129, ALT 54, alkaline phosphatase 155, but has an ammonia of 317. CPK 489. Coags are unremarkable. Tox screen shows normal salicylate. Acetaminophen below 2. ETOH shows none. Keppra level is pending. Urine tox screen is also pending. He did receive benzodiazepines from the ER. IMPRESSION: 1. Respiratory arrest with reported cardiac arrest; now requiring mechanical ventilator support. 2. Altered mental status with suspected seizures. 3. History of alcohol use; question alcohol withdrawal/DTs. 4. Markedly elevated ammonia level. 5. Seizures. 6. Acute kidney injury. 7. Hyperkalemia. 8. Combined respiratory and metabolic acidosis. PLAN: At this point, he will be admitted to the Intensive Care Unit. He will be aggressively hydrated. We will follow his electrolytes. My suspicion is that his hyperkalemia will correct with correction of his acidosis and rehydration. His degree of elevated ammonia is somewhat puzzling and maybe on the basis of chronic alcohol use, but of interest is his coags and other liver function studies are normal. Certainly we must always entertain the possibility of a toxin ingestion. He will be treated with lactulose via the OG tube. I am quite concerned about his overall mental status. Certainly this still may be toxin and I am concerned about ongoing seizures, especially in view of his exam and his pinpoint pupils. We will continue the Propofol, Keppra and Dilantin. CT scan of his brain did not show significant edema, but we will likely repeat this tomorrow and probably formally have neurology see him and obtain an EEG, but we will see what his exam shows once we correct this acid based disorder. He did have some coffee-ground drainage from his OG tube. Ulcer and DVT prophylaxis are in place. At this point, I do not believe he has aspirated, but I have a low threshold for adding antimicrobials. He is a full code. There is no immediate family and we have no contact information for next of kin. We will proceed as outlined above. Overall, he remains quite critically ill. A total of 46 minutes of critical care time with him at the bedside, not including procedures. JOURDAN
[2020-09-23] MEDS: propofoL 1,000 MG in IV 1 EA IV SCH ×5 (00:30→14:45)
[2020-09-23] MEDS: IPRATROPIUM 0.5MG/ALBUTEROL 2.5MG INH SOL UD 3ML (DUONEB) NEB SCH ×6 (00:36→20:30)
[2020-09-23] MEDS: KCL 20MEQ IN D5/0.45NS 1000ML 1,000 ML IV SCH ×4 (00:48→22:56)
[2020-09-23] MEDS: MIDAZOLAM INJ 2MG/2ML VIAL (J2250 PER 1MG) IV PRN ×4 (02:10→15:25)
[2020-09-23 02:14] LABS: ABG BASE EXCESS -8.7 (-2.0-2.0); ABG HCO3 15.9 MEQ/L (22.0-26.0); ABG O2 SATURATION 98.9 % (95.0-99.0); ABG PARTIAL PRESSURE O2 148.2 mmHg (75.0-100.0); ABG STANDARD HCO3 17.7 MEQ/L (22.0-26.0); ABG TOTAL CO2 16.9 MEQ/L (22.0-29.0); ABG pH (ARTERIAL) 7.328 UNITS (7.350-7.450)
[2020-09-23 05:29] LABS: BASO # 0.1 10^3/uL (0.0-0.2); BASO % 0.3 % (0.0-1.0); HEMATOCRIT 44.2 % (42.0-52.0); HEMOGLOBIN 14.8 g/dl (13.5-17.5); LYMPH # 0.5 10^3/uL (1.5-5.0); LYMPH % 2.2 % (24.0-44.0); MEAN CORPUSCULAR HEMOGLOBIN 33.3 pg (27.0-33.0); MEAN CORPUSCULAR HGB CONC 33.5 g/dl (32.0-36.5); MEAN CORPUSCULAR VOLUME 99.5 fl (80.0-96.0); MONO # 0.9 10^3/uL (0.0-0.8); MONO % 4.1 % (0.0-5.0); NEUTROPHILS # 20.2 10^3/uL (1.5-8.5); NEUTROPHILS % 92.8 % (36.0-66.0); PLATELET COUNT, AUTOMATED 230 10^3/uL (150-450); RED BLOOD COUNT 4.44 10^6/uL (4.30-6.10); WHITE BLOOD COUNT 21.8 10^3/uL (4.0-10.0)
[2020-09-23 06:03] LABS: ABG BASE EXCESS -6.2 (-2.0-2.0); ABG HCO3 17.2 MEQ/L (22.0-26.0); ABG O2 SATURATION 96.4 % (95.0-99.0); ABG PARTIAL PRESSURE CO2 28.9 mmHg (35.0-45.0); ABG PARTIAL PRESSURE O2 82.3 mmHg (75.0-100.0); ABG STANDARD HCO3 19.4 MEQ/L (22.0-26.0); ABG TOTAL CO2 18.1 MEQ/L (22.0-29.0); ABG pH (ARTERIAL) 7.392 UNITS (7.350-7.450)
[2020-09-23] MEDS: LACTULOSE 20 GM/30 ML SYRUP UD PO SCH (06:13)
[2020-09-23] MEDS: HEPARIN SOD (PORCINE) 5000UNITS/ML 1ML VIAL/SYRINGE SQ SCH ×3 (06:13→22:56)
[2020-09-23 07:44] LABS: ALBUMIN 3.5 GM/DL (3.2-5.2); BILIRUBIN,TOTAL 0.4 MG/DL (0.2-1.0); CALCIUM LEVEL 6.4 MG/DL (8.5-10.1); CREATININE FOR GFR 1.57 MG/DL (0.70-1.30); GLOMERULAR FILTRATION RATE 51.8 (>60); PHENYTOIN (DILANTIN) 11.1 UG/ML (10.0-20.0); PHOSPHORUS LEVEL 3.2 MG/DL (2.5-4.9); POTASSIUM SERUM 3.4 MEQ/L (3.5-5.1); TOTAL PROTEIN 6.1 GM/DL (6.4-8.2)
[2020-09-23 07:49] LABS: CK-MB VALUE MASS 594.8 NG/ML (<3.6); MB/CK RELATIVE INDEX 0.72 (< OR =4); TROPONIN I 0.8 NG/ML (< 0.10)
--- NOTE | 2020-09-23 08:14 | REP ---
INDICATION: Resp Failure COMPARISON: 09/22/2020 TECHNIQUE: Portable AP view of the chest FINDINGS: Endotracheal tube 3.5 cm above the inessa. Nasogastric tube courses below the left hemidiaphragm. Bilateral perihilar opacities are suspected. No consolidation. No effusion. No pneumothorax. Cardiac silhouette is normal. Skeletal structures are intact. IMPRESSION: Bilateral perihilar infiltrates (right greater than left) suggested. <Electronically signed by Roger Weber > 09/23/20 0803
[2020-09-23] MEDS: PANTOPRAZOLE 40MG VIAL (C9113 PER 1) IV SCH (08:47)
[2020-09-23] MEDS: CHLORHEXIDINE GLUCONATE 0.12 % 15ML UDC (PERIDEX ORAL RINSE) MT SCH ×2 (08:47→21:09)
--- NOTE | 2020-09-23 08:51 | ECGEPIP ---
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
[2020-09-23] MEDS ORDERED: PHENYTOIN 100 MG/2 ML VIAL (J1165) IV SCH (09:00)
[2020-09-23] MEDS ORDERED: SODIUM CHLORIDE 0.9% 1000ML IV ONE (09:45)
[2020-09-23] MEDS: NS 1,000 ML IV SCH ×2 (10:00→23:03)
--- NOTE | 2020-09-23 10:25 | CCN ---
CRITICAL CARE NOTE DATE: 09/23/2020 START TIME: 839 STOP TIME: 926 SUBJECTIVE: I again attended Robinson Bhatti here in the intensive care unit. The patient has been examined, his chart reviewed, and I spoke at length with the nurse at the bedside. OBJECTIVE: VITAL SIGNS: T-max overnight 98.2, blood pressure 99 to 110 systolic, respiratory rate generally in the 20s without accessory muscle use and heart rates generally in the 90s to the low 100s with a sinus mechanism. INTAKE AND OUTPUT: He still has significant diarrhea, but was on lactulose, which has been stopped. Ianoadrt-cr-unratmpc 1641 mL in with 4225 out. GENERAL: He is essentially unresponsive, but is on sedatives. HEENT: Pupils remain pinpoint. He has much less of a disconjugate gaze this morning. Membranes are moist. Oral endotracheal and orogastric tube in good position. NECK: No obvious JVD. Trachea is in the midline. CHEST: Fairly clear with both auscultation and percussion. Expansion is symmetric and no significant focal adventitious breath sounds are identified. CARDIAC: Regular. Peripheral edema pulses palpable. No obvious edema. ABDOMEN: Soft. There are active bowel sounds. No convincing organomegaly or masses. EXTREMITIES: Without cyanosis or clubbing. NEUROLOGIC: As outlined above. MEDICATIONS: He remains on propofol, Keppra, and Dilantin. Laboratory levels are pending. LABORATORY DATA: Most recent laboratories show a white blood cell count of 21.8, hemoglobin 14.8, platelet count 230,000, segs 92.8%, no bands. Sodium 138, K 3.4, chloride 106, CO2 of 21, BUN 23, creatinine 1.57, glucose 224. His repeat lactate last night was 2.6 and repeat is pending. AST 1044, ALT 228, alkaline phosphatase 126. Ammonia is down to 37. LDH 1622. Total CK 81,809. Troponin elevated at 0.8. INR 1.08. Urine tox screen is now back and positive only for cannabinoids and benzodiazepines. He had been given some in the ER. Dilantin level is now back and is 11.1. Blood gas done on a PRVC rate of 15, tidal volume 420, PEEP of 5, and FiO2 of 21% has a pH of 7.392, pCO2 of 28.9, pO2 of 82.3. IMAGING: Chest x-ray shows endotracheal tube in good position. I do believe there is the beginnings of a perihilar infiltrate on the right worrisome for aspiration. OG tube in good position. ASSESSMENT: The most pressing problems requiring my presence at the bedside 1. Altered mental status with seizures. 2. Status post cardiac arrest. 3. Respiratory failure requiring mechanical ventilatory support. 4. Rhabdomyolysis. 5. Acute kidney injury. 6. History of subarachnoid hemorrhage with no acute findings on CT scan. 7. History of alcohol abuse. 8. Aspiration pneumonia. 9. Abnormal liver functions suspect secondary to cardiac arrest. 10. Elevated troponin felt to be secondary to cardiac arrest. At this point, he remains quite critically ill. We will change his IV fluids in view of his worsening renal failure and his rhabdomyolysis. He is making reasonable urine. His pneumonia is much improved and we will stop his lactulose. He was having diarrhea already in the ER last evening. He has only received two doses of lactulose. Electrolytes are being repleted. Given his presentation and his abnormal troponin, we will recheck an ECG and get an echocardiogram this morning. We have spoken with Dr. Harris from neurology. He has agreed to follow him at least from afor. He made some suggestions regarding his antiepileptic drugs. We will repeat his CT scan likely tomorrow. We will get an EEG today. He remains on benzodiazepines in the form of Versed and is also on propofol of some of this reflected alcohol withdrawal. There were no acute findings regarding his previous subarachnoid findings compared to a scan from July; so, I do not believe that played any role in his presentation. He remains on ulcer and DVT prophylaxis. In view of his elevated white count and his chest x-ray, likely he had an aspiration event. The chart lists an allergy to CEFTRIAXONE and therefore, we will use quinolone. I am quite concerned about a significant anoxic injury, although if this is persistent seizures that would be a better prognostic finding. Likely we will begin enteral feeds in the next 24-48 hours. At this point, he remains quite critically ill. Prognosis remains guarded in view of the multisystem organ failure that we are encountering. I left the bedside at 0927 hours. CRITICAL CARE TIME: 47 minutes of critical care time at the bedside not including procedures.
[2020-09-23] MEDS: levETIRAcetam INJection 1,000 MG in D5W 100 ML IV SCH ×2 (10:57→22:53)
[2020-09-23] MEDS: LevoFLOXacin IV 500 MG in IV 1 EA IV SCH (11:00)
[2020-09-23] MEDS ORDERED: NS 1,000 ML IV ONE (11:00)
[2020-09-23 15:53] LABS: ALBUMIN 3.2 GM/DL (3.2-5.2); BILIRUBIN,TOTAL 0.4 MG/DL (0.2-1.0); CALCIUM LEVEL 6.8 MG/DL (8.5-10.1); CK-MB VALUE MASS 675.1 NG/ML (<3.6); CREATININE FOR GFR 1.5 MG/DL (0.70-1.30); GLOMERULAR FILTRATION RATE 54.6 (>60); PHOSPHORUS LEVEL 3.1 MG/DL (2.5-4.9); POTASSIUM SERUM 3.7 MEQ/L (3.5-5.1); TOTAL PROTEIN 5.8 GM/DL (6.4-8.2); TROPONIN I 0.58 NG/ML (< 0.10)
[2020-09-23 16:05] LABS: MB/CK RELATIVE INDEX 0.54 (< OR =4)
[2020-09-23] MEDS: ACETAMINOPHEN 325 MG/10.15 ML UDC GT PRN ×2 (17:16→21:31)
[2020-09-23] MEDS: PHENYTOIN 100 MG/2 ML VIAL (J1165) IV SCH (18:27)
[2020-09-23] MEDS: SODIUM BICARBONATE 100 MEQ in D5W 1,000 ML IV SCH (19:00)
[2020-09-23] MEDS: propofoL 2,400 MG in IV 1 EA IV SCH (19:47)
[2020-09-23 21:28] LABS: ALBUMIN 3.2 GM/DL (3.2-5.2); BILIRUBIN,TOTAL 0.5 MG/DL (0.2-1.0); CALCIUM LEVEL 6.4 MG/DL (8.5-10.1); CREATININE FOR GFR 1.75 MG/DL (0.70-1.30); GLOMERULAR FILTRATION RATE 45.7 (>60); PHOSPHORUS LEVEL 2.9 MG/DL (2.5-4.9); POTASSIUM SERUM 4.3 MEQ/L (3.5-5.1); TOTAL PROTEIN 5.7 GM/DL (6.4-8.2)
[2020-09-24] VITALS (51 sets, daily range): BP systolic 130–208; BP diastolic 93–114
[2020-09-24] MEDS: IPRATROPIUM 0.5MG/ALBUTEROL 2.5MG INH SOL UD 3ML (DUONEB) NEB SCH ×6 (00:31→20:47)
[2020-09-24] MEDS: PHENYTOIN 100 MG/2 ML VIAL (J1165) IV SCH ×3 (01:13→17:58)
[2020-09-24 05:32] LABS: BASO % 0.2 % (0.0-1.0); HEMATOCRIT 46.1 % (42.0-52.0); HEMOGLOBIN 15.3 g/dl (13.5-17.5); LYMPH # 0.9 10^3/uL (1.5-5.0); LYMPH % 5.3 % (24.0-44.0); MEAN CORPUSCULAR HEMOGLOBIN 33.2 pg (27.0-33.0); MEAN CORPUSCULAR HGB CONC 33.2 g/dl (32.0-36.5); MONO # 0.9 10^3/uL (0.0-0.8); MONO % 5.2 % (0.0-5.0); NEUTROPHILS # 14.7 10^3/uL (1.5-8.5); NEUTROPHILS % 86.3 % (36.0-66.0); PLATELET COUNT, AUTOMATED 155 10^3/uL (150-450); RED BLOOD COUNT 4.61 10^6/uL (4.30-6.10)
[2020-09-24 05:50] LABS: ABG BASE EXCESS -3.4 (-2.0-2.0); ABG HCO3 20.4 MEQ/L (22.0-26.0); ABG O2 SATURATION 97.1 % (95.0-99.0); ABG PARTIAL PRESSURE CO2 33.3 mmHg (35.0-45.0); ABG PARTIAL PRESSURE O2 83.2 mmHg (75.0-100.0); ABG STANDARD HCO3 21.6 MEQ/L (22.0-26.0); ABG TOTAL CO2 21.4 MEQ/L (22.0-29.0); ABG pH (ARTERIAL) 7.404 UNITS (7.350-7.450)
[2020-09-24] MEDS: SODIUM BICARBONATE 100 MEQ in D5W 1,000 ML IV SCH (05:58)
[2020-09-24] MEDS: KCL 20MEQ IN D5/0.45NS 1000ML 1,000 ML IV SCH ×2 (05:58→09:20)
[2020-09-24] MEDS: HEPARIN SOD (PORCINE) 5000UNITS/ML 1ML VIAL/SYRINGE SQ SCH ×3 (05:58→21:54)
[2020-09-24] MEDS: MIDAZOLAM INJ 2MG/2ML VIAL (J2250 PER 1MG) IV PRN ×2 (06:17→10:07)
[2020-09-24] MEDS: propofoL 2,400 MG in IV 1 EA IV SCH (06:34)
[2020-09-24 08:43] LABS: BILIRUBIN,TOTAL 0.6 MG/DL (0.2-1.0); CREATININE FOR GFR 2.08 MG/DL (0.70-1.30); GLOMERULAR FILTRATION RATE 37.5 (>60); PHOSPHORUS LEVEL 3.9 MG/DL (2.5-4.9); POTASSIUM SERUM 4.2 MEQ/L (3.5-5.1); TOTAL PROTEIN 6.1 GM/DL (6.4-8.2)
--- NOTE | 2020-09-24 09:30 | REP ---
INDICATION: Resp Failure. COMPARISON: 09/23/2020. TECHNIQUE: SINGLE PORTABLE AP VIEW OF THE CHEST WAS PERFORMED. FINDINGS: Endotracheal tube is unchanged in position. Nasogastric tube traverses into the stomach. The heart is not enlarged. There is mild calcification of the thoracic aorta. The mediastinal silhouette is unchanged. Lungs remain clear. IMPRESSION: Stable exam. <Electronically signed by Deepak Bates > 09/24/20 0927
[2020-09-24 09:45] LABS: MAGNESIUM LEVEL 2.3 MG/DL (1.8-2.4)
[2020-09-24] MEDS: hydrALAZINE 20MG/ML 1ML VIAL (J0360 PER 20MG) IV SCH ×2 (09:53→18:29)
[2020-09-24] MEDS: CHLORHEXIDINE GLUCONATE 0.12 % 15ML UDC (PERIDEX ORAL RINSE) MT SCH ×2 (09:53→21:54)
[2020-09-24] MEDS: PANTOPRAZOLE 40MG VIAL (C9113 PER 1) IV SCH (09:54)
[2020-09-24] MEDS ORDERED: CALCIUM GLUCONATE 1,000 MG in D5W MINI-BAG PLUS 100 ML IV ONE (10:00)
[2020-09-24] MEDS: ACETAMINOPHEN 325 MG/10.15 ML UDC GT PRN (10:19)
[2020-09-24] MEDS ORDERED: MORPHINE 2 MG/ML 1ML VIAL (J2270) IV PRN (10:45)
[2020-09-24] MEDS: LevoFLOXacin IV 500 MG in IV 1 EA IV SCH (11:18)
[2020-09-24] MEDS: levETIRAcetam INJection 1,000 MG in D5W 100 ML IV SCH ×2 (11:18→22:14)
[2020-09-24] MEDS ORDERED: REFRIGERATOR IV KEYS XX PRN (11:45)
--- NOTE | 2020-09-24 13:14 | REP ---
INDICATION: AMS. COMPARISON: 09/22/2020. TECHNIQUE: CT BRAIN PERFORMED IN THE AXIAL PLANE. CORONAL RECONSTRUCTION IMAGES ARE PERFORMED. FINDINGS: There is acute diffuse brain edema, more so on the right than on the left. There is hypodensity involving the basal ganglia bilaterally. Diffuse patchy hypodensity is seen in the right cerebral hemisphere. There is mass effect and attenuation of the right lateral ventricle. There is no significant midline shift. Sulci are diffusely effaced. There is loss of bates-white differentiation. There is no acute intracranial hemorrhage or extra-axial fluid collection. Inferior right mastoid air cells are again noted to be opacified. There is very small amount of fluid and mucosal thickening in the left sphenoid sinus. IMPRESSION: Diffuse brain edema greater on the right than on the left. Diffuse hypodensity involving the basal ganglia bilaterally. Diffuse patchy hypodensity in the right cerebral hemisphere. Attenuation of right lateral ventricle. Findings are compatible with diffuse hypoxic ischemic encephalopathy. No acute hemorrhage. <Electronically signed by Deepak Bates > 09/24/20 1311
[2020-09-24] MEDS: MIDAZOLAM HCL 100 MG in D5W 80 ML IV SCH (13:30)
[2020-09-24 15:28] LABS: ALBUMIN 3.1 GM/DL (3.2-5.2); BILIRUBIN,TOTAL 0.6 MG/DL (0.2-1.0); CALCIUM LEVEL 7.2 MG/DL (8.5-10.1); CREATININE FOR GFR 2.33 MG/DL (0.70-1.30); GLOMERULAR FILTRATION RATE 32.9 (>60); PHOSPHORUS LEVEL 5.3 MG/DL (2.5-4.9); POTASSIUM SERUM 4.8 MEQ/L (3.5-5.1); TOTAL PROTEIN 5.8 GM/DL (6.4-8.2)
[2020-09-24] MEDS: SODIUM BICARBONATE 75 MEQ in NS 0.45% 1,000 ML IV SCH ×2 (15:39→21:54)
[2020-09-25] VITALS (73 sets, daily range): BP systolic 73–143; BP diastolic 46–101; O2SAT 98
[2020-09-25] MEDS: IPRATROPIUM 0.5MG/ALBUTEROL 2.5MG INH SOL UD 3ML (DUONEB) NEB SCH ×6 (00:17→19:59)
[2020-09-25] MEDS: hydrALAZINE 20MG/ML 1ML VIAL (J0360 PER 20MG) IV SCH ×2 (01:16→09:15)
[2020-09-25] MEDS: PHENYTOIN 100 MG/2 ML VIAL (J1165) IV SCH ×3 (01:19→17:13)
[2020-09-25 05:50] LABS: ABG BASE EXCESS -1.5 (-2.0-2.0); ABG HCO3 26.3 MEQ/L (22.0-26.0); ABG O2 SATURATION 95.9 % (95.0-99.0); ABG PARTIAL PRESSURE CO2 56.5 mmHg (35.0-45.0); ABG PARTIAL PRESSURE O2 80.1 mmHg (75.0-100.0); ABG STANDARD HCO3 23.2 MEQ/L (22.0-26.0); ABG pH (ARTERIAL) 7.285 UNITS (7.350-7.450)
[2020-09-25] MEDS: HEPARIN SOD (PORCINE) 5000UNITS/ML 1ML VIAL/SYRINGE SQ SCH ×3 (05:55→21:53)
[2020-09-25 06:15] LABS: BASO # 0.1 10^3/uL (0.0-0.2); BASO % 0.3 % (0.0-1.0); EOS % 0.1 % (0.0-3.0); HEMATOCRIT 48.5 % (42.0-52.0); HEMOGLOBIN 15.5 g/dl (13.5-17.5); LYMPH # 0.7 10^3/uL (1.5-5.0); LYMPH % 3.8 % (24.0-44.0); MEAN CORPUSCULAR HEMOGLOBIN 32.6 pg (27.0-33.0); MEAN CORPUSCULAR VOLUME 101.9 fl (80.0-96.0); MONO # 1.1 10^3/uL (0.0-0.8); MONO % 6.6 % (0.0-5.0); NEUTROPHILS # 14.8 10^3/uL (1.5-8.5); PLATELET COUNT, AUTOMATED 124 10^3/uL (150-450); RED BLOOD COUNT 4.76 10^6/uL (4.30-6.10); WHITE BLOOD COUNT 17.4 10^3/uL (4.0-10.0)
[2020-09-25] MEDS: SODIUM BICARBONATE 75 MEQ in NS 0.45% 1,000 ML IV SCH ×2 (08:43→19:33)
[2020-09-25] MEDS: PANTOPRAZOLE 40MG VIAL (C9113 PER 1) IV SCH (08:43)
[2020-09-25] MEDS ORDERED: METOPROLOL TART 25 MG TABLET PO SCH (09:00)
[2020-09-25] MEDS ORDERED: METOPROLOL SUCC *XL* 25MG TAB (TopROL *XL*) PO SCH (09:00)
[2020-09-25] MEDS: CHLORHEXIDINE GLUCONATE 0.12 % 15ML UDC (PERIDEX ORAL RINSE) MT SCH ×2 (09:13→21:52)
[2020-09-25] MEDS: LevoFLOXacin IV 500 MG in IV 1 EA IV SCH (09:25)
--- NOTE | 2020-09-25 09:27 | REP ---
INDICATION: Resp Failure. COMPARISON: 09/24/2020. TECHNIQUE: SINGLE PORTABLE AP VIEW OF THE CHEST WAS PERFORMED. FINDINGS: The lungs are unchanged in appearance. The heart is normal in size. The mediastinal silhouette is unchanged. Endotracheal tube is unchanged in position. Nasogastric tube is present. The side port is now approximately 12 cm above the gastroesophageal junction. IMPRESSION: Nasogastric tube side port approximately 12 cm above the gastroesophageal junction. Otherwise no change. <Electronically signed by Deepak Bates > 09/25/20 0923
[2020-09-25 10:16] LABS: ALBUMIN 3.1 GM/DL (3.2-5.2); BILIRUBIN,TOTAL 0.6 MG/DL (0.2-1.0); CALCIUM LEVEL 7.3 MG/DL (8.5-10.1); CREATININE FOR GFR 2.35 MG/DL (0.70-1.30); GLOMERULAR FILTRATION RATE 32.5 (>60); PHOSPHORUS LEVEL 6.1 MG/DL (2.5-4.9); POTASSIUM SERUM 5.5 MEQ/L (3.5-5.1)
[2020-09-25 11:05] LABS: ABG BASE EXCESS -0.5 (-2.0-2.0); ABG HCO3 26.4 MEQ/L (22.0-26.0); ABG O2 SATURATION 94.9 % (95.0-99.0); ABG PARTIAL PRESSURE CO2 52.2 mmHg (35.0-45.0); ABG PARTIAL PRESSURE O2 73.7 mmHg (75.0-100.0); ABG pH (ARTERIAL) 7.322 UNITS (7.350-7.450)
--- NOTE | 2020-09-25 11:13 | CR ---
NEPHROLOGY CONSULTATION DATE: 09/24/2020 REQUESTING PHYSICIAN: Dr. Bhavesh Dash CONSULTING PHYSICIAN: Dr. Luiz oCdy REASON FOR CONSULTATION: Management of acute renal failure, rhabdomyolysis and hypertension. CHIEF COMPLAINT: The patient was brought to the Emergency Room yesterday after getting CPR in the field. HISTORY OF PRESENT ILLNESS: Note: History was obtained from the patient's chart and from the Pulmonary Critical Care Team. The patient is intubated and unable to provide any history at this time. Robinson Purcell is a 40-year-old male with a past medical history of alcohol abuse and some substance abuse. He was found down by his friends. EMS was called. He was found to be apneic and pulseless. CPR was done and one round of Epinephrine was given with a return of spontaneous circulation. He was in sinus tachycardia. He was intubated in the Emergency Room. He had some self seizure like activity as well. The patient was profoundly acidotic with a pH of 6.9 on arrival. He was brought to the ICU. He was started on aggressive IV fluid hydration and bicarbonate containing fluids. CPK showed on arrival that was 124,000. His creatinine on arrival in the Emergency Room was 2.1. His lactic acid was 14. With aggressive fluid hydration his renal function initially improved with a creatinine of 1.5, but then is started getting worse. His creatinine bumped up to 2. His blood pressures were going up. Nephrology Service was called to further help in the management of this patient. The patient needed my immediate attention. I saw and evaluated the patient at the bedside in the ICU. He was intubated and nurses were getting ready to put him under the cooling blanket because of hyperthermia. By the time I saw the patient he was still non oliguric. He was making urine at more than 100 mL an hour. PAST MEDICAL HISTORY: The patient's past medical history is unknown but apparently he has a history of alcohol abuse. PAST SURGICAL HISTORY: The patient's past surgical history is unknown and unable to obtain. ALLERGIES: He is allergic to: 1. Ceftriaxone. 2. Haldol. 3. Lorazepam. FAMILY HISTORY: The patient's family history is unknown. SOCIAL HISTORY: The patient apparently has a history of alcohol abuse. And looking at his urine toxicology, he has positive benzodiazepines and cannabinoids, so likely he uses recreational. REVIEW OF SYSTEMS: The patient's review of systems was unable to be obtained. PHYSICAL EXAMINATION: GENERAL APPEARANCE: The patient is intubated. He was getting sedation with IV Propofol. HEENT: Pupils are pinpoint and not reactive to light. He has an endotracheal tube and orogastric tube. NECK: Supple. He had jugular venous distention. CARDIOVASCULAR: S1, S2, tachycardia. No edema of the bilateral lower extremities. RESPIRATORY: Chest is clear to auscultation bilaterally. Bilaterally currently no rales or rhonchi. ABDOMEN: Soft, positive bowel sounds, nontender, no organomegaly. GENITOURINARY: He has an indwelling Mueller catheter. MUSCULOSKELETAL: No clubbing or cyanosis. Pulses are 2+. MANAGER WORKERS COMPENSATION: The patient's Propofol was just stopped and he had pinpoint pupils and no response to painful stimuli. LAB REVIEW: CBC showed a WBC of 17, hemoglobin 15.3, platelets of 155. INR was one on arrival. ABG done today morning showed a pH of 7.4, pCO2 of 33, pO2 of 83, bicarbonate is 20, O2 sat is 97%. BMP showed sodium of 136, potassium 4.8, chloride 102, bicarbonate 25, BUN 19, creatinine is 2.3. Calcium is 7.2, phosphorous is 5.3. Total bilirubin is 0.6. AST 1743, ALT is 591. Alkaline phosphatase is 115. Total creatine kinase was 124,400 on arrival and repeat one in the afternoon was 88,358. Albumin is 3.1. Urine toxicology showed positive benzodiazepines and cannabinoids. Microbiology: Blood cultures are negative so far. Respiratory viral panel is negative. IMAGING: Chest x-ray was done today which showed a stable exam. A CT of the head was done which showed diffuse brain edema, greater on the right than on the left, diffuse hypodensity involving the basal ganglia bilaterally, diffuse patchy hypodensity in the right cerebral hemisphere, attenuation of the right lateral ventricle. Findings are compatible with diffuse hypoxic ischemic encephalopathy. CURRENT INPATIENT MEDICATIONS: The patient's medications were all reviewed by myself. His Propofol was stopped. He has been switched to Versed now. He is getting Keppra one gram IV q. 12 hourly. He is on Levaquin 500 mg q. 24. The patient was getting normal saline at 50 mL an hour, sodium bicarbonate drip at 100 mL an hour and KCL 20 mEq and half normal saline at 150 mL an hour, Tylenol p.r.n., DuoNebs p.r.n., Heparin 5,000 subcutaneously q. 8 hourly, Hydralazine 5 mg IV q. 8 hourly p.r.n., Protonix 40 mg IV daily, and Dilantin 100 mg IV q. 8 hourly. ASSESSMENT AND PLAN: 1. Acute non oliguric renal failure it is multifactorial. The patient has acute rhabdomyolysis. He also had cardiac arrest which can cause ATN, and he is getting Propofol as well which can also contribute to worsening rhabdomyolysis. I recommend stopping the Propofol and switching the patient to Versed. Continue IV fluid hydration, however I am changing the fluids to only one fluid containing bicarbonate since there is diffuse cerebral edema and rate of the fluid will be decreased. 2. Rhabdomyolysis - The patient was on the ground for an unknown period of time. CPK is slowly resolving. I would avoid aggressive IV fluid hydration because of cerebral edema, however his urine is being alkalinized with bicarbonate containing fluid. 3. Metabolic acidosis - The patient had severe acidosis on arrival. He got IV bicarbonate containing fluid. Acidosis has resolved now. I will continue the bicarbonate and the fluid for urinary alkalinization for rhabdomyolysis. 4. Ischemic brain injury - The patient has pinpoint pupils. He is not responding. He has cerebral edema. Decrease the IV fluids. Use Lasix p.r.n. Sedation with Versed as needed. The rest of the management as per Pulmonary Critical Care Team. 5. Vent dependent respiratory failure it is secondary to ischemic brain injury and the patient is unable to protect the airway. 6. Status post cardiac arrest - The patient is currently hypertensive because of cerebral edema. If blood pressures remain elevated he can be started on Nicardipine IV infusion. 7. Elevated liver enzymes it is secondary to cardiac arrest and ischemic liver injury. Liver function is expected to improve if blood pressure stays stable. Thank you for involving me in the care of this patient. I shall be happy to follow the patient along with you tomorrow morning.
[2020-09-25] MEDS: levETIRAcetam INJection 1,000 MG in D5W 100 ML IV SCH ×2 (11:22→21:52)
[2020-09-25] MEDS ORDERED: PATIROMER SORBITEX CALCIUM 8.4 GM POWDER PACKET (VELTASSA) PO ONE (13:00)
--- NOTE | 2020-09-25 13:01 | ECGEPIP ---
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
--- NOTE | 2020-09-25 15:25 | EEG ---
ELECTROENCEPHALOGRAM DATE: 09/23/2020 DIAGNOSIS: Seizure, altered mental status EEG# [id number] REFERRING PHYSICIAN: Dr. Dash HISTORY: The patient is a 40-year-old man with a history of alcoholism, seizures, who was found down by friends, apneic, pulseless, and CPR was performed. The patient was found to have elevated ammonia, acute kidney injury, hyperkalemia, metabolic acidosis. He is currently on Keppra, propofol, lorazepam, Protonix, etc. TECHNICAL DESCRIPTION: This digital electroencephalogram (EEG) was recorded by 21 scalp, ear and two electrocardiogram (EKG) electrodes and was reviewed in bipolar and referential montages following a reformatting in 10-20 international electrode placement system. INTERPRETATION: Patient is unconscious, intubated, on sedation. This EEG was done in mostly asleep state. Background rhythm consisted of 10-20 low voltage background activity consisting of 6-7 Hz theta activity asymmetric bilaterally. Several episodes of right frontal central and temporal theta and delta slowing were noted with rare intermixed sharp waves. No clear sleep stages were identifiable. Hyperventilation could not be performed. Photic stimulation remained unremarkable. EKG revealed sinus tachycardia with heart rate 102 beats per minute. No relevant clinical activity was noted. CONCLUSION: This EEG in a mechanically ventilated patient is abnormal due to the presence of right frontal central and temporal intermittent slowing with rare epileptiform discharges consistent with focal cortical structural or functional abnormality with epileptic potential. In addition, mild generalized slowing is consistent with mild nonspecific diffuse cerebral dysfunction suggesting an encephalopathy due to multiple potential causes including alcoholism, toxic, medication related, or multifocal structural brain abnormalities. Clinical correlation is recommended.
--- NOTE | 2020-09-25 15:45 | CCN ---
CRITICAL CARE NOTE DATE: 09/24/2020 START TIME: 0850 STOP TIME: 938 I again attended Robinson Bhatti here in the intensive care unit. Patient has been examined and chart reviewed. I spoke at length with the nurse at the bedside. Maximum temperature overnight 100.5, blood pressure 150s to as high as 180 systolic most recently, heart rate generally in the 90s to the low 100s with a sinus mechanism. He does over-breathe the ventilator. Intake and output midnight to midnight 7993 mL in with 6575 mL out. He has had less in the way of diarrhea the last 24 hours. Most recent laboratory shows a sodium 136, potassium 4.2, chloride 106, CO2 of 23, BUN 19, creatinine up slightly to 2.08, glucose 143. AST 1887, ALT 551, essentially unchanged from yesterday, only slightly. Alkaline phosphatase 113. CK up from yesterday, now today at 123,070. Most recent blood gas: A PRVC rate of 15, tidal volume 430, PEEP of 5, FiO2 of 21%. He has a pH 7.404, pCO2 of 33.3, and a paO2 of 83.2, saturation 97%. Chest x-ray showed endotracheal tube in good position. No new findings. Less of an infiltrate today. Most recent culture results show a Gram stain from yesterday of the sputum with many white blood cells, many gram-positive cocci in pairs, chains, and clusters, and moderate gram-negative coccobacillus. Final culture pending. Blood cultures negative today. Respiratory panel for viruses on admission remains negative. On exam, he remains essentially unresponsive, even to noxious stimuli. Propofol has been weaned off. He remains on Dilantin and Keppra. Dilantin level 9.9. Keppra level pending. Pupils remain pinpoint. Membranes are moist. Trachea is in the midline. Chest is clear to both auscultation and percussion. No significant focal adventitious breath sounds identified. Cardiac exam: Mildly tachycardic but regular. Peripheral pulses palpable. No edema. Abdomen soft with active bowel sounds. No convincing organomegaly or masses. Extremities show no obvious cyanosis or clubbing. Neurologically, he remains essentially unresponsive. Electroencephalogram (EEG) was done yesterday, but I have no report available to me yet. Echocardiogram also done, but, again, I have no official report on that, but at least, to my eye at the time it was being performed, it appeared that he had a good left ventricular function and low central venous pressures, suggesting intravascular depletion. Most pressing problem requiring my presence at the bedside: 1. Respiratory failure requiring mechanical ventilatory support, status post cardiac arrest. 2. Seizures. 3. History of alcohol use. 4. Acute kidney injury. 5. Rhabdomyolysis. 6. Aspiration pneumonia. 7. Abnormal liver function studies. 8. Decreased mental status/coma At this point, we will discontinue his propofol and use as-needed Versed. I will repeat a CT scan of his head today. Neurology was consulted on Saturday but at that point wished him to be off propofol before they examined him. I await their interpretation of the EEG. Given his elevation in his creatinine, despite his increased urinary output, I have asked nephrology to become involved in his care and had a conversation with Dr. Dee this morning in that regard. For now we will continue the bicarbonate in view of his elevated CPK He is having increased blood pressures today. We will add hydralazine unless other recommendations are made by nephrology. We will begin enteral feeds,and make changes in that as necessary. He remains on ulcer and deep venous thrombosis (DVT) prophylaxis. There are still many questions regarding what led to his presentation. We have no contact numbers for any friends or family. The only number placed in the chart is incomplete, and we are trying to have patient and family services (PFS) track that down. At this point, he remains critically ill, and his prognosis is guarded at best, especially in view of his overall mental status. We will continue the Keppra and Dilantin, as I still wonder if this was not status epilepticus. The level of unresponsiveness, however, in his neurologic exam to me is very concerning. He is not at the point where we can do any ventilator weaning at this point. We will proceed as outlined above. I left the bedside at 0949 hours. Forty-nine minutes of critical care time delivered at the bedside, not including procedures. JOURDAN
--- NOTE | 2020-09-25 16:32 | IPN ---
NEPHROLOGY PROGRESS NOTE DATE: 09/25/2020 SUBJECTIVE: The patient was seen and examined at the bedside this morning in the Intensive Care Unit. He remains intubated on the ventilator on a Versed drip. Has been having persistent tremor-like or continuous muscle spasm of the thighs and abdomen. Rectal tube is in place but nursing staff reports that his liquid stool output has decreased. He continues to be intermittently hyperthermic, requiring the cooling blanket. The Critical Care Team has been unable to get in touch with his next of kin. His CT yesterday had showed diffuse brain edema. REVIEW OF SYSTEMS: The patient's review of systems was unable to be obtained secondary to clinical condition. PHYSICAL EXAMINATION: VITAL SIGNS: Temperature 99.2, pulse 124, respiratory rate 23, blood pressure 133/92, saturating 99% on 50% FiO2. INTAKE AND OUTPUT: Intake yesterday was 5 liters. Urine output was 3.5 liters. Stool output was 200 mL. Weight in the bed scale today is not recorded. GENERAL APPEARANCE: The patient is seen intubated and sedated. He has endotracheal tube and orogastric tube. HEENT: Pupils are pinpoint. NECK: Supple. HEART: Significantly tachycardia, S1, S2, I am unable to appreciate if there is a murmur. There is absolutely no leg edema nor dependent edema. LUNGS: Symmetric air entry bilaterally. FiO2 is 50%. No crackles. ABDOMEN: Soft and there is a rectal tube with liquid stool. GENITOURINARY: Indwelling Mueller catheter. MUSCULOSKELETAL: Peripheral pulses palpable. There is no clubbing or cyanosis. LABORATORY STUDIES: Sodium 134, potassium 5.5, bicarbonate 30, BUN 25, creatinine 2.3, phosphorous 6.1, creatine kinase 71,000. Hemoglobin 15.5. IMAGING: CT head yesterday showed diffuse brain edema, more so on the right than on the left. There is mass effect and attenuation on the right lateral ventricle. There is no significant midline shift. There is loss of rubio white differentiation. Chest x-ray today reviewed and shows bilateral perihilar opacity, no effusion. INPATIENT MEDICATIONS: The patient is getting half normal saline with 75 mEq of sodium bicarbonate at 100 mL an hour. Hydralazine 10 mg IV q. 8 hourly was started by Critical Care for systolic greater than 130. He is on Metoprolol 25 mg p.o. twice daily which was also started by Critical Care. He was given Veltassa 8.4 grams p.o. times one. PROBLEMS: 1. Acute non oliguric renal failure in the setting of acute rhabdomyolysis and status post cardiac arrest with subsequent diffuse cerebral edema/anoxic encephalopathy. We are avoiding aggressive IV fluid hydration because of cerebral edema. His creatine kinase level is slowly decreasing. Peak was 124,000, now down to 71,000. He continues on bicarbonate containing fluids (isotonic) for urinary alkalinization. Although from a kidney point of view, he would benefit with more aggressive IV fluids, however we are holding off because of his concomitant cerebral issues. 2. Hyperkalemia it is due to rhabdomyolysis and acute kidney injury. Also he is receiving Jevity tube feeds. I am going to switch to Nepro which has lower potassium content. He is also written for a dose of Veltassa and we will continue the bicarbonate containing fluids. 3. Hypotension the patient's blood pressure was mostly in the 130's systolic, however this afternoon around 1:00 p.m., his blood pressure is down to systolic 80's and 90's, most likely because of the two doses of IV Hydralazine that he received along with Metoprolol. I am concerned because his acute kidney injury can worsen with borderline hypotension and it will also affect the renal perfusion and will prolong his risk of worsening renal failure with the rhabdomyolysis. I am going to change the holding parameters for the Hydralazine, and I will also decrease the dose of the Hydralazine. 4. Anoxic encephalopathy - yesterday CT head noted. He is on judicious IV fluids, all considering given his rhabdomyolysis and acute kidney injury. Remainder management is as per Critical Care and Neurology. 5. Status post high anion gap metabolic acidosis the patient's bicarbonate level has significantly improved and now up to 30. We will get a repeat BMP this evening and will adjust his fluids as needed.
[2020-09-25] MEDS: MIDAZOLAM HCL 100 MG in D5W 80 ML IV SCH (17:12)
[2020-09-25] MEDS ORDERED: hydrALAZINE 20MG/ML 1ML VIAL (J0360 PER 20MG) IV SCH (18:00)
[2020-09-25] MEDS ORDERED: PHENYLEPHRINE HCL INJ 50 MG in D5W 495 ML IV STA (18:56)
[2020-09-25] MEDS ORDERED: NS 500 ML IV ONE (19:00)
[2020-09-25] MEDS ORDERED: PHENYLEPHRINE HCL INJ 50 MG in D5W 495 ML IV SCH (19:15)
[2020-09-25 19:17] LABS: CALCIUM LEVEL 6.7 MG/DL (8.5-10.1); CREATININE FOR GFR 2.8 MG/DL (0.70-1.30); GLOMERULAR FILTRATION RATE 26.6 (>60)
[2020-09-25 19:18] LABS: POTASSIUM SERUM 4.1 MEQ/L (3.5-5.1)
[2020-09-26] VITALS (44 sets, daily range): BP systolic 94–141; BP diastolic 52–91
[2020-09-26] MEDS: IPRATROPIUM 0.5MG/ALBUTEROL 2.5MG INH SOL UD 3ML (DUONEB) NEB SCH ×7 (00:12→23:30)
[2020-09-26] MEDS: PHENYTOIN 100 MG/2 ML VIAL (J1165) IV SCH ×3 (02:05→18:14)
[2020-09-26 05:35] LABS: BASO % 0.2 % (0.0-1.0); EOS % 0.1 % (0.0-3.0); HEMATOCRIT 35.8 % (42.0-52.0); LYMPH # 0.4 10^3/uL (1.5-5.0); LYMPH % 3.8 % (24.0-44.0); MEAN CORPUSCULAR HEMOGLOBIN 32.8 pg (27.0-33.0); MEAN CORPUSCULAR HGB CONC 33.2 g/dl (32.0-36.5); MEAN CORPUSCULAR VOLUME 98.6 fl (80.0-96.0); MONO # 0.7 10^3/uL (0.0-0.8); MONO % 6.1 % (0.0-5.0); NEUTROPHILS # 10.4 10^3/uL (1.5-8.5); NEUTROPHILS % 89.4 % (36.0-66.0); PLATELET COUNT, AUTOMATED 117 10^3/uL (150-450); RED BLOOD COUNT 3.63 10^6/uL (4.30-6.10); WHITE BLOOD COUNT 11.6 10^3/uL (4.0-10.0)
[2020-09-26 05:43] LABS: HEMOGLOBIN 11.9 g/dl (13.5-17.5)
[2020-09-26] MEDS: HEPARIN SOD (PORCINE) 5000UNITS/ML 1ML VIAL/SYRINGE SQ SCH ×3 (06:00→21:05)
[2020-09-26 06:05] LABS: ABG BASE EXCESS -0.1 (-2.0-2.0); ABG O2 SATURATION 93.4 % (95.0-99.0); ABG PARTIAL PRESSURE CO2 42.4 mmHg (35.0-45.0); ABG STANDARD HCO3 24.3 MEQ/L (22.0-26.0); ABG TOTAL CO2 26.3 MEQ/L (22.0-29.0); ABG pH (ARTERIAL) 7.388 UNITS (7.350-7.450)
[2020-09-26 06:42] LABS: ALBUMIN 2.4 GM/DL (3.2-5.2); BILIRUBIN,TOTAL 0.8 MG/DL (0.2-1.0); CALCIUM LEVEL 7.1 MG/DL (8.5-10.1); CREATININE FOR GFR 2.99 MG/DL (0.70-1.30); GLOMERULAR FILTRATION RATE 24.6 (>60); PHOSPHORUS LEVEL 4.8 MG/DL (2.5-4.9); POTASSIUM SERUM 4.9 MEQ/L (3.5-5.1); TOTAL PROTEIN 4.9 GM/DL (6.4-8.2)
[2020-09-26] MEDS: SODIUM BICARBONATE 75 MEQ in NS 0.45% 1,000 ML IV SCH ×2 (07:06→16:05)
--- NOTE | 2020-09-26 07:49 | REP ---
INDICATION: Resp Failure COMPARISON: 09/25/2020 TECHNIQUE: Portable AP view of the chest FINDINGS: Examination is limited by technique and artifact. Endotracheal tube is less than 1 cm from the inessa and requires repositioning. The mediastinum and cardiac silhouette are stable and within normal limits for portable technique. The lung robles demonstrate scattered left-sided airspace disease. Right hemithorax is well aerated and relatively clear. No effusion. No pneumothorax. IMPRESSION: 1. Endotracheal tube approaches the inessa and requires repositioning. 2. Moderate scattered left-sided airspace disease. <Electronically signed by Roger Weber > 09/26/20 0751
--- NOTE | 2020-09-26 09:54 | CCN ---
CRITICAL CARE NOTE DATE: 09/26/2020 START TIME: 0820 hours STOP TIME: 0900 hours I again attended Robinson Purcell here in the intensive care unit. The patient has been examined and the chart reviewed. I have spoken at length with the nurse at the bedside. We have been unable to contact any family. According to his roommate, he has "limited family" but has not had contact with anybody in years that he is aware of. All of the contact numbers for his medical supervisor either had us leave messages or went to [employer] and we have had no contact back from them. Maximum temperature (T-max) overnight 98.6 degrees, blood pressure 98-109. He was briefly on epinephrine yesterday. Heart rate generally remains about 90-100 with a sinus mechanism. He does not overbreathe the ventilator this morning. Intake and output midnight to midnight: 4918 mL in with 1385 mL out. The most recent laboratories show a white blood cell count of 11.6, hemoglobin 11.9, platelet count of 117,000, 89% segmented neutrophils, no bands. Sodium 136, potassium of 4.9, chloride 99, CO2 27, BUN 41, creatinine 2.99, glucose of 111. AST/ALT both improved to 558 and 362. CK down to 46,181, albumin 2.4. Arterial blood gas done on PRVC rate of 20, tidal volume of 430, PEEP of 4, FiO2 of 21% has a pH of 7.388, pCO2 of 42.4, and pO2 of 71. No new culture results. Sputum from 09/23/2020 did have gram-positive cocci in pairs, chains, and clusters with some gram-negative Coccobacillus and WBCs. He remains on Levaquin. Chest x-ray done this morning shows his orogastric (OG) tube to have been removed. He does have some mild gastric distention. Endotracheal tube in good position. No obvious infiltrates. On exam, he is unresponsive even to noxious stimuli. He does not overbreathe the ventilator. He has negative corneals, pupils are dilated and unreactive. No ocular movement with movement of his head. He has no cough or gag. Membranes is moist, trachea is in the midline. Chest shows diminished but symmetric expansion, no focal wheeze, rhonchus, crackles, or rubs. Cardiac exam is regular. Peripheral pulses palpable, no obvious edema. Abdomen is soft, there are active although diminished bowel sounds, minimally distended. Extremities without cyanosis or clubbing. Neurologically he is essentially unresponsive. The most pressing problems requiring my presence at the bedside: 1. Respiratory failure secondary to cardiac arrest. 2. Seizures. 3. History of alcohol withdrawal. 4. Suspected aspiration. 5. Acute kidney injury. 6. Rhabdomyolysis. 7. Profound anoxic encephalopathy. At this point, in view of his CT findings and his clinical exam he has progressed to what appears to be brain . We will stop all his sedatives. His preliminary exam is certainly consistent with that. He has not formally been seen by neurology as yet and I have spoken with Dr. Waldron this morning who has agreed to evaluate him in that regard. We still have been unable to contact any family. We will continue in that regard, however. For now, we will continue his antimicrobials. He is on ulcer and deep venous thrombosis (DVT) prophylaxis. We will re-insert either a nasogastric (NG) or orogastric (OG) tube due to his gastric distention. In view of his exam, after he has been seen by neurology it appears most appropriate to proceed with formal brain evaluation and that will be done under protocol and formal guidelines. Pending that we will proceed as outlined above. His prognosis is grim. I left the bedside at 0900 hours. 40 minutes of critical care time delivered at the bedside not including procedures.
[2020-09-26] MEDS: CHLORHEXIDINE GLUCONATE 0.12 % 15ML UDC (PERIDEX ORAL RINSE) MT SCH ×2 (11:46→21:05)
[2020-09-26] MEDS: levETIRAcetam INJection 1,000 MG in D5W 100 ML IV SCH ×2 (11:46→21:05)
[2020-09-26] MEDS: PANTOPRAZOLE 40MG VIAL (C9113 PER 1) IV SCH (11:46)
[2020-09-26] MEDS: LevoFLOXacin IV 500 MG in IV 1 EA IV SCH (11:47)
--- NOTE | 2020-09-26 12:09 | ECHO ---
DATE OF PROCEDURE: 09/23/2020 Age: 40 Gender: Male Height: 75 inches Weight: 73.2 kg REFERRING PHYSICIAN: Bhavesh Dash M.D. INDICATION: Cardiac arrest, abnormal troponin. MEASUREMENTS: 2D Measurements: Aortic root 3.9 cm Left atrium 2.4 cm Left ventricle diastole 4.8 cm Intraventricular septum 1.11 cm Posterior wall 1.13 cm Inferior vena cava 2.4 cm with marked reduction of respiratory variation suggestive of elevated CVP. Doppler Measurements: No aortic stenosis No aortic regurgitation Aortic valve velocity 112 cm/s No mitral regurgitation No mitral stenosis Mitral E velocity 83.1 cm/s Mitral A velocity 45.8 cm/s Mitral deceleration time 114 msec Mild tricuspid regurgitation Estimated right ventricular systolic pressure at least 50 mmHg Estimated right atrial pressure 20 mmHg No pulmonic regurgitation MITRAL ANNULAR TISSUE DOPPLER E prime septal 6.9 cm/s, E prime lateral 10.1 cm/s DESCRIPTION: Rhythm was sinus rhythm and sinus tachycardia. This was a moderately technically difficult echocardiogram with the patient supine and on a ventilator. CONCLUSIONS: 1. Normal left ventricle internal dimensions and regional wall motion. Normal LV systolic function. LVEF 55% to 70% by visual assessment. Normal LV diastolic function. 2. Normal right ventricle size and systolic function. Suggestive of at least moderate elevation of estimated right ventricle systolic pressure (at least 50 mmHg). 3. Elevated central venous pressure and inferior vena cava plethora. CVP estimated to be at least 20 mmHg. 4. Moderately technically difficult echocardiogram. 5. Very small pericardial effusion. No diastolic chamber collapse. 6. Otherwise normal appearing echocardiogram findings. [facility]
[2020-09-27] VITALS (19 sets, daily range): BP systolic 72–100; BP diastolic 45–65; O2SAT 97
[2020-09-27] MEDS: PHENYTOIN 100 MG/2 ML VIAL (J1165) IV SCH ×2 (00:16→07:51)
[2020-09-27] MEDS ORDERED: PHENYLEPHRINE HCL INJ 50 MG in D5W 495 ML IV SCH (01:15)
[2020-09-27] MEDS: SODIUM BICARBONATE 75 MEQ in NS 0.45% 1,000 ML IV SCH (02:02)
[2020-09-27] MEDS: IPRATROPIUM 0.5MG/ALBUTEROL 2.5MG INH SOL UD 3ML (DUONEB) NEB SCH ×2 (04:00→07:44)
[2020-09-27 06:00] LABS: ABG HCO3 30.5 MEQ/L (22.0-26.0); ABG O2 SATURATION 96.2 % (95.0-99.0); ABG PARTIAL PRESSURE CO2 43.8 mmHg (35.0-45.0); ABG PARTIAL PRESSURE O2 80.1 mmHg (75.0-100.0); ABG STANDARD HCO3 29.9 MEQ/L (22.0-26.0); ABG TOTAL CO2 31.9 MEQ/L (22.0-29.0); ABG pH (ARTERIAL) 7.461 UNITS (7.350-7.450)
[2020-09-27 06:14] LABS: HEMATOCRIT 35.6 % (42.0-52.0); MEAN CORPUSCULAR HEMOGLOBIN 33.5 pg (27.0-33.0); MEAN CORPUSCULAR HGB CONC 33.7 g/dl (32.0-36.5); MEAN CORPUSCULAR VOLUME 99.4 fl (80.0-96.0); PLATELET COUNT, AUTOMATED 123 10^3/uL (150-450); RED BLOOD COUNT 3.58 10^6/uL (4.30-6.10); WHITE BLOOD COUNT 14.7 10^3/uL (4.0-10.0)
[2020-09-27] MEDS: HEPARIN SOD (PORCINE) 5000UNITS/ML 1ML VIAL/SYRINGE SQ SCH (06:28)
[2020-09-27 06:57] LABS: BASOPHILS 1 % (0-1); EOSINOPHILS 8 % (0-3); LYMPHOCYTES 4 % (16-44); METAMYELOCYTES 1 % (0-0); MONOCYTES 2 % (0-5); NEUTROPHILS 73 % (28-66); PLATELET ESTIMATE NORMAL (NORMAL)
[2020-09-27 07:05] LABS: BILIRUBIN,TOTAL 0.4 MG/DL (0.2-1.0); CALCIUM LEVEL 7.7 MG/DL (8.5-10.1); CREATININE FOR GFR 4.19 MG/DL (0.70-1.30); GLOMERULAR FILTRATION RATE 16.7 (>60); PHOSPHORUS LEVEL 2.8 MG/DL (2.5-4.9); POTASSIUM SERUM 4.1 MEQ/L (3.5-5.1); TOTAL PROTEIN 5.3 GM/DL (6.4-8.2)
--- NOTE | 2020-09-27 07:36 | REP ---
INDICATION: Resp Failure COMPARISON: 09/26/2020 TECHNIQUE: Portable AP view of the chest FINDINGS: Endotracheal tube approximately 7 mm from the inessa. The mediastinum and cardiac silhouette are stable and within normal limits for portable technique. The lung robles demonstrate improved aeration with decreased opacities suggested. No effusion. No pneumothorax. Skeletal structures stable. IMPRESSION: Improved aeration suggested. No new areas of consolidation. <Electronically signed by Roger Weber > 09/27/20 0799
[2020-09-27] MEDS: CHLORHEXIDINE GLUCONATE 0.12 % 15ML UDC (PERIDEX ORAL RINSE) MT SCH (07:51)
[2020-09-27] MEDS: PANTOPRAZOLE 40MG VIAL (C9113 PER 1) IV SCH (07:51)
[2020-09-27] MEDS ORDERED: NS 1,000 ML IV SCH (08:00)
[2020-09-27 09:03] LABS: ABG HCO3 30.6 MEQ/L (22.0-26.0); ABG PARTIAL PRESSURE CO2 44.3 mmHg (35.0-45.0); ABG PARTIAL PRESSURE O2 133.8 mmHg (75.0-100.0); ABG STANDARD HCO3 29.9 MEQ/L (22.0-26.0); ABG TOTAL CO2 31.9 MEQ/L (22.0-29.0); ABG pH (ARTERIAL) 7.457 UNITS (7.350-7.450)
[2020-09-27 09:06] LABS: ABG BASE EXCESS 3.4 (-2.0-2.0); ABG HCO3 31.9 MEQ/L (22.0-26.0); ABG O2 SATURATION 99.8 % (95.0-99.0); ABG PARTIAL PRESSURE O2 241.8 mmHg (75.0-100.0); ABG STANDARD HCO3 27.6 MEQ/L (22.0-26.0); ABG TOTAL CO2 33.9 MEQ/L (22.0-29.0); ABG pH (ARTERIAL) 7.293 UNITS (7.350-7.450)
[2020-09-27 09:11] LABS: ABG PARTIAL PRESSURE CO2 67.3 mmHg (35.0-45.0)
--- NOTE | 2020-09-27 09:31 | CR ---
CONSULTATION DATE: 09/26/2020 REASON FOR CONSULTATION: Hypoxic ischemic encephalopathy and coma. HISTORY OF PRESENT ILLNESS: Robinson Bhatti is a 40-year-old man who has a history of seizures, alcohol and substance abuse, who was found down by his roommate. The roommate had left and came back and found him unresponsive. EMS was called and he was found to be apneic and pulseless. CPR was performed and he had return of spontaneous circulation with sinus tachycardia. He was intubated in the emergency department. He had seizure-like activity. The patient had metabolic acidosis with pH of 6.9 upon arrival. The patient remained unresponsive. He had pinpoint pupils at the time of his admission. The patient was on mechanical ventilator and sedation. He continues to remain on mechanical ventilation, but his sedation was stopped. The patient does not respond to painful, verbal, or physical stimuli. He was found to have acute renal failure with lactic acid 14.6, CK 12,400. ALT and AST were 591 and 1743 respectively. Creatinine was elevated 2.99. The patient does not have any family member available. PAST MEDICAL HISTORY: Alcohol abuse and seizures, but nothing else is known. PAST SURGICAL HISTORY: Unable to obtain. REVIEW OF SYSTEMS: Could not be obtained. SOCIAL HISTORY: The patient has a history of alcohol abuse and his urine toxicology screen was positive for benzodiazepines and marijuana. FAMILY HISTORY: Unknown. ALLERGIES: CEFTRIAXONE, HALDOL, LORAZEPAM. PHYSICAL EXAMINATION: GENERAL APPEARANCE: The patient is on mechanical ventilator without sedation. He does not respond to verbal, painful, or physical stimuli. VITAL SIGNS: Respiratory rate 14, blood pressure 115/64. T-max in the last 24-48 hours was 102 degrees Fahrenheit. HEENT: His pupils are 8 mm bilaterally and nonreactive to light. He has no light or corneal reflex. He has no gag reflex. He does not respond to verbal, painful, and physical stimuli. HEART: Regular rate and rhythm. LUNGS: Clear to auscultation. ABDOMEN: Soft. No pedal edema. MUSCULOSKELETAL: No abnormalities were apparent. No signs of meningeal irritation. EXTREMITIES: Do not move to painful stimuli. Deep tendon reflexes are absent throughout. Plantars are moot. Cerebellar and gait testing could not be performed. DIAGNOSTIC STUDIES: CT scan of the head was initially unremarkable. Second CT scan of the head showed widespread cerebellar edema with likely multiple subacute infarcts, worse on the right side with bilateral basal ganglia hypodensities. Hemoglobin decreased from 15.4 to 11.9 and platelets have dropped from 317,000 to 117,000. WBCs decreased from 15.4 to 11.6. EEG showed diffuse slowing and right frontal, central, and temporal slowing with sharp waves. ASSESSMENT: 1. Severe hypoxic ischemic encephalopathy. 2. Patient's physical examination meets criteria for brain . CT scan of the head showed diffuse cerebral edema and hypoxic ischemic encephalopathy and related infarcts bilaterally, worse on the right side. 3. History of seizures and alcoholism. PLAN: 1. It is my reasonable clinical judgment that the patient's prognosis is poor/guarded. He meets criteria for brain . 2. Continue supportive care for now and decision to withdraw care will be made tomorrow in the daytime. 3. Continue Keppra and Dilantin for now until withdrawal of care is decided. His overall prognosis is poor/guarded.
--- NOTE | 2020-09-27 09:48 | CCN ---
CRITICAL CARE NOTE DATE: 09/27/2020 START TIME: 829 STOP TIME: 919 SUBJECTIVE: I again attended Robinson Bhatti here in the intensive care unit. The patient has been examined and chart is reviewed. He was seen by neurology yesterday and after their exam confirms clinical diagnosis of brain . OBJECTIVE: Confirmatory exam done this morning by myself independently. The patient is completely unresponsive to painful stimuli. No cough, no gag, and no corneals. Apnea test was performed under protocol. PCO2 claire from baseline of 44 to 67.3 in an apnea period of 10 minutes. Therefore, the patient was pronounced at 0920 hours. Despite exhaustive attempts, no family was able to be reached. Please refer to the discharge summary. I left the bedside at 0920 hours. CRITICAL CARE TIME: 50 minutes delivered at the bedside not including procedures.
[2020-09-27 10:08] LABS: ABG HCO3 32.7 MEQ/L (22.0-26.0); ABG O2 SATURATION 99.4 % (95.0-99.0); ABG PARTIAL PRESSURE O2 213.8 mmHg (75.0-100.0); ABG STANDARD HCO3 26.3 MEQ/L (22.0-26.0); ABG TOTAL CO2 35.4 MEQ/L (22.0-29.0)
[2020-09-27 10:11] LABS: ABG pH (ARTERIAL) 7.193 UNITS (7.350-7.450)
--- NOTE | 2020-09-27 10:14 | DSES ---
DISCHARGE/EXPIRATION SUMMARY DATE OF ADMISSION: 09/22/2020 DATE OF DISCHARGE: 09/27/2020 PRINCIPAL DIAGNOSIS: Cardiac arrest. SECONDARY DIAGNOSES: 1. Respiratory failure secondary to the above. 2. Profound anoxic encephalopathy. 3. Previous history of alcohol use. 4. Seizures. 5. Acute kidney injury. 6. Hyperkalemia. 7. Aspiration pneumonitis. HISTORY: Mr. Bhatti is a 40-year-old gentleman who presented on the to the hospital being found down at home by a roommate for an unknown period of time. He was able to have return of circulation after CPR and epinephrine. ADMISSION PHYSICAL EXAMINATION: Vital signs: Exam at the time of admission showed a heart rate of 115, blood pressure 119. He did have some respiratory effort at that point. HEENT: Pupils were pinpoint with a dysconjugate gaze. He really had no cough or gag at that point but did over breathe the ventilator. Chest: Clear to auscultation and percussion. Cardiac: Distant but regular. Abdomen: Soft. Extremities: Without cyanosis or clubbing. Neurologically: He was essentially unresponsive. HOSPITAL COURSE: He was admitted to the Intensive Care Unit and aggressively volume resuscitated. He was found to have worsening renal function. He initially had a very high ammonia that responded to therapy. There was some question of aspiration, and antimicrobials were added. Due to the question of seizures, he was initially treated with dilantin and Keppra. He was on propofol as well. Versed p.r.n. was used. He briefly had some hypotensive issues that responded to very low dose phenylephrine. Repeat CT scan showed a drastic change with now profound diffuse edema consistent with his suspected anoxic injury. He was seen by both Neurology as well as Nephrology. On the 26 of September, he had progressive decline in his exam now with dilated, nonresponsive pupils. Exam independently was performed by both Neurology and myself confirming brain . All of the required testing was performed. Apnea test was performed as the final test, and patient met criteria for brain at 0920 hours on 09/27/2020. Despite multiple efforts, no family members or someone legally responsible for his care was ever able to be found. For pertinent laboratories, please refer to the hospital record.
--- NOTE | 2020-09-27 20:18 | IPN ---
PROGRESS NOTE DATE: 09/26/2020 SUBJECTIVE: Patient seen and examined this morning at the bedside in the Intensive Care Unit. His blood pressures were considerably hypotensive yesterday after he received both I.V. Hydralazine and Metoprolol, and he was subsequently started on a Phenylephrine infusion to target a MAP of 65. Along with the considerable prolonged hypotension, he had decreased urine output and labs show worsening renal function. He is not breathing above the ventilator today. His sedation has been discontinued, but his neurological exam is grim. PHYSICAL EXAMINATION: VITAL SIGNS: Temperature 98.6, pulse 120, respiratory rate 20, blood pressure 94/52, saturating 95% on 30% FiO2 on the ventilator. INTAKE AND OUTPUT: Intake yesterday was 4.9 liters. Urine output yesterday was 1.3 liters. Weight in the bed scale today is not recorded. GENERAL: Patient is seen in the ICU intubated, but not sedated. He is not breathing above the ventilator. He does not respond to noxious stimuli. HEENT: Pupils are nonreactive to light. HEART: Heart sounds are tachycardic. No appreciate murmur. LUNGS: Show symmetric air entry. No crackle or rale. ABDOMEN: Quite distended. Nursing staff was unable to place orogastric tube. MUSCULOSKELETAL: No spontaneous movements. No clubbing or cyanosis. No edema. GENITOURINARY: Indwelling Mueller catheter is present. EXTREMITIES: Show decreased peripheral pulses. LABORATORY DATA: White count 11.6, hemoglobin 11.9, platelets 117,000. Sodium 136, potassium 4.9, bicarbonate 27, BUN 41, creatinine 2.9. Phosphorus 4.8. CK level is down to 46,000 from 71,000 yesterday. IMAGING STUDIES: Chest x-ray today shows moderate scattered left side airspace disease. INPATIENT MEDICATIONS: He continues on half normal saline with sodium bicarbonate 75 mEq at 100 cc an hour. He is on a Phenylephrine infusion now. He received Hydralazine and Metoprolol yesterday, but these have both been discontinued. The remainder of his medications are unchanged from prior. PROBLEMS: 1. Nonoliguric acute renal failure: Renal function is worsening. It is secondary to prolonged hypotension after he received a dose of Hydralazine and Metoprolol yesterday. He is now on a Phenylephrine infusion to maintain MAP above 65. With the ongoing hemodynamic instability, he has had decreased urine output and worsening renal function. He continues on isotonic fluids. His creatine kinase level is decreasing, however, his neurologic exam is grim. I am making no changes today from a kidney point of view. 2. Rhabdomyolysis: Creatine kinase level is down trending. He is on half normal saline with 75 mEq of bicarbonate for urinary alkalization. Continue current rate of fluids. 3. Hyperkalemia: It has resolved and no specific intervention is needed at present. 4. Hypotension: Patient has anoxic encephalopathy and blood pressures were trending upwards, however after he received a dose of both I.V. Hydralazine and Metoprolol, he became subsequently hypotensive persistently and is now on a Phenylephrine infusion managed by the critical care team. His low blood pressures are causing worsening kidney injury. 5. Anoxic encephalopathy: His neurologic exam is grim. Neurology evaluation is formally requested and pending.
--- NOTE | 2020-10-03 13:31 | CCN ---
CRITICAL CARE NOTE DATE: 09/25/2020 START TIME: 0850 STOP TIME: 922 SUBJECTIVE: I again attended Robinson Bhatti here in the intensive care unit. The patient has been examined, chart reviewed, and I spoke at length with the nurse at the bedside. OBJECTIVE: VITAL SIGNS: T-max overnight 99.7. He remains on a cooling blanket. Blood pressure 120s to 140s improved with an increase in his hydralazine. Heart rate remains 120s to 130s with a sinus mechanism. Respiratory rate 17 to 20 and he does overbreathe the ventilator. INTAKE AND OUTPUT: Midnight-to midnight 5092 mL in with 3950 out. He was seen by nephrology yesterday and adjustments in his fluids have been made. GENERAL APPEARANCE: He remains sedate and essentially unresponsive to noxious stimuli. HEENT: This morning, he has a dilated and nonresponsive right pupil, which is a change from yesterday. Left pupil remains small, although not exactly pinpoint and does not appear to react to light. Membranes are moist. Endotracheal and orogastric tube in good position. CHEST: Clear to both auscultation and percussion and symmetric. CARDIAC: Tachycardic, regular. Peripheral pulses palpable with no edema. ABDOMEN: Soft. There are active bowel sounds. EXTREMITIES: Show no cyanosis or clubbing. NEUROLOGIC: As outlined above. LABORATORY DATA: Most recent laboratories show a white blood cell count of 17.54, hemoglobin 15.5, platelet count 124,000, segs 85%, and no bands. All of the electrolytes are pending this morning. Blood gas done on a PRVC mode rate of 15, tidal volume 420, PEEP of 5, FiO2 of 25% has a pH of 7.285, pCO2 of 56.5, and a pO2 of 80. IMAGING: Chest x-ray shows no acute changes. Endotracheal tube in good position. Borderline vascular congestion versus perihilar infiltrate. CT scan of his head from yesterday shows diffuse edema consistent with a suspected anoxic encephalopathy. No hemorrhage. ASSESSMENT AND PLAN: Most pressing problems requiring my presence at the bedside 1. Anoxic encephalopathy status post cardiac arrest. 2. Respiratory failure secondary to the above. 3. History of ETOH abuse. 4. Acute kidney injury. 5. Rhabdomyolysis. 6. Aspiration pneumonia. 7. Abnormal liver functions secondary to cardiac arrest. At this point, his neurologic status has progressed as unfortunately as expected after his prolonged downtime at home. Nursing staff was able to contact his roommate yesterday. According to the roommate, he has absolutely no family to contact whatsoever. There is a number for possibly a pbx technician that may or may not be his power of deputy attorney general for legal affairs, but it does not appear that he has anyone that can make medical decisions for him. I will have [facility] reattempt that in the morning. His blood gas does show a little bit more of a respiratory acidosis today, and I believe that is because he is not as effectively overbreathing the ventilator as he was yesterday, due to his declining neurologic status. Ventilator manipulations have been made. Repeat blood gases pending. We await his repeat chemistries. I appreciate nephrology's help. He remains on broad-spectrum antimicrobials for his suspected aspiration. He remains on ulcer and deep vein thrombosis (DVT) prophylaxis. I await both his echo report, as well as his EEG; although if he continues to decline neurologically, my suspicion is that we may be pursuing repeat evaluation for brain criteria in the next several days. Neurology had been asked to see him several days ago and wish to follow him from afar, but I will need them to do a bedside evaluation in the next 24-48 hours. At this point, we will proceed as outlined above. Given his very, very poor prognosis regarding his neurologic injury, it may be very appropriate to limit his code status; but I will need confirmatory physicians for that and will be speaking to administration in that regard as well, as they may be able to help. At this point, we will continue as outlined above for this very unfortunate gentleman. His prognosis is grave and it does not appear he will survive this hospitalization. I left the bedside at 0923 hours. CRITICAL CARE TIME: 33 minutes of critical care delivered at bedside not including procedures.
== END 2020-09-27 12:15 | disposition expired | DRG 196 ==
LOC: M ED 18:13 → M ED INP 21:52 → M PCU 09-23 00:07
PROVIDERS: ADMIT Internal Medicine Pulmonary Disease; ATTEND Internal Medicine Pulmonary Disease
PROC: 5A1955Z Respiratory Ventilation, Greater than 96 Consecutive Hours (ICD-10-PCS; principal; 2020-09-22)
DX: I46.9 Cardiac arrest, cause unspecified (principal); I63.9 Cerebral infarction, unspecified; J96.90 Respiratory failure, unspecified, unspecified whether with hypoxia or hypercapnia; G93.6 Cerebral edema; G93.1 Anoxic brain damage, not elsewhere classified; E72.20 Disorder of urea cycle metabolism, unspecified; J69.0 Pneumonitis due to inhalation of food and vomit; K72.01 Acute and subacute hepatic failure with coma; R40.20 Unspecified coma; R56.9 Unspecified convulsions; N17.9 Acute kidney failure, unspecified; E87.4 Mixed disorder of acid-base balance; M62.82 Rhabdomyolysis; E87.5 Hyperkalemia; Z88.8 Allergy status to other drugs, medicaments and biological substances; F10.20 Alcohol dependence, uncomplicated